=== PATIENT | female | born 1955 | race Caucasian/White ===

== ENCOUNTER 2021-12-14 19:00 | Emergency (ER) | payer MEDICARE, OTHER, SELFPAY ==
[2021-12-14 19:08] VITALS: BP 138/69; PULSE 92; RESP 18; TEMP 36.4; O2SAT 94; BMI 47.8
--- NOTE | 2021-12-14 20:11 | CRLHL7_ITS ---
For Patients: As a result of the Century Cures Act, medical imaging exams and procedure reports are released immediately into your electronic medical record. You may view this report before your referring provider. If you have questions, please contact your health care provider. INDICATION: Fall with low back pain TECHNIQUE: Lumbar spine 3 view. COMPARISON: None FINDINGS: Bones: There is also widening of the L3-L4 anterior disc space with a linear lucency through the posterior elements, best seen on image 1 series 3. Joints: Moderate to severe multilevel degenerative disc and facet changes. Soft tissues: Aortic wall calcifications. Surgical clips in the right abdomen. IMPRESSION: Findings concerning for acute L3-L4 chance fracture. Recommend CT of the lumbar spine for further evaluation. Dictated by Sonal Lieberman MD @ 12/14/2021 8:37:29 PM (Electronically Signed)
[2021-12-14] MEDS: CYCLOBENZAPRINE HCL 10 MG TABLET PO (20:30)
[2021-12-14] MEDS: KETOROLAC 30 MG/ML inj IM (20:30)
--- NOTE | 2021-12-14 20:44 | CRLHL7_ITS ---
For Patients: As a result of the Century Cures Act, medical imaging exams and procedure reports are released immediately into your electronic medical record. You may view this report before your referring provider. If you have questions, please contact your health care provider. INDICATION: Falls from golf cart. Back pain. TECHNIQUE: Noncontrast CT lumbar spine. FINDINGS: No acute lumbar spine fracture. No dislocation. Fairly advanced spondylosis at all lumbar levels including disc space narrowing and endplate hypertrophy. Multilevel vacuum disc phenomenon. Advanced facet arthrosis with marked facet hypertrophy in the mid and lower lumbar spine. Grade 1 retrolisthesis at L1-2 and L2-3. Grade 1 anterolisthesis L4-5. Multilevel canal and foraminal narrowing. Partially visualized soft tissue mass in the right anterior pelvis seen on the last images of the axial series. This contains calcification. It appears separate from bowel. Probably either the uterine fundus or an ovarian mass. IMPRESSION: 1. No acute lumbar spine findings. 2. Advanced lumbar degenerative changes. 3. Possible right pelvic mass. Consider nonemergent pelvic ultrasound for further characterization. Please note that all CT scans at this facility use dose modulation, iterative reconstruction, and/or weight-based dosing when appropriate to reduce radiation dose to as low as reasonably achievable. Dictated by Miguel Hi MD @ 12/14/2021 9:51:31 PM (Electronically Signed)
[2021-12-14] MEDS: LORazepam 2 MG/ML inj IVP (20:54)
--- NOTE | 2021-12-14 21:17 | ED_ITS ---
HPI - Back Pain/Injury General Chief Complaint: Back Injury/Pain Stated Complaint: Fall from golf cart Time Seen by Provider: 12/14/21 19:56 History of Present Illness HPI Narrative: Shira is a 66yo female with known h/o diabetes and hypertension that fell while attempting to slide out of a golf cart (because she is short and unable to reach the ground by stepping) less than 1 hour prior to arrival. She reports that as she attempted to slide out of the seat, the handle she was holding to gave way, causing her to fall to the ground. She fell on her left side and was unable to get up secondary to pain in her lower back. EMS was called to the scene and assisted the patient to the stretcher. She denied striking her head. She denies loss of consciousness. She denies blood thinner. She denies EtOH or substance use. She denies loss of control of bowel or bladder. She states she has muscle aches and pain. Related Data Home Medications Medication Instructions Recorded Confirmed dulaglutide 1.5 mg/0.5 mL 1.5 mg subcut .weekly 12/14/21 12/14/21 subcutaneous pen injector (Trulicity) duloxetine 20 mg capsule,delayed 20 mg PO BID 12/14/21 12/14/21 release empagliflozin 25 mg tablet 25 mg PO DAILY 12/14/21 12/14/21 (Jardiance) glipizide 10 mg tablet, extended 10 mg PO BID 12/14/21 12/14/21 release 24 hr magnesium oxide 400 mg PO DAILY 12/14/21 12/14/21 metoprolol succinate 100 mg 100 mg PO DAILY 12/14/21 12/14/21 tablet,extended release 24 hr pantoprazole 40 mg tablet,delayed 40 mg PO DAILY 12/14/21 12/14/21 release potassium chloride 10 mEq 10 meq PO DAILY 12/14/21 12/14/21 tablet,extended release rosuvastatin 40 mg tablet 40 mg PO DAILY 12/14/21 12/14/21 torsemide 20 mg tablet 20 mg PO DAILY 12/14/21 12/14/21 Previous Rx's Medication Instructions Recorded calcitonin (salmon) 200 1 spray intranasal (ALT) DAILY 12/14/21 unit/actuation nasal spray #3.7 mL carisoprodol 350 mg tablet (Soma) 350 mg PO TID PRN muscle pain #12 12/14/21 tabs hydrocodone 7.5 mg-acetaminophen 1 tab PO Q8H #15 tabs 12/14/21 325 mg tablet Allergies Allergy/AdvReac Type Severity Reaction Status Date / Time raspberry Allergy Intermediate Hives Verified 12/14/21 19:26 Review of Systems Const: Denies: fever, chills, fatigue or malaise ENMT: Denies: throat pain, ear pain, vertigo, nasal discharge or nasal congestion Cardio: Denies: chest pain, palpitations, swelling of feet/ankles or shortness of breath with exertion Resp: Denies: shortness of breath or cough GI: Denies: abdominal pain, nausea, vomiting, diarrhea or constipation : Denies: painful urination, urinary frequency, urinary urgency or urinary incontinence Musculo: Reports: back pain (point tenderness with palpation) Neuro: Denies: headache, weakness in extremities, dizziness, vertigo or difficulty communicating thoughts Endo: Denies: fatigue PFSH PFSH Medical History Acute diverticulitis Duodenal diverticulum DVT (deep venous thrombosis) Esophageal reflux Lumbar radiculopathy MONTY (obstructive sleep apnea) Partial small bowel obstruction Pulmonary embolism, bilateral Type 2 diabetes mellitus Unspecified essential hypertension Vitamin D deficiency Surgical History History of cholecystectomy History of lumbar laminectomy for spinal cord decompression Hx of appendectomy Social History Smoking Status: Unknown if ever smoked Do you use any of these nicotine containing products: None Non-prescribed substance use: denies use service: No Exam Const: Vital Signs, click to edit/add: Vital Signs - 24 hr 12/14/21 19:08 Temperature 97.6 F Pulse Rate [Left P ulse Oximeter] 92 Respiratory Rate 18 Blood Pressure [Le ft Upper Arm] 138/69 Pulse Oximetry 94 Oxygen Delivery Me thod Room Air Documenting provider has reviewed patient's vital signs: yes Common normals: no apparent distress, oriented x3, no limitations, healthy appearing, alert and well nourished General appearance: cooperative, comfortable, well developed and in distress moderate Orientation/consciousness: Yes awake, Yes oriented to person and Yes oriented to place Other: patient is feisty and initially refuses work-up, but is able to be encouraged to consider evaluation HENMT: Common normals: normocephalic, head/scalp atraumatic and hearing grossly normal bilaterally Head and scalp: normocephalic and atraumatic Face and sinus: normal facial exam (within limits of masking) Eye: Common normals: PERRL and EOMs intact bilaterally General eye: normal appearance of both eyes Pupil: PERRL Neck & C-Spine: Common normals: full ROM, no lymphadenopathy and supple Cervical spine: cervical ROM normal Resp: Common normals: normal respiratory effort, no retractions, no use of accessory muscles and clear to auscultation bilaterally Effort & inspection: able to speak in complete sentences Auscultation: clear to auscultation frieda aterally Cardio: Common normals: regular rate, regular rhythm, S1 normal heart sound and S2 normal heart sound Rate: regular rate Rhythm: regular rhythm Heart sounds: S1 normal and S2 normal GI: Common normals: Normal to inspection, nondistended, normoactive bowel sounds present, soft to palpation and non-tender Palpation: soft Back & Pelvis: Common normals: thoracic and lumbar spine normal to inspection Thoracic spine/upper back: normal to inspection Lumbar spine/lower back: pain with ROM and lumbar spinal tenderness Lumbar spinal tenderness location: L3 and L4 Extremity: Common normals: normal to inspection, full ROM and no clubbing, cyanosis or edema Neuro: Gertrude Coma Scale: document GCS findings Gertrude coma scale eye opening: Spontaneous (4) Gertrude coma scale verbal response: Orientated (5) Bellflower coma scale motor response: Obey commands (6) Bellflower coma scale total score: 15 Common normals: oriented x3, moves all extremities, no focal motor deficits and no sensory deficits noted Sensorium/orientation: awake, alert, oriented to person and oriented to place Coordination/balance: [id number] test normal Gait (neuro): normal gait (slow, 2/2 pain with ambulation) Sensory exam: double simultaneous stimulation for sensation normal Motor exam: strength 5/5 throughout, no pronator drift and no movement abnormalities noted Coordination: [id number] test normal Psych: Common normals: mental status grossly normal, thought process normal, speech normal and activity/motor behavior normal Appearance: grossly normal Activity/motor behavior: appropriate eye contact Speech: normal speech Thought process: normal thought process Thought content: normal thought content Attention/concentration: attention grossly intact Memor y/cognition: memory grossly intact Insight: insight good Judgement: judgment good Skin: Common normals: no rashes or lesions noted General skin exam: no rashes or lesions noted Course Course Hospital Course: Shira is a charming and feisty patient that presents after a fall that caused pain and difficulty with ambulation. She initially declined imaging and work-up, but she was encouraged to consider at minimum lumbar films 2/2 pain. The patient was found to have a possible L3-4 fracture. She was able to ambulate with some assistance. Her pain was able to be somewhat controlled. She was agreeable to further work-up of potential fracture. She was not considered a trauma despite her age and fall, as she does not take blood thinner, did not strike her head, and had no loss of consciousness. Plan for outpatient management and conservative follow-up is discussed and the patient verbalizes understanding. Vital Signs Vital signs: Initial Vital Signs Temperature 97.6 F 12/14/21 19:08 Temperature Source Temporal Artery Scan 12/14/21 19:08 Pulse Rate 92 12/14/21 19:08 Respiratory Rate 18 12/14/21 19:08 Blood Pressure 138/69 12/14/21 19:08 Blood Pressure Mean 92 12/14/21 19:08 Blood Pressure Position Supine 12/14/21 19:08 Pulse Oximetry 94 12/14/21 19:08 Oxygen Delivery Method 12/14/21 19:08 Vital Signs Temperature 97.6 F 12/14/21 19:08 Pulse Rate 92 12/14/21 19:08 Respiratory Rate 18 12/14/21 19:08 Blood Pressure 138/69 12/14/21 19:08 Pulse Oximetry 94 12/14/21 19:08 Oxygen Delivery Method 12/14/21 19:08 Temperature 97.6 F 12/14/21 19:08 Pulse Rate 92 12/14/21 19:08 Respiratory Rate 18 12/14/21 19:08 Blood Pressure 138/69 12/14/21 19:08 Pulse Oximetry 94 12/14/21 19:08 Oxygen Delivery Method 12/14/21 19:08 MDM - Back Pain/Injury MDM Narrative Medical decision making narrative: Life-threatening differential diagnoses considered include: cauda equina and epidural abscess, mass, or lesion. Other differential diagnoses considered include: sprain or strain, contusion, nerve root entrapment, radiculopathy, m uscle spasm, urolithiasis, lumbar fracture, pyelonephritis, ovaries injury, as well as other etiologies. The patient denied saddle anesthesia, bowel or bladder incontinence, or lower extremity weakness. Imaging Data XR lumbar: Attestation: I have reviewed the pertinent imaging results. Radiologist's impression: IMPRESSION: Findings concerning for acute L3-L4 chance fracture. Recommend CT of the lumbar spine for further evaluation. CT lumbar: Attestation: I have reviewed the pertinent imaging results. Discharge Plan Discharge Clinical Impression: Fall Qualifiers: Encounter type: initial encounter Qualified Code(s): W19.XXXA - Unspecified fall, initial encounter Patient Disposition: Home, Self-Care Condition: Stable Instructions: Thoracolumbar Fracture (ED) Additional Instructions: Thank you for choosing [facility] for your care today. Take NSAID of choice - Advil, Aleve, Motrin, or substitute - scheduled per package directions with food for 72hrs. Take pain medication as prescribed. Patient also given prescription for muscle relaxant to assist with control of symptoms. The patient is advised to use heat/ice as needed for symptom control. I recommend following up with your primary physician in 1-2wks if a significant improvement of symptoms is not noted. Continue routine activity as tolerated. You may consider topical medications including capsaicin or lidocaine patches to assist with symptom control. If new or worsening symptoms develop or you have any concerns in the meantime, please call your primary care clinic or return to the ER for re-evaluation. Activity Level: Activity as Tolerated, No strenuous activity, Weight Bearing as Tolerated and Use Walker Discharge Diet: Regular and Heart Healthy (2 gm sodium, low fat) Prescriptions: New hydrocodone-acetaminophen 7.5-325 mg tablet 1 tab PO Q8H Qty: 15 0RF carisoprodol [Soma] 350 mg tablet 350 mg PO TID PRN (Reason: muscle pain) Qty: 12 0RF calcitonin (salmon) 200 unit/actuation spray,non-aerosol 1 spray intranasal (ALT) DAILY Qty: 3.7 2RF No Action Trulicity 1.5 mg/0.5 mL pen injector 1.5 mg SUBCUT .weekly duloxetine 20 mg capsule,delayed release(/EC) 20 mg PO BID Jardiance 25 mg tablet 25 mg PO DAILY glipizide 10 mg tablet extended release 24hr 10 mg PO BID metoprolol succinate 100 mg tablet extended release 24 hr 100 mg PO DAILY pantoprazole 40 mg tablet,delayed release (DR/EC) 40 mg PO DAILY potassium chloride 10 mEq tablet extended release 10 meq PO DAILY rosuvastatin 40 mg tablet 40 mg PO DAILY torsemide 20 mg tablet 20 mg PO DAILY magnesium oxide 400 mg magnesium capsule 400 mg PO DAILY Follow Up/Referrals: Sariah Bullard MD [Primary Care Provider] - 12/17/21 (Abnormality noted in pelvis. Please follow-up with ultrasound for further evaluation and treatment.) Stand Alone Forms: [facility] Info Instructions
[2021-12-14 22:35] VITALS: BP 136/72; PULSE 88; RESP 16; O2SAT 96
--- NOTE | 2021-12-14 23:33 | ED.NURSE ---
arrived to drive pt home
--- NOTE | 2021-12-15 11:29 | ED.NURSE ---
addressing phone call from Family [facility] regarding perscriptions
== END 2021-12-14 23:34 | disposition home or self-care (01) ==
PROVIDERS: Emergency Provider Family Medicine; PCP Family Medicine
DX: M54.50 Low back pain, unspecified (principal); V86.49XA Person injured while boarding or alighting from other special all-terrain or other off-road motor vehicle, initial encounter
CPT/HCPCS: 72100; 72131; 96374; 99284; A9270; J1885; J2060

== ENCOUNTER 2022-05-03 13:16 | Outpatient (CLI) | payer MEDICARE, OTHER, SELFPAY ==
[2022-05-03 21:51] LABS: Chloride* 101 mmol/L (96-114); Potassium* 4.5 mmol/L (3.6-5.1); Sodium* 138 mmol/L (135-149)
[2022-05-03 21:54] LABS: Blood Urea Nitrogen* 14 mg/dL (7-30); Calcium* 9.2 mg/dL (8.4-10.6); Carbon Dioxide* 31 mmol/L (20-32); Creatinine* 0.8 mg/dL (0.5-1.5); Estimated Glomerular Filt Rate 80 ml/min; Glucose* 247 mg/dL (60-115)
== END 2022-05-03 13:17 | disposition home or self-care (01) ==
LOC: NFLDUCREF 13:17
PROVIDERS: PCP Family Medicine; Visit Provider Student in an Organized Health Care Education/Training Program
DX: M54.50 Low back pain, unspecified (principal); R30.0 Dysuria; R53.83 Other fatigue
CPT/HCPCS: 80048; 87086

== ENCOUNTER 2022-07-03 13:06 | Emergency (ER) | payer MEDICARE, OTHER, SELFPAY ==
[2022-07-03 13:13] VITALS: PULSE 77; RESP 16; TEMP 35.9; O2SAT 89; BMI 44.9
[2022-07-03] MEDS: MORPHINE 10 MG/ML inj IM (14:19)
--- NOTE | 2022-07-03 14:38 | ED_ITS ---
HPI - General Adult General Date Seen: 07/03/22 Chief complaint: Back Injury/Pain Stated complaint: Back Pain Time Seen by Provider: 07/03/22 13:10 Source: patient Mode of arrival: wheelchair Limitations: no limitations History of Present Illness HPI narrative: Patient is a 66-year-old woman who arrives at the [facility] for back pain. She has a history of longstanding back pain and some radiculopathy into the right leg. She says that she typically just takes Tylenol but it flared on Friday, 4 days ago. No specific trauma. She says that she was having some difficulty moving her right leg out to the side. This is somewhat improved. She has chronic paresthesias down the right leg and into the bottom of her foot. These are not changed. She has been seen previously, she has a bottle of hydrocodone as well as tramadol, as well as a muscle relaxer and prednisone which was prescribed by her pain doctor. She has had a couple of injections last fall and she says her pain doctor who is out of town for the next couple of months has told her that he might do some kind of block and also is considering a surgical procedure. She is not exactly sure what the plan is. She says that all of her imaging is with [facility] where her pain doctor is. She is not sure what all she has. In any case, she says that all the medications she has make her somewhat sleepy but nothing seems to be really controlling the pain and so clinic recommended that she come to the ER. She says that they told her we could fix things. She has chronic problems with urge incontinence, this is not new. No other bowel or bladder changes. No fevers or other systemic complaints. Related Data Home Medications Medication Instructions Recorded Confirmed dulaglutide 1.5 mg/0.5 mL 1.5 mg subcut .weekly 12/14/21 05/03/22 subcutaneous pen injector (Trulicity) duloxetine 20 mg capsule,delayed 20 mg PO BID 12/14/21 05/03/22 release empagliflozin 25 mg tablet 25 mg PO DAILY 12/14/21 05/03/22 (Jardiance) glipizide 10 mg tablet, extended 10 mg PO BID 12/14/21 05/03/22 release 24 hr magnesium oxide 400 mg PO DAILY 12/14/21 05/03/22 metoprolol succinate 100 mg 100 mg PO DAILY 12/14/21 05/03/22 tablet,extended release 24 hr pantoprazole 40 mg tablet,delayed 40 mg PO DAILY 12/14/21 05/03/22 release potassium chloride 10 mEq 10 meq PO DAILY 12/14/21 05/03/22 tablet,extended release rosuvastatin 40 mg tablet 40 mg PO DAILY 12/14/21 05/03/22 torsemide 20 mg tablet 20 mg PO DAILY 12/14/21 05/03/22 carisoprodol 350 mg tablet (Soma) 350 mg PO TID PRN muscle pain 02/22/22 05/03/22 prednisone 10 mg tablet mg PO 07/03/22 tramadol 50 mg tablet 50 - 100 mg PO Q4-6H PRN pain 07/03/22 07/03/22 Previous Rx's Medication Instructions Recorded hydrocodone 7.5 mg-acetaminophen 1 tab PO Q8H #15 tabs 12/14/21 325 mg tablet benzonatate 100 mg capsule 100 mg PO BID-TID PRN cough #14 02/22/22 caps fluconazole 150 mg tablet 150 mg PO Q3D 2 doses #2 tabs 05/03/22 Allergies Allergy/AdvReac Type Severity Reaction Status Date / Time raspberry Allergy Intermediate Hives Verified 05/03/22 12:43 Review of Systems Status of ROS: Reports: 6 or more systems reviewed and unremarkable except as noted in History and below [facility] Medical History Acute diverticulitis Duodenal diverticulum DVT (deep venous thrombosis) Esophageal reflux Lumbar radiculopathy MONTY (obstructive sleep apnea) Partial small bowel obstruction Pulmonary embolism, bilateral Type 2 diabetes mellitus Unspecified essential hypertension Vitamin D deficiency Surgical History History of cholecystectomy History of lumbar laminectomy for spinal cord decompression Hx of appendectomy Social History Smoking Status: Never smoker Do you use any of these nicotine containing products: None How often do you have a drink containing alcohol: never AUDIT-C Alcohol total score: 0 Non-prescribed substance use: denies use service: Yes Exam Narrative: Exam Narrative: Vital signs as noted above. In general, an alert, well-appearing woman, sitting in a wheelchair. Head: Normocephalic, atraumatic. Eyes: Pupils are equal reactive. Extraocular movements are full. Conjunctivae are normal. ENT: Mucous membranes are moist. Neck: Supple without lymphadenopathy. Heart: Regular rate and rhythm. No murmur or rub. Lungs: Clear bilaterally. No increased work of breathing, crackles or wheezes. Abdomen: Soft and nontender. No organomegaly. Back: She has some tenderness throughout the lumbar spine in into the right hip area. Extremities: Extremities are well perfused. No significant edema. Neurologic: Patient is alert and oriented to person and place. Speech is fluent. Face is symmetric. She has 5 of 5 strength in the right lower extremity. She has paresthesias in the right lateral leg and on the bottom of her foot these are chronic. Affect: Normal. Skin: Warm and dry. Well perfused. Const: Vital Signs, click to edit/add: Vital Signs - 24 hr 07/03/22 13:13 Temperature 96.6 F L Pulse Rate [Right Pulse Oximeter] 77 Respiratory Rate 16 Pulse Oximetry 89 Oxygen Delivery Me thod Room Air Documenting provider has reviewed patient's vital signs: yes Course Course Hospital Course: I talked with her for a bit about her back problems, and discussed with her that I do not have really a fix for this. I can give her a shot of something that will help temporarily, but ultimately I do not have a way to resolve this completely. We went through her bag of medications, she has a small number of hydrocodone and tramadol left, both of which she says really are not helping her. She is not taking a lot else for pain right now, and I think I would prefer to change her pain management regimen. Therefore I recommended that she be taking a combination of ibuprofen and Tylenol 3 times daily and then I said that I would prescribe some oxycodone for her. In exchange, I did take the remaining tramadol and hydrocodone, as I do not want her to be combining all of these narcotic medications accidentally. I do want her to continue the prednisone that was previously prescribed, she just started that, and discussed with her that that may start to help over the next day or 2. I am giving her a shot of morphine 10 mg IM here, she preferred an IM medication to anything IV. Otherwise, she will have to follow up with her pain doctor or someone else that [facility] if her pain doctor is not available, to see if there are other options available if this flare is not settling down over the next few days. She does not have any acute neurologic deficits of concern suggesting the need for imaging today Vital Signs Vital signs: Initial Vital Signs Temperature 96.6 F L 07/03/22 13:13 Temperature Source Temporal Artery Scan 07/03/22 13:13 Pulse Rate 77 07/03/22 13:13 Pulse Rhythm 07/03/22 13:13 Respiratory Rate 16 07/03/22 13:13 Pulse Oximetry 89 07/03/22 13:13 Oxygen Delivery Method 07/03/22 13:13 Vital Signs Temperature 96.6 F L 07/03/22 13:13 Pulse Rate 77 07/03/22 13:13 Respiratory Rate 16 07/03/22 13:13 Pulse Oximetry 89 07/03/22 13:13 Oxygen Delivery Method 07/03/22 13:13 Temperature 96.6 F L 07/03/22 13:13 Pulse Rate 77 07/03/22 13:13 Respiratory Rate 16 07/03/22 13:13 Pulse Oximetry 89 07/03/22 13:13 Oxygen Delivery Method 07/03/22 13:13 Discharge Plan Discharge Clinical Impression: Lumbar radiculopathy Patient Disposition: Home, Self-Care Condition: Improved Instructions: Lumbar Radiculopathy (ED) Additional Instructions: Recommendations for pain management: Take ibuprofen 400 mg plus Tylenol 1000 mg 3 times daily with food. As needed for more severe uncontrolled pain, oxycodone 1 tablet every 6 hours. 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 Return for worsening or uncontrolled symptoms. Activity Level: Activity as Tolerated Discharge Diet: Regular Prescriptions: No Action carisoprodol [Soma] 350 mg tablet 350 mg PO TID PRN (Reason: muscle pain) benzonatate 100 mg capsule 100 mg PO BID-TID PRN (Reason: cough) Qty: 14 0RF fluconazole 150 mg tablet 150 mg PO Q3D Qty: 2 0RF Rx Instructions: may repeat second dose 72 hrs after first dose if symptoms persist Trulicity 1.5 mg/0.5 mL pen injector 1.5 mg SUBCUT .weekly duloxetine 20 mg capsule,delayed release(DR/EC) 20 mg PO BID Jardiance 25 mg tablet 25 mg PO DAILY glipizide 10 mg tablet extended release 24hr 10 mg PO BID metoprolol succinate 100 mg tablet extended release 24 hr 100 mg PO DAILY pantoprazole 40 mg tablet,delayed release (DR/EC) 40 mg PO DAILY potassium chloride 10 mEq tablet extended release 10 meq PO DAILY rosuvastatin 40 mg tablet 40 mg PO DAILY torsemide 20 mg tablet 20 mg PO DAILY magnesium oxide 400 mg magnesium capsule 400 mg PO DAILY hydrocodone-acetaminophen 7.5-325 mg tablet 1 tab PO Q8H Qty: 15 0RF prednisone 10 mg tablet PO tramadol 50 mg tablet 50 - 100 mg PO Q4-6H PRN (Reason: pain) Follow Up/Referrals: Sariah Bullard MD [Primary Care Provider] - Stand Alone Forms: [facility] Info Instructions
== END 2022-07-03 14:31 | disposition home or self-care (01) ==
PROVIDERS: Emergency Provider Emergency Medicine; PCP Family Medicine
DX: M54.16 Radiculopathy, lumbar region (principal)
CPT/HCPCS: 96372; 99283; 99284; J2270

== ENCOUNTER 2023-01-21 16:47 | Emergency (ER) | payer MEDICARE, OTHER, SELFPAY ==
[2023-01-21 16:57] VITALS: BP 136/77; PULSE 89; RESP 18; TEMP 36.3; O2SAT 96; BMI 47.5
--- NOTE | 2023-01-21 17:59 | ED.CHESTPAIN ---
HPI - Chest Pain General Chief Complaint: Chest Pain Stated Complaint: Chest pain Time Seen by Provider: 01/21/23 17:29 History of Present Illness HPI narrative: This 67-year-old female comes in reporting brief episodes of left-sided chest discomfort over the past couple days. These seem to happen randomly and are not related to exertion or are reproducible. She states that the pain or discomfort in her left chest lasts very briefly for just a few seconds. She does not report any exercise intolerance. She wonders if metformin may be causing this as she had her dosing increased from 500 mg at the same time that these symptoms started. She does report some diarrhea and nausea with 1 episode of vomiting. These episodes are independent of the chest discomfort. Related Data Home Medications Medication Instructions Recorded Confirmed dulaglutide 1.5 mg/0.5 mL 1.5 mg subcut .weekly 12/14/21 05/03/22 subcutaneous pen injector (Trulicity) duloxetine 20 mg capsule,delayed 20 mg PO BID 12/14/21 05/03/22 release empagliflozin 25 mg tablet 25 mg PO DAILY 12/14/21 05/03/22 (Jardiance) glipizide 10 mg tablet, extended 10 mg PO BID 12/14/21 05/03/22 release 24 hr magnesium oxide 400 mg PO DAILY 12/14/21 05/03/22 metoprolol succinate 100 mg 100 mg PO DAILY 12/14/21 05/03/22 tablet,extended release 24 hr pantoprazole 40 mg tablet,delayed 40 mg PO DAILY 12/14/21 05/03/22 release potassium chloride 10 mEq 10 meq PO DAILY 12/14/21 05/03/22 tablet,extended release rosuvastatin 40 mg tablet 40 mg PO DAILY 12/14/21 05/03/22 torsemide 20 mg tablet 20 mg PO DAILY 12/14/21 05/03/22 carisoprodol 350 mg tablet (Soma) 350 mg PO TID PRN muscle pain 02/22/22 05/03/22 prednisone 10 mg tablet mg PO 07/03/22 tramadol 50 mg tablet 50 - 100 mg PO Q4-6H PRN pain 07/03/22 07/03/22 Previous Rx's Medication Instructions Recorded hydrocodone 7.5 mg-acetaminophen 1 tab PO Q8H #15 tabs 12/14/21 325 mg tablet benzonatate 100 mg capsule 100 mg PO BID-TID PRN cough #14 02/22/22 caps fluconazole 150 mg tablet 150 mg PO Q3D 2 doses #2 tabs 05/03/22 Allergies Allergy/AdvReac Type Severity Reaction Status Date / Time raspberry Allergy Intermediate Hives Verified 05/03/22 12:43 Review of Systems Status of ROS Reports: 10 or more systems reviewed and unremarkable except as noted in History and below Narrative Constitutional: No fevers, no weight gain or loss. Eyes: No discharge. No vision changes. HENT: No congestion, no sore throat, no ear pain. Cardiovascular: No palpitations. Respiratory: No shortness of breath, no wheezes, no cough. Gastrointestinal: No abdominal pain. Nausea and diarrhea with 1 episode of vomiting. Genitourinary: No dysuria, no hematuria. Musculoskeletal: Normal range of motion. Skin: No rashes, no pruritis. Neurological: No dizziness, weakness, sensory change, speech change. Endo/Heme/Allergies: No bruising or bleeding. No polydipsia. Pysch: no suicidality, no anxiety, no insomnia. All other systems reviewed and are negative. [facility] Medical History Acute diverticulitis Duodenal diverticulum DVT (deep venous thrombosis) Esophageal reflux Lumbar radiculopathy MONTY (obstructive sleep apnea) Partial small bowel obstruction Pulmonary embolism, bilateral Type 2 diabetes mellitus Unspecified essential hypertension Vitamin D deficiency Surgical History History of cholecystectomy History of lumbar laminectomy for spinal cord decompression Hx of appendectomy Social History Smoking Status: Never smoker Do you use any of these nicotine containing products: None How often do you have a drink containing alcohol: never AUDIT-C Alcohol total score: 0 Non-prescribed substance use: denies use service: Yes Exam Narrative Exam Narrative: Constitutional: Well-developed, well-nourished, no acute distress. HEENT: Normocephalic, atraumatic. Neck: Normal range of motion. Nontender. Supple. Heart: Regular. No murmurs. Normal rate. Intact distal pulses. Lungs: Clear to auscultation. No chest discomfort. No wheezes, rhonchi, or rales. Abdomen: Normal bowel sounds. Nontender. No rebound tenderness. Genitalia: Deferred. Back: No midline tenderness. Normal range of motion. Extremities: Normal range of motion. No injury. Skin: Intact. No rash. Warm. No erythema or pallor. Neurologic: No altered sensation. No weakness. Alert and oriented. Psychiatric: No suicidality. No anxiety or depression. No insomnia. Nursing notes and vitals signs are reviewed. Const Vital Signs, click to edit/add: Vital Signs - 24 hr 01/21/23 16:57 01/21/23 18:08 Temperature 97.4 F L Pulse Rate 90 Pulse Rate [Pulse Oximeter] 89 Respiratory Rate 18 Blood Pressure [Right Forearm] 136/77 Pulse Oximetry 96 92 Oxygen Delivery Method Room Air Course Vital Signs Vital signs: Initial Vital Signs Temperature 97.4 F L 01/21/23 16:57 Temperature Source Temporal Artery Scan 01/21/23 16:57 Pulse Rate 89 01/21/23 16:57 Pulse Rhythm Regular 01/21/23 16:57 Respiratory Rate 18 01/21/23 16:57 Blood Pressure 136/77 01/21/23 16:57 Blood Pressure Mean 96 01/21/23 16:57 Blood Pressure Position Sitting 01/21/23 16:57 Pulse Oximetry 96 01/21/23 16:57 Oxygen Delivery Method Room Air 01/21/23 16:57 Vital Signs Temperature 97.4 F L 01/21/23 16:57 Pulse Rate 89 01/21/23 16:57 Respiratory Rate 18 01/21/23 16:57 Blood Pressure 136/77 01/21/23 16:57 Pulse Oximetry 96 01/21/23 16:57 Oxygen Delivery Method Room Air 01/21/23 16:57 Temperature 97.4 F L 01/21/23 16:57 Pulse Rate 90 01/21/23 18:08 Respiratory Rate 18 01/21/23 16:57 Blood Pressure 136/77 01/21/23 16:57 Pulse Oximetry 92 01/21/23 18:08 Oxygen Delivery Method Room Air 01/21/23 16:57 MDM - Chest Pain MDM Narrative Medical decision making narrative: This patient comes in reporting brief episodes of chest discomfort but also has had episodes of nausea and 1 vomiting along with episodes of diarrhea. She wonders if it might be the increased dose of metformin that is causing all these symptoms. I stated that the vomiting and diarrhea can be due to the metformin but unsure about her brief episodes of chest pain. This chest discomfort is lasting just a few seconds and is not typical of 1 coming from her heart. EKG is reassuring as is her troponin level. Lab results also in general or in normal ranges. This was reassuring to the patient. I advised her to follow-up with her primary physician regarding metformin. Lab Data Labs: Lab Results 01/21/23 Range/Units 18:08 WBC 8.30 (4.50-11.00) K/uL RBC 5.50 H (4.00-5.20) m/uL Hgb 15.2 (12.0-16.0) gm/dL Hct 46.7 (33.0-51.0) % MCV 85 (80-100) fL MCH 28 (26-34) pg MCHC 33 (32-36) gm/dL RDW Coeff of Rosa 14.1 (11.5-15.5) % Plt Count 305 (140-440) K/uL Neut % (Auto) 56.3 (42.0-72.0) % Lymph % (Auto) 32.9 (20-44) % [place] % (Auto) 8.8 (0.0-11.0) % Eos % (Auto) 1.4 (0.0-7.0) % Baso % (Auto) 0.5 (0.0-3.0) % Neut # (Auto) 4.67 (1.7-7.0) K/uL Lymph # (Auto) 2.73 (0.90-2.90) K/uL [place] # (Auto) 0.70 (0.00-0.90) K/UL Eos # (Auto) 0.12 (0.00-0.50) K/uL Baso # (Auto) 0.04 (0.00-0.30) K/uL Abs Immat Gran (auto) 0.01 (0.00-0.30) K/uL Imm/Tot Granulo (auto) 0.1 % Sodium 138 (135-149) mmol/L Potassium 3.8 (3.6-5.1) mmol/L Chloride 97 (96-114) mmol/L Carbon Dioxide 28 (20-32) mmol/L Anion Gap 13 (7-15) mEq/L BUN 19 (7-30) mg/dL Creatinine 0.8 (0.5-1.5) mg/dL Estimated Creat Clear 38.14 Estimated GFR 80 ml/min Glucose 143 H (60-115) mg/dL Calcium 9.1 (8.4-10.6) mg/dL POC Troponin I 0.00 L (0.01-0.04) ng/ml ECG Data Attestation: I personally reviewed and interpreted this ECG as follows: Interpretation: Normal sinus rhythm. Rate is 84 beats per minute. There are no ST or T-wave abnormalities. Discharge Plan Discharge Clinical Impression: Atypical chest pain Patient Disposition: Home, Self-Care Condition: Stable Additional Instructions: Continue current plans. Follow up with MD to review metformin dosing. Return if symptoms are recurrent or worsening. Prescriptions: No Action carisoprodol [Soma] 350 mg tablet 350 mg PO TID PRN (Reason: muscle pain) benzonatate 100 mg capsule 100 mg PO BID-TID PRN (Reason: cough) Qty: 14 0RF fluconazole 150 mg tablet 150 mg PO Q3D Qty: 2 0RF Rx Instructions: may repeat second dose 72 hrs after first dose if symptoms persist Trulicity 1.5 mg/0.5 mL pen injector 1.5 mg SUBCUT .weekly duloxetine 20 mg capsule,delayed release(DR/EC) 20 mg PO BID Jardiance 25 mg tablet 25 mg PO DAILY glipizide 10 mg tablet extended release 24hr 10 mg PO BID metoprolol succinate 100 mg tablet extended release 24 hr 100 mg PO DAILY pantoprazole 40 mg tablet,delayed release (DR/EC) 40 mg PO DAILY potassium chloride 10 mEq tablet extended release 10 meq PO DAILY rosuvastatin 40 mg tablet 40 mg PO DAILY torsemide 20 mg tablet 20 mg PO DAILY magnesium oxide 400 mg magnesium capsule 400 mg PO DAILY hydrocodone-acetaminophen 7.5-325 mg tablet 1 tab PO Q8H Qty: 15 0RF prednisone 10 mg tablet PO tramadol 50 mg tablet 50 - 100 mg PO Q4-6H PRN (Reason: pain) Follow Up/Referrals: Sariah Bullard MD [Primary Care Provider] - Stand Alone Forms: [facility] Info Instructions
--- OUTSIDE RECORDS SUMMARY | 2023-01-21 18:07 | XMS_ITS | Continuity of Care Document ---
Author Name Unknown Organization [facility] Address [address] [place] [address] Phone Care Team Providers Care Booth Cleaner Name Role Phone Jered Gallego MD Unavailable Unavailable Allergies, Adverse Reactions, Alerts Substance Reaction Status Criticality rivaroxaban dizziness Active No Information raspberry hives Active No Information droperidol agitation Active No Information titanium unknown Active No Information Medications Medication Instructions Dosage Effective Dates (start - stop) Status Comments ACETAMINOPHEN (unknown strength) Not Available - Active OMEPRAZOLE (unknown strength) Not Available - Active RIOMET (unknown strength) Not Available - Active TIZANIDINE HCL (unknown strength) Not Available - Active WARFARIN SODIUM (unknown strength) Not Available - Active OXYCODONE HCL (unknown strength) Not Available - Active RANITIDINE HCL (unknown strength) Not Available - Active DIAZEPAM (unknown strength) Not Available - Active CYMBALTA (unknown strength) Not Available - Active Procedures Procedure Date Office/Outpatient Visit,New, Mod 2017 Office/outpatient visit,est, low 2007 Office/outpatient visit,est, low 2007 Special serv NEC, procedor report Office/outpatient visit,est, low 2006 X-ray exam lower spine 2-3 views 2006 Postop followup visit X-ray exam lower spine 2-3 views 2006 Lumbar spine fusion, posterolateral Remove lumbar spine lamina, 1-2 007 Allograft, spine surg, morselized Remove spine fixation device, post PA Assist Lumbar spine fusion, posterola teral PA Assist Remove lumbar spine lamina, 1- 2 PA Assist Remove spine fixation device, post Office/outpatient visit,est, low 2006 Special serv NEC, procedor report Office/outpatient visit,est, low 2006 X-ray exam lower spine 2-3 views 2006 Special serv NEC, procedor report Office/outpatient visit,est, low 2005 X-ray exam lower spine 2-3 views 2005 Postop followup visit X-ray exam lower spine 2-3 views 2005 Special serv NEC, procedor report Lumbar spine fusion, posterolateral Low back disk surgery/decompress 2005 Added spine disk surgery/decompress Insert spine fixation, posterior 2005 Autograft, spine surgery, local 006 Office consultation, moderate 6 X-ray exam lwr spine, min 4 views Advance Directives Directive Yes / No Effective Date File Name No Information Encounters Encounter Description Practice Location Reason(s) For Visit Diagnoses Date Provider Providers Copied on Encounter [facility], [address], [place], [place], [id number], [place] tel:[phone] [facility] - [facility] No Information 8 Lashonda Lawton. [facility], [address], [address], [place], [place], [address] , [place]. [phone] Office/Outpa tient Visit,New, [facility], [address], [place], [place], [address], [place] tel:[phone] [facility] [place] Spinal stenosis, lumbar region with neurogenic claudicationOt her spondylosis, lumbosacral regionOther intervertebral disc displacement, lumbar region 8 Deborah Hickey. [facility], [address], [address], [place], [place], [address] , [place]. tel:[phone] Referring Provider: Ruperto Bird, [facility] [address], [address], [place], [address] . tel:[phone] Office/outpa tient visit,est, low Z [facility], [address], [place], [address], [place] tel: [phone] [email or web address] No Information 8200 8 Mehbod Amir. [facility], [address], [place], [place], [address] , [place]. tel: [phone] Office/outpa tient visit,est, low Z [facility], [address], [place], [address], [place] tel: ALENTY Piper No Information 8200 8 Mehbod Amir. [facility], [address], [place], [place], [address] , [place]. tel: [phone] Office/outpa tient visit,est, low Z [facility], [address], [place], [address], [place] tel: [phone] [facility] No Information 3200 7 Mehbod Amir. [facility], [address], [place], [place], [address] , [place]. tel: [phone] Z [facility], [address], [place], [address], [place] tel:[phone] [email or web address] No Information 8-200 7 Mehbod Amir. [facility], [address], [place], [place], [address] , [place]. tel: [phone] Z [facility], [address], [place], [address], [place] tel:[phone] [facility] No Information 4-200 7 Mehbod Amir. [facility], [address], [place], [place], [address] , [place]. tel: [phone] Office/outpa tient visit,est, low Z [facility], [address], [place], [address], [place] tel: [phone] [email or web address] No Information Apr-0 9-200 7 Mehbod Amir. [facility], [address], [place], [place], [address] , [place]. tel: [phone] Office/outpa tient visit,est, low Z [facility], [address], [place], [address], [place] tel: [email or web address] No Information Feb-2 6-200 7 Mehbod Amir. [facility], [address], [place], [place], [address] , [place]. tel: [phone] Office/outpa tient visit,est, low Z [facility], [address], [place], [address], [place] tel: [email or web address] No Information Nov-2 8-200 6 Mehbod Amir. [facility], [address], [place], [place], [address] , [place]. tel: [phone] Z [facility], [address], [place], [address], [place] tel: [email or web address] No Information Yony-1 0-200 6 Mehbod Amir. [facility], [address], [place], [place], [address] , [place]. tel: [phone] Z [facility], [address], [place], [address], [place] tel:[phone] [facility] No Information Alex-0 2-200 6 Mehbod Amir. [facility], [address], [place], [place], [address] , [place]. tel: [phone] Office consultation , moderate Z [facility], [address], [place], [address], [place] tel:[phone] [facility] [place] No Information Yordy Baker. [facility], [address], [place], [place], [address] , [place]. [phone] Family History Family Member Type Diagnosis Age At Onset No Information Payers Payer name Insurance type Covered green party ID Authorjohn jaime(s) [facility] [id number] Social History Type Description Quantity Date Captured Comments Sex Female Smoking Status No Information Chief Complaint And Reason For Visit No Information Reason For Referral Reason For Referral No Information History Of Present Illness Encounter Date Complaint History Of Prese nt Illness No Information Functional Status Date Functional Assessmen t No Information Instructions Date Instruction Additional Infor mation No Information Assessments Type Assessment Date No Information Patient Care Teams Name Effective Dates (start - stop) Status Members No Information
--- OUTSIDE RECORDS SUMMARY | 2023-01-21 18:07 | XMS_ITS | Continuity of Care Document ---
Author Name Unknown Organization [facility] Address [address] [place] [address] Phone Care Team Providers Care Director Payer Name Role Phone Jered Gallego MD Unavailable [...] Copied on Encounter [facility], [address], [place], [place], [address], [place] tel:[phone] [facility] No Information 8 Lashonda Lawton. [facility], [address], [address], [place], [place], [address] , [place]. [phone] Office/Outpa tient Visit,New, [facility], [address], [place], [place], [address], [place] tel:[phone] [facility] [facility] [place] Spinal stenosis, lumbar region with neurogenic claudicationOt her spondylosis, lumbosacral regionOther intervertebral disc displacement, lumbar region 8 Deborah Hickey. [facility], [address], [address], [place], [place], [address] , [place]. tel:[phone] Referring Provider: Ruperto Bird, [facility] [place] [address], [address], [place], [address] . tel:[phone] Office/outpa tient visit,est, low Z [facility], [address], [place], [address], [place] tel: [phone] [employer] No Information 8200 8 Mehbod Amir. [facility], [address], [place], [place], [address] , [place]. tel: [phone] Office/outpa tient visit,est, low Z [facility], [address], [place], [address], [place] tel: [employer] [facility] No Information 8200 8 Mehbod Amir. [facility], [address], [place], [place], [address] , [place]. tel: [phone] Office/outpa tient visit,est, low Z [facility], [address], [place], [address], [place] tel: [phone] [employer] [facility] No Information 3200 7 Mehbod Amir. [facility], [address], [place], [place], [address] , [place]. tel: [phone] Z [facility], [address], [place], [address], [place] tel:[phone] [employer] No Information 8-200 7 Mehbod Amir. [facility], [address], [place], [place], [address] , [place]. tel: [phone] Z [facility], [address], [place], [address], [place] tel:[phone] [facility] No Information 4-200 7 Mehbod Amir. [facility], [address], [place], [place], [address] , [place]. tel: [phone] Office/outpa tient visit,est, low Z [facility], [address], [place], [address], [place] tel: [phone] [employer] No Information Apr-0 9-200 7 Mehbod Amir. [facility], [address], [place], [place], [address] , [place]. tel: [phone] Office/outpa tient visit,est, low Z [facility], [address], [place], [address], [place] tel: [employer] No Information Feb-2 6-200 7 Mehbod Amir. [facility], [address], [place], [place], [address] , [place]. tel: [phone] Office/outpa tient visit,est, low Z [facility], [address], [place], [address], [place] tel: [employer] No Information Nov-2 8-200 6 Mehbod Amir. [facility], [address], [place], [place], [address] , [place]. tel: [phone] Z [facility], [address], [place], [address], [place] tel: [employer] No Information Yony-1 0-200 6 Mehbod Amir. [facility], [address], [place], [place], [address] , [place]. tel: [phone] Z [facility], [address], [place], [address], [place] tel:[phone] [facility] No Information Alex-0 2-200 6 Mehbod Amir. [facility], [address], [place], [place], [address] , [place]. tel: [phone] Office consultation , moderate Z [facility], [address], [place], [address], [place] tel:[phone] [facility] [place] No Information Yordy Baker. [facility], [address], [place], [place], [address] , [place]. [phone] Family History Family Member Type Diagnosis Age At Onset No Information Payers Payer name Insurance type Covered green party ID Authorjohn jaime(s) [facility] [id number] Social History Type Description Quantity Date Captured [...]
[2023-01-21 18:08] VITALS: PULSE 90; O2SAT 92
[2023-01-21 18:16] LABS: Basophils Absolute Auto 0.04 K/uL (0.00-0.30); Basophils Percent Auto 0.5 % (0.0-3.0); Eosinophils Absolute Auto 0.12 K/uL (0.00-0.50); Eosinophils Percent Auto 1.4 % (0.0-7.0); Hematocrit 46.7 % (33.0-51.0); Hemoglobin* 15.2 gm/dL (12.0-16.0); Immature Granulocytes Abs Auto 0.01 K/uL (0.00-0.30); Immature Granulocytes Pct Auto 0.1 %; Lymphocytes Absolute Auto 2.73 K/uL (0.90-2.90); Lymphocytes Percent Auto 32.9 % (20-44); Mean Corpuscular HGB Conc 33 gm/dL (32-36); Mean Corpuscular Hemoglobin 28 pg (26-34); Mean Corpuscular Volume 85 fL (80-100); Monocytes Percent Auto 8.8 % (0.0-11.0); Neutrophils Absolute Auto 4.67 K/uL (1.7-7.0); Neutrophils Percent Auto 56.3 % (42.0-72.0); Platelet Count* 305 K/uL (140-440); RDW Coefficient of Variation % 14.1 % (11.5-15.5)
[2023-01-21 18:19] LABS: Slide Review Reflex No
[2023-01-21 18:30] VITALS: PULSE 91; O2SAT 92
[2023-01-21 18:32] VITALS: BP 146/73; PULSE 89; O2SAT 94
[2023-01-21 18:34] LABS: Chloride* 97 mmol/L (96-114); Potassium* 3.8 mmol/L (3.6-5.1); Sodium* 138 mmol/L (135-149)
[2023-01-21 18:37] LABS: Creatinine* 0.8 mg/dL (0.5-1.5); Est. Creatinine Clearance* 38.14; Estimated Glomerular Filt Rate 80 ml/min
[2023-01-21 18:38] LABS: Anion Gap 13 mEq/L (7-15); Blood Urea Nitrogen* 19 mg/dL (7-30); Calcium* 9.1 mg/dL (8.4-10.6); Carbon Dioxide* 28 mmol/L (20-32); Glucose* 143 mg/dL (60-115)
== END 2023-01-21 19:07 | disposition home or self-care (01) ==
PROVIDERS: Emergency Provider Emergency Medicine Emergency Medical Services; PCP Family Medicine
DX: R07.9 Chest pain, unspecified (principal)
CPT/HCPCS: 36415; 80048; 84484; 85025; 93005; 99284

== ENCOUNTER 2023-06-05 10:34 | Outpatient (CLI) | payer MEDICARE, OTHER, SELFPAY ==
--- OUTSIDE RECORDS SUMMARY | 2023-06-06 10:51 | XMS_ITS | Clinical Summary ---
Author Name Unknown Organization [facility] Address [place], [place] [address] Care Team Providers Care Prison Keeper Name Role Phone Sariah Bullard MD Primary Care Provide r Remberto Medina MD Unavailable Allergies Active Allergy Reactions Criticality Noted Date Comments Droperidol Agitation 07/24/2006 Metformin Nausea And Vomiting 09/12/2022 Raspberry Hives High 02/25/2023 Raspberry (Rubus Idaeus) Hives 06/01/2015 Titanium Other - Describe In Comment Field High 08/02/2015 [place] ill with titanium screws in back- removed 2005- Rivaroxaban Dizziness 07/22/2017 Medications Medication Sig Dispensed Refills Start Date End Date Status multivitamins-calc vlu-mqno-iqhsfvqw tab tablet Take 1 tablet by mouth once daily. 0 01/22/20 17 Active acetaminophen (TYLENOL EXTRA STRGTH) 500 mg tablet Take 2 tablets by mouth. Max acetaminophen dose: 4000mg in 24 hrs. 0 07/19/19 18 Active lancetsIndications :Type 2 diabetes mellitus without complication, without long-term current use of insulin (HC) As directed. Test 2 times per day. 200 Each 3 06/09/19 19 Active magnesium oxide 400 mg magnesium capsuleIndications :Hypomagnesemia Take 400 mg by mouth once daily. At bedtime 90 capsule 3 04/13/20 19 Active medication order composerIndication s:Sleep apnea, unspecified type CPAP tubing and reservoir 1 Each 5 06/10/19 20 Active blood-glucose meterIndications:U ncontrolled type 2 diabetes mellitus with hyperglycemia (HC) Dispense meter, test strips, lancets covered by pt ins. E11.65 NIDDM type II, uncontrolled - Test 4 times/day. 1 Device 0 11/18/19 Active blood sugar diagnostic (CONTOUR NEXT TEST STRIPS) stripIndications:T ype 2 diabetes mellitus without complication, without long-term current use of insulin (HC) Dispense item covered by pt ins. E11.9 IDDM type II - Test 4 times/day. Reason: Unstable diabetes. Patient needs Contour Next blood glucose test strips for her monitor. This is the only monitor that she can use. 200 Strip 12/03/19 Active blood sugar diagnostic (CONTOUR NEXT TEST STRIPS) stripIndications:T ype 2 diabetes mellitus without complication, without long-term current use of insulin (HC) Test 4 times a day due to uncontrolled diabetes. Send through Medicare not other insurance. 200 Each 12/16/19 Active metoprolol succinate (TOPROL XL) 100 mg Sustained-Release tabletIndications: HTN (hypertension) Take 1 Tablet (100 mg) by mouth once daily. 90 Tablet 09/13/19 Active DULoxetine (CYMBALTA) 20 mg Delayed-release capsuleIndications :Fibromyalgia Take 1 Capsule (20 mg) by mouth two times daily. 180 Capsule 09/13/19 Active empagliflozin (Jardiance) 25 mg tabletIndications: Type 2 diabetes mellitus without complication, without long-term current use of insulin (HC) Take 1 Tablet (25 mg) by mouth once daily. 90 Tablet 09/13/19 Active pantoprazole (PROTONIX) 40 mg delayed-release tabletIndications: Gastritis, presence of bleeding unspecified, unspecified chronicity, unspecified gastritis type Take 1 Tablet (40 mg) by mouth once daily. 90 Tablet 09/13/19 Active rosuvastatin (CRESTOR) 40 mg tabletIndications: Hyperlipidemia, unspecified hyperlipidemia type Take 1 Tablet (40 mg) by mouth at bedtime. 90 Tablet 09/13/19 Active torsemide (DEMADEX) 20 mg tabletIndications: Essential hypertension with goal blood pressure less than 140/90 Take 1 Tablet (20 mg) by mouth every morning. 90 Tablet 09/13/19 Active glipiZIDE extended-release (GLUCOTROL XL) 10 mg Extended-Release tabletIndications: Type 2 diabetes mellitus without complication, without long-term current use of insulin (HC) Take 1 Tablet (10 mg) by mouth two times daily with meals. 180 Tablet 3 09/13/19 Active albuterol HFA (PRO-AIR; VENTOLIN; PROVENTIL) 90 mcg/actuation inhalerIndications :Acute cough Inhale 1-2 Puffs by mouth every 4 hours if needed for Shortness Of Breath. 1 Each 0 11/20/19 Active codeine-guaiFENesi n (ROBITUSSIN AC) 10-100 mg/5 mL liquidIndications: Bronchitis with bronchospasm Take 5 mL by mouth at bedtime if needed for Cough. Max dose 60 mL per 24 hrs. 60 mL 0 11/27/19 Active CPAPIndications:Ob structive sleep apnea CPAP machine for home use at pressure 10 cmw epr 3, nasal mask x1/3month with nasal pillows x 2/mo 1 Each 11 12/06/19 Active FreeStyle Winston 2 SensorIndications: Type 2 diabetes mellitus without complication, without long-term current use of insulin (HC) To be used to read blood sugars per tablet machine operator's directions. Change each sensor every 14 days. Dispense 3 month supply if able 2 Each 12 02/15/20 Active transmitter for continuous blood glucose monitor (CGM)Indications:T ype 2 diabetes mellitus without complication, without long-term current use of insulin (HC) To be used to read blood sugars, follow tablet machine operator directions. 1 Each 4 02/15/20 Active potassium chloride (MICRO-K) 10 mEq Controlled-release capsuleIndications :Hypokalemia Take 1 Capsule (10 mEq) by mouth once daily with a meal. 90 Capsule 3 02/21/20 23 Active Additional Information Patient taking differently: 20 mEqOral DAILY WITH MEAL, Reported on 03/11/2023 dulaglutide (Trulicity) 3 mg/0.5 mL subcutaneous penIndications:typ e 2 diabetes mellitus Inject 3 mg subcutaneous once weekly. 2 mL 05/14/19 Active carisoprodoL (SOMA) 350 mg tabletIndications: Acute midline low back pain without sciatica Take 1 Tablet (350 mg) by mouth 2 times daily if needed for Muscle Spasm. 30 Tablet 1 05/29/19 24 Active metFORMIN (GLUCOPHAGE XR) 500 mg Extended-Release tabletIndications: Type 2 diabetes mellitus without complication, without long-term current use of insulin (HC) TAKE 2 TABLETS ONCE DAILY WITH EVENING MEAL 120 Tablet 0 06/05/19 24 Active dulaglutide (Trulicity) 3 mg/0.5 mL subcutaneous penIndications:typ e 2 diabetes mellitus Inject 3 mg subcutaneous once weekly. 2 mL 11 02/15/20 23 024 Discontinued(Re order (E-cancel not sent)) metFORMIN (GLUCOPHAGE XR) 500 mg Extended-Release tabletIndications: Type 2 diabetes mellitus without complication, without long-term current use of insulin (HC) Take 1 Tablet (500 mg) by mouth two times daily with meals. 0 05/06/19 24 024 Discontinued fluconazole (DIFLUCAN) 150 mg tabletIndications: Yeast vaginitis Take 1 Tablet (150 mg) by mouth one time for 1 dose. Repeat a second dose in 1 week. 2 Tablet 0 05/12/19 24 024 Active Problems Problem Noted Date Diagnosed Date [...] 04/02/2016 Family history of early CAD 12/05/2015 MNOTY 09/27/2013 AHI-[id number] 10/14/2013 Impaired fasting glucose 01/28/2012 [...] Type Department Care Team Description 06/05/2023 Refill [facility] [address] [facility] [place] [address] Sariah Bullard MD Refill Request (Metformin) 05/29/2023 Telephone [facility] [address] [place] [address] Sariah Bullard MD Refill Request (CARISOPRODOL 350) 05/27/2023 Telephone [facility] [address] [place] [address] Susu Bennett, Refill Request (Carisoprodol 350mg) 05/19/2023 10:30 AM MECHANICAL ENGINEERING SPECIALIST Ancillary Procedure [facility] [address] [place] [address] 05/19/2023 Travel 05/13/2023 Refill [facility] [address] [place] [address] Sariah Bullard MD Refill Request (Trulicity SD Pen 0.5ml 4's 3mg ) 05/12/2023 Telephone [facility] [address] [place] [address] Sariah Bullard MD Abnormal Lab Results 05/12/2023 Refill [facility] [address] [place] [address] Sariah Bullard MD Refill Request; TRULICITY 05/06/2023 1:50 PM MECHANICAL ENGINEERING SPECIALIST Office Visit [facility] [address] [facility] [place] [address] Sariah Bullard MD Diabetes (A1c done); Vaginal Pain (PAP as she is having pain at night, wakes her up. Notices an odor.) 05/06/2023 Travel 03/27/2023 4:05 PM MECHANICAL ENGINEERING SPECIALIST Office Visit [facility] [address] [place] [address] Susu Bennett, UTI (frequency, urgency, bladder pain); Cough (fatigue left from COVID-19 02/25, cough started ) 03/27/2023 Travel 03/17/2023 Telephone [facility] [address] [place] [address] Sariah Bullard MD Refill Request (torsemide (DEMADEX) 20 mg tablet) 03/11/2023 9:35 AM MECHANICAL ENGINEERING SPECIALIST Ancillary Procedure [facility] [address] [place] [address] 03/11/2023 9:00 AM MECHANICAL ENGINEERING SPECIALIST Office Visit [facility] [address] [place] [facility] [place] [address] Rita Nichole PA Covid-19 Positive Result (COVID-19 positive for 2 weeks. Still coughing, body aches, fatigue. ) 03/11/2023 Travel from Last 3 Months Immunizations Name Administration Dates Next Due AMB Influenza, IIV4 PF (=>6 mos Flulaval,Fluzone Fluarix)(Flu Clinic Only) 02/09/2019 COVID-19 vaccine (Sonics-Bio NTech 30mcg/0.3mL) 12YO+ BIVALENT PF, MDV 09/12/2022 COVID-19 vaccine (Pfizer-Bio NTech 30mcg/0.3mL) PF, MDV 05/03/2021,08/08/2020,07/18/2020 Hepatitis B [...] Name Status Comments Father (Age 60s ) [place] Maternal Grandfather Mother Alive Social History Tobacco [...] Comments Blood Pressure 134/79 05/06/2023 1:43 PM MECHANICAL ENGINEERING SPECIALIST Pulse 99 05/06/2023 1:43 PM MECHANICAL ENGINEERING SPECIALIST Temperature 36.9 ??C (98.4 ??F) 03/11/2023 8:45 AM CS T Respiratory Rate 20 03/11/2023 8:45 AM MECHANICAL ENGINEERING SPECIALIST Oxygen Saturation 94% 05/06/2023 1:42 PM MECHANICAL ENGINEERING SPECIALIST Inhaled Oxygen Concentration - - Weight 104.6 kg (230 lb 9.6 oz) 05/06/2023 1:42 PM MECHANICAL ENGINEERING SPECIALIST Height 152.4 cm (5') 12/19/2022 1:42 PM CDT Body Mass Index 45.04 12/19/2022 1:42 PM CDT Plan of Treatment Upcoming Encounters Date Type Department Care Team (Late st Contact Info) Description 08/05/2023 10:55 AM CDT Office Visit [facility] [address] [place] [address] Sariah Bullard MD [address] [place] [address] Health Maintenance Due Date Last Done Comments [...] 09/12/2022, Additional history exists Fecal testing sDNA-FIT ([place] guard) for age 45-75 10/01/2025 10/01/2022 Lipids [...] history exists Medical Devices Implanted Type Area Excel Expert Device Identifier Shelf Expiration Date Model / Serial / Lot Screw Polyaxial 6.5x50mm - [id number] Implanted:Qty: 1 on 09/18/2005 at [facility] [id number] / / Screw Polyaxial 6.5x45mm - [id number] Implanted:Qty: 2 on 09/18/2005 at [facility] [id number]# / / Monica Carie [id number] - [id number] Implanted:Qty: 4 on 09/18/2005 at [facility] [id number] / / Allosource Canc Crushed 30cc Implanted:Qty: 1 on 09/18/2005 at [facility] Explanted:at [facility] (Quantity not on file) [facility]/13/[facility] [id number] / [id number] / Description:CANC CRUSHED 30C C Screw Polyaxial 6.5x40mm - [id number] Implanted:Qty: 1 on 09/18/2005 at [facility] [id number] / / Mark Carie Rad 40mm 108mm Radius - [id number] Implanted:Qty: 2 on 09/18/2005 at [facility] [id number] / / [id number] e Canclls Crushed 30cc [[id number]] Implanted:Qty: 1 on 08/26/2006 at [facility] Explanted:at [facility] (Quantity not on file) Spine [employer] 01/15/2011 [id number] / [id number] / Procedures Procedure Name Priority Date/Time Associated Diagnosis Comments US PELVIS COMPLETE TA AND TV Routine 05/19/2023 10:57 AM MECHANICAL ENGINEERING SPECIALIST Enlarged uterus URINE CULTURE Routine 05/06/2023 2:40 PM MECHANICAL ENGINEERING SPECIALIST Abnormal urine odor UA W/ SEDIMENT EXAM REFLEXED PER CRITERIA Routine 05/06/2023 2:40 PM MECHANICAL ENGINEERING SPECIALIST Abnormal urine odor TRICHOMONAS, SAEED, AND BACTERIAL VAGINOSIS BY VIRAL Routine 05/06/2023 2:36 PM MECHANICAL ENGINEERING SPECIALIST Pelvic pain DRAPERY ESTIMATOR THIN PREP PAP SCREEN IMAGED Routine 05/06/2023 2:35 PM MECHANICAL ENGINEERING SPECIALIST Cervical cancer screening HPV THIN PREP Routine 05/06/2023 2:35 PM MECHANICAL ENGINEERING SPECIALIST Cervical cancer screening HEMOGLOBIN A1C Routine 05/06/2023 1:36 PM MECHANICAL ENGINEERING SPECIALIST Type 2 diabetes mellitus without complication, without long-term current use of insulin (HC) TRICHOMONAS, SAEED, AND BACTERIAL VAGINOSIS BY VIRAL Routine 03/27/2023 4:47 PM MECHANICAL ENGINEERING SPECIALIST Frequency of urination URINALYSIS MICROSCOPIC Routine 03/27/2023 3:50 PM MECHANICAL ENGINEERING SPECIALIST Frequency of urination UA W/ SEDIMENT EXAM REFLEXED PER CRITERIA Routine 03/27/2023 3:50 PM MECHANICAL ENGINEERING SPECIALIST Frequency of urination XR CHEST 2 VIEWS PA AND LATERAL STAT 03/11/2023 9:46 AM MECHANICAL ENGINEERING SPECIALIST History of COVID-19 Subacute cough CBC WITH AUTO DIFFERENTIAL Routine 03/11/2023 9:33 AM MECHANICAL ENGINEERING SPECIALIST Subacute cough PROCALCITONIN Routine 03/11/2023 9:33 AM MECHANICAL ENGINEERING SPECIALIST History of COVID-19 Subacute cough Fatigue, unspecified type C-REACTIVE PROTEIN Routine 03/11/2023 9: 33 AM MECHANICAL ENGINEERING SPECIALIST History of COVID-19 Subacute cough Uncontrolled type 2 diabetes mellitus with hyperglycemia (HC) MAGNESIUM Routine 03/11/2023 9:33 AM MECHANICAL ENGINEERING SPECIALIST Subacute cough BASIC METABOLIC PANEL Routine 03/11/2023 9:33 AM MECHANICAL ENGINEERING SPECIALIST Subacute cough CBC WITH AUTO DIFFERENTIAL Routine 03/11/2023 9:33 AM MECHANICAL ENGINEERING SPECIALIST Subacute cough from Last 3 Months Results * US PELVIS COMPLETE TA AND TV (05/19/2023 10:57 AM MECHANICAL ENGINEERING SPECIALIST) Anatomical Region Laterality Modality Pelvis Ultrasound 05/19/2023 11:2 6 AM MECHANICAL ENGINEERING SPECIALIST Impressions 05/19/2023 11:26 AM MECHANICAL ENGINEERING SPECIALIST 1.4 cm uterine fibroid is similar. Endometrial thickness 2 millimeters. Dictated by Colby Milian MD @ May 19 2023 11:26AM (Electronically Signed) ?? Narrative 05/19/2023 11:26 AM MECHANICAL ENGINEERING SPECIALIST For Patients: ??As a result of the [...] @ May 19 2023 11:26AM (Electronically Signed) Saraih Bullard MD US * URINE CULTURE (05/06/2023 2:40 PM MECHANICAL ENGINEERING SPECIALIST) CULTURE <10,000 CFU/mL multiple organisms 05/08/2023 7:46 AM MECHANICAL ENGINEERING SPECIALIST [facility] TRAL LABORATORY Urine URINE SPECIMEN / Unknown Non-Blood / Unknown 05/06/2023 2:40 PM MECHANICAL ENGINEERING SPECIALIST 05/06/2023 2:51 PM MECHANICAL ENGINEERING SPECIALIST Sariah Bullard MD [facility] [address] [place] [address], [place] * (ABNORMAL) UA W/ SEDIMENT EXAM REFLEXED PER CRITERIA (05/06/2023 2:40 PM MECHANICAL ENGINEERING SPECIALIST) Only the most recent of2 resultswithin the time period is included. COLOR Yellow Yellow Color 05/06/2023 2:54 PM MECHANICAL ENGINEERING SPECIALIST [facility] CLARITY Clear Clear Clarity 05/06/2023 2:54 PM MECHANICAL ENGINEERING SPECIALIST [facility] SPECIFIC GRAVITY,URINE 1.010 1.010, 1.015, 1.020, 1.025 05/06/2023 2:54 PM MECHANICAL ENGINEERING SPECIALIST [facility] PH,URINE 6.0 6.0, 7.0, 8.0, 5.5, 6.5, 7.5, 8.5 05/06/2023 2:54 PM MECHANICAL ENGINEERING SPECIALIST [facility] UROBILINOGEN, QUALITATIVE Normal Normal EU/dl 05/06/2023 2:54 PM MECHANICAL ENGINEERING SPECIALIST [facility] PROTEIN, URINE Negative Negative mg/dL 05/06/2023 2:54 PM MECHANICAL ENGINEERING SPECIALIST [facility] GLUCOSE, URINE 500(A) Negative mg/dL 05/06/2023 2:54 PM MECHANICAL ENGINEERING SPECIALIST [facility] KETONES,URINE Negative Negative mg/dL 05/06/2023 2:54 PM MECHANICAL ENGINEERING SPECIALIST [facility] BILIRUBIN,URI NE Negative Negative 05/06/2023 2:54 PM MECHANICAL ENGINEERING SPECIALIST [facility] OCCULT BLOOD,URINE Negative Negative 05/06/2023 2:54 PM MECHANICAL ENGINEERING SPECIALIST [facility] NITRITE Negative Negative 05/06/2023 2:54 PM MECHANICAL ENGINEERING SPECIALIST [facility] LEUKOCYTE ESTERASE Negative Negative 05/06/2023 2:54 PM MECHANICAL ENGINEERING SPECIALIST [facility] Urine URINE SPECIMEN / Unknown Non-Blood / Unknown 05/06/2023 2:40 PM MECHANICAL ENGINEERING SPECIALIST 05/06/2023 2:51 PM MECHANICAL ENGINEERING SPECIALIST Sariah Bullard MD URINE Performing Organization Address City/[facility]/ZIP Co de Phone Number [facility] [address] [place] [address], * (ABNORMAL) TRICHOMONAS, SAEED, AND BACTERIAL VAGINOSIS BY VIRAL (05/06/2023 2:36 PM MECHANICAL ENGINEERING SPECIALIST) Only the most recent of2 resultswithin the time period is included. SAEED SPECIES Negative Negative 4 2:00 AM MECHANICAL ENGINEERING SPECIALIST [facility] SAEED GLABRATA Positive(A) Negative 05/07/2023 2:00 AM MECHANICAL ENGINEERING SPECIALIST [facility] NTRSC LABORATORY TRICHOMONAS VVA Negative Negative 4 2:00 AM MECHANICAL ENGINEERING SPECIALIST [facility] NTRAL LABORATORY BACTERIAL VAGINOSIS Negative Negative 05/07/2023 2:00 AM MECHANICAL ENGINEERING SPECIALIST [facility] NTRAL LABORATORY Other VAGINAL SWAB / Unknown Non-Blood / Unknown 05/06/2023 2:36 PM MECHANICAL ENGINEERING SPECIALIST 05/06/2023 2:51 PM MECHANICAL ENGINEERING SPECIALIST Sariah Bullard MD [facility]OLOGY [facility] [address] [place] [address], [place] * DRAPERY ESTIMATOR THIN PREP PAP SCREEN IMAGED (05/06/2023 2:35 PM MECHANICAL ENGINEERING SPECIALIST) Case Report Gynecologic Cytology Report ? Case: [id number] ? Authorizing Provider: ??Sariah Bullard, ??Collected: ? 05/06/2023 1435 ? MD ? [facility] ?? Received: ?05/06/2023 1451 ? Clinic ? First Screen: ?Deondre, Rodger ? Rescreen: ?Notermshruthi, Lexy ? Specimen: ?DRAPERY ESTIMATOR ThinPrep Vial Screening, Cervical ? 05/15/2023 10:26 AM [facility] ENTRAL LABORATORY INTERPRETATION/ RESULT NEGATIVE FOR INTRAEPITHELIAL LESION OR MALIGNANCY (NIL) (none) 05/15/2023 10:26 AM [facility] LABORATORY-C ENTRAL LABORATORY IMEN ADEQUACY Satisfactory for evaluation No endocervical component seen 05/15/2023 10:26 AM [facility] LABORATORY-C ENTRAL LABORATORY HPV REQUEST HPV and PAP 05/15/2023 10:26 AM [facility] ENTRAL LABORATORY Date of LMP years ago 05/15/2023 10:26 AM [facility] ENTRAL LABORAT[facility] Last Pap Date 06/01/15 05/15/2023 10:26 AM [facility] LABORAT[facility]-C ENTRAL LABORATORY Last Pap Result NIL 10:26 AM [facility] ENTRAL LABORATORY Abnormal Pap or [place] Bx in last 5 years No 05/15/2023 10:26 AM MECHANICAL ENGINEERING SPECIALIST [facility]-C ENTRAL LABORATORY Menstrual Status Postmenopausal 05/15/2023 10:26 AM [facility] ENTRAL LABORATORY Dona Ana Bx Done Today No 05/15/2023 10:26 AM [facility] ENTRAL LABORATORY Additional Information None given 05/15/2023 10:26 AM [facility]Mobile System 7-C ENTRAL LABORATORY Comment: Cytology is screened at [facility] [employer] [facility] Central Laboratory - [address], [place] [address] and [facility] - [address], [place] [address] and [facility] - [address] [place] [address] Interpreted at [facility] [employer] [facility] Laboratory - [address], [place] [address] Automated Review Successful 05/15/2023 10:26 AM [facility] ENTRSC LABORATORY Comment:Specimen processed s uccessfully by automated finishing supervisor plastic sheets device, Thin[employer] Imaging System, [employer] ANCILLARY TESTING DRAPERY ESTIMATOR HPV Ordered, Please see separate report 05/15/2023 10:26 AM MECHANICAL ENGINEERING SPECIALIST [facility] LAB[facility] Note The pap test is a screening technique, not a diagnostic procedure. It is used primarily to screen for squamous cancers and precursor lesions. Published studies have shown that it is subject to both false negative and false positive results. The pap test should not be used as the sole means to diagnose or exclude pre-malignant and malignant lesions. 05/15/2023 10:26 AM [facility] Other (Cervical) Non-Blood / Unknown 05/06/2023 2:35 PM MECHANICAL ENGINEERING SPECIALIST 05/06/2023 2:51 PM MECHANICAL ENGINEERING SPECIALIST Sariah Bullard MD PATHOLOGY/CYT OLOGY [facility] LAB[facility]ATORY [address] [place] [address], * HPV HIGH RISK (05/06/2023 2:35 PM MECHANICAL ENGINEERING SPECIALIST) TYPE 16 Negative Negative 05/08/2023 5:32 PM MECHANICAL ENGINEERING SPECIALIST [facility] TRAL LABORATORY TYPE 18 Negative Negative 05/08/2023 5:32 PM MECHANICAL ENGINEERING SPECIALIST [facility] TR[facility] LAB[facility] OTHER HIGH RISK TYPES Negative Negative 05/08/2023 5:32 PM MECHANICAL ENGINEERING SPECIALIST [facility] LAB[facility] Other (Cervical) Non-Blood / Unknown 05/06/2023 2:35 PM MECHANICAL ENGINEERING SPECIALIST 05/07/2023 10:46 AM MECHANICAL ENGINEERING SPECIALIST Narrative [facility] LABORATORY - 05/08/2023 5:32 PM MECHANICAL ENGINEERING SPECIALIST HPV types 16, 18, 31, 33, 35, 39, 45, 51, 52, 56, 58, 59, 66 and 68 DNA were undetectable or below the pre-set threshold. Methodology: [employer] 4800 HPV Test Sariah Bullard MD MICROBIOLOGY Performing Organization Address [facility]/ZIP Co de Phone Number [facility] [address] [place] [address], [place] * (ABNORMAL) HEMOGLOBIN A1C MONITORING (POCT) (05/06/2023 1:36 PM MECHANICAL ENGINEERING SPECIALIST) Pathologist [facility] HEMOGLOBIN A1C MONITORING (POCT) 7.8(H) <=6.4 % 05/06/2023 1:47 PM MECHANICAL ENGINEERING SPECIALIST [facility] Blood BLOOD SPECIMEN / Unknown Venipuncture / Unknown 05/06/2023 1:36 PM MECHANICAL ENGINEERING SPECIALIST 05/06/2023 1:38 PM MECHANICAL ENGINEERING SPECIALIST Narrative [facility] - 05/06/2023 1:47 PM MECHANICAL ENGINEERING SPECIALIST ? (<=6.9%) ? Indicates good control ? (7.0% to 7.9%) ? Indicates fair control ? (>=8.0%) ? Indicates poor control ?? NOTE: ??These thresholds are guidelines and ?individual targets may vary. Falsely low levels may be seen with: Recent Transfusion, Recent Significant Blood Loss, Hemolytic Diseases, or Falsely elevated levels may be seen with: Untreated Anemias, Splenectomy ? Sariah Bullard MD CHEMISTRY Performing Organization Address [facility] de Phone Number [facility] [address] [place] [address], [place] [phone] * URINALYSIS MICROSCOPIC (03/27/2023 3:50 PM MECHANICAL ENGINEERING SPECIALIST) [facility] RBC None Seen 0-2, None Seen /HPF 03/27/2023 4:01 PM MECHANICAL ENGINEERING SPECIALIST [facility] WBC 0-2 0-2, 3-5, None Seen /HPF 03/27/2023 4:01 PM MECHANICAL ENGINEERING SPECIALIST [facility] BACTERIA Few None Seen, Rare, Few Bacteria/ HPF 03/27/2023 4:01 PM MECHANICAL ENGINEERING SPECIALIST [facility] EPITHELIAL CELLS None Seen None Seen, Few Epi/HPF 03/27/2023 4:01 PM MECHANICAL ENGINEERING SPECIALIST [facility] Urine URINE SPECIMEN / Unknown Non-Blood / Unknown 03/27/2023 3:50 PM MECHANICAL ENGINEERING SPECIALIST 03/27/2023 3:50 PM MECHANICAL ENGINEERING SPECIALIST Susu Bennett DO URINE [facility] [address] [place] [address], * XR CHEST 2 VIEWS PA AND LATERAL (03/11/2023 9:46 AM MECHANICAL ENGINEERING SPECIALIST) Anatomical Region Laterality Modality CHEST, THORAX, Lung, HEART Digit al Radiography 03/11/2023 9:46 AM MECHANICAL ENGINEERING SPECIALIST Impressions 03/11/2023 9:47 AM MECHANICAL ENGINEERING SPECIALIST Heart is normal in size. Lungs are clear. Narrative 03/11/2023 9:47 AM MECHANICAL ENGINEERING SPECIALIST For Patients: As a result of the Cures Act, medical imaging exams and procedure reports are released immediately into your electronic medical record. You may view this report before your referring provider. If you have questions, please contact your health care provider. EXAM: XR CHEST 2 VIEWS PA AND LATERAL LOCATION: [facility] DATE: 03/11/2023 INDICATION: History Of Covid-19 Subacute Cough COMPARISON: 11/19/2022 Procedure Note Greg Irizarry MD - 03/11/2023 For Patients: As a result of the s Act, medical imagingexams and procedure reports are released immediately into your electronicmedical record. You may view this report before your referring provider.If you have questions, please contact your health care provider. EXAM: XR CHEST 2 VIEWS PA AND LATERAL LOCATION: [facility] DATE: 03/11/2023 INDICATION: History Of Covid-19 Subacute Cough COMPARISON: 11/19/2022 IMPRESSION: Heart is normal in size. Lungs are clear. Rita CROWE GENERAL IMAGING * (ABNORMAL) CBC WITH AUTO DIFFERENTIAL (03/11/2023 9:33 AM MECHANICAL ENGINEERING SPECIALIST) WHITE BLOOD COUNT 8.5 4.5 - 11.0 thou/cu mm 03/11/2023 9:48 AM MECHANICAL ENGINEERING SPECIALIST [facility] RED BLOOD COUNT 5.36(H) 4.00 - 5.20 mil/cu mm 03/11/2023 9:48 AM MECHANICAL ENGINEERING SPECIALIST [facility] HEMOGLOBIN 15.2 12.0 - 16.0 g/dL 03/11/2023 9:48 AM MECHANICAL ENGINEERING SPECIALIST [facility] HEMATOCRIT 46.2 33.0 - 51.0 % 03/11/2023 9:48 AM MECHANICAL ENGINEERING SPECIALIST [facility] MCV 86 80 - 100 fL 03/11/2023 9:48 AM MECHANICAL ENGINEERING SPECIALIST [facility] MCH 28.4 26.0 - 34.0 pg 03/11/2023 9:48 AM MECHANICAL ENGINEERING SPECIALIST [facility] MCHC 32.9 32.0 - 36.0 g/dL 03/11/2023 9:48 AM MECHANICAL ENGINEERING SPECIALIST [facility] RDW 14.6 11.5 - 15.5 % 03/11/2023 9:48 AM MECHANICAL ENGINEERING SPECIALIST [facility] PLATELET COUNT 321 140 - 440 thou/cu mm 03/11/2023 9:48 AM MECHANICAL ENGINEERING SPECIALIST [facility] MPV 9.7 6.5 - 11.0 fL 03/11/2023 9:48 AM [facility] % NEUT 50.9 % 03/11/2023 9:48 AM MECHANICAL ENGINEERING SPECIALIST [facility] % LYMPH 36.9 % 03/11/2023 9:48 AM MECHANICAL ENGINEERING SPECIALIST [facility] % MONO 9.6 % 03/11/2023 9:48 AM MECHANICAL ENGINEERING SPECIALIST [facility] % EOS 2.1 % 03/11/2023 9:48 AM MECHANICAL ENGINEERING SPECIALIST [facility] % BASO 0.5 % 03/11/2023 9:48 AM MECHANICAL ENGINEERING SPECIALIST [facility] ABSOLUTE NEUTROPHILS 4.3 1.7 - 7.0 thou/cu mm 03/11/2023 9:48 AM MECHANICAL ENGINEERING SPECIALIST [facility] ABSOLUTE LYMPHOCYTES 3.1(H) 0.9 - 2.9 thou/cu mm 03/11/2023 9:48 AM [facility] ABSOLUTE MONOCYTES 0.8 <0.9 thou/cu mm 03/11/2023 9:48 AM MECHANICAL ENGINEERING SPECIALIST [facility] ABSOLUTE EOSINOPHILS 0.2 <0.5 thou/cu mm 03/11/2023 9:48 AM MECHANICAL ENGINEERING SPECIALIST [facility] ABSOLUTE BASOPHILS 0.0 <0.3 thou/cu mm 03/11/2023 9:48 AM MECHANICAL ENGINEERING SPECIALIST [facility] Blood BLOOD SPECIMEN / Unknown Venipuncture / Unknown 03/11/2023 9:33 AM MECHANICAL ENGINEERING SPECIALIST 03/11/2023 9:35 AM MECHANICAL ENGINEERING SPECIALIST Rita CROWE HEMATOLOGY [facility] [address] [place] [address], * PROCALCITONIN (03/11/2023 9:33 AM MECHANICAL ENGINEERING SPECIALIST) PROCALCITONIN 0.16 ng/ml 03/11/2023 4:07 PM MECHANICAL ENGINEERING SPECIALIST [facility] Blood BLOOD SPECIMEN / Unknown Venipuncture / Unknown 03/11/2023 9:33 AM MECHANICAL ENGINEERING SPECIALIST 03/11/2023 9:35 AM MECHANICAL ENGINEERING SPECIALIST Narrative [facility] - 03/11/2023 4:07 PM MECHANICAL ENGINEERING SPECIALIST Procalcitonin for initial assessment of Lower Respiratory [...] Rita CROWE SEND OUTS Performing Organization Address [facility] Co de Phone Number [facility] [address] [place] [address], * (ABNORMAL) C-REACTIVE PROTEIN (03/11/2023 9:33 AM MECHANICAL ENGINEERING SPECIALIST) Pathologist [facility] C-REACTIVE PROTEIN 1.4(H) <0.5 mg/dL 03/11/2023 4:24 PM MECHANICAL ENGINEERING SPECIALIST [facility] Blood BLOOD SPECIMEN / Unknown Venipuncture / Unknown 03/11/2023 9:33 AM MECHANICAL ENGINEERING SPECIALIST 03/11/2023 9:35 AM MECHANICAL ENGINEERING SPECIALIST Rita CROWE CHEMISTRY Performing Organization Address City/[facility]/ZIP Co de Phone Number [facility] [address] [place] [address], * MAGNESIUM (03/11/2023 9:33 AM MECHANICAL ENGINEERING SPECIALIST) [facility] MAGNESIUM 1.9 1.6 - 2.4 mg/dL 03/11/2023 6:32 PM MECHANICAL ENGINEERING SPECIALIST [facility] Blood BLOOD SPECIMEN / Unknown Venipuncture / Unknown 03/11/2023 9:33 AM MECHANICAL ENGINEERING SPECIALIST 03/11/2023 9:35 AM MECHANICAL ENGINEERING SPECIALIST Rita CROWE CHEMISTRY [facility] [address] [place] [address], * (ABNORMAL) BASIC METABOLIC PANEL (03/11/2023 9:33 AM MECHANICAL ENGINEERING SPECIALIST) SODIUM 140 136 - 145 mmol/L 03/11/2023 4:25 PM [facility] POTASSIUM 3.7 3.5 - 5.1 mmol/L 03/11/2023 4:25 PM [facility] CHLORIDE 98 98 - 107 mmol/L 03/11/2023 4:25 PM [facility] CO2,TOTAL 23 22 - 29 mmol/L 03/11/2023 4:25 PM [facility] ANION GAP 19(H) 5 - 18 03/11/2023 4:25 PM [facility] GLUCOSE 186(H) 70 - 99 mg/dL 03/11/2023 4:25 PM [facility] CALCIUM 9.1 8.8 - 10.2 mg/dL 03/11/2023 4:25 PM [facility] BUN 13 8 - 23 mg/dL 03/11/2023 4:25 PM [facility] CREATININE 0.92(H) 0.50 - 0.90 mg/dL 03/11/2023 4:25 PM [facility] BUN/CREAT RATIO 14 10 - 20 4:25 PM [facility] eGFR 68(L) >90 mL/min/1.7 3m2 03/11/2023 4:25 PM [facility] Comment:As of 2021, eG FR is calculated by the CKD-EPI creatinine equation without race adjustment. ??eGFR can be influenced by muscle mass, exercise, and diet. ??The reported eGFR is an estimation only and is only applicable if the renal function is stable. Blood BLOOD SPECIMEN / Unknown Venipuncture / Unknown 03/11/2023 9:33 AM MECHANICAL ENGINEERING SPECIALIST 03/11/2023 9:35 AM MECHANICAL ENGINEERING SPECIALIST Rita CROWE CHEMISTRY [facility] [address] [place] [address], from Last 3 Months Advance Directives Latest [...] 12:57 PM 09/18/2005 6:32 PM Care Teams Prison Keeper Relationship Specialty Start Date End Date Sariah Bullard MD [address] [place] [address] PCP - General Family Practice 11/03/15 Remberto Medina MD [address] [place] [address] [address] Sleep Medicine 12/04/22
--- OUTSIDE RECORDS SUMMARY | 2023-06-06 10:51 | XMS_ITS | Continuity of Care Document ---
Author Name [facility] Organization [facility] Care Team Providers Care Biomedical Equipment Support Specialist Name Role Phone [facility] Unavailable Unavailable Medications Combined list of outpatient medications from Department of Defense and Veterans Affairs facilities.Medications provided include 1) outpatient medications from the last 15 months, and 2) patient-reported medications. Medication Details Route Status Patient Instructions Prescription Expires Prescription Number Last Dispense Date Ordering Provider Order Date Source POTASSIUM CHLORIDE (potassium chloride), 10 MEQ, CAPSULE ER, ORAL, PD-RX PHARM, 100 ea. BOTTLE Active [id number] 2023 Pharmac y Data Transac tion Service Facilit y TRULICITY (dulaglutid e), 3 MG/0.5ML, PEN INJCTR, SUBCUT, BERT TED [employer] CO., .5 ml SYRINGE Cancele d [id number] : 2023 Pharmac y Data Transac tion Service Facilit y Immunizations Combined list of available immunizations from the Department of Defense and Veterans Affairs facilities. Immunization Series Date Given Administered By Site Reaction Lot Number CVX Code Drug Packing Line Worker Status Comments Source zoster recombinant 2019 [facility], () Not Given zoster recombina nt [facility] zoster recombinant 2019 [place], () Not Given zoster recombina nt [facility] Influenza, seasonal, injectable, preservative free 2011 BRENT DOUGLAS [employer] (NOV) Not Given Influenza , seasonal, injectabl e, preservat porsha free [facility] Social History Combined list of available smoking, tobacco, and other social history from Department of Defense and Veterans Affairs facilities. Social History Type Response Date Comment Sourc e This section is an empty social history section. [facility]
--- OUTSIDE RECORDS SUMMARY | 2023-06-06 10:51 | XMS_ITS | Continuity of Care Document ---
Author Name Unknown Organization [facility] Address [address] [place] [address] Phone Care Team Providers Care Canvassing Manager Name Role Phone Jered Gallego MD Unavailable Unavailable Allergies, Adverse Reactions, Alerts Substance Reaction Status Criticality rivaroxaban dizziness Active No Information raspberry hives Active No Information droperidol agitation Active No Information titanium unknown Active No Information Medications Medication Instructions Dosage Effective Dates (start - stop) Status Comments CYMBALTA (unknown strength) Not Available - Active DIAZEPAM (unknown strength) Not Available - Active RANITIDINE HCL (unknown strength) Not Available - Active OXYCODONE HCL (unknown strength) Not Available - Active WARFARIN SODIUM (unknown strength) Not Available - Active TIZANIDINE HCL (unknown strength) Not Available - Active RIOMET (unknown strength) Not Available - Active OMEPRAZOLE (unknown strength) Not Available - Active ACETAMINOPHEN (unknown strength) Not Available - Active Procedures [...] Copied on Encounter [facility], [address], [place], [place], [id number], [place] tel:[phone] [facility] - [facility] No Information 8 Lashonda Lawton. [facility], [address], [address], [place], [place], [id number] , [place]. [phone] Office/Outpa tient Visit,New, [facility], [address], [place], [place], [id number], [place] tel:[phone] [facility] - [place] Spinal stenosis, lumbar region with neurogenic claudicationOt her spondylosis, lumbosacral regionOther intervertebral disc displacement, lumbar region 8 Deborah Hickey. [facility], [address], [address], [place], [place], [id number] , [place]. tel:[phone] Referring Provider: Ruperto Bird, [facility] [address], [address], [place], [address] . tel:[phone] Office/outpa tient visit,est, low Z [facility], [address], [place], [address], [place] tel: [phone] Clerts! No Information 8200 8 Mehbod Amir. [facility], [address], [place], [place], [address] , [place]. tel: [phone] Office/outpa tient visit,est, low Z [facility], [address], [place], [address], [place] tel: [employer]per No Information 8200 8 Mehbod Amir. [facility], [address], [place], [place], [address] , [place]. tel: [phone] Office/outpa tient visit,est, low Z [facility], [address], [place], [address], [place] tel: [phone] [employer] No Information 3200 7 Mehbod Amir. [facility], [address], [place], [place], [address] , [place]. tel: [phone] Z [facility], [address], [place], [address], [place] tel:[phone] Clerts! No Information 8-200 7 Mehbod Amir. [facility], [address], [place], [place], [address] , [place]. tel: [phone] Z [facility], [address], [place], [address], [place] tel:[phone] [facility] No Information 4-200 7 Mehbod Amir. [facility], [address], [place], [place], [address] , [place]. tel: [phone] Office/outpa tient visit,est, low Z [facility], [address], [place], [address], [place] tel: [phone] Clert[facility]! No Information Apr-0 9-200 7 Mehbod Amir. [facility], [address], [place], [place], [address] , [place]. tel: [phone] Office/outpa tient visit,est, low Z [facility], [address], [place], [address], [place] tel: Clerts! No Information Feb-2 6-200 7 Mehbod Amir. [facility], [address], [place], [place], [address] , [place]. tel: [phone] Office/outpa tient visit,est, low Z [facility], [address], [place], [address], [place] tel: Clerts! No Information Nov-2 8-200 6 Mehbod Amir. [facility], [address], [place], [place], [address] , [place]. tel: [phone] Z [facility], [address], [place], [address], [place] tel: Clerts! No Information Yony-1 0-200 6 Mehbod Amir. [facility], [address], [place], [place], [address] , [place]. tel: [phone] Z [facility], [address], [place], [address], [place] tel:[phone] [facility] No Information Alex-0 2-200 6 Mehbod Amir. [facility], [address], [place], [place], [address] , [place]. tel: [phone] Office consultation , moderate Z [facility], [address], [place], [address], [place] tel:[phone] [facility] - [place] No Information Yordy Baker. [facility], [address], [place], [place], [id number] , [place]. [phone] Family History Family Member Type Diagnosis Age At Onset No Information Payers Payer name Insurance type Covered democrat ID Authorjohn jaime(s) [facility] [id number] Social History Type Description Quantity Date Captured [...]
== END 2023-06-05 10:35 | disposition home or self-care (01) ==
LOC: AMB 06-06 10:49
PROVIDERS: PCP Family Medicine; Visit Provider Emergency Medicine
DX: R10.9 Unspecified abdominal pain (principal); R19.7 Diarrhea, unspecified; R11.2 Nausea with vomiting, unspecified
CPT/HCPCS: A0425; A0427

== ENCOUNTER 2023-06-05 11:09 | Emergency (ER) | payer MEDICARE, OTHER, SELFPAY ==
[2023-06-05 11:26] VITALS: BP 191/97; PULSE 134; RESP 16; TEMP 36.1; O2SAT 96; BMI 44.7
--- NOTE | 2023-06-05 11:31 | ED_ITS ---
HPI - General Adult General Date Seen: 06/05/23 Chief complaint: Nausea/Vomiting Stated complaint: Vomiting Time Seen by Provider: 06/05/23 11:13 Source: patient, EMS and RN notes reviewed Mode of arrival: EMS Limitations: no limitations History of Present Illness HPI narrative: Patient is a 67-year-old woman here by EMS for evaluation of vomiting and diarrhea. She lives at home with her . He is not ill. She started to feel poorly yesterday with some nausea, she says she did need very much yesterday because she was feeling sick to her stomach and then abruptly overnight developed both vomiting and diarrhea. She has diffuse abdominal pain. She does have a history of abdominal surgery with prior partial small-bowel resection secondary to leaky gut. She has had multiple episodes of watery nonbloody diarrhea. No fevers. No travel or suspect foods. No recent antibiotics. Related Data Home Medications Medication Instructions Recorded Confirmed dulaglutide 1.5 mg/0.5 mL 1.5 mg subcut .weekly 12/14/21 06/05/23 subcutaneous pen injector (Trulicity) duloxetine 20 mg capsule,delayed 20 mg PO BID 12/14/21 06/05/23 release empagliflozin 25 mg tablet 25 mg PO DAILY 12/14/21 06/05/23 (Jardiance) glipizide 10 mg tablet, extended 10 mg PO BID 12/14/21 06/05/23 release 24 hr magnesium oxide 400 mg PO DAILY 12/14/21 06/05/23 pantoprazole 40 mg tablet,delayed 40 mg PO DAILY 12/14/21 06/05/23 release potassium chloride 10 mEq 10 meq PO DAILY 12/14/21 06/05/23 tablet,extended release rosuvastatin 40 mg tablet 40 mg PO DAILY 12/14/21 06/05/23 torsemide 20 mg tablet 20 mg PO DAILY 12/14/21 06/05/23 metformin 1,000 mg tablet 1,000 mg PO QDAY 02/25/23 06/05/23 metoprolol succinate 25 mg 25 mg PO QDAY 02/25/23 06/05/23 tablet,extended release 24 hr (Toprol XL) pantoprazole 40 mg tablet,delayed 40 mg PO QDAY 02/25/23 02/25/23 release (Protonix) Previous Rx's Medication Instructions Recorded nirmatrelvir 300 mg (150 mg See Rx Instructions PO .COMPLEX 02/25/23 x2)-ritonavir 100 mg tablet,dose #30 ea pack (Paxlovid) Allergies Allergy/AdvReac Type Severity Reaction Status Date / Time raspberry Allergy Intermediate Hives Verified 02/25/23 17:31 [facility] Medical History Partial small bowel obstruction ?K56.600 - Partial intestinal obstruction, unspecified as to cause (ICD-10) Esophageal reflux ?K21.9 - Gastro-esophageal reflux disease without esophagitis (ICD-10) Unspecified essential hypertension ?I10 - Essential (primary) hypertension (ICD-10) Vitamin D deficiency ?E55.9 - Vitamin D deficiency, unspecified (ICD-10) MONTY (obstructive sleep apnea) ?G47.33 - Obstructive sleep apnea (adult) (pediatric) (ICD-10) Acute diverticulitis ?K57.92 - Diverticulitis of intestine, part unspecified, without perforation or abscess without bleeding (ICD-10) Pulmonary embolism, bilateral ?I26.99 - Other pulmonary embolism without acute cor pulmonale (ICD-10) DVT (deep venous thrombosis) ?I82.409 - Acute embolism and thrombosis of unspecified deep veins of unspecified lower extremity (ICD-10) Duodenal diverticulum ?K57.10 - Diverticulosis of small intestine without perforation or abscess without bleeding (ICD-10) Lumbar radiculopathy ?M54.16 - Radiculopathy, lumbar region (ICD-10) Type 2 diabetes mellitus ?E11.9 - Type 2 diabetes mellitus without complications (ICD-10) Surgical History History of lumbar laminectomy for spinal cord decompression ?Z98.890 - Other specified postprocedural states (ICD-10) History of cholecystectomy ?Z90.49 - Acquired absence of other specified parts of digestive tract (ICD- 10) Hx of appendectomy ?Z90.49 - Acquired absence of other specified parts of digestive tract (ICD- 10) Social History Smoking Status: Never smoker Do you use any of these nicotine containing products: None How often do you have a drink containing alcohol: never AUDIT-C Alcohol total score: 0 Non-prescribed substance use: denies use service: Yes Exam Const: Vital Signs, click to edit/add: Vital Signs - 24 hr 06/05/23 11:26 06/05/23 12:52 06/05/23 13:34 Temperature 97.0 F L Pulse Rate 127 H Pulse Rate [Right Pulse Oximeter] 134 H Respiratory Rate 16 Blood Pressure 193/112 H Blood Pressure [Le ft Upper Arm] 191/97 H Pulse Oximetry 96 94 Oxygen Delivery Me thod Room Air 06/05/23 13:35 06/05/23 14:59 06/05/23 15:00 Temperature Pulse Rate 125 H 127 H Pulse Rate [Right Pulse Oximeter] 127 H Respiratory Rate Blood Pressure 146/87 H Blood Pressure [Le ft Upper Arm] Pulse Oximetry 95 94 94 Oxygen Delivery Me thod Room Air Course Course ED Course: Following initial evaluation, patient had an IV established and labs drawn. She was given a L of normal saline, Zofran, 4 mg of morphine. Her initial lactate was 4.1. She did have about a L and half of saline, she remained a little tachycardic, did an EKG and this does appear to be this sinus tachycardia with a ventricular rate of 125. This does not look like atrial flutter to me. I recheck the lactate and it came down only to 3.8. I do wonder if part of this may be related to her metformin, however with ongoing tachycardia and persistently elevated lactate, I elected to do a CT scan. My initial suspicion in talking to her was that this represented probably a viral gastroenteritis, less likely food-borne illness. I had low suspicion of other acute intra-abdomi nal pathology such as obstruction, diverticulitis, colitis, etcetera given the absence of bloody stools, fever, and with multiple episodes of diarrhea while here in the emergency department. Her other labs were fairly unremarkable. White blood cell count was 11.3 and hemoglobin was 16.1, there is probably little degree of dehydration and hemoconcentration there. Electrolytes were normal. C diff testing was negative. CRP minimally elevated at 1.7. Her CO2 was 26. CT scan by my review showed fluid-filled small bowel loops but no significant distension, no free air, no significant inflammatory changes. Final radiology read was of fluid-filled loops of bowel consistent with a diarrheal illness. She had a total of 2 L of normal saline. She has not had any further vomiting. She did have a dose of Zofran here and I will prescribe Zofran for her for home. For now, discussed that I would anticipate this should improve gradually, the vomiting should and persists beyond another day or so and I would expect the diarrhea to resolve within 7-10 days. She can use Imodium given the absence of fever, bloody stools or abnormalities on CT scan. Primary care follow-up for diarrhea that persists beyond 7-10 days. Return to the ER at any time for acute worsening such as fevers, bloody stools, worsening pain. I did give her oxycodone, 4 tablets, from [facility] if needed for more significant pain at home. Vital Signs Vital signs: Initial Vital Signs Temperature 97.0 F L 06/05/23 11:26 Temperature Source Temporal Artery Scan 06/05/23 11:26 Pulse Rate 134 H 06/05/23 11:26 Pulse Rhythm Regular 06/05/23 11:26 Respiratory Rate 16 06/05/23 11:26 Blood Pressure 191/97 H 06/05/23 11:26 Blood Pressure Mean 128 H 06/05/23 11:26 Blood Pressure Position Supine 06/05/23 11:26 Pulse Oximetry 96 06/05/23 11:26 Oxygen Delivery Method Room Air 06/05/23 11:26 Vital Signs Temperature 97.0 F L 06/05/23 11:26 Pulse Rate 134 H 06/05/23 11:26 Respiratory Rate 16 06/05/23 11:26 Blood Pressure 191/97 H 06/05/23 11:26 Pulse Oximetry 96 06/05/23 11:26 Oxygen Delivery Method Room Air 06/05/23 11:26 Temperature 97.0 F L 06/05/23 11:26 Pulse Rate 127 H 06/05/23 15:00 Respiratory Rate 16 06/05/23 11:26 Blood Pressure 146/87 H 06/05/23 15:00 Pulse Oximetry 94 06/05/23 15:00 Oxygen Delivery Method Room Air 06/05/23 13:35 Medications Administered Medications: Discontinued Medications Generic Name Dose Route Start Last Admin Trade Name Freq PRN Reason Stop Dose Admin Sodium Chloride 1,000 mls @ 1,000 mls/hr 06/05/23 11:30 06/05/23 12:54 0.9 % Sodium Chloride 1000 Ml IV 06/05/23 12:29 Infused .Q1H MINE Infusion Sodium Chloride 1,000 mls @ 1,000 mls/hr 06/05/23 12:15 06/05/23 15:34 0.9 % Sodium Chloride 1000 Ml IV 06/05/23 13:14 Infused .Q1H MINE Infusion Morphine Sulfate 4 mg 06/05/23 11:21 06/05/23 11:47 Morphine 4 Mg/Ml Inj IVP 06/05/23 11:22 4 mg ONCE ONE Administration Morphine Sulfate 4 mg 06/05/23 13:57 06/05/23 14:03 Morphine 4 Mg/Ml Inj IVP 06/05/23 13:58 4 mg ONCE ONE Administration Ondansetron HCl 4 mg 06/05/23 11:19 06/05/23 11:47 Ondansetron 2 Mg/Ml Inj IVP 06/05/23 11:20 4 mg ONCE ONE Administration Medical Decision Making Lab Data Labs: Lab Results 06/05/23 06/05/23 06/05/23 Range/Units 11:15 11:35 13:15 WBC 11.27 H (4.50-11.00) K/uL RBC 5.98 H (4.00-5.20) m/uL Hgb 16.1 H (12.0-16.0) gm/dL Hct 49.9 (33.0-51.0) % MCV 83 (80-100) fL MCH 27 (26-34) pg MCHC 32 (32-36) gm/dL RDW Coeff of Rosa 14.5 (11.5-15.5) % Plt Count 350 (140-440) K/uL Neut % (Auto) 90.4 H (42.0-72.0) % Lymph % (Auto) 4.7 L (20-44) % [place] % (Auto) 4.5 (0.0-11.0) % Eos % (Auto) 0.1 (0.0-7.0) % Baso % (Auto) 0.2 (0.0-3.0) % Neut # (Auto) 10.20 H (1.7-7.0) K/uL Lymph # (Auto) 0.50 L (0.90-2.90) K/uL [place] # (Auto) 0.50 (0.00-0.90) K/UL Eos # (Auto) 0.00 (0.00-0.50) K/uL Baso # (Auto) 0.00 (0.00-0.30) K/uL Abs Immat Gran (auto) 0.00 (0.00-0.30) K/uL Imm/Tot Granulo (auto) 0.1 % Sodium 140 (135-149) mmol/L Potassium 4.1 (3.6-5.1) mmol/L Chloride 100 (96-114) mmol/L Carbon Dioxide 26 (20-32) mmol/L Anion Gap 14 (7-15) mEq/L BUN 19 (7-30) mg/dL Creatinine 0.8 (0.5-1.5) mg/dL Estimated Creat Clear 38.14 Estimated GFR 80 ml/min Glucose 259 H (60-115) mg/dL Lactate 4.1 H* 3.8 H (0.5-1.9) mmol/L Calcium 9.7 (8.4-10.6) mg/dL C-Reactive Protein 1.7 H (0.5-1.0) mg/dL Stl C. diff Tox B Gene Negative (Negative) Stl C. diff [id number] Presumptive Negative (Negative) Discharge Plan Discharge Clinical Impression: Vomiting and diarrhea Patient Disposition: Home, Self-Care Condition: Improved Instructions: Acute Nausea and Vomiting (DC), Acute Diarrhea (ED) Additional Instructions: Continue to work on hydration at home. Zofran if needed for nausea. Oxycodone if needed for pain. Take Tylenol 3 times daily as your baseline, use oxycodone only if needed for more significant pain. Clear liquids today, advance as able depending on your symptoms. I would expect over the next 24 hours, you should improve certainly in terms of nausea and vomiting. Diarrhea may persist for several days up to a week. If you have diarrhea lasting longer than that you should be seen again. Okay to trial Imodium. For bloody stools, fevers, persistent vomiting or other worsening, return at any time to the emergency department. Prescriptions: No Action pantoprazole [Protonix] 40 mg tablet,delayed release (DR/EC) 40 mg PO QDAY metoprolol succinate [Toprol XL] 25 mg tablet extended release 24 hr 25 mg PO QDAY metformin 1,000 mg tablet 1,000 mg PO QDAY Paxlovid 300 mg (150 mg x 2)-100 mg tablets,dose pack See Rx Instructions PO .COMPLEX Qty: 30 0RF Rx Instructions: take TWO 150 mg tablets of nirmatrelvir with ONE 100 mg tablet of ritonavir twice daily for 5 days PO Trulicity 1.5 mg/0.5 mL pen injector 1.5 mg SUBCUT .weekly duloxetine 20 mg capsule,delayed release(DR/EC) 20 mg PO BID Jardiance 25 mg tablet 25 mg PO DAILY glipizide 10 mg tablet extended release 24hr 10 mg PO BID pantoprazole 40 mg tablet,delayed release (DR/EC) 40 mg PO DAILY potassium chloride 10 mEq tablet extended release 10 meq PO DAILY rosuvastatin 40 mg tablet 40 mg PO DAILY torsemide 20 mg tablet 20 mg PO DAILY magnesium oxide 400 mg magnesium capsule 400 mg PO DAILY Follow Up/Referrals: Sariah Bullard MD [Primary Care Provider] - Stand Alone Forms: [facility] Info Instructions
[2023-06-05 11:44] LABS: Lactate Sepsis w/Reflex* 4.1 mmol/L (0.5-1.9)
[2023-06-05 11:45] LABS: Basophils Percent Auto 0.2 % (0.0-3.0); Eosinophils Percent Auto 0.1 % (0.0-7.0); Hematocrit 49.9 % (33.0-51.0); Hemoglobin* 16.1 gm/dL (12.0-16.0); Immature Granulocytes Pct Auto 0.1 %; Lymphocytes Percent Auto 4.7 % (20-44); Mean Corpuscular HGB Conc 32 gm/dL (32-36); Mean Corpuscular Hemoglobin 27 pg (26-34); Mean Corpuscular Volume 83 fL (80-100); Monocytes Percent Auto 4.5 % (0.0-11.0); Neutrophils Percent Auto 90.4 % (42.0-72.0); Platelet Count* 350 K/uL (140-440); RDW Coefficient of Variation % 14.5 % (11.5-15.5); Red Blood Count 5.98 m/uL (4.00-5.20); White Blood Count* 11.27 K/uL (4.50-11.00)
--- NOTE | 2023-06-05 11:46 | ED.NURSE ---
critical lactate 4.[address] Lucas of result. heading to the e bathroom via ambulating.
[2023-06-05] MEDS: 0.9 % SODIUM CHLORIDE 1000 ml 1,000 ML IV ×2 (11:47→12:55)
[2023-06-05] MEDS: ONDANSETRON 2 MG/ML inj 4 MG IVP (11:47)
[2023-06-05] MEDS: MORPHINE 4 MG/ML INJ IVP ×2 (11:47→14:03)
[2023-06-05 11:50] LABS: Slide Review Reflex No
--- OUTSIDE RECORDS SUMMARY | 2023-06-05 11:59 | XMS_ITS | Clinical Summary ---
Author Name Unknown Organization [employer] [facility] Address [place], [place] [address] Care Team Providers Care Reo Asset Manager Name Role Phone Sariah Bullard MD Primary Care Provide r Remberto Medina MD Unavailable Allergies Active Allergy Reactions Criticality Noted Date Comments Droperidol Agitation 07/24/2006 Metformin Nausea And Vomiting 09/12/2022 Raspberry Hives High 02/25/2023 Raspberry (Rubus Idaeus) Hives 06/01/2015 Titanium Other - Describe In Comment Field High 08/02/2015 [place] ill with titanium screws in back- removed 2005- Rivaroxaban Dizziness 07/22/2017 Medications Medication Sig Dispensed Refills Start Date End Date Status multivitamins-calci bn-pajk-foiashhv tab tablet Take 1 tablet by mouth once daily. 0 7 Active acetaminophen (TYLENOL EXTRA STRGTH) 500 mg tablet Take 2 tablets by mouth. Max acetaminophen dose: 4000mg in 24 hrs. 0 8 Active lancetsIndications: Type 2 diabetes mellitus without complication, without long-term current use of insulin (HC) As directed. Test 2 times per day. 200 Each 3 9 Active magnesium oxide 400 mg magnesium capsuleIndications: Hypomagnesemia Take 400 mg by mouth once daily. At bedtime 90 capsule 3 9 Active medication order composerIndications :Sleep apnea, unspecified type CPAP tubing and reservoir 1 Each 5 0 Active blood-glucose meterIndications:Un controlled type 2 diabetes mellitus with hyperglycemia (HC) Dispense meter, test strips, lancets covered by pt ins. E11.65 NIDDM type II, uncontrolled - Test 4 times/day. 1 Device 0 0 Active blood sugar diagnostic (CONTOUR NEXT TEST STRIPS) stripIndications:Ty pe 2 diabetes mellitus without complication, without long-term current use of insulin (HC) Dispense item covered by pt ins. E11.9 IDDM type II - Test 4 times/day. Reason: Unstable diabetes. Patient needs Contour Next blood glucose test strips for her monitor. This is the only monitor that she can use. 200 Strip 9 0 Active blood sugar diagnostic (CONTOUR NEXT TEST STRIPS) stripIndications:Ty pe 2 diabetes mellitus without complication, without long-term current use of insulin (HC) Test 4 times a day due to uncontrolled diabetes. Send through Medicare not other insurance. 200 Each 9 0 Active metoprolol succinate (TOPROL XL) 100 mg Sustained-Release tabletIndications:H TN (hypertension) Take 1 Tablet (100 mg) by mouth once daily. 90 Tablet 3 3 Active DULoxetine (CYMBALTA) 20 mg Delayed-release capsuleIndications: Fibromyalgia Take 1 Capsule (20 mg) by mouth two times daily. 180 Capsule 3 3 Active empagliflozin (Jardiance) 25 mg tabletIndications:T ype 2 diabetes mellitus without complication, without long-term current use of insulin (HC) Take 1 Tablet (25 mg) by mouth once daily. 90 Tablet 3 3 Active pantoprazole (PROTONIX) 40 mg delayed-release tabletIndications:G astritis, presence of bleeding unspecified, unspecified chronicity, unspecified gastritis type Take 1 Tablet (40 mg) by mouth once daily. 90 Tablet 3 3 Active rosuvastatin (CRESTOR) 40 mg tabletIndications:H yperlipidemia, unspecified hyperlipidemia type Take 1 Tablet (40 mg) by mouth at bedtime. 90 Tablet 3 3 Active torsemide (DEMADEX) 20 mg tabletIndications:E ssential hypertension with goal blood pressure less than 140/90 Take 1 Tablet (20 mg) by mouth every morning. 90 Tablet 3 3 Active glipiZIDE extended-release (GLUCOTROL XL) 10 mg Extended-Release tabletIndications:T ype 2 diabetes mellitus without complication, without long-term current use of insulin (HC) Take 1 Tablet (10 mg) by mouth two times daily with meals. 180 Tablet 3 3 Active albuterol HFA (PRO-AIR; VENTOLIN; PROVENTIL) 90 mcg/actuation inhalerIndications: Acute cough Inhale 1-2 Puffs by mouth every 4 hours if needed for Shortness Of Breath. 1 Each 0 3 Active codeine-guaiFENesin (ROBITUSSIN AC) 10-100 mg/5 mL liquidIndications:B ronchitis with bronchospasm Take 5 mL by mouth at bedtime if needed for Cough. Max dose 60 mL per 24 hrs. 60 mL 0 3 Active CPAPIndications:Obs tructive sleep apnea CPAP machine for home use at pressure 10 cmw epr 3, nasal mask x1/3month with nasal pillows x 2/mo 1 Each 11 3 Active FreeStyle Winston 2 SensorIndications:T ype 2 diabetes mellitus without complication, without long-term current use of insulin (HC) To be used to read blood sugars per quality control clerk's directions. Change each sensor every 14 days. Dispense 3 month supply if able 2 Each 12 3 Active transmitter for continuous blood glucose monitor (CGM)Indications:Ty pe 2 diabetes mellitus without complication, without long-term current use of insulin (HC) To be used to read blood sugars, follow quality control clerk directions. 1 Each 4 3 Active potassium chloride (MICRO-K) 10 mEq Controlled-release capsuleIndications: Hypokalemia Take 1 Capsule (10 mEq) by mouth once daily with a meal. 90 Capsule 3 3 Active Additional Information Patient taking differently: 20 mEqOral DAILY WITH MEAL, Reported on 03/11/2023 metFORMIN (GLUCOPHAGE XR) 500 mg Extended-Release tabletIndications:T ype 2 diabetes mellitus without complication, without long-term current use of insulin (HC) Take 1 Tablet (500 mg) by mouth two times daily with meals. 0 4 Active dulaglutide (Trulicity) 3 mg/0.5 mL subcutaneous penIndications:type 2 diabetes mellitus Inject 3 mg subcutaneous once weekly. 2 mL 11 4 Active carisoprodoL (SOMA) 350 mg tabletIndications:A cute midline low back pain without sciatica Take 1 Tablet (350 mg) by mouth 2 times daily if needed for Muscle Spasm. 30 Tablet 1 4 Active dulaglutide (Trulicity) 3 mg/0.5 mL subcutaneous penIndications:type 2 diabetes mellitus Inject 3 mg subcutaneous once weekly. 2 mL 11 3 05/13/19 24 Discontinue d(Reorder (E-cancel not sent)) fluconazole (DIFLUCAN) 150 mg tabletIndications:Y east vaginitis Take 1 Tablet (150 mg) by mouth one time for 1 dose. Repeat a second dose in 1 week. 2 Tablet 0 4 05/12/19 24 Active Problems Problem Noted Date Diagnosed Date Sciatica 03/13/2023 S/P small bowel resection 03/13/2023 Depression, recurrent 09/12/2022 Uncontrolled type 2 diabetes mellitus with hyper glycemia 05/03/2021 Lumbosacral radiculopathy at S1 06/30/2020 Greater trochanteric bursitis of right hip 06/30 Duodenal diverticulum 05/19/2018 Type 2 diabetes mellitus wit hout complication, without long-term current use of insulin 12/30/2017 Acute deep vein thrombosis (DVT) of left lower e xtremity 08/01/2017 Low magnesium level 07/22/2017 Anticoagulation monitoring, INR range 2-3 2017 Pulmonary embolism, bilateral 07/01/2017 Acute diverticulitis of intestine 04/02/2016 Family history of early CAD 12/05/2015 MONTY 09/27/2013 AHI-185 10/14/2013 Impaired fasting glucose 01/28/2012 Back pain, thoracic 08/24/2011 Dysthymia 12/21/2010 Morbid obesity 08/31/2010 Screen for colon cancer 08/09/2009 Overview: Colonoscopy 07/2009 internal hemorrhoids repeat in 10 years Vitamin D deficiency 03/01/2009 Essential hypertension 02/10/2009 Hyperlipidemia 02/10/2009 Chronic GERD 02/10/2009 Unspecified essential hypertension 09/19/2005 Other and unspecified hyperlipidemia 09/19/2005 Esophageal reflux 09/19/2005 Overview: EGD 07/2015 normal EGD 04/2017 normal Backache, unspecified 09/19/2005 Resolved Problems Problem Noted Date Diagnosed Date Resolved Date Anticoagulation monitoring, INR range 2-3 [Z79.01] 07/02/2017 07/03/2017 Chest pain, unspecified 09/19/2005 10/0 06/2016 Overview: neg angio in 2004 Encounters Date Type Department Care Team Description 06/05/[address] [facility] [address] [facility] [phone] Sariah Bullard MD Refill Request (Metformin) 05/29/2023 Telephone [facility] [address] [place] [address] Sariah Bullard MD Refill Request (CARISOPRODOL 350) 05/27/2023 Telephone [facility] [address] [place] [address] Susu Bennett DO Refill Request (Carisoprodol 350mg) 05/19/2023 10:30 AM HOME CARE ASSOCIATE Ancillary Procedure [facility] [address] [place] [address] 05/19/2023 Travel 05/13/2023 Refill [facility] [address] [place] [address] Sariah Bullard MD Refill Request (Trulicity SD Pen 0.5ml 4's 3mg ) 05/12/2023 Telephone [facility] [address] [place] [address] Sariah Bullard MD Abnormal Lab Results 05/12/2023 Refill [facility] [address] [place] [address] Sariah Bullard MD Refill Request; TRULICITY 05/06/2023 1:50 PM HOME CARE ASSOCIATE Office Visit [facility] [address] [place] [address] Sariah Bullard MD Diabetes (A1c done); Vaginal Pain (PAP as she is having pain at night, wakes her up. Notices an odor.) 05/06/2023 Travel 03/27/2023 4:05 PM HOME CARE ASSOCIATE Office Visit [facility] [address] [facility] [place] [address] Susu Bennett, UTI (frequency, urgency, bladder pain); Cough (fatigue left from COVID-19 02/25, cough started ) 03/27/2023 Travel 03/17/2023 Telephone [facility] [address] [place] [address] Sariah Bullard MD Refill Request (torsemide (DEMADEX) 20 mg tablet) 03/11/2023 9:35 AM HOME CARE ASSOCIATE Ancillary Procedure [facility] [address] [place] [address] 03/11/2023 9:00 AM HOME CARE ASSOCIATE Office Visit [facility] [address] [facility] [address] Rita Nichole PA Covid-19 Positive Result (COVID-19 positive for 2 weeks. Still coughing, body aches, fatigue. ) 03/11/2023 Travel from Last 3 Months Immunizations Name Administration Dates Next Due AMB Influenza, IIV4 PF (=>6 mos Flulaval,Fluzone Fluarix)(Flu Clinic Only) 02/09/2019 COVID-19 vaccine (FeedMagnet-Bio NTech 30mcg/0.3mL) 12YO+ BIVALENT PF, MDV 09/12/2022 COVID-19 vaccine (FeedMagnet-Bio NTech 30mcg/0.3mL) PF, MDV 05/03/2021,08/08/2020,07/18/2020 Hepatitis B (Adult) 04/03/1992,11/01/1991,1991 Influenza Virus, Unspecified 01/24/2023, 01/21/2020,02/02/2009,02/13,03/27/2006 Influenza, IIV3 (Age >=3 years) 12/18/2008,02/13,03/27/2006 Influenza, IIV4 01/27/2018, 7,01/20/2016,01/03 Influenza, Inactivated AIIV4 (Age 65+ Years) Preserv Free 01/24/2023,01/21/2020 Pneumococcal Conj 20-valent (Prevnar 20) 09/12/2022 Pneumococcal Poly,23-Valent (Pneumovax) 06/24/2016 Pneumococcal conj 13-Valent (Prevnar 13) 02/16/2016 RSV, Bivalent Vaccine Recons tituted (Abrysvo 120MCG/0.5mL) 01/24/2023 Tdap 07/31/2011,11/02/1996 Zoster (Shingrix-RZV, recombinant) 11/05/2019, Family History Medical History Relation Name Comments Heart Disease Father Diabetes Maternal Grandfather Heart Disease Mother Other Mother emphysema Anesthesia Problem No Family History Blood Disease No Family History Cancer-breast No Family History Cancer-colon No Family History Relation Name Status Comments Father (Age 60s ) [place] Maternal Grandfather Mother Alive Social History Tobacco Use Types Packs/Day Years Used Date Smoking Tobacco: Never Smokeless Tobacco: Never Tobacco Cessation:Counseling Given: No Alcohol Use Standard Drinks/Week Comments No 0 (1 standard drink = 0.6 oz pur e alcohol) PHQ-2 Answer Date Recorded PHQ-2 TOTAL SCORE 1 09/12/2022 Social Connections Answer Date Recorded Frequency of Communication with Friends and Fami ly Not on file 04/19/2021 Financial Resource Strain Answer Date R ecorded Difficulty of Paying Living Expenses Not on file 04/19/2021 Difficulty of Paying Living Expenses Not on file 04/19/2021 Sex and Gender Information Value Date Recorded Sex Assigned at Not on file Gender Identity Not on file Sexual Orientation Not on file Obstetrics History Last Filed Vital Signs Vital Sign Reading Time Taken Comments Blood Pressure 134/79 05/06/2023 1:43 PM HOME CARE ASSOCIATE Pulse 99 05/06/2023 1:43 PM HOME CARE ASSOCIATE Temperature 36.9 ??C (98.4 ??F) 03/11/2023 8:45 AM CS T Respiratory Rate 20 03/11/2023 8:45 AM HOME CARE ASSOCIATE Oxygen Saturation 94% 05/06/2023 1:42 PM HOME CARE ASSOCIATE Inhaled Oxygen Concentration - - Weight 104.6 kg (230 lb 9.6 oz) 05/06/2023 1:42 PM HOME CARE ASSOCIATE Height 152.4 cm (5') 12/19/2022 1:42 PM CDT Body Mass Index 45.04 12/19/2022 1:42 PM CDT Plan of Treatment Upcoming Encounters Date Type Department Care Team (Late st Contact Info) Description 08/05/2023 10:55 AM CDT Office Visit [facility] [address] [place] [address] Sariah Bullard MD [address] [place] [address] Health Maintenance Due Date Last Done Comments Mammogram for age 45-75 1998 Tetanus booster 07/30/2021 07/31/2011, 07/20, 11/02/1996 COVID-19 vaccine series (2022- season) 2022 09/12/2022, 05/03/2021, 08/08/2020, Additional history exists Medicare Wellness for age 65+ 09/13/2023 09/12/2022 Depression screening for age 12+ 09/14/2023 09/13/2022, 09/12/2022, 09/12/2022, Additional history exists BMI (ht and wt on same day) for age 18+ 12/20/2023 12/19/2022, 12/05/2022, 09/12/2022, Additional history exists Fecal testing sDNA-FIT ([place] guard) for age 45-75 10/01/2025 10/01/2022 Lipids for age 45-75 12/25/2026 12/25/2021, 12/25/2021, 01/25/2021, Additional history exists Tdap Completed 07/31/2011, 11/02/1996 Hepatitis C screening for ag e 18-79 Completed 04/13/2019 Zoster (shingles) series for age 50+ Completed 11/05/2019, 06/24/2019 DEXA/DXA scan for age 65+ Completed 09/12/2022 Pneumococcal series for age 65+ Completed 09/12/2022, 06/24/2016, 02/16/2016 Influenza for age 65+ Completed 01/24/2023 , 01/24/2023, 01/21/2020, Additional history exists Medical Devices Implanted Type Area Smoked Meat Preparer Device Identifier Shelf Expiration Date Model / Serial / Lot Screw Polyaxial 6.5x50mm - [id number] Implanted:Qty: 1 on 09/18/2005 at [facility] Spine [employer] [id number] / / Screw Polyaxial 6.5x45mm - [id number] Implanted:Qty: 2 on 09/18/2005 at [facility] [id number] / / Monica Carie [id number] - [id number] Implanted:Qty: 4 on 09/18/2005 at [facility] Spine [facility] [id number] / / Allosource Canc Crushed 30cc Implanted:Qty: 1 on 09/18/2005 at [facility] Explanted:at [facility] (Quantity not on file) Spine [employer] 11/13/2008 [id number] / [id number] / Description:CANC CRUSHED 30C C Screw Polyaxial 6.5x40mm - [id number] Implanted:Qty: 1 on 09/18/2005 at [facility] [id number]# / / Mark Carie Rad 40mm 108mm Radius - [id number] Implanted:Qty: 2 on 09/18/2005 at [facility] [id number]# / / [id number] Canclls Crushed 30cc [[id number]] Implanted:Qty: 1 on 08/26/2006 at [facility] Explanted:at [facility] (Quantity not on file) Spine [employer] 01/15/2011 [id number] / [id number] / Procedures Procedure Name Priority Date/Time Associated Diagnosis Comments US PELVIS COMPLETE TA AND TV Routine 05/19/2023 10:57 AM HOME CARE ASSOCIATE Enlarged uterus URINE CULTURE Routine 05/06/2023 2:40 PM HOME CARE ASSOCIATE Abnormal urine odor UA W/ SEDIMENT EXAM REFLEXED PER CRITERIA Routine 05/06/2023 2:40 PM HOME CARE ASSOCIATE Abnormal urine odor TRICHOMONAS, SAEED, AND BACTERIAL VAGINOSIS BY VIRAL Routine 05/06/2023 2:36 PM HOME CARE ASSOCIATE Pelvic pain RAIL TRANSPORTATION TABELER THIN PREP PAP SCREEN IMAGED Routine 05/06/2023 2:35 PM HOME CARE ASSOCIATE Cervical cancer screening HPV THIN PREP Routine 05/06/2023 2:35 PM HOME CARE ASSOCIATE Cervical cancer screening HEMOGLOBIN A1C Routine 05/06/2023 1:36 PM HOME CARE ASSOCIATE Type 2 diabetes mellitus without complication, without long-term current use of insulin (HC) TRICHOMONAS, SAEED, AND BACTERIAL VAGINOSIS BY VIRAL Routine 03/27/2023 4:47 PM HOME CARE ASSOCIATE Frequency of urination URINALYSIS MICROSCOPIC Routine 03/27/2023 3:50 PM HOME CARE ASSOCIATE Frequency of urination UA W/ SEDIMENT EXAM REFLEXED PER CRITERIA Routine 03/27/2023 3:50 PM HOME CARE ASSOCIATE Frequency of urination XR CHEST 2 VIEWS PA AND LATERAL STAT 03/11/2023 9:46 AM HOME CARE ASSOCIATE History of COVID-19 Subacute cough CBC WITH AUTO DIFFERENTIAL Routine 03/11/2023 9:33 AM HOME CARE ASSOCIATE Subacute cough PROCALCITONIN Routine 03/11/2023 9:33 AM HOME CARE ASSOCIATE History of COVID-19 Subacute cough Fatigue, unspecified type C-REACTIVE PROTEIN Routine 03/11/2023 9: 33 AM HOME CARE ASSOCIATE History of COVID-19 Subacute cough Uncontrolled type 2 diabetes mellitus with hyperglycemia (HC) MAGNESIUM Routine 03/11/2023 9:33 AM HOME CARE ASSOCIATE Subacute cough BASIC METABOLIC PANEL Routine 03/11/2023 9:33 AM HOME CARE ASSOCIATE Subacute cough CBC WITH AUTO DIFFERENTIAL Routine 03/11/2023 9:33 AM HOME CARE ASSOCIATE Subacute cough from Last 3 Months Results * US PELVIS COMPLETE TA AND TV (05/19/2023 10:57 AM HOME CARE ASSOCIATE) Anatomical Region Laterality Modality Pelvis Ultrasound 05/19/2023 11:2 6 AM HOME CARE ASSOCIATE Impressions 05/19/2023 11:26 AM HOME CARE ASSOCIATE 1.4 cm uterine fibroid is similar. Endometrial thickness 2 millimeters. Dictated by Colby Milian MD @ May 19 2023 11:26AM (Electronically Signed) ?? Narrative 05/19/2023 11:26 AM HOME CARE ASSOCIATE For Patients: ??As a result of the Cures Act, medical imaging exams and procedure reports are released immediately into your electronic medical record. ??You may view this report before your referring provider. ??If you have questions, please contact your health care provider. INDICATION: Enlarged uterus COMPARISON: 01/02/2022 TECHNIQUE: 2D rodgers scale and color Doppler images were acquired of the pelvis using a transabdominal and transvaginal approach. FINDINGS: Sonographic images demonstrate a normal size and smooth outer contour of the uterus. Uterus measures 8.2 cm in length by 4.3 cm in AP diameter by 3.0 cm in transverse dimension. Small posterior intramural fibroid again noted measuring 1.2 x 1.4 x 1.2 cm. The endometrial lining measures 2 mm in composite thickness. The ovaries are not visualized. There are no suspicious fluid collections within the cul-de-sac. Procedure Note Colby Milian MD - 05/19/2023 For Patients: As a result of the Cures Act, medical imagingexams and procedure reports are released immediately into your electronicmedical record. You may view this report before your referring provider.If you have questions, please contact your health care provider. INDICATION: Enlarged uterus COMPARISON: 01/02/2022 TECHNIQUE: 2D rodgers scale and color Doppler images were acquired of the pelvis using atransabdominal and transvaginal approach. FINDINGS: Sonographic images demonstrate a normal size and smooth outer contour ofthe uterus. Uterus measures 8.2 cm in length by 4.3 cm in AP diameter by3.0 cm in transverse dimension. Small posterior intramural fibroid againnoted measuring 1.2 x 1.4 x 1.2 cm. The endometrial lining measures 2 mmin composite thickness. The ovaries are not visualized. There are no suspicious fluid collectionswithin the cul-de-sac. IMPRESSION: 1.4 cm uterine fibroid is similar. Endometrial thickness 2 millimeters. Dictated by Colby Milian MD @ May 19 2023 11:26AM (Electronically Signed) Sariah Bullard MD US * URINE CULTURE (05/06/2023 2:40 PM HOME CARE ASSOCIATE) CULTURE <10,000 CFU/mL multiple organisms 05/08/2023 7:46 AM HOME CARE ASSOCIATE [facility] Urine URINE SPECIMEN / Unknown Non-Blood / Unknown 05/06/2023 2:40 PM HOME CARE ASSOCIATE 05/06/2023 2:51 PM HOME CARE ASSOCIATE Sariah Bullard MD [facility] [address] [place] [address], [place] * (ABNORMAL) UA W/ SEDIMENT EXAM REFLEXED PER CRITERIA (05/06/2023 2:40 PM HOME CARE ASSOCIATE) Only the most recent of2 resultswithin the time period is included. COLOR Yellow Yellow Color 05/06/2023 2:54 PM HOME CARE ASSOCIATE [facility] CLARITY Clear Clear Clarity 05/06/2023 2:54 PM HOME CARE ASSOCIATE [facility] SPECIFIC GRAVITY,URINE 1.010 1.010, 1.015, 1.020, 1.025 05/06/2023 2:54 PM HOME CARE ASSOCIATE [facility] PH,URINE 6.0 6.0, 7.0, 8.0, 5.5, 6.5, 7.5, 8.5 05/06/2023 2:54 PM HOME CARE ASSOCIATE [facility] UROBILINOGEN, QUALITATIVE Normal Normal EU/dl 05/06/2023 2:54 PM HOME CARE ASSOCIATE [facility] PROTEIN, URINE Negative Negative mg/dL 05/06/2023 2:54 PM HOME CARE ASSOCIATE [facility] GLUCOSE, URINE 500(A) Negative mg/dL 05/06/2023 2:54 PM HOME CARE ASSOCIATE [facility] KETONES,URINE Negative Negative mg/dL 05/06/2023 2:54 PM HOME CARE ASSOCIATE [facility] BILIRUBIN,URI NE Negative Negative 05/06/2023 2:54 PM HOME CARE ASSOCIATE [facility] OCCULT BLOOD,URINE Negative Negative 05/06/2023 2:54 PM HOME CARE ASSOCIATE [facility] NITRITE Negative Negative 05/06/2023 2:54 PM HOME CARE ASSOCIATE [facility] LEUKOCYTE ESTERASE Negative Negative 05/06/2023 2:54 PM HOME CARE ASSOCIATE [facility] Urine URINE SPECIMEN / Unknown Non-Blood / Unknown 05/06/2023 2:40 PM HOME CARE ASSOCIATE 05/06/2023 2:51 PM HOME CARE ASSOCIATE Sariah Bullard MD URINE Performing Organization Address City/[facility]/ZIP Co de Phone Number [facility] [address] [place] [address], * (ABNORMAL) TRICHOMONAS, SAEED, AND BACTERIAL VAGINOSIS BY VIRAL (05/06/2023 2:36 PM HOME CARE ASSOCIATE) Only the most recent of2 resultswithin the time period is included. SAEED SPECIES Negative Negative 4 2:00 AM HOME CARE ASSOCIATE [facility] SAEED GLABRATA Positive(A) Negative 05/07/2023 2:00 AM HOME CARE ASSOCIATE [facility] TRICHOMONAS VVA Negative Negative 4 2:00 AM HOME CARE ASSOCIATE [facility] BACTERIAL VAGINOSIS Negative Negative 05/07/2023 2:00 AM HOME CARE ASSOCIATE [facility] Other VAGINAL SWAB / Unknown Non-Blood / Unknown 05/06/2023 2:36 PM HOME CARE ASSOCIATE 05/06/2023 2:51 PM HOME CARE ASSOCIATE Sariah Bullard MD MICROBIOLOGY [facility] [address] [place] [address], [place] * RAIL TRANSPORTATION TABELER THIN PREP PAP SCREEN IMAGED (05/06/2023 2:35 PM HOME CARE ASSOCIATE) Case Report Gynecologic Cytology Report ? Case: [id number] ? Authorizing Provider: ??Sariah Bullard, ??Collected: ? 05/06/2023 1435 ? MD ? Ordering Location: ? [facility] ?? Received: ?05/06/2023 1451 ? Clinic ? First Screen: ?Deondre, Rodger ? Rescreen: ?Notermshruthi, Lexy ? Specimen: ?RAIL TRANSPORTATION TABELER ThinPrep Vial Screening, Cervical ? 05/15/2023 10:26 AM [facility] [employer] [facility] INTERPRETATION/ RESULT NEGATIVE FOR INTRAEPITHELIAL LESION OR MALIGNANCY (NIL) (none) 05/15/2023 10:26 AM [facility] [employer] [facility] IMEN ADEQUACY Satisfactory for evaluation No endocervical component seen 05/15/2023 10:26 AM [facility] [employer] [facility] HPV REQUEST HPV and PAP 05/15/2023 10:26 AM [facility] [employer] [facility] Date of LMP years ago 05/15/2023 10:26 AM [facility] [employer] [facility] Last Pap Date 06/01/15 05/15/2023 10:26 AM [facility] [employer] [facility] Last Pap Result NIL 10:26 AM [facility] [employer] [facility] Abnormal Pap or Chester Bx in last 5 years No 05/15/2023 10:26 AM [facility] [facility] [employer] [facility] Menstrual Status Postmenopausal 05/15/2023 10:26 AM [facility] [employer] [facility] Chester Bx Done Today No 05/15/2023 10:26 AM [facility] [employer] [facility] Additional Information None given 05/15/2023 10:26 AM [facility] [employer] [facility] Comment: Cytology is screened at [facility] - [address], [place] [address] and [facility] - [address], [place] [address] and [facility] - [address] [place] [address] Interpreted at [facility] - [address], [place] [address] Automated Review Successful 05/15/2023 10:26 AM [facility] [employer] [facility] Comment:Specimen processed s uccessfully by automated airbrush artist device, ThinPrep Imaging System, [employer] ANCILLARY TESTING RAIL TRANSPORTATION TABELER HPV Ordered, Please see separate report 05/15/2023 10:26 AM HOME CARE ASSOCIATE [facility] Note The pap test is a screening technique, not a diagnostic procedure. It is used primarily to screen for squamous cancers and precursor lesions. Published studies have shown that it is subject to both false negative and false positive results. The pap test should not be used as the sole means to diagnose or exclude pre-malignant and malignant lesions. 05/15/2023 10:26 AM HOME CARE ASSOCIATE [facility] Other (Cervical) Non-Blood / Unknown 05/06/2023 2:35 PM HOME CARE ASSOCIATE 05/06/2023 2:51 PM HOME CARE ASSOCIATE Sariah Bullard MD PATHOLOGY/CYT OLOGY Performing Organization Address [facility] Co de Phone Number [facility] [address] [place] [address], [place] * HPV HIGH RISK (05/06/2023 2:35 PM HOME CARE ASSOCIATE) TYPE 16 Negative Negative 05/08/2023 5:32 PM HOME CARE ASSOCIATE [facility] TYPE 18 Negative Negative 05/08/2023 5:32 PM HOME CARE ASSOCIATE [facility] OTHER HIGH RISK TYPES Negative Negative 05/08/2023 5:32 PM HOME CARE ASSOCIATE [facility] Other (Cervical) Non-Blood / Unknown 05/06/2023 2:35 PM HOME CARE ASSOCIATE 05/07/2023 10:46 AM HOME CARE ASSOCIATE Narrative [facility] - 05/08/2023 5:32 PM HOME CARE ASSOCIATE HPV types 16, 18, 31, 33, 35, 39, 45, 51, 52, 56, 58, 59, 66 and 68 DNA were undetectable or below the pre-set threshold. Methodology: Sarah Luis 4800 HPV Test Sariah Bullard MD MICROBIOLOGY Performing Organization Address [facility] Co de Phone Number [facility] [address] [place] [address], * (ABNORMAL) HEMOGLOBIN A1C MONITORING (POCT) (05/06/2023 1:36 PM HOME CARE ASSOCIATE) Pathologist [facility] HEMOGLOBIN A1C MONITORING (POCT) 7.8(H) <=6.4 % 05/06/2023 1:47 PM HOME CARE ASSOCIATE [facility] Blood BLOOD SPECIMEN / Unknown Venipuncture / Unknown 05/06/2023 1:36 PM HOME CARE ASSOCIATE 05/06/2023 1:38 PM HOME CARE ASSOCIATE Narrative [facility] - 05/06/2023 1:47 PM HOME CARE ASSOCIATE ? (<=6.9%) ? Indicates good control ? (7.0% to 7.9%) ? Indicates fair control ? (>=8.0%) ? Indicates poor control ?? NOTE: ??These thresholds are guidelines and ?individual targets may vary. Falsely low levels may be seen with: Recent Transfusion, Recent Significant Blood Loss, Hemolytic Diseases, or Falsely elevated levels may be seen with: Untreated Anemias, Splenectomy ? Sariah Bullard MD CHEMISTRY [facility] [address] [place] [address], * URINALYSIS MICROSCOPIC (03/27/2023 3:50 PM HOME CARE ASSOCIATE) [facility] RBC None Seen 0-2, None Seen /HPF 03/27/2023 4:01 PM HOME CARE ASSOCIATE [facility] WBC 0-2 0-2, 3-5, None Seen /HPF 03/27/2023 4:01 PM HOME CARE ASSOCIATE [facility] BACTERIA Few None Seen, Rare, Few Bacteria/ HPF 03/27/2023 4:01 PM HOME CARE ASSOCIATE [facility] EPITHELIAL CELLS None Seen None Seen, Few Epi/HPF 03/27/2023 4:01 PM HOME CARE ASSOCIATE [facility] Urine URINE SPECIMEN / Unknown Non-Blood / Unknown 03/27/2023 3:50 PM HOME CARE ASSOCIATE 03/27/2023 3:50 PM HOME CARE ASSOCIATE Susu Bennett DO URINE [facility] [address] [place] [address], * XR CHEST 2 VIEWS PA AND LATERAL (03/11/2023 9:46 AM HOME CARE ASSOCIATE) Anatomical Region Laterality Modality CHEST, THORAX, Lung, HEART Digit al Radiography 03/11/2023 9:46 AM HOME CARE ASSOCIATE Impressions 03/11/2023 9:47 AM HOME CARE ASSOCIATE Heart is normal in size. Lungs are clear. Narrative 03/11/2023 9:47 AM HOME CARE ASSOCIATE For Patients: As a result of the Cures Act, medical imaging exams and procedure reports are released immediately into your electronic medical record. You may view this report before your referring provider. If you have questions, please contact your health care provider. EXAM: XR CHEST 2 VIEWS PA AND LATERAL LOCATION: [facility] DATE: 03/11/2023 INDICATION: History Of Covid-19 Subacute Cough COMPARISON: 11/19/2022 Procedure Note Greg Irizarry MD - 03/11/2023 For Patients: As a result of the Cures Act, medical imagingexams and procedure reports are released immediately into your electronicmedical record. You may view this report before your referring provider.If you have questions, please contact your health care provider. EXAM: XR CHEST 2 VIEWS PA AND LATERAL LOCATION: [facility] DATE: 03/11/2023 INDICATION: History Of Covid-19 Subacute Cough COMPARISON: 11/19/2022 IMPRESSION: Heart is normal in size. Lungs are clear. Rita CROWE [facility] * (ABNORMAL) CBC WITH AUTO DIFFERENTIAL (03/11/2023 9:33 AM HOME CARE ASSOCIATE) WHITE BLOOD COUNT 8.5 4.5 - 11.0 thou/cu mm 03/11/2023 9:48 AM HOME CARE ASSOCIATE [facility] RED BLOOD COUNT 5.36(H) 4.00 - 5.20 mil/cu mm 03/11/2023 9:48 AM HOME CARE ASSOCIATE [facility] HEMOGLOBIN 15.2 12.0 - 16.0 g/dL 03/11/2023 9:48 AM HOME CARE ASSOCIATE [facility] HEMATOCRIT 46.2 33.0 - 51.0 % 03/11/2023 9:48 AM HOME CARE ASSOCIATE [facility] MCV 86 80 - 100 fL 03/11/2023 9:48 AM HOME CARE ASSOCIATE [facility] MCH 28.4 26.0 - 34.0 pg 03/11/2023 9:48 AM HOME CARE ASSOCIATE [facility] MCHC 32.9 32.0 - 36.0 g/dL 03/11/2023 9:48 AM HOME CARE ASSOCIATE [facility] RDW 14.6 11.5 - 15.5 % 03/11/2023 9:48 AM HOME CARE ASSOCIATE [facility] PLATELET COUNT 321 140 - 440 thou/cu mm 03/11/2023 9:48 AM HOME CARE ASSOCIATE [facility] MPV 9.7 6.5 - 11.0 fL 03/11/2023 9:48 AM HOME CARE ASSOCIATE [facility] % NEUT 50.9 % 03/11/2023 9:48 AM HOME CARE ASSOCIATE [facility] % LYMPH 36.9 % 03/11/2023 9:48 AM HOME CARE ASSOCIATE [facility] % MONO 9.6 % 03/11/2023 9:48 AM HOME CARE ASSOCIATE [facility] % EOS 2.1 % 03/11/2023 9:48 AM HOME CARE ASSOCIATE [facility] % BASO 0.5 % 03/11/2023 9:48 AM HOME CARE ASSOCIATE [facility] ABSOLUTE NEUTROPHILS 4.3 1.7 - 7.0 thou/cu mm 03/11/2023 9:48 AM HOME CARE ASSOCIATE [facility] ABSOLUTE LYMPHOCYTES 3.1(H) 0.9 - 2.9 thou/cu mm 03/11/2023 9:48 AM HOME CARE ASSOCIATE [facility] ABSOLUTE MONOCYTES 0.8 <0.9 thou/cu mm 03/11/2023 9:48 AM HOME CARE ASSOCIATE [facility] ABSOLUTE EOSINOPHILS 0.2 <0.5 thou/cu mm 03/11/2023 9:48 AM HOME CARE ASSOCIATE [facility] ABSOLUTE BASOPHILS 0.0 <0.3 thou/cu mm 03/11/2023 9:48 AM HOME CARE ASSOCIATE [facility] Blood BLOOD SPECIMEN / Unknown Venipuncture / Unknown 03/11/2023 9:33 AM HOME CARE ASSOCIATE 03/11/2023 9:35 AM HOME CARE ASSOCIATE Rita CROWE HEMATOLOGY [facility] [address] [place] [address], * PROCALCITONIN (03/11/2023 9:33 AM HOME CARE ASSOCIATE) PROCALCITONIN 0.16 ng/ml 03/11/2023 4:07 PM HOME CARE ASSOCIATE [facility] Blood BLOOD SPECIMEN / Unknown Venipuncture / Unknown 03/11/2023 9:33 AM HOME CARE ASSOCIATE 03/11/2023 9:35 AM HOME CARE ASSOCIATE Narrative [facility] - 03/11/2023 4:07 PM HOME CARE ASSOCIATE Procalcitonin for initial assessment of Lower Respiratory Tract Infection: Results Interpretation <0.10 ng/mL Antibiotic therapy strongly discoraged. ??Indicates absent of bacterial infection. * 0.10 - 0.25 ng/mL Antibiotic therapy discouraged. ??Bacterial infection unlikely. * 0.26 - 0.50 ng/mL Antibiotic therapy encouraged. ??Bacterial infection possible. >0.50 ng/mL Antibiotic therapy strongly encouraged. ??Suggestive of presence of bacterial infection. *Antibiotic therapy should be considered regardless of PCT result if the patient is clinically unstable, is at high risk for adverse outcome, has strong evidence of bacterial pathogen, or the clinical context indicates antibiotic therapy is warranted. ??If antibiotics are withheld, reassess if symptoms persist/worsen and/or repeat PCT measurement within 6-24 hours. ? In order to assess treatment success and to support a decision to discontinue antibiotic therapy, follow up samples should be tested once every 1-2 days, based upon physician discretion taking into account patient's evolution and progress. Procalcitonin for initial assessment of severe sepsis risk: Results Interpretation <0.5 ng/ml A PCT level below 0.5 ng/ml on the first day of ICU admission is associated with a low risk for progression to severe sepsis and/or septic shock. > 2.0 ng/mL A PCT level above 2.0 ng/mL on the first day of ICU admission is associated with a high risk for progression to severe sepsis and/or septic shock. Note: Concentrations < 0.5 ng/mL do not exclude an infection, on account of localized infections (without systemic signs) which can be associated with such low concentrations, or a systemic infection in its initial stages(< 6 hours). Furthermore, increased procalcitonin can occur without infection. PCT concentrations between 0.5 and 2.0 ng/mL should be interpreted taking into account the patient's history. It is recommended to retest PCT within 6-24 hours if any concentrations < 2 ng/mL are obtained. Rita CROWE SEND OUTS Performing Organization Address City/[facility]/ZIP Co de Phone Number [facility] [address] [place] [address], * (ABNORMAL) C-REACTIVE PROTEIN (03/11/2023 9:33 AM HOME CARE ASSOCIATE) C-REACTIVE PROTEIN 1.4(H) <0.5 mg/dL 03/11/2023 4:24 PM HOME CARE ASSOCIATE [facility] Blood BLOOD SPECIMEN / Unknown Venipuncture / Unknown 03/11/2023 9:33 AM HOME CARE ASSOCIATE 03/11/2023 9:35 AM HOME CARE ASSOCIATE Rita CROWE CHEMISTRY Performing Organization Address City/[facility]/ZIP Co de Phone Number [facility] [address] [place] [address], * MAGNESIUM (03/11/2023 9:33 AM HOME CARE ASSOCIATE) MAGNESIUM 1.9 1.6 - 2.4 mg/dL 03/11/2023 6:32 PM HOME CARE ASSOCIATE [facility] Blood BLOOD SPECIMEN / Unknown Venipuncture / Unknown 03/11/2023 9:33 AM HOME CARE ASSOCIATE 03/11/2023 9:35 AM HOME CARE ASSOCIATE Rita CROWE CHEMISTRY [facility] [address] [place] [address], * (ABNORMAL) BASIC METABOLIC PANEL (03/11/2023 9:33 AM HOME CARE ASSOCIATE) SODIUM 140 136 - 145 mmol/L 03/11/2023 4:25 PM HOME CARE ASSOCIATE [facility] POTASSIUM 3.7 3.5 - 5.1 mmol/L 03/11/2023 4:25 PM HOME CARE ASSOCIATE [facility] CHLORIDE 98 98 - 107 mmol/L 03/11/2023 4:25 PM [facility] CO2,TOTAL 23 22 - 29 mmol/L 03/11/2023 4:25 PM [facility] ANION GAP 19(H) 5 - 18 03/11/2023 4:25 PM [facility] GLUCOSE 186(H) 70 - 99 mg/dL 03/11/2023 4:25 PM [facility] CALCIUM 9.1 8.8 - 10.2 mg/dL 03/11/2023 4:25 PM [facility] BUN 13 8 - 23 mg/dL 03/11/2023 4:25 PM [facility] CREATININE 0.92(H) 0.50 - 0.90 mg/dL 03/11/2023 4:25 PM [facility] BUN/CREAT RATIO 14 10 - 20 3 4:25 PM [facility] eGFR 68(L) >90 mL/min/1.7 3m2 03/11/2023 4:25 PM [facility] Comment:As of 2021, eG FR is calculated by the CKD-EPI creatinine equation without race adjustment. ??eGFR can be influenced by muscle mass, exercise, and diet. ??The reported eGFR is an estimation only and is only applicable if the renal function is stable. Blood BLOOD SPECIMEN / Unknown Venipuncture / Unknown 03/11/2023 9:33 AM HOME CARE ASSOCIATE 03/11/2023 9:35 AM HOME CARE ASSOCIATE Rita Borrego Dayanara CROWE CHEMISTRY [facility] [address] [place] [phone], from Last 3 Months Advance Directives Latest Code Status on File Code Status Date Activated Date Inactivated Comments Full Code 08/26/2006 12:39 PM 08/29/2006 4:34 PM Code Status History Code Status Date Activated Date Inactivated Comments Full Code 08/26/2006 8:43 AM 08/26/2006 12:39 PM Full Code 09/18/2005 9:40 PM 09/23/2005 2:38 PM Full Code 09/18/2005 6:32 PM 09/18/2005 9:40 PM Full Code 09/18/2005 12:57 PM 09/18/2005 6:32 PM Care Teams Reo Asset Manager Relationship Specialty Start Date End Date Sariah Bullard MD [address] [place] [id number] PCP - General Family Practice 11/03/15 Remberto Medina MD [address] [place] [address] Sleep Medicine 12/04/22
--- OUTSIDE RECORDS SUMMARY | 2023-06-05 11:59 | XMS_ITS | Continuity of Care Document ---
Author Name Unknown Organization [facility] Address [address] [place] [address] Phone Care Team Providers Care Sccm Administrator Name Role Phone Jered Gallego MD Unavailable [...] Copied on Encounter [facility], [address], [place], [place], [id number], [place] tel:[phone] [facility] No Information 8 Lashonda Lawton. [facility], [address], [address], [place], [place], [address] , [place]. [phone] Office/Outpa tient Visit,New, [facility], [address], [place], [place], [id number], [place] tel:[phone] [facility] [place] Spinal stenosis, lumbar region with neurogenic claudicationOt her spondylosis, lumbosacral regionOther intervertebral disc displacement, lumbar region 8 Deborah Hickey. [facility], [address], [address], [place], [place], [address] , [place]. tel:[phone] Referring Provider: Ruperto Bird, [facility] [address], [address], [place], [address] . tel:[phone] Office/outpa tient visit,est, low Z [facility], [address], [place], [address], [place] tel: [phone] [employer] No Information 8200 8 Mehbod Amir. [facility], [address], [place], [place], [address] , [place]. tel: [phone] Office/outpa tient visit,est, low Z [facility], [address], [place], [address], [place] tel: Collective IP Piper No Information 8200 8 Mehbod Amir. [facility], [address], [place], [place], [id number] , [place]. tel: [phone] Office/outpa tient visit,est, low Z [facility], [address], [place], [address], [place] tel: [phone] [employer] No Information 3200 7 Mehbod Amir. [facility], [address], [place], [place], [address] , [place]. tel: [phone] Z [facility], [address], [place], [address], [place] tel:[phone] [employer] No Information 8-200 7 Mehbod Amir. [facility], [address], [place], [place], [address] , [place]. tel: [phone] Z [facility], [address], [place], [address], [place] tel:[phone] [facility] No Information 4-200 7 Mehbod Amir. [facility], [address], [place], [place], [address] , [place]. tel: [phone] Office/outpa tient visit,est, low Z [facility], [address], [place], [address], [place] tel: [phone] [employer] No Information Apr-0 9-200 7 Mehbod Amir. [facility], [address], [place], [place], [id number] , [place]. tel: [phone] Office/outpa tient visit,est, low Z [facility], [address], [place], [address], [place] tel: [employer] No Information Feb-2 6-200 7 Mehbod Amir. [facility], [address], [place], [place], [address] , [place]. tel: [phone] Office/outpa tient visit,est, low Z [facility], [address], [place], [address], [place] tel: [employer] No Information Nov-2 8-200 6 Mehbod Amir. [facility], [address], [place], [place], [address] , [place]. tel: [phone] Z [facility], [address], [place], [address], [place] tel: [employer] No Information Yony-1 0-200 6 Mehbod Amir. [facility], [address], [place], [place], [address] , [place]. tel: [phone] Z [facility], [address] [place], [place], [address], [place] tel:[phone] [facility] No Information Alex-0 2-200 6 Mehbod Amir. [facility], [address], [place], [place], [address] , [place]. tel: [phone] Office consultation , moderate Z [facility], [address], [place], [address], [place] tel:[phone] [facility] - [place]ekah No Information Yordy Baker. [facility], [address], [place], [place], [address] , [place]. [phone] Family History Family Member Type Diagnosis Age At Onset No Information Payers Payer name Insurance type Covered republican ID Authorjohn jaime(s) [facility] [id number] Social History Type Description Quantity Date Captured [...]
--- OUTSIDE RECORDS SUMMARY | 2023-06-05 12:00 | XMS_ITS | Continuity of Care Document ---
Author Name [facility] Organization [facility] Care Team Providers Care Manufacturing Scheduler Name Role Phone [facility] Unavailable Unavailable Medications Combined list of outpatient medications from Department of Defense and Veterans Affairs facilities.Medications provided include 1) outpatient medications from the last 15 months, and 2) patient-reported medications. Medication Details Route Status Patient Instructions Prescription Expires Prescription Number Last Dispense Date Ordering Provider Order Date Source POTASSIUM CHLORIDE (potassium chloride), 10 MEQ, CAPSULE ER, ORAL, [facility], 100 ea. BOTTLE Active [id number] 2023 Pharmac y Data Transac tion Service Facilit y TRULICITY (dulaglutid e), 3 MG/0.5ML, PEN INJCTR, SUBCUT, BERT TED [employer] CO., .5 ml SYRINGE Cancele d [id number] : 2023 Pharmac y Data Transac tion Service Facilit y Immunizations Combined list of available immunizations from the Department of Defense and Veterans Affairs facilities. Immunization Series Date Given Administered By Site Reaction Lot Number CVX Code Drug Producer Assistant Status Comments Source zoster recombinant 2019 [place], () Not Given zoster recombina nt [facility] zoster recombinant 2019 [place], () Not Given zoster recombina nt [facility] Influenza, seasonal, injectable, preservative free 2011 [facility] [facility] (NOV) Not Given Influenza , seasonal, injectabl e, preservat porsha free [facility] Social History Combined list of available smoking, tobacco, and other social history from Department of Defense and Veterans Affairs facilities. Social History Type Response Date Comment Sourc e This section is an empty social history section. [facility]
[2023-06-05 12:14] LABS: Chloride* 100 mmol/L (96-114)
[2023-06-05 12:15] LABS: Potassium* 4.1 mmol/L (3.6-5.1); Sodium* 140 mmol/L (135-149)
[2023-06-05 12:18] LABS: Anion Gap 14 mEq/L (7-15); Blood Urea Nitrogen* 19 mg/dL (7-30); Carbon Dioxide* 26 mmol/L (20-32); Creatinine* 0.8 mg/dL (0.5-1.5); Est. Creatinine Clearance* 38.14; Estimated Glomerular Filt Rate 80 ml/min; Glucose* 259 mg/dL (60-115)
[2023-06-05 12:19] LABS: Calcium* 9.7 mg/dL (8.4-10.6)
[2023-06-05 12:21] LABS: C Reactive Protein* 1.7 mg/dL (0.5-1.0)
[2023-06-05 12:28] LABS: C.Difficile Negative (Negative); CDIFFEPI 027 Presumptive Negative (Negative)
[2023-06-05 12:52] VITALS: BP 193/112
--- NOTE | 2023-06-05 13:07 | ED.NURSE ---
Patient reports improvement of her abdominal pain and after fluid administration. Says the morphine has taken the edge off and she is now able to slighly function.
[2023-06-05 13:21] LABS: Lactate Sepsis 2 Hour 3.8 mmol/L (0.5-1.9)
[2023-06-05 13:34] VITALS: PULSE 127; O2SAT 94
[2023-06-05 13:35] VITALS: PULSE 127; O2SAT 95
--- NOTE | 2023-06-05 13:55 | CT_ITS ---
Patient: WERO DILLARD Facility:?[facility] Patient ID:?[id number] Site Patient ID:?[id number]. Site :?[id number] Study:?CT-Abdomen/Pelvis 95CC ISOVUD 370-06/05/2023 2:48:17 PM Ordering Physician:CATA Final Report: Indication: Vomiting and diarrhea Technique: Postcontrast CT abdomen and pelvis. 95 cc Isovue 370 intravenous contrast Please note that all CT scans at this facility use dose modulation, iterative reconstruction, and/or weight-based dosing when appropriate to reduce radiation dose to as low as reasonably achievable. Comparison: 06/05/2022, 12/23/2017 Findings: Lung bases are clear. There is no pleural effusion. Atherosclerotic changes are present. Fatty liver. Gallbladder absent. No biliary duct obstruction. Spleen is unremarkable. Normal adrenal glands. No hydronephrosis. Simple cyst left kidney. No adenopathy. Bladder distended. Calcification associated with the right ovary, unchanged. Normal left ovary and uterus. Relative absence of stool from the colon with the colon containing air and fluid. No dilated bowel loops. No abscess. No fracture. Degenerative changes. Impression: Fluid-filled loops of small bowel and large bowel throughout the abdomen compatible with diarrheal illness. No transition point or wall thickening to suggest obstruction. No abscess. Please note that all CT scans at this facility use dose modulation, iterative reconstruction, and/or weight-based dosing when appropriate to reduce radiation dose to as low as reasonably achievable. Dictated by Colby Milian MD @ 06/05/2023 3:47:07 PM Signed by:?Colby Milian MD @06/05/2023 3:47:07 PM (Electronic Signature)
[2023-06-05 14:59] VITALS: PULSE 125; O2SAT 94
[2023-06-05 15:00] VITALS: BP 146/87; PULSE 127; O2SAT 94
--- NOTE | 2023-06-05 15:01 | ED.NURSE ---
Patient has been periodically checking her blood sugar while here in the ER via her continuous glucose montoring system. Spot at this time is 189.
[2023-06-05 20:16] LABS: Alanine Aminotransferase* 34 U/L (4-35); Albumin* 4.8 g/dL (3.3-5.0); Alkaline Phosphatase* 209 U/L (40-150); Aspartate Amino Transferase* 37 U/L (12-35); Total Protein* 8.3 g/dL (6.0-8.3)
[2023-06-05 20:17] LABS: Bilirubin Direct* 0.8 mg/dL (0.0-0.5)
== END 2023-06-05 17:03 | disposition home or self-care (01) ==
PROVIDERS: Emergency Provider Emergency Medicine; PCP Family Medicine
DX: R11.10 Vomiting, unspecified (principal); R19.7 Diarrhea, unspecified
CPT/HCPCS: 36415; 74177; 80048; 80076; 83605; 85025; 86140; 87493; 93005; 96374; 96375; 96376; 99284; J2270; J2405; J7030; Q9967

== ENCOUNTER 2023-09-12 11:02 | Outpatient (CLI) | payer MEDICARE, OTHER, SELFPAY ==
--- OUTSIDE RECORDS SUMMARY | 2023-09-16 14:50 | XMS_ITS | Referral Summary ---
Author Organization [facility] Address [address] [place] [address]. [place] [address] Care Team Providers Care Casework Specialist Name Role Phone Sariah Bullard Primary Care Provider Shamar Fernandes MD Unavailable [phone] Encounters Date Type Department Care Team Description 08/08/2023 Travel 08/08/2023 1:45 PM CDT Office Visit [facility] Neurosurgery [address] [address] Perfecto Santacruz MD Martin, Shamar Stone MD 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) 08/06/2023 Telephone [facility] Neurosurgery [address] [address] Ba Judge MA 08/05/2023 Transcribe Orders GENERIC EXTERNAL DATA DEPARTMENT Provider, Generic External Data Back pain (Primary Dx) 08/04/2023 Medical Correspondence [facility] [address] [place] [address] Scan, Non-Provider from Last 3 Months Allergies Active Allergy Reactions Criticality Noted Date Comments Aloe Rash Low 08/08/2023 Droperidol Other (See Comments) 07/24/2006 Metformin Nausea and Vomiting 09/12/2022 Raspberry Hives High 06/01/2015 Rivaroxaban Dizziness 07/22/2017 Titanium Other (See Comments) High 08/02/2015 [place] ill with titanium screws in back- removed [...] ORDERABLES from Last 3 Months Care Teams Casework Specialist Relationship Specialty Start Date End Date Sariah Bullard [address] [place] [address] PCP - General Family Medicine 08/08/23 Shamar Fernandes MD [address] [place] [address] Assigned Musculoskeletal Provider 08/12/23
--- OUTSIDE RECORDS SUMMARY | 2023-09-16 14:50 | XMS_ITS | Encounter Summary ---
Author Organization [facility] Address [address] [place] [address]. [place] [address] Care Team Providers Care Sheather Name Role Phone Sariah Bullard Primary Care Provider [phone] Encounter Details Date Type Department Care Team [...] documented as of this encounter Care Teams Sheather Relationship Specialty Start Date End Date Sariah Bullard [address] [place] [address] PCP - General Family Medicine 08/08/23 documented as of this encounter
--- OUTSIDE RECORDS SUMMARY | 2023-09-16 14:50 | XMS_ITS | Encounter Summary ---
Author Organization [facility] Address [address] [place] [address]. [place] [address] Care Team Providers Care Engineering Program Manager Name Role Phone Unavailable Primary Care Provider Unavailabl e Reason for Referral * Consultation (Routine: Next available opening) - Pending Review Specialty Diagnoses / Procedures [facility] Referred To Contact Diagnoses Back pain Perfecto Santacruz MD [facility] [address] [address] Shamar Fernandes MD [address] [place] [address] Referral ID Status Reason Start Date Expiration Date V isits Requested Visits Authorized [id number] Pending Review 08/05/2023 08/04/2024 1 1 Question Answer Referral Type: Surgical Consult Region: Lumbar Scheduling Instructions: [facility] will call you to coordinate your care as prescribed by your provider. If you don't hear from a chain sales representative within 2 business days, please call . Additional Information: h/o of a L4-L5 lumbar fusion with remocal of hardware. Evaluate for lumbar radiculopathy. Multilevel lumbar spinal stenosis. Comments Referral to Dr. Fernandes for back pain from Perfecto Santacruz MD [facility] T: [phone] F: [phone] [facility] will call you to coordinate your care as prescribed by your provider. If you don't hear from a chain sales representative within 2 business days, please [...] Priority Associated Diagnoses Orde r Schedule Spine Seasonal Recruiter Referral Referral Routine: Next available opening Back pain Expected: 08/05/2023 (Approximate), Expires: 08/04/2024 documented as of this encounter Visit Diagnoses Diagnosis Back pain- Primary Backache, unspecified documented in this encounter
--- OUTSIDE RECORDS SUMMARY | 2023-09-16 14:50 | XMS_ITS | Encounter Summary ---
Author Organization [facility] Address [address] [place] [address]. [place] [address] Care Team Providers Care Warehouse Operator Name Role Phone No Ref-Primary, Physician Primary Care Provider Encounter Details Date Type Department Care Team (Late st Contact Info) Description 08/06/2023 Telephone [facility] [address] [address] Ba Judge MA Social History [...] MA - 08/06/2023 1:54 PM CDTSummary: Records Commercial Fisher received records for patient. Placed in Dr Fernandes's folder for review. Alfredo Ac, AUDIT DIRECTOR (AAMA) documented in this encounter Plan of Treatment Not on file documented as of this encounter Visit Diagnoses Not on filedocumented in this encounter Care Teams Warehouse Operator Relationship Specialty Start Date End Date No Ref-Primary, Physician PCP - General 08/06/23 08/07/23 documented as of this encounter
--- OUTSIDE RECORDS SUMMARY | 2023-09-16 14:50 | XMS_ITS | Encounter Summary ---
Author Organization [facility] Address [address] [place] [address]. [place] [address] Care Team Providers Care Vessel Liner Name Role Phone [place] Sariah Primary Care Provider [phone] Reason for Referral * Mental Health Outpatient (Routine: Next available opening) - Pending Review Specialty Diagnoses / Procedures Referred By Charly t Referred To Contact Behavioral Health Diagnoses Back pain Depression Shamar Fernandes MD [address] [place] [address] Referral ID Status Reason Start Date Expiration Date V isits Requested Visits Authorized [id number] Pending Review 08/08/2023 08/07/2024 1 1 Question Answer Services: Assess/Evaluate for appropriate service (non-medication assessment) My Clinical Question Is: patient seen in clinic on 08/07, endorsed feelings suicide with PHQ-9 or 19. Denies any plans, means, intent at this time. Scheduling Instructions: [facility] will call you to coordinate your care as prescribed by your provider. If you don't hear from a inside sales account representative within 2 business days, please call [...] plan with any benefit or coverage questions. [facility] will call you to coordinate your care as prescribed by your provider. If you don't hear from a inside sales account representative within 2 business days, please call . Reason for Visit * Reason Comments Consult * Consultation (Routine: Next available opening) - Pending Review Specialty Diagnoses / Procedures Referred By Charly parker Referred To Contact Diagnoses Back pain Perfecto Santacruz MD [facility] [address] [address] Shamar Fernandes MD [address] [place] [address] Referral ID Status Reason Start Date Expiration Date V isits Requested Visits Authorized [id number] Pending Review 08/05/2023 08/04/2024 1 1 Encounter Details Date Type Department Care Team (Late st Contact Info) Description 08/08/2023 1:45 PM CDT Office Visit [facility] Neurosurgery Clinic [address] [address] Perfecto Santacruz MD [facility] [address] [address] Shamar Fernandes MD [address] [place] [address] Chronic midline low back pain with [...] - 08/08/2023 1:45 PM CDT Patient Education [facility] : PHQ-9 Screening Note SITUATION/BACKGROUND [...] of the following occur: BEHAVIORAL HEALTH TEAMS [facility] - Behavioral Health Team [facility] Pager: [phone] [facility] - Behavioral Health Team Pager number: [phone] Referral to Behavioral Health [facility] [[id number]} RESOURCES - 11/11 Crisis Hotlines: National Suicide Prevention Hotline 516-770-WFHW (0928) - Crisis Hotlines by County: [facility]: [phone] Terri Espinal RN Copyright 2016 [facility] Spine Surgery Consultation REFERRING PHYSICIAN: Perfecto Santacruz PRIMARY CARE PHYSICIAN: Dr. Bullard ([facility]) Chief Complaint: Consult History of Present Illness: [...] ago). 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 These risks [...] we will fax this note to the [facility] office. The patient was seen and discussed with Dr. Fernandes. Myra Pisano, PGY-4 RespectShamar gomez MD Spine Surgery [facility] documented in this encounter Progress Notes [...] ago). 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 These risks [...] we will fax this note to the [facility] office. The patient was seen and discussed with Dr. Fernandes. Myra Pisano, PGY-4 Respectfully, Shamar Fernandes MD Spine Surgery [facility] Attending MD (Dr. Shamar Fernandes) : [...] Behavioral Health Contact Information Froilan Smith PsyD [facility] Pager: [phone] * Terri Espinal RN - 08/08/2023 1:45 [...] Diagnoses Orde r Schedule [facility] Insurance Clerk Referral Referral Routine: Next available opening Chronic midline low back pain with bilateral sciatica Expected: 08/08/2023 (Approximate), Expires: 08/07/2024 documented as of this encounter Visit Diagnoses Diagnosis Chronic midline low back pain with bilateral sciatica- Primary documented in this encounter Additional Health Concerns Assessment Noted Time PHQ-9 Depression Total Score: 19 024 1:42 PM CDT documented as of this encounter Care Teams Vessel Liner Relationship Specialty Start Date End Date Sariah Bullard [address] [place] [address] PCP - General Family Medicine 08/08/23 documented as of this encounter
--- OUTSIDE RECORDS SUMMARY | 2023-09-16 14:50 | XMS_ITS | Continuity of Care Document ---
Author Name [facility] Organization [facility] Care Team Providers Care Net Applications Developer Name Role Phone [facility] Unavailable Unavailable Medications Combined list of outpatient medications from Department of Defense and Veterans Affairs facilities.Medications provided include 1) outpatient medications from the last 15 months, and 2) patient-reported medications. Medication Details Route Status Patient Instructions Prescription Expires Prescription Number Last Dispense Date Ordering Provider Order Date Order Qty Source ALPRAZOLAM (ALPRAZOLAM ), 0.25MG, TABLET, ORAL, SANDOZ, 1000 ea. BOTTLE Active [id number] 2023 2 Pharmac y Data Transac tion Service Facilit y CARISOPRODO L (carisoprod ol), 350 MG, TABLET, ORAL, [employer], 1000 ea. BOTTLE Active [id number] 2023 30 Pharmac y Data Transac tion Service Facilit y CARISOPRODO L (carisoprod ol), 350 MG, TABLET, ORAL, [employer], 1000 ea. BOTTLE Active [id number] 2023 30 Pharmac y Data Transac tion Service Facilit y CARISOPRODO L (carisoprod ol), 350 MG, TABLET, ORAL, [employer], 500 ea. BOTTLE Active [id number] 2023 30 Pharmac y Data Transac tion Service Facilit y CARISOPRODO L (carisoprod ol), 350 MG, TABLET, ORAL, [employer]GEN PHARMAC, 500 ea. BOTTLE Cancele d [id number] : 2023 0 Pharmac y Data Transac tion Service Facilit y CARISOPRODO L (carisoprod ol), 350 MG, TABLET, ORAL, [employer]ARMAC, 500 ea. BOTTLE Cancele d [id number] : 03/09/ 2024 0 Pharmac y Data Transac tion Service Facilit y CELECOXIB (celecoxib) , 200 MG, CAPSULE, ORAL, AUROBINDO PHARM, 100 ea. BOTTLE Active [id number] 2023 60 Pharmac y Data Transac tion Service Facilit y DULOXETINE HCL (duloxetine HCl), 20 MG, CAPSULE DR, ORAL, [employer] 60 ea. BOTTLE Active [id number] 2023 180 Pharmac y Data Transac tion Service Facilit y DULOXETINE HCL (duloxetine HCl), 20 MG, CAPSULE DR, ORAL, [employer] 60 ea. BOTTLE Active [id number] 2023 180 Pharmac y Data Transac tion Service Facilit y FAMOTIDINE (famotidine ), 20 MG, TABLET, ORAL, [employer] 1000 ea. BOTTLE Active [id number] 2023 180 Pharmac y Data Transac tion Service Facilit y FLUCONAZOLE (fluconazol e), 150 MG, TABLET, ORAL, [employer] RX LL, 1 ea. BOTTLE Cancele d [id number] : 2023 0 Pharmac y Data Transac tion Service Facilit y FLUCONAZOLE (fluconazol e), 150 MG, TABLET, ORAL, [employer], 1 ea. BOTTLE Active [id number] 2023 2 Pharmac y Data Transac tion Service Facilit y FLUCONAZOLE (FLUCONAZOL E), 150 MG, TABLET, ORAL, [employer]RON PHARMA L, 12 ea. BLIST PACK Cancele d [id number] : 2023 0 Pharmac y Data Transac tion Service Facilit y GABAPENTIN (GABAPENTIN ), 300 MG, CAPSULE, ORAL, ACTAVIS PHARMA,, 500 ea. BOTTLE Active [id number] 2023 30 Pharmac y Data Transac tion Service Facilit y GLIPIZIDE ER (glipizide) , 10 MG, TAB ER 24, ORAL, AUROBINDO PHARM, 100 ea. BOTTLE Cancele d [id number] : 2023 0 Pharmac y Data Transac tion Service Facilit y GLIPIZIDE ER (glipizide) , 10 MG, TAB ER 24, ORAL, AUROBINDO PHARM, 100 ea. BOTTLE Active [id number] 2023 180 Pharmac y Data Transac tion Service Facilit y GLIPIZIDE XL (GLIPIZIDE) , 10 MG, TAB ER 24, ORAL, [employer] 500 ea. BOTTLE Active [id number] 2023 180 Pharmac y Data Transac tion Service Facilit y HYDROCODONE -ACETAMINOP HEN (hydrocodon e bitartrate/ acetaminoph en), 5 MG-325MG, TABLET, ORAL, MALLINCKROD T PH, 1000 ea. BOTTLE Active [id number] 2023 10 Pharmac y Data Transac tion Service Facilit y JARDIANCE (EMPAGLIFLO ZIN), 25 MG, TABLET, ORAL, BOEHRINGER ING., 30 ea. BOTTLE Cancele d [id number] : 2023 0 Pharmac y Data Transac tion Service Facilit y JARDIANCE (EMPAGLIFLO ZIN), 25 MG, TABLET, ORAL, BOEHRINGER ING., 30 ea. BOTTLE Active [id number] 2023 90 Pharmac y Data Transac tion Service Facilit y JARDIANCE (EMPAGLIFLO ZIN), 25 MG, TABLET, ORAL, BOEHRINGER ING., 30 ea. BOTTLE Active [id number] 2023 90 Pharmac y Data Transac tion Service Facilit y METFORMIN HCL ER (metformin HCl), 500 MG, TAB ER 24H, ORAL, [employer], 1000 ea. BOTTLE Active [id number] 2023 180 Pharmac y Data Transac tion Service Facilit y METFORMIN HCL ER (metformin HCl), 500 MG, TAB ER 24H, ORAL, AVKARE, 90 ea. BOTTLE Active [id number] 2023 120 Pharmac y Data Transac tion Service Facilit y METOPROLOL SUCCINATE (metoprolol succinate), 100 MG, TAB ER 24H, ORAL, [facility] 1000 ea. BOTTLE Cancele d [id number] : 2023 0 Pharmac y Data Transac tion Service Facilit y METOPROLOL SUCCINATE (metoprolol succinate), 100 MG, TAB ER 24H, ORAL, [employer] 1000 ea. BOTTLE Active [id number] 2023 90 Pharmac y Data Transac tion Service Facilit y METOPROLOL SUCCINATE (metoprolol succinate), 100 MG, TAB ER 24H, ORAL, [employer] 1000 ea. BOTTLE Active [id number] 2023 90 Pharmac y Data Transac tion Service Facilit y ONDANSETRON ODT (ONDANSETRO N), 4MG, TAB RAPDIS, ORAL, GLENMARK PHARMA, 30 ea. BLIST PACK Active [id number] 2023 10 Pharmac y Data Transac tion Service Facilit y ONDANSETRON ODT (ONDANSETRO N), 4MG, TAB RAPDIS, ORAL, [employer] PHARMA, 30 ea. BLIST PACK Active [id number] 2023 10 Pharmac y Data Transac tion Service Facilit y OXYCODONE HCL (OXYCODONE HCL), 5 MG, TABLET, ORAL, [employer] 500 ea. BOTTLE Active [id number] 2023 4 Pharmac y Data Transac tion Service Facilit y OXYCODONE HCL (OXYCODONE HCL), 5MG, TABLET, ORAL, MALLINKRT PHARM, 100 ea. BOTTLE Cancele d [id number] : 2023 0 Pharmac y Data Transac tion Service Facilit y PANTOPRAZOL E SODIUM (pantoprazo le sodium), 40 MG, TABLET DR, ORAL, [employer] 1000 ea. BOTTLE Cancele d [id number] : 2023 0 Pharmac y Data Transac tion Service Facilit y PANTOPRAZOL E SODIUM (pantoprazo le sodium), 40 MG, TABLET DR, ORAL, [employer] 1000 ea. BOTTLE Active [id number] 2023 90 Pharmac y Data Transac tion Service Facilit y POTASSIUM CHLORIDE (potassium chloride), 10 MEQ, CAPSULE ER, ORAL, PD-RX PHARM, 100 ea. BOTTLE Active [id number] 2023 90 Pharmac y Data Transac tion Service Facilit y POTASSIUM CHLORIDE (potassium chloride), 10 MEQ, CAPSULE ER, ORAL, PD-RX PHARM, 100 ea. BOTTLE Active [id number] 2023 90 Pharmac y Data Transac tion Service Facilit y ROSUVASTATI N CALCIUM (rosuvastat in calcium), 40 MG, TABLET, ORAL, [employer] 1000 ea. BOTTLE Cancele d [id number] : 2023 0 Pharmac y Data Transac tion Service Facilit y ROSUVASTATI N CALCIUM (rosuvastat in calcium), 40 MG, TABLET, ORAL, [employer] 30 ea. BOTTLE Cancele d [id number] : 2023 0 Pharmac y Data Transac tion Service Facilit y TORSEMIDE (torsemide) , 20 MG, TABLET, ORAL, [employer] 90 ea. BOTTLE Cancele d [id number] : 2023 0 Pharmac y Data Transac tion Service Facilit y TORSEMIDE (torsemide) , 20 MG, TABLET, ORAL, [employer] 90 ea. BOTTLE Active [id number] 2023 90 Pharmac y Data Transac tion Service Facilit y TORSEMIDE (torsemide) , 20 MG, TABLET, ORAL, [employer] 90 ea. BOTTLE Active [id number] 2023 90 Pharmac y Data Transac tion Service Facilit y TRULICITY (dulaglutid e), 3 MG/0.5ML, PEN INJCTR, SUBCUT, [employer] .5 ml SYRINGE Cancele d [id number] : 2023 0 Pharmac y Data Transac tion Service Facilit y TRULICITY (dulaglutid e), 3 MG/0.5ML, PEN INJCTR, SUBCUT, [employer] .5 ml SYRINGE Active [id number] 2023 6 Pharmac y Data Transac tion Service Facilit y TRULICITY (dulaglutid e), 3 MG/0.5ML, PEN INJCTR, SUBCUT, [employer] .5 ml SYRINGE Active [id number] 2023 6 Pharmac y Data Transac tion Service Facilit y Immunizations Combined list of available immunizations from the Department of Defense and Veterans Affairs facilities. Immunization Series Date Given Administered By Site Reaction Lot Number CVX Code Drug Joiners Supervisor Status Comments Source zoster recombinant 2019 [place], () Not Given zoster recombina nt [facility] zoster recombinant 2019 [place], () Not Given zoster recombina nt [facility] Influenza, seasonal, injectable, preservative free 2011 BRENT DOUGLAS [employer] (NOV) Not Given Influenza , seasonal, injectabl e, preservat porsha free [facility] Social History Combined list of available smoking, tobacco, and other social history from Department of Defense and Veterans Affairs facilities. Social History Type Response Date Comment Sourc e This section is an empty social history section. [employer]
--- OUTSIDE RECORDS SUMMARY | 2023-09-16 14:50 | XMS_ITS | Encounter Summary ---
Author Organization [place] Address [address] [place] [address]. [place] [address] Care Team Providers Care Avionics Systems Repairer Name Role Phone No Ref-Primary, Physician Primary Care Provider Encounter Details Date Type Department Care Team (Late st Contact Info) Description 08/04/[address] [facility] Info [facility] [address] [place] [phone] Scan, Non-Provider Social History Tobacco Use [...] on filedocumented in this encounter Care Teams Avionics Systems Repairer Relationship Specialty Start Date End Date No Ref-Primary, Physician PCP - General 08/06/23 08/07/23 documented as of this encounter
--- OUTSIDE RECORDS SUMMARY | 2023-09-16 14:50 | XMS_ITS | Clinical Summary ---
Author Organization [employer] [facility] Address [place], [place] [address] Care Team Providers Care Crossband Layer Name Role Phone Sariah Bullard MD Primary Care Provide r Remberto Medina MD Unavailable Kyler Quinones MD Unavailable [phone] Allergies Active Allergy Reactions Criticality Noted Date Comments Droperidol Agitation 07/24/2006 Metformin Nausea And Vomiting 09/12/2022 Raspberry Hives High 02/25/2023 Raspberry (Rubus Idaeus) Hives 06/01/2015 Titanium Other - Describe In Comment Field High 08/02/2015 Karthaus ill with titanium screws in back- removed 2005- Rivaroxaban Dizziness 07/22/2017 Medications Medication Sig Dispensed Refills Start Date End Date Status multivitamins-calci fh-oaxy-jocfrczc tab tablet Take 1 tablet by mouth [...] be used to read blood sugars per career placement specialist's directions. Change each sensor every 14 days. Dispense 3 month supply if able 2 Each 12 3 Active transmitter for continuous blood glucose monitor (CGM)Indications:Ty pe 2 diabetes mellitus without complication, without long-term current use of insulin (HC) To be used to read blood sugars, follow career placement specialist directions. 1 Each 4 3 Active potassium [...] Department Care Team Description 09/12/2023 Nurse Triage [facility] [address] [place] [address] Sariah Bullard MD Back Pain/problem 09/11/2023 11:00 AM CDT Nurse/Clinic Staff Only [facility] [address] [place] [address] Infusion Therapy (Reclast/) 09/11/2023 Travel 09/08/2023 Telephone [facility] [address] [place] [address] Sariah Bullard MD Infusion Therapy 08/28/2023 10:45 AM CDT Office Visit [facility] [address] [place] [address] Sariah Bullard MD Back Pain (Follow up after epidural. Has not helped much./Concerned about osteoporosis, was told by the lady that did the injections. /Possible injections. Brother uses collagen powder protein./Was told it would be best to maintain what she has as bones are to brittle/Fibroid pushing on right sciatica nerve.///) 08/28/2023 Travel 08/12/2023 Orders Only [facility] Scanner 1 scan: (1-Ord) [facility], BILAT L5-S1 TRANSFORAMINAL LUMBAR THERAPEUTIC STEROID INJECTION, 08/12/2023 08/12/2023 Telephone [facility] [address] [place] [place] [address] Sariah Bullard MD Follow Up (Epidural Injection) 08/12/2023 Telephone [facility] [address] [place] [address] Sariah Bullard MD Questions (Call Wanted) 08/05/2023 10:55 AM CDT Office Visit [facility] [address] [place] [address] Sariah Bullard MD Diabetes (Has been depressed, a couple deaths in the last month./Had MRI at [facility]./On Gabapentin for back pain.) 08/05/2023 Travel 08/04/2023 Travel 07/21/2023 Telephone [facility] [address] [place] [address] Sariah Bullard MD spam (per last notes this may be a scam/spam) 07/17/2023 Telephone [facility] [address] [place] [address] Sariah Bullard MD Document (trying to fax document to dr. bullard) 07/08/2023 Telephone [facility] [address] [place] [address] Sariah Bullard MD Follow Up 07/08/2023 Telephone [facility] [address] [place] [address] Sariah Bullard MD Testing 06/27/2023 10:05 AM NURSERY ATTENDANT Office Visit [facility] [address] [place] [address] Sariah Bullard MD Hip Pain/problem (Injection to the right trochanteric bursa) 06/27/2023 Travel 06/26/2023 Telephone [facility] [address] [place] [facility] [address] Sariah Bullard MD Questions from Last 3 Months Immunizations Name Administration Dates Next Due AMB Influenza, IIV4 PF (=>6 mos Flulaval,Fluzone Fluarix)(Flu Clinic Only) 02/09/2019 COVID-19 vaccine (H[employer] NTech 30mcg/0.3mL) 12YO+ BIVALENT PF, MDV 09/12/2022 [...] Name Status Comments Father (Age 60s ) [place] Maternal Grandfather Mother Alive Social History Tobacco [...] T Respiratory Rate 20 03/11/2023 8:45 AM NURSERY ATTENDANT Oxygen Saturation 95% 08/28/2023 11: 40 AM CDT Inhaled Oxygen Concentration - - Weight 106.4 kg (234 lb 9.6 oz) 024 11:40 AM CDT Height 152.4 cm (5') 12/19/2022 1:42 PM CDT Body Mass Index 45.82 12/19/2022 1:42 PM CDT Plan of Treatment Upcoming Encounters Date Type Department Care Team (Late st Contact Info) Description 10/14/2023 10:55 AM CDT Office Visit [facility] [address] [place] [address] Sariah Bullard MD [address] [facility] [address] Health Maintenance Due Date Last Done Comments [...] 01/24/2023, Additional history exists Fecal testing sDNA-FIT ([place] guard) for age 45-75 10/01/2025 10/01/2022 Lipids [...] Valentina Bates Medical Devices Implanted Type Area Sack Cleaning Hand Device Identifier Shelf Expiration Date Model / Serial / Lot Screw Polyaxial 6.5x50mm - [id number] Implanted:Qty: 1 on 09/18/[address] [facility] Spine [employer] [id number] / / Screw Polyaxial 6.5x45mm - [id number] Implanted:Qty: 2 on 09/18/[address] [facility] Spine [employer] [id number] / / Monica Carie [id number] - [id number] Implanted:Qty: 4 on 09/18/[address] [facility] Spine [employer] [id number] / / Allosource Canc Crushed 30cc Implanted:Qty: 1 on 09/18/[address] [facility] Explanted:at [facility] (Quantity not on file) Spine [employer] 11/13/2008 [id number] / [id number] / Description:CANC CRUSHED 30C C Screw Polyaxial 6.5x40mm - [id number] Implanted:Qty: 1 on 09/18/[address] [facility] Spine [employer] [id number] / / Mark Carie Rad 40mm 108mm Radius - [id number] Implanted:Qty: 2 on 09/18/[address] [facility] Spine [employer] [id number] / / [id number] e Canclls Crushed 30cc [[id number]] Implanted:Qty: 1 on 08/26/[address] [facility] Explanted:at [facility] (Quantity not on file) Spine [employer] 01/15/2011 [id number] / [id number] / Procedures Procedure Name Priority Date/Time Associated [...] (HC) URINE CULTURE Routine 06/27/2023 11:10 AM NURSERY ATTENDANT Frequency of urination UA W/ SEDIMENT EXAM REFLEXED PER CRITERIA Routine 06/27/2023 11:10 AM NURSERY ATTENDANT Frequency of urination SDNA-FIT EXTERNAL (COLOGUARD) Routine 10/01/2022 9:45 AM CDT Screening for colon cancer XR DXA BONE DENSITY 2 SITES AXIAL Routine 09/12/2022 12:09 PM CDT Postmenopausal ANTI HCV Routine 04/13/2019 9:56 AM NURSERY ATTENDANT Encounter for hepatitis C screening test for low risk patient from Last 3 Months or Most Recently Relevant to Health Maintenance Results * SCAN-OPERATIVE/PROCEDURE REPORT (08/12/2023 12:00 AM CDT) Scanner OTHER * (ABNORMAL) CBC WITH AUTO DIFFERENTIAL (08/05/2023 12:08 PM CDT) Pathologist [facility] WHITE BLOOD COUNT 7.3 4.5 - 11.0 thou/cu mm 08/05/2023 12:20 PM CDT [facility] RED BLOOD COUNT 5.57(H) 4.00 - 5.20 mil/cu mm 08/05/2023 12:20 PM CDT [facility] HEMOGLOBIN 15.6 12.0 - 16.0 g/dL 08/05/2023 12:20 PM CDT [facility] HEMATOCRIT 46.9 33.0 - 51.0 % 08/05/2023 12:20 PM CDT [facility] MCV 84 80 - 100 fL 08/05/2023 12:20 PM CDT [facility] MCH 28.0 26.0 - 34.0 pg 08/05/2023 12:20 PM CDT [facility] MCHC 33.3 32.0 - 36.0 g/dL 08/05/2023 12:20 PM CDT [facility] RDW 15.6(H) 11.5 - 15.5 % 08/05/2023 12:20 PM CDT [facility] PLATELET COUNT 357 140 - 440 thou/cu mm 08/05/2023 12:20 PM CDT [facility] MPV 9.6 6.5 - 11.0 fL 08/05/2023 12:20 PM CDT [facility] % NEUT 45.5 % 08/05/2023 12:20 PM CDT [facility] % LYMPH 42.3 % 08/05/2023 12:20 PM CDT [facility] % MONO 9.0 % 08/05/2023 12:20 PM CDT [facility] % EOS 2.5 % 08/05/2023 12:20 PM CDT [facility] % BASO 0.7 % 08/05/2023 12:20 PM CDT [facility] ABSOLUTE NEUTROPHILS 3.3 1.7 - 7.0 thou/cu mm 08/05/2023 12:20 PM CDT [facility] ABSOLUTE LYMPHOCYTES 3.1(H) 0.9 - 2.9 thou/cu mm 08/05/2023 12:20 PM CDT [facility] ABSOLUTE MONOCYTES 0.7 <0.9 thou/cu mm 08/05/2023 12:20 PM CDT [facility] ABSOLUTE EOSINOPHILS 0.2 <0.5 thou/cu mm 08/05/2023 12:20 PM CDT [facility] ABSOLUTE BASOPHILS 0.1 <0.3 thou/cu mm 08/05/2023 12:20 PM CDT [facility] Blood BLOOD SPECIMEN / Unknown Venipuncture / Unknown 08/05/2023 12:08 PM CDT 08/05/2023 12:10 PM CDT Sariah Bullard MD HEMATOLOGY [facility] [address] [place] [address], [place] [phone] * (ABNORMAL) LIPID PANEL W REFLEX MEASURED LDL (08/05/2023 12:08 PM CDT) CHOLESTEROL,TOTAL 216(H) 100 - 199 mg/dL 08/05/2023 9:56 PM CDT [facility] Comment: Cholesterol, Total Reference Ranges Desirable <200 mg/dL Borderline 200-239 mg/dL High >=240 mg/dL TRIGLYCERIDES 408(H) <150 mg/dL 08/05/2023 9:56 PM CDT [facility] HDL CHOLESTEROL 49 >40 mg/dL 9:56 PM CDT [facility] NON-HDL CHOLESTEROL 167(H) <145 mg/dl 08/05/2023 9:56 PM CDT [facility] CHOL/HDL RATIO 4.41 <4.50 08/05/2023 9:56 PM CDT [facility] LDL CHOLESTEROL 9:56 PM CDT [facility] Comment:Invalid LDL when Tri g >400. VLDL CHOLESTEROL COMMENT 08/05/2023 9:56 PM CDT [facility] Comment:Unable to calculate VLDL. PROVIDER ORDERED STATUS RANDOM 08/05/2023 9:56 PM CDT [facility] Blood BLOOD SPECIMEN / Unknown Venipuncture / Unknown 08/05/2023 12:08 PM CDT 08/05/2023 12:10 PM CDT Sariah Bullard MD [facility]Y [facility] [address] [place] [address], [place] * MAGNESIUM (08/05/2023 12:08 PM CDT) Pathologist [facility] MAGNESIUM 2.1 1.6 - 2.4 mg/dL 08/05/2023 9:56 PM CDT [facility] Blood BLOOD SPECIMEN / Unknown Venipuncture / Unknown 08/05/2023 12:08 PM CDT 08/05/2023 12:10 PM CDT Sariah Bullard MD CHEMISTRY Performing Organization Address [facility] Co de Phone Number [facility] [address] [place] [address], * LDL CHOLESTEROL,DIRECT (08/05/2023 12:08 PM CDT) [facility] LDL CHOLESTEROL,DI RECT 99 mg/dL 08/05/2023 11:53 PM CDT [facility] PROVIDER ORDERED STATUS RANDOM 08/05/2023 11:53 PM CDT [facility] Blood BLOOD SPECIMEN / Unknown Venipuncture / Unknown 08/05/2023 12:08 PM CDT 08/05/2023 12:10 PM CDT Narrative [facility] - 08/05/2023 11:53 PM CDT Optimal ?<100 mg/dl Near Optimal ?100-129 mg/dl Borderline High ?? 130-159 mg/dl High ?160-189 mg/dl Very High ? >=190 mg/dl Sariah Bullard MD CHEMISTRY Performing Organization Address [facility] Co de Phone Number [facility] [address] [place] [address], * (ABNORMAL) HEMOGLOBIN A1C MONITORING (POCT) (08/05/2023 12:08 PM CDT) Pathologist [facility] HEMOGLOBIN A1C MONITORING (POCT) 8.3(H) <=6.4 % 08/05/2023 12:31 PM CDT [facility] Blood BLOOD SPECIMEN / Unknown Venipuncture / Unknown 08/05/2023 12:08 PM CDT 08/05/2023 12:10 PM CDT Narrative [facility] - 08/05/2023 12:31 PM CDT ? (<=6.9%) [...] Splenectomy ? Sariah Bullard MD CHEMISTRY [facility] [address] [place] [address], * (ABNORMAL) COMP METABOLIC PANEL (08/05/2023 12:08 PM CDT) SODIUM 139 136 - 145 mmol/L 08/05/2023 9:56 PM CDT [facility] POTASSIUM 4.7 3.5 - 5.1 mmol/L 08/05/2023 9:56 PM CDT [facility] CHLORIDE 97(L) 98 - 107 mmol/L 08/05/2023 9:56 PM CDT [facility] CO2,TOTAL 26 22 - 29 mmol/L 08/05/2023 9:56 PM CDT [facility] ANION GAP 16 5 - 18 08/05/2023 9:56 PM CDT [facility] GLUCOSE 177(H) 70 - 99 mg/dL 08/05/2023 9:56 PM CDT [facility] CALCIUM 9.9 8.8 - 10.2 mg/dL 08/05/2023 9:56 PM CDT [facility] BUN 16 8 - 23 mg/dL 08/05/2023 9:56 PM CDT [facility] CREATININE 0.80 0.50 - 0.90 mg/dL 08/05/2023 9:56 PM CDT [facility] BUN/CREAT RATIO 20 10 - 20 9:56 PM CDT [facility] eGFR 80(L) >90 mL/min/1.7 3m2 08/05/2023 9:56 PM CDT [facility] Comment:As of 2021, eG FR is calculated by the CKD-EPI creatinine equation without race adjustment. ??eGFR can be influenced by muscle mass, exercise, and diet. ??The reported eGFR is an estimation only and is only applicable if the renal function is stable. ALBUMIN 4.7 4.0 - 4.9 g/dL 08/05/2023 9:56 PM CDT [facility] PROTEIN,TOTAL 7.7 6.0 - 8.0 g/dL 08/05/2023 9:56 PM CDT [facility] BILIRUBIN,TOTAL 0.4 0.0 - 1.2 mg/dL 08/05/2023 9:56 PM CDT [facility] ALK PHOSPHATASE 189(H) 35 - 104 IU/L 08/05/2023 9:56 PM CDT [facility] ALT (SGPT) 25 10 - 35 IU/L 08/05/2023 9:56 PM CDT [facility] AST (SGOT) 25 10 - 35 IU/L 08/05/2023 9:56 PM CDT [facility] Blood BLOOD SPECIMEN / Unknown Venipuncture / Unknown 08/05/2023 12:08 PM CDT 08/05/2023 12:10 PM CDT Sariah Bullard MD CHEMISTRY [facility] [address] [place] [address], [place] * URINE CULTURE (06/27/2023 11:10 AM NURSERY ATTENDANT) CULTURE <10,000 CFU/mL multiple organisms 06/28/2023 2:41 PM NURSERY ATTENDANT [facility] Urine URINE SPECIMEN / Unknown Non-Blood / Unknown 06/27/2023 11:10 AM NURSERY ATTENDANT 06/27/2023 11:17 AM NURSERY ATTENDANT Sariah Bullard MD MICROBIOLOGY Performing Organization Address [facility] Co de Phone Number [facility] [address] [place] [address], [place] * (ABNORMAL) UA W/ SEDIMENT EXAM REFLEXED PER CRITERIA (06/27/2023 11:10 AM NURSERY ATTENDANT) COLOR Yellow Yellow Color 06/27/2023 11:21 AM NURSERY ATTENDANT [facility] CLARITY Clear Clear Clarity 06/27/2023 11:21 AM NURSERY ATTENDANT [facility] SPECIFIC GRAVITY,URINE 1.010 1.010, 1.015, 1.020, 1.025 06/27/2023 11:21 AM [facility] PH,URINE 5.5 6.0, 7.0, 8.0, 5.5, 6.5, 7.5, 8.5 06/27/2023 11:21 AM [facility] UROBILINOGEN, QUALITATIVE Normal Normal EU/dl 06/27/2023 11:21 AM [facility] PROTEIN, URINE Negative Negative mg/dL 06/27/2023 11:21 AM [facility] GLUCOSE, URINE 500(A) Negative mg/dL 06/27/2023 11:21 AM [facility] KETONES,URINE Negative Negative mg/dL 06/27/2023 11:21 AM [facility] BILIRUBIN,URI NE Negative Negative 06/27/2023 11:21 AM [facility] OCCULT BLOOD,URINE Negative Negative 06/27/2023 11:21 AM [facility] NITRITE Negative Negative 06/27/2023 11:21 AM NURSERY ATTENDANT [facility] LEUKOCYTE ESTERASE Negative Negative 06/27/2023 11:21 AM NURSERY ATTENDANT [facility] Urine URINE SPECIMEN / Unknown Non-Blood / Unknown 06/27/2023 11:10 AM NURSERY ATTENDANT 06/27/2023 11:17 AM NURSERY ATTENDANT Sariah Bullard MD URINE [facility] [address] [place] [address], * SDNA-FIT EXTERNAL (COLOGUARD) (10/01/2022 9:45 AM CDT) NONINV COLON CA DNA+OCC BLD SCRN STL-IMP Negative Negative 10/09/2022 5:37 PM CDT [facility] (CLIA #:[id number]) Comment: NEGATIVE TEST RESULT. A negative Cologuard [...] cancer. ??Following a negative Cologuard result, the Chinese Cancer Society and U.S. Multi-Society Task Force screening guidelines recommend a Cologuard re-screening interval of 3 years. References: [employer] Cancer Society Guideline for Colorectal Cancer Screening: https://www.cancer.org/cancer/mgeui-evisql-preomf/dsdurlgii-pflakjhko-wnsvdry/ac s-rec ommendations.html.; Eduardo DK, Christiano CR, Anthony LaughlinK, Colorectal Cancer Screening: Recommendations for Physicians and Patients from the U.S. Multi-Society Task Force on Colorectal Cancer Screening , Am J Gastroenterology 2017; 112:4147-2001. TEST DESCRIPTION: Composite algorithmic analysis of stool [...] (Precious Gipson al, N Engl J Med 2014;370(14):2661-3192.) Cologuard may produce a false negative or false positive result (no colorectal cancer or precancerous polyp present at colonoscopy follow up). A negative Cologuard test result does not guarantee the absence of CRC or advanced adenoma (pre-cancer). The current Cologuard screening interval is every 3 years. (Chinese Cancer Society and U.S. Multi-Society Task Force). Cologuard performance data in a 10,000 patient pivotal study using colonoscopy as the reference method can be accessed at the following location: www.SwingPal.Ometrics/results. Additional description of the Cologuard test process, warnings and precautions can be found at www.Mocoplex.com. Stool specimen (specimen) (Rectum) 10/01/2022 9:45 AM CDT 10/02/2022 5:39 PM CDT Sariah Bullard MD URINE [facility] (CLIA #:[id number]) [place] [address], * (ABNORMAL) XR DXA BONE DENSITY 2 SITES AXIAL [23005.1] (09/12/2022 12:09 PM CDT) Anatomical Region Laterality [...] recommended in 3-5 years. Keely Phipps PA-C [facility] 09/20/2022 Narrative 09/20/2022 4:47 PM CDT For Patients: Results are automatically released to your [employer] account once available, in compliance with federal regulations. This means that you may see your results before your provider has had a chance to review them. Please allow 2-3 business days for your provider to comment on the results. XR DXA Bone Mineral Density (BMD) EXAM LOCATION: [facility] [address] [facility] [address] PATIENT NAME: Shira Philippe DATE OF : [...] two scanners are made by the same career placement specialist. PROCEDURE: Dual-energy x-ray absorptiometry performed with routine [...] DEXA * ANTI HCV (04/13/2019 9:56 AM NURSERY ATTENDANT) Pathologist [facility] HEPATITIS C ANTIBODY Non-React porsha Non-React porsha 04/15/2019 2:04 PM NURSERY ATTENDANT [facility] Comment:Antibodies to HCV no t detected; does not exclude the possibility of exposure to HCV. Blood BLOOD SPECIMEN / Unknown Butterfly / Unknown 04/13/2019 9:56 AM NURSERY ATTENDANT 04/13/2019 9:56 AM NURSERY ATTENDANT Sariah Bullard MD SEND OUTS [facility] [address] [place] [address], from Last 3 Months or Most Recently [...] 12:57 PM 09/18/2005 6:32 PM Care Teams Crossband Layer Relationship Specialty Start Date End Date Sariah Bullard MD [address] [place] [address] PCP - General Family Practice 11/03/15 Remberto Medina MD [address] [place] [address] Sleep Medicine 12/04/22 Kyler Quinones MD [address] [facility] [address] [place] [address] Endocrinology 07/14/23
--- OUTSIDE RECORDS SUMMARY | 2023-09-16 14:50 | XMS_ITS | Clinical Summary ---
Author Organization [facility] Address [address] [place] [address]. [place] [address] Care Team Providers Care Clerk Telegraph Service Name Role Phone Sariah Bullard Primary Care Provider [phone] Shamar Fernandes MD Unavailable [phone] Allergies Active Allergy Reactions Criticality Noted Date Comments Aloe Rash Low 08/08/2023 Droperidol Other (See Comments) 07/24/2006 Metformin Nausea and Vomiting 09/12/2022 Raspberry Hives High 06/01/2015 Rivaroxaban Dizziness 07/22/2017 Titanium Other (See Comments) High 08/02/2015 [place] ill with titanium screws in back- removed [...] Description 08/08/2023 1:45 PM CDT Office Visit [facility] [address] [address] Perfecto Santacruz MD Martin, Shamar Stone MD 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) 08/08/2023 Travel 08/06/2023 Telephone [facility] [address] [address] Ba Judge MA 08/05/2023 Transcribe Orders GENERIC EXTERNAL DATA DEPARTMENT Provider, Generic External Data Back pain (Primary Dx) 08/04/2023 Medical Correspondence [facility] [address] [facility] [address] Scan, Non-Provider from Last 3 Months [...] ORDERABLES from Last 3 Months Care Teams Clerk Telegraph Service Relationship Specialty Start Date End Date Sariah Bullard [address] [place] [address] PCP - General Family Medicine 08/08/23 Shamar Fernandes MD [address] [place] [address] Assigned Musculoskeletal Provider 08/12/23
--- OUTSIDE RECORDS SUMMARY | 2023-09-16 14:50 | XMS_ITS | Continuity of Care Document ---
Author Organization [facility] Address [address] [place] [address] Phone Care Team Providers Care Certified Nurse Practitioner Name Role Phone Samuel Scales MD Unavailable Unavailable Allergies, Adverse Reactions, Alerts Substance Reaction Status Criticality rivaroxaban dizziness Active No Information raspberry hives Active No Information droperidol agitation Active No Information titanium unknown Active No Information Medications Medication Instructions Dosage Effective Dates (start - stop) Status Comments TRULICITY (unknown strength) Not Available - Active ROSUVASTATIN CALCIUM (unknown strength) Not Available - Active TORSEMIDE (unknown strength) Not Available - Active JARDIANCE (unknown strength) Not Available - Active GLIPIZIDE (unknown strength) Not Available - Active TOPROL XL (unknown strength) Not Available - Active PROTONIX (unknown strength) Not Available - Active CARISOPRODOL (unknown strength) Not Available - Active POTASSIUM CHLORIDE (unknown strength) Not Available - Active ACETAMINOPHEN (unknown strength) Not Available - Active RIOMET [...] Office/Outpa tient Visit,New, Mod Julienne/JOYCE, [address], [place], [place], [address], [place] tel:[phone] [facility] Spinal stenosis, lumbar region with neurogenic claudicationSp ondylolisthesi s, lumbosacral region 4 Mehbod Amir. [facility], [address], [place], [place], [address] , [place]. tel:[phone] Referring Provider: Sariah Bullard , [address], [place], [address]. tel:[phone] Office/Outpa tient Visit,[facility], [address], [place], [place], [address], [place] tel:[phone] [facility] Spinal stenosis, lumbar region with neurogenic claudicationOt her spondylosis, lumbosacral regionOther intervertebral disc displacement, lumbar region 8 Deborah Hickey. [facility], [address], [address], [place], [place], [address] , [place]. tel:[phone] Referring Provider: Ruperto Bird, [facility] [address], [address], [place], [address] . tel:[phone] Office/outpa tient visit,est, low Z [facility], [address], [place], [address], [place] tel:[phone] [facility] No Information 8 Mehbod Amir. [facility], [address], [place], [place], [address] , [place]. tel:[phone] Office/outpa tient visit,est, low Z [facility], [address], [place], [address], [place] tel:[phone] [facility] No Information 8 Mehbod Amir. [facility], [address], [place], [place], [address] , [place]. tel:[phone] Office/outpa tient visit,est, low Z [facility], [address], [place], [address], [place] tel: [phone] [employer] No Information 3-200 7 Mehbod Amir. [facility], [address], [place], [place], [address] , [place]. tel: [phone] Z [facility], [address], [place], [address], [place] tel: [phone] [employer] No Information 8-200 7 Mehbod Amir. [facility], [address], [place], [place], [address] , [place]. tel: [phone] [facility], [address], [place], [address], [place] tel:[phone] [facility] No Information 4-200 7 Mehbod Amir. [facility], [address], [place], [place], [address] , [place]. tel: [phone] Office/outpa tient visit,est, low Z [facility], [address], [place], [address], [place] tel: [phone] [employer] No Information 0 9-200 7 Mehbod Amir. [facility], [address], [place], [place], [address] , [place]. tel: [phone] Office/outpa tient visit,est, low Z [facility], [address], [place], [address], [place] tel: [phone] [employer] No Information 6-200 7 Mehbod Amir. [facility], [address], [place], [place], [address] , [place]. tel: [phone] Office/outpa tient visit,est, low Z [facility], [address], [place], [address], [place] tel:[phone] [employer] No Information 8-200 6 Mehbod Amir. [facility], [address], [place], [place], [address] , [place]. tel:[phone] Z [facility], [address] [place], [place] [address], [place], [address], tel:[phone] [employer] No Information 0-200 6 Mehbod Amir. [facility], [address], [place], [place], [address] , [place]. tel:[phone] Z [facility], [address] [place] [address], [place], [place], [facility], [place] tel:[phone] [facility] No Information 2-200 6 Mehbod Amir. [facility], [address], [place], [place], [address] , [place]. tel:[phone] Office consultation , moderate Z [facility], [address] [place], [place] [address], [place], [place], [facility], [place] tel:[phone] [employer] No Information 5-200 6 Mehbod Amir. [facility], [address], [place], [place], [address] , [place]. tel:[phone] Family History Family Member Type Diagnosis Age At Onset No Information Payers Payer name Insurance type Covered democrat ID Lea jaime(s) Medicare MB [id number] [facility] [id number] Social History Type Description Quantity Date Captured [...]
== END 2023-09-12 11:03 | disposition home or self-care (01) ==
LOC: AMB 09-16 14:48
PROVIDERS: PCP Family Medicine; Visit Provider Family Medicine
DX: R50.9 Fever, unspecified (principal); R52 Pain, unspecified; R11.0 Nausea; R51.9 Headache, unspecified
CPT/HCPCS: A0425; A0427

== ENCOUNTER 2023-09-12 11:34 | Emergency (ER) | payer MEDICARE, OTHER, SELFPAY ==
[2023-09-12] VITALS (21 sets, daily range): BP systolic 121–202; BP diastolic 69–105; PULSE 120–142; RESP 24; TEMP 36.7; O2SAT 82–95; BMI 39.7
--- OUTSIDE RECORDS SUMMARY | 2023-09-12 11:37 | XMS_ITS | Encounter Summary ---
Author Organization [facility] Address [address] [place] [address]. [place] [address] Care Team Providers Care Civilian Jail Officer Name Role Phone [place]a Sariah Primary Care Provider [phone] Reason for Referral * Mental Health Outpatient (Routine: Next available opening) - Pending Review Specialty Diagnoses / Procedures Referred By Charly t Referred To Contact Behavioral Health Diagnoses Back pain Depression Shamar Fernandes MD [address] [place] [id number] Referral ID Status Reason Start Date Expiration Date V isits Requested Visits Authorized [id number] Pending Review 08/08/2023 08/07/2024 1 1 Question Answer Services: Assess/Evaluate for appropriate service (non-medication assessment) My Clinical Question Is: patient seen in clinic on 08/07, endorsed feelings suicide with PHQ-9 or 19. Denies any plans, means, intent at this time. Scheduling Instructions: [facility] will call you to coordinate your care as prescribed by your provider. If you don't hear from a underwriting sales representative within 2 business days, please call . Is this referral for Insurance purposes only? (Only select yes if the patient has already been scheduled at an external location. If yes is selected, the referral will NOT reoute to scheduling). No Comments Please be aware that coverage of these services is subject to the terms and limitations of your health insurance plan. Call member services at your health plan with any benefit or coverage questions. [facility] will call you to coordinate your care as prescribed by your provider. If you don't hear from a underwriting sales representative within 2 business days, please call . Reason for Visit * Reason Comments Consult * Consultation (Routine: Next available opening) - Pending Review Specialty Diagnoses / Procedures Referred By Charly parker Referred To Contact Diagnoses Back pain Perfecto Santacruz MD [facility] [address] [address] Shamar Fernandes MD [address] [place] [id number] Referral ID Status Reason Start Date Expiration Date V isits Requested Visits Authorized [id number] Pending Review 08/05/2023 08/04/2024 1 1 Encounter Details Date Type Department Care Team (Late st Contact Info) Description 08/08/2023 1:45 PM CDT Office Visit [facility] Neurosurgery [facility] [address] [address] Perfecto Santacruz MD [facility] [address] [address] Shamar Fernandes MD [address] [place] [id number] 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) Social History Tobacco Use Types Packs/Day Years Used Date Smoking Tobacco: Never Smokeless Tobacco: Never Tobacco Cessation:Counseling Given: Not Answered PHQ-2 Answer Date Recorded PHQ-2 Score 4 08/08/2023 Adolescent Education Answer Date Record ed Getting School Help Needed Not on file 08/05 Sex and Gender Information Value Date Recorded Sex Assigned at Not on file Gender Identity Not on file Sexual Orientation Not on file documented as of this encounter Last Filed Vital Signs Vital Sign Reading Time Taken Comments Blood Pressure 132/78 08/08/2023 1:50 PM CDT Pulse 102 08/08/2023 1:50 PM CDT Temperature - - Respiratory Rate - - Oxygen Saturation - - Inhaled Oxygen Concentration - - Weight 106.1 kg (234 lb) 08/08/2023 1:50 PM CDT Height 152.4 cm (5') 08/08/2023 1:50 PM CDT Body Mass Index 45.7 08/08/2023 1:50 PM CDT documented in this encounter Patient Instructions * Patient Instructions* Terri Espinal RN - 08/08/2023 1:45 PM CDT Patient Education [facility] : PHQ-9 Screening Note SITUATION/BACKGROUND Shira Philippe is a 67 year old female who completed the PHQ-9 assessment for depression and Score is >9. Onset of symptoms: gradual Trigger: back pain Recent related events: Injury that led to the pain Prior history of suicide attempt or self harm: No Risk Factors: None History of depression or mental illness: No Medications reviewed: Patient declined ASSESSMENT Are any of the following present? Suicidal thoughts with a plan and means to carry out the plan? Intent to harm others Altered mental status: confusion, delusional, psychotic NO - go to B Are any of the following present? Suicidal thoughts without a plan or means to carry out the plan New onset of delusional ideas Past inpatient admission for depression New onset and recent change or addition of new medication NO - go to C Are any of the following present? Previous suicide attempts Depression interfering with ability to work or function Loss of appetite and eating poorly Abrupt cessation of drugs (OTC or RX), alcohol or caffeine Drug or alcohol abuse NO - go to D Are several of the following present? Difficulty concentrating Difficulty sleeping Reduced interest in sexual activity or impotency Irregular or absent menstruation No interest in activity Change in interpersonal relationships Increased use/abuse of alcohol or drugs or recent child Recent major life change History of depression YES - Follow-up with PCP for appointment and follow home care instructions. Place referral to behavioral health team for regular follow-up. PLAN Home Care Instructions: [place] a well-balanced diet, drink plenty of fluids and rest as needed Report the following to your PCP: Suicidal thoughts without a plan or means to carry out the plan Seek emergency care immediately if any of the following occur: BEHAVIORAL HEALTH TEAMS [facility] [place] [facility] Health [place] [facility] Pager: [phone] [facility] - Behavioral Health Team Pager number: [phone] Referral to Behavioral Health [facility] [[id number]} RESOURCES - 11/11 Crisis Hotlines: National Suicide Prevention Hotline 175-077-BCIB (6121) - Crisis Hotlines by County: [facility]: [phone] Terri Espinal RN Copyright 2016 [facility] Spine Surgery Consultation REFERRING PHYSICIAN: Perfetco Santacruz PRIMARY CARE PHYSICIAN: Dr. Bullard ([place] [facility]) Chief Complaint: Consult History of Present Illness: Symptom Profile Including: location of symptoms, onset, severity, exacerbating/alleviating factors,previous treatments: Shira Philippe is a 67 year old female with T2DM (A1c 8.4), BMI 45 who presents with bilateral S1 radiculopathy and low back pain. She had previous multi level lumbar laminectomy with fusion at L4-[address] Scales in 2005. Hardwarewas removed one year later due to a titanium infection. She has had back pain on and off since then. In the last month and a half symptoms have become severe. She attributes this to chiropractic careand stretching on a table. At this point she can barely walk and leans on other people or her walker to get around her home. She has bilateral S1 radiculopathy. She has leg weakness. She endorses numbness of both buttocks; labia are sensate and proximal thighs. She endorses one episode of incontinence over the weekend which was new. No bowel incontinence; she does have chronic diarrhea and had a p revious bowel resection (6 years ago). She reports she was seen at [facility] and they referred her here due to her weight. She also has pending consultations with her previous surgeon Dr. Scales and the [facility]. ANJEL 78% Pain 10/10 both legs Past Medical History: No past medical history on file. Past Surgical History: No past surgical history on file. Social History: Social History Tobacco Use Smoking status: Never Smokeless tobacco: Never Substance Use Topics Alcohol use: Not on file Family History: No family history on file. Allergies: Allergies Allergen Reactions Raspberry Hives Titanium Other (See Comments) [place] ill with titanium screws in back- removed 2005- Droperidol Other (See Comments) Metformin Nausea and Vomiting Rivaroxaban Dizziness Aloe Vera [Aloe] Rash Medications: Current Outpatient Medications Medication Sig Dispense Refill albuterol (PROAIR HFA/PROVENTIL HFA/VENTOLIN HFA) 108 (90 Base) MCG/ACT inhaler Inhale 1-2 puffs into the lungs as needed carisoprodol (SOMA) 350 MG tablet Take 350 mg by mouth 3 times daily as needed doxycycline hyclate (VIBRA-TABS) 100 MG tablet Take 100 mg by mouth 2 times daily gabapentin (NEURONTIN) 300 MG capsule Take 600 mg by mouth 3 times daily glipiZIDE (GLUCOTROL XL) 10 MG 24 hr tablet Take 10 mg by mouth daily JARDIANCE 25 MG TABS tablet Take 25 mg by mouth daily metFORMIN (GLUCOPHAGE XR) 500 MG 24 hr tablet Take 500 mg by mouth 2 times daily (with meals) metoprolol succinate ER (TOPROL XL) 100 MG 24 hr tablet Take 100 mg by mouth daily metroNIDAZOLE (METROCREAM) 0.75 % external cream Apply topically 2 times daily potassium chloride ER (MICRO-K) 10 MEQ CR capsule Take 10 mEq by mouth daily rosuvastatin (CRESTOR) 40 MG tablet Take 40 mg by mouth daily torsemide (DEMADEX) 20 MG tablet Take 20 mg by mouth daily TRULICITY 3 MG/0.5ML SOPN 1 Dose once a week No current facility-administered medications for this visit. Review of Systems: A 10 point ROS was performed and reviewed. Specific responses to these questions are noted at the end of the document. Physical Exam: Vitals: BP 132/78 Pulse 102 Ht 1.524 m (5') Wt 106.1 kg (234 lb) BMI 45.70 kg/m?? Constitutional: awake, alert, cooperative, no apparent distress, appears stated age. Eyes: The sclera are white. Ears, Nose, Throat: The trachea is midline. Psychiatric: The patient has a normal affect. Respiratory: breathing non-labored Cardiovascular: The extremities are warm and perfused. Skin: no obvious rashes or lesions. Musculoskeletal, Neurologic, and Spine: Presents in wheelchair. Able to stand but with effort. Ambulates but with assistance. Gait is unsteady. Lumbar Spine: Appearance - well healed lumbar incision Palpation - no pain over midline. No pain at PSIS, QL Motor - L2-3: Hip flexion L and R 4/5 strength L4: Knee extension L and R 5/5 strength L5: Foot / EHL dorsiflexion L 4/5 and R 3/5 strength S1: Plantarflexion L and R 4/5 strength Sensation: intact to light touch L3-L4/5 distribution BLE. Numbness in S1 bilaterally (plantar R foot and forefoot of L foot and hallux) Special tests - Straight leg raise - Positive (bilateral) Neurologic: REFLEXES Left Right Patella 1-2+ 1+ Ankle jerk 1+ 1+ Clonus 2 beats 0 beats Imaging: We ordered and independently reviewed new radiographs at this clinic visit. The results were discussed with the patient. Findings include multiple levels of degenerative changes in the lumbar spine. Anterolisthesis of L4 on L5. MRI reviewed. Findings include changes related to lower lumbar laminectomy and severe canal stenosis at adjacent levels. Multiple levels of neuroforaminal stenosis. Assessment and Plan: Assessment: 67 year old female with T2DM (A1c 8.4), BMI 46 and spinal stenosis with claudication and bilateral S1 radiculopathy. We reviewed her imaging and our assessment with her and . She certainly has a bad problem inher back. To fix this would require a fusion from L1 to sacrum. The risks include wound healing problems and infection. Infection after fusion can result in need for multiple washout procedures as well as intermediate manager (sometimes life long) antibiotic suppression. These risks are increased by diabetes with A1c > 8 as well as BMI > 45. We encouraged her to continue her weight loss efforts. Our goal for her would be BMI of 35 but due to the severity of her pathology a BMI of 40 would be passable with her understanding the increased risk. That translates to weight loss of 50 lbs (BMI 35) and 35 pounds (BMI 40). She was understanding and will discuss with her PCP. Ozempic may be a good option. Low impact activity, e.g. recumbent bike, also recommended. She has a home gym but has too much hip pain to do this. Continue medication management for pain control. Of note, she is also seeing Dr. Scales, her previous surgeon, and [facility]. We will see her back urgently if symptoms worsen and otherwise when she can get her weight down to proceed with surgery as safely as possible. She asked that we share our assessment with her PCP and we will fax this note to the [facility] office. The patient was seen and discussed with Dr. Fernandes. Myra Pisano, PGY-4 RespectShamar gomez MD Spine Surgery [facility] documented in this encounter Progress Notes * Shamar Fernandes MD - 08/08/2023 1:45 PM CDT Spine Surgery Consultation REFERRING PHYSICIAN: Perfecto Santacruz PRIMARY CARE PHYSICIAN: No Ref-Primary, Physician Chief Complaint: Consult History of Present Illness: Symptom Profile Including: location of symptoms, onset, severity, exacerbating/alleviating factors,previous treatments: Shira Philippe is a 67 year old female with T2DM (A1c 8.4), BMI 45 who presents with bilateral S1 radiculopathy and low back pain. She had previous multi level lumbar laminectomy with fusion at L4-[address]es in 2005. Hardwarewas removed one year later due to a titanium infection. She has had back pain on and off since then. In the last month and a half symptoms have become severe. She attributes this to chiropractic careand stretching on a table. At this point she can barely walk and leans on other people or her walker to get around her home. She has bilateral S1 radiculopathy. She has leg weakness. She endorses numbness of both buttocks; labia are sensate and proximal thighs. She endorses one episode of incontinence over the weekend which was new. No bowel incontinence; she does have chronic diarrhea and had a p revious bowel resection (6 years ago). She reports she was seen at [facility] and they referred her here due to her weight. She also has pending consultations with her previous surgeon Dr. Scales and the [facility]. ANJEL 78% Pain 10/10 both legs Past Medical History: No past medical history on file. Past Surgical History: No past surgical history on file. Social History: Social History Tobacco Use Smoking status: Never Smokeless tobacco: Never Substance Use Topics Alcohol use: Not on file Family History: No family history on file. Allergies: Allergies Allergen Reactions Raspberry Hives Titanium Other (See Comments) [place] ill with titanium screws in back- removed 2005- Droperidol Other (See Comments) Metformin Nausea and Vomiting Rivaroxaban Dizziness Aloe Vera [Aloe] Rash Medications: Current Outpatient Medications Medication Sig Dispense Refill albuterol (PROAIR HFA/PROVENTIL HFA/VENTOLIN HFA) 108 (90 Base) MCG/ACT inhaler Inhale 1-2 puffs into the lungs as needed carisoprodol (SOMA) 350 MG tablet Take 350 mg by mouth 3 times daily as needed doxycycline hyclate (VIBRA-TABS) 100 MG tablet Take 100 mg by mouth 2 times daily gabapentin (NEURONTIN) 300 MG capsule Take 600 mg by mouth 3 times daily glipiZIDE (GLUCOTROL XL) 10 MG 24 hr tablet Take 10 mg by mouth daily JARDIANCE 25 MG TABS tablet Take 25 mg by mouth daily metFORMIN (GLUCOPHAGE XR) 500 MG 24 hr tablet Take 500 mg by mouth 2 times daily (with meals) metoprolol succinate ER (TOPROL XL) 100 MG 24 hr tablet Take 100 mg by mouth daily metroNIDAZOLE (METROCREAM) 0.75 % external cream Apply topically 2 times daily potassium chloride ER (MICRO-K) 10 MEQ CR capsule Take 10 mEq by mouth daily rosuvastatin (CRESTOR) 40 MG tablet Take 40 mg by mouth daily torsemide (DEMADEX) 20 MG tablet Take 20 mg by mouth daily TRULICITY 3 MG/0.5ML SOPN 1 Dose once a week No current facility-administered medications for this visit. Review of Systems: A 10 point ROS was performed and reviewed. Specific responses to these questions are noted at the end of the document. Physical Exam: Vitals: BP 132/78 Pulse 102 Ht 1.524 m (5') Wt 106.1 kg (234 lb) BMI 45.70 kg/m?? Constitutional: awake, alert, cooperative, no apparent distress, appears stated age. Eyes: The sclera are white. Ears, Nose, Throat: The trachea is midline. Psychiatric: The patient has a normal affect. Respiratory: breathing non-labored Cardiovascular: The extremities are warm and perfused. Skin: no obvious rashes or lesions. Musculoskeletal, Neurologic, and Spine: Presents in wheelchair. Able to stand but with effort. Ambulates but with assistance. Gait is unsteady. Lumbar Spine: Appearance - well healed lumbar incision Palpation - no pain over midline. No pain at PSIS, QL Motor - L2-3: Hip flexion L and R 4/5 strength L4: Knee extension L and R 5/5 strength L5: Foot / EHL dorsiflexion L 4/5 and R 3/5 strength S1: Plantarflexion L and R 4/5 strength Sensation: intact to light touch L3-L4/5 distribution BLE. Numbness in S1 bilaterally (plantar R foot and forefoot of L foot and hallux) Special tests - Straight leg raise - Positive (bilateral) Neurologic: REFLEXES Left Right Patella 1-2+ 1+ Ankle jerk 1+ 1+ Clonus 2 beats 0 beats Imaging: We ordered and independently reviewed new radiographs at this clinic visit. The results were discussed with the patient. Findings include multiple levels of degenerative changes in the lumbar spine. Anterolisthesis of L4 on L5. MRI reviewed. Findings include changes related to lower lumbar laminectomy and severe canal stenosis at adjacent levels. Multiple levels of neuroforaminal stenosis. Assessment and Plan: Assessment: 67 year old female with T2DM (A1c 8.4), BMI 46 and spinal stenosis with claudication and bilateral S1 radiculopathy. We reviewed her imaging and our assessment with her and . She certainly has a bad problem inher back. To fix this would require a fusion from L1 to sacrum. The risks include wound healing problems and infection. Infection after fusion can result in need for multiple washout procedures as well as intermediate manager (sometimes life long) antibiotic suppression. These risks are increased by diabetes with A1c > 8 as well as BMI > 45. We encouraged her to continue her weight loss efforts. Our goal for her would be BMI of 35 but due to the severity of her pathology a BMI of 40 would be passable with her understanding the increased risk. That translates to weight loss of 50 lbs (BMI 35) and 35 pounds (BMI 40). She was understanding and will discuss with her PCP. Ozempic may be a good option. Low impact activity, e.g. recumbent bike, also recommended. She has a home gym but has too much hip pain to do this. Continue medication management for pain control. Of note, she is also seeing Dr. Scales, her previous surgeon, and [facility]. We will see her back urgently if symptoms worsen and otherwise when she can get her weight down to proceed with surgery as safely as possible. She asked that we share our assessment with her PCP and we will fax this note to the [facility] office. The patient was seen and discussed with Dr. Fernandes. Myra Pisano, PGY-4 Respectfully, Shamar Fernandes MD Spine Surgery [facility] Attending MD (Dr. Shamar Fernandes) : I met with the patient, reviewed and verified the history and physical exam of the patient and discussed the patient's management with the other clinical providers involved in this patient's care including any involved residents or physicians assistants. I reviewed the above note and agree with the documented findings and plan of care, which were communicated to the patient. Shamar Fernandes MD documented in this encounter Nursing Notes * Yasmine Carcamo LPN - 08/08/2023 1:45 PM CDT Depression Response Patient completed the PHQ-9 assessment for depression and scored >9? Yes Question 9 on the PHQ-9 was positive for suicidality? Yes Is the patient already receiving treatment for depression? No Is this a virtual visit? No I personally notified the following: clinic nurse Behavioral Health Contact Information Froilan Smith PsyD [facility] Pager: [phone] * Terri Espinal RN - 08/08/2023 1:45 PM CDT Depression Response Patient completed the PHQ-9 assessment for depression and scored >9? Yes Question 9 on the PHQ-9 was positive for suicidality? Yes Does patient have current mental health provider? No Is this a virtual visit? No I personally notified the following: visit provider documented in this encounter Plan of Treatment Scheduled Referrals Name Type Priority Associated Diagnoses Orde r Schedule Adult Mental Health Construction Field Engineer Referral Referral Routine: Next available opening Chronic midline low back pain with bilateral sciatica Expected: 08/08/2023 (Approximate), Expires: 08/07/2024 documented as of this encounter Visit Diagnoses Diagnosis Chronic midline low back pain with bilateral sciatica- Primary documented in this encounter Additional Health Concerns Assessment Noted Time PHQ-9 Depression Total Score: 19 024 1:42 PM CDT documented as of this encounter Care Teams Civilian Jail Officer Relationship Specialty Start Date End Date Sariah Bullard [address] [place] [address] PCP - General Family Medicine 08/08/23 documented as of this encounter
--- OUTSIDE RECORDS SUMMARY | 2023-09-12 11:37 | XMS_ITS | Encounter Summary ---
Author Organization [facility] Address [address] [place] [address]. [place] [address] Care Team Providers Care Interlibrary Loan Specialist Name Role Phone Sariah Bullard Primary Care Provider [phone] Encounter Details Date Type Department Care Team (Latest Contact Info) Description 08/08/2023 Travel Social History Tobacco Use Types Packs/Day Years Used Date Smoking Tobacco: Never Smokeless Tobacco: Never PHQ-2 Answer Date Recorded PHQ-2 Score 4 08/08/2023 Adolescent Education Answer Date Record ed Getting School Help Needed Not on file 08/05 Sex and Gender Information Value Date Recorded Sex Assigned at Not on file Gender Identity Not on file Sexual Orientation Not on file documented as of this encounter Plan of Treatment Not on file documented as of this encounter Visit Diagnoses Not on filedocumented in this encounter Additional Health Concerns Assessment Noted Time PHQ-9 Depression Total Score: 19 024 1:42 PM CDT documented as of this encounter Care Teams Interlibrary Loan Specialist Relationship Specialty Start Date End Date Sariah [place] [address] PCP - General Family Medicine 08/08/23 documented as of this encounter
--- OUTSIDE RECORDS SUMMARY | 2023-09-12 11:37 | XMS_ITS | Referral Summary ---
Author Organization [facility] Address [address] [place] [address]. 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) 08/06/2023 Telephone [facility] [address] [address] Ba Judge MA 08/05/2023 Transcribe Orders GENERIC EXTERNAL DATA DEPARTMENT Provider, Generic External Data Back pain (Primary Dx) 08/04/2023 Medical Correspondence [facility] [address] [place] [id number] Scan, Non-Provider from Last 3 Months Allergies Active Allergy Reactions Criticality Noted Date Comments Aloe Rash Low 08/08/2023 Droperidol Other (See Comments) 07/24/2006 Metformin Nausea and Vomiting 09/12/2022 Raspberry Hives High 06/01/2015 Rivaroxaban Dizziness 07/22/2017 Titanium Other (See Comments) High 08/02/2015 [place] ill with titanium screws in back- removed 2005- Medications Medication Sig Dispensed Refills Start Date End Date Status albuterol (PROAIR HFA/PROVENTIL HFA/VENTOLIN HFA) 108 (90 Base) MCG/ACT inhaler Inhale 1-2 puffs into the lungs as needed 11/19/2022 Active carisoprodol (SOMA) 350 MG tablet Take 350 mg by mouth 3 times daily as needed 05/29/2023 Active doxycycline hyclate (VIBRA-TABS) 100 MG tablet Take 100 mg by mouth 2 times daily 11/26/2022 Active TRULICITY 3 MG/0.5ML SOPN 1 Dose once a week 02/14/2023 Active JARDIANCE 25 MG TABS tablet Take 25 mg by mouth daily 09/12/2022 Active gabapentin (NEURONTIN) 300 MG capsule Take 600 mg by mouth 3 times daily 07/29/2023 Active glipiZIDE (GLUCOTROL XL) 10 MG 24 hr tablet Take 10 mg by mouth daily 09/12/2022 Active metFORMIN (GLUCOPHAGE XR) 500 MG 24 hr tablet Take 500 mg by mouth 2 times daily (with meals) 06/05/2023 Active metoprolol succinate ER (TOPROL XL) 100 MG 24 hr tablet Take 100 mg by mouth daily 09/12/2022 Active metroNIDAZOLE (METROCREAM) 0.75 % external cream Apply topically 2 times daily 01/23/2023 Active potassium chloride ER (MICRO-K) 10 MEQ CR capsule Take 10 mEq by mouth daily 02/20/2023 Active rosuvastatin (CRESTOR) 40 MG tablet Take 40 mg by mouth daily 08/05/2023 Active torsemide (DEMADEX) 20 MG tablet Take 20 mg by mouth daily 09/12/2022 Active Social History Tobacco Use Types Packs/Day Years [...] on file Sexual Orientation Not on file Last Filed Vital Signs Vital Sign Reading [...] Mass Index 45.7 08/08/2023 1:50 PM CDT Plan of Treatment Not on file Procedures Procedure Name Priority Date/Time Associated Diagnosis Comments MRI IMAGING - HIM SCAN 08/06/2023 12:00 AM CDT MRI IMAGING - HIM SCAN 08/01/2023 12:00 AM CDT from Last 3 Months Results * MRI Imaging - HIM Scan (08/06/2023 12:00 AM CDT) Only the most recent of2 resultswithin the time period is included. Anatomical Region Laterality Modality Other 08/06/2023 Provider Outside IMG MRI ORDERABLES from Last 3 Months Care Teams Karate Instructor Relationship Specialty Start Date End Date Sariah Bullard [address] [place] [address] PCP - General Family Medicine 08/08/23 Shamar Fernandes MD [address] [place] [id number] Assigned Musculoskeletal Provider 08/12/23
--- OUTSIDE RECORDS SUMMARY | 2023-09-12 11:37 | XMS_ITS | Clinical Summary ---
Author Organization [facility] Address [address] [place] [address]. [place] [address] Care Team Providers Care Gas Golf Cart Repairer Name Role Phone Sariah Bullard Primary Care Provider [phone] Shamar Fernandes MD Unavailable [phone] Allergies Active Allergy Reactions Criticality Noted Date Comments Aloe Rash Low 08/08/2023 Droperidol Other (See Comments) 07/24/2006 Metformin Nausea and Vomiting 09/12/2022 Raspberry Hives High 06/01/2015 Rivaroxaban Dizziness 07/22/2017 Titanium Other (See Comments) High 08/02/2015 [place] ill with titanium screws in back- removed [...] 20 mg by mouth daily 09/12/2022 Active Encounters Date Type Department Care Team Description 08/08/2023 1:45 PM CDT Office Visit [facility] [address] [address] Perfecto Santacruz MD Martin, Shamar Stone MD 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 [address] [place] [address] Scan, Non-Provider from Last 3 Months Social History Tobacco Use Types Packs/Day Years [...] 08/08/2023 1:50 PM CDT Plan of Treatment Health Maintenance Due Date Last Done Comments ADVANCE CARE PLANNING 1955 ANNUAL REVIEW OF HM ORDERS 1953 CT COLONOGRAPHY 1953 DEXA 1953 FIT 1953 FLEX SIG 1953 GLUCOSE 1953 LIPID 1953 MAMMO SCREENING 1953 COLONOSCOPY 09/25/1963 HEPATITIS C SCREENING 09/25/1971 RSV VACCINE ( & 60+) (1 - 1-dose 60+ series) 2013 FALL RISK ASSESSMENT 2018 DTAP/TDAP/TD IMMUNIZATION (3 - Td or Tdap) 07/30/2021 07/31/2011, 11/02/1996 COVID-19 Vaccine ( - 2022- season) 2022 09/12/2022, 05/03/2021, 08/08/2020, Additional history exists MEDICARE ANNUAL WELLNESS VISIT 09/13/2023 09/12/2022 COLORECTAL CANCER SCREENING 10/01/2025 sDNA (Cologuard) 10/01/2025 10/01/2022 ZOSTER IMMUNIZATION Completed 11/05/2019, 0 Pneumococcal Vaccine: 65+ Years Completed 09/12/2022, 06/24/2016, 02/16/2016 INFLUENZA VACCINE Completed 01/24/2023, , 01/21/2020, Additional history exists PHQ-2 (once per calendar year) Completed 08/08/2023, 08/08/2023 HPV IMMUNIZATION Aged Out No longer e ligible based on patient's age to complete this topic IPV IMMUNIZATION Aged Out No longer e ligible based on patient's age to complete this topic MENINGITIS IMMUNIZATION Aged Out No l onger eligible based on patient's age to complete this topic RSV MONOCLONAL ANTIBODY Aged Out No l onger eligible based on patient's age to complete this topic Procedures Procedure Name Priority Date/Time Associated Diagnosis [...] ORDERABLES from Last 3 Months Care Teams Gas Golf Cart Repairer Relationship Specialty Start Date End Date Sariah Bullard [address] [place] [address] PCP - General Family Medicine 08/08/23 Shamar Fernandes MD [address] [place] [address] Assigned Musculoskeletal Provider 08/12/23
--- OUTSIDE RECORDS SUMMARY | 2023-09-12 11:38 | XMS_ITS | Encounter Summary ---
Author Organization [facility] Address [address] [place] [address]. [place] [address] Care Team Providers Care Global Security Architect Name Role Phone No Ref-Primary, Physician Primary Care Provider Encounter Details Date Type Department Care Team (Late st Contact Info) Description 08/06/2023 Telephone [facility] [address] [address] Ba Judge MA Social History Tobacco Use Types Packs/Day Years Used Date Smoking Tobacco: Never Assessed Adolescent Education Answer Date Record ed Getting School Help Needed Not on file 08/05 Sex and Gender Information Value Date Recorded Sex Assigned at Not on file Gender Identity Not on file Sexual Orientation Not on file documented as of this encounter Miscellaneous Notes * Telephone Encounter - Ba Judge MA - 08/06/2023 1:54 PM CDTSummary: Records Manufacturing Team Member received records for patient. Placed in Dr Fernandes's folder for review. Alfredo Ac, POOL CLEANER (AAMA) documented in this encounter Plan of Treatment Not on file documented as of this encounter Visit Diagnoses Not on filedocumented in this encounter Care Teams Global Security Architect Relationship Specialty Start Date End Date No Ref-Primary, Physician PCP - General 08/06/23 08/07/23 documented as of this encounter
--- OUTSIDE RECORDS SUMMARY | 2023-09-12 11:38 | XMS_ITS | Clinical Summary ---
Author Organization [facility] Address [place], [place] [address] Care Team Providers Care Ultrasound Supervisor Name Role Phone Sariah Bullard MD Primary Care Provide r Remberto Medina MD Unavailable Kyler Quinones MD Unavailable [phone] Allergies Active Allergy Reactions Criticality Noted Date Comments Droperidol Agitation 07/24/2006 Metformin Nausea And Vomiting 09/12/2022 Raspberry Hives High 02/25/2023 Raspberry (Rubus Idaeus) Hives 06/01/2015 Titanium Other - Describe In Comment Field High 08/02/2015 [place] ill with titanium screws in back- removed 2005- Rivaroxaban Dizziness 07/22/2017 Medications Medication Sig Dispensed Refills Start Date End Date Status multivitamins-calci lh-xrvb-qghqkimt tab tablet Take 1 tablet by mouth [...] - Test 4 times/day. 1 Device 0 Active blood sugar diagnostic (CONTOUR NEXT [...] other insurance. 200 Each 9 0 Active albuterol HFA (PRO-AIR; VENTOLIN; PROVENTIL) 90 mcg/actuation inhalerIndications: Acute cough Inhale 1-2 Puffs by mouth every 4 hours if needed for Shortness Of Breath. 1 Each 3 Active codeine-guaiFENesin (ROBITUSSIN AC) 10-100 mg/5 mL liquidIndications:B ronchitis with bronchospasm Take 5 mL by mouth at bedtime if needed for Cough. Max dose 60 mL per 24 hrs. 60 mL 3 Active CPAPIndications:Obs tructive sleep apnea CPAP machine for home use at pressure 10 cmw epr 3, nasal mask x1/3month with nasal pillows x 2/mo 1 Each 11 3 Active FreeStyle Winston 2 SensorIndications:T ype 2 diabetes mellitus without complication, without long-term current use of insulin (HC) To be used to read blood sugars per operations technician's directions. Change each sensor every 14 days. Dispense 3 month supply if able 2 Each 12 3 Active transmitter for continuous blood glucose monitor (CGM)Indications:Ty pe 2 diabetes mellitus without complication, without long-term current use of insulin (HC) To be used to read blood sugars, follow operations technician directions. 1 Each 4 3 Active potassium chloride (MICRO-K) 10 mEq Controlled-release capsuleIndications: Hypokalemia Take 1 Capsule (10 mEq) by mouth once daily with a meal. 90 Capsule 3 3 Active Additional Information Patient taking differently: 20 mEqOral DAILY WITH MEAL, Reported on 03/11/2023 dulaglutide (Trulicity) 3 mg/0.5 mL subcutaneous penIndications:type 2 diabetes mellitus Inject 3 mg subcutaneous once weekly. 2 mL 11 4 Active glipiZIDE extended-release (GLUCOTROL XL) 10 mg Extended-Release tabletIndications:T ype 2 diabetes mellitus without complication, without long-term current use of insulin (HC) Take 1 Tablet (10 mg) by mouth two times daily with meals. 180 Tablet 3 4 Active torsemide (DEMADEX) 20 mg tabletIndications:E ssential hypertension with goal blood pressure less than 140/90 Take 1 Tablet (20 mg) by mouth every morning. 90 Tablet 3 4 Active rosuvastatin (CRESTOR) 40 mg tabletIndications:H yperlipidemia, unspecified hyperlipidemia type Take 1 Tablet (40 mg) by mouth at bedtime. 90 Tablet 3 4 Active empagliflozin (Jardiance) 25 mg tabletIndications:T ype 2 diabetes mellitus without complication, without long-term current use of insulin (HC) Take 1 Tablet (25 mg) by mouth once daily. 90 Tablet 3 4 Active metoprolol succinate (TOPROL XL) 100 mg Sustained-Release tabletIndications:P rimary hypertension Take 1 Tablet (100 mg) by mouth once daily. 90 Tablet 3 4 Active metFORMIN (GLUCOPHAGE XR) 500 mg Extended-Release tabletIndications:T ype 2 diabetes mellitus without complication, without long-term current use of insulin (HC) Take 2 Tablets (1,000 mg) by mouth once daily with evening meal. 180 Tablet 3 4 Active carisoprodoL (SOMA) 350 mg tabletIndications:A cute midline low back pain without sciatica Take 1 Tablet (350 mg) by mouth 2 times daily if needed for Muscle Spasm. 30 Tablet 1 4 Active DULoxetine (CYMBALTA) 20 mg Delayed-release capsule Take 20 mg by mouth two times daily. 4 Active famotidine (PEPCID) 20 mg tabletIndications:C hronic GERD Take 1 Tablet (20 mg) by mouth two times daily. 180 Tablet 3 4 Active celecoxib (CELEBREX) 200 mg capsuleIndications: Lumbar radiculopathy Take 1 Capsule (200 mg) by mouth two times daily with meals. 60 Capsule 3 4 Active gabapentin (NEURONTIN) 300 mg capsule Take 300 mg by mouth two times daily. 4 08/28/19 24 Discontinu ed(*Patien t states no longer taking) pantoprazole (PROTONIX) 40 mg delayed-release tabletIndications:G astritis, presence of bleeding unspecified, unspecified chronicity, unspecified gastritis type Take 1 Tablet (40 mg) by mouth once daily. 90 Tablet 3 4 08/28/19 24 Discontinu ed(*Medica tion adjustment ) Hospital, Clinic, or Other Facility Administered Medication Ordered Dose Route Frequency Start Date End Date Status zoledronic acid in mannitol & water (RECLAST) 5 mg/100 mL pgbk 100 mLIndications:Other osteoporosis without current pathological fracture 100 mL IV ONE TIME 08/28/2023 08/29/2023 Ended dexAMETHasone 4 mg injection (DECADRON)Indications:Great er trochanteric bursitis of right hip 4 mg IM ONE TIME 08/28/2023 08/28/2023 Ended zoledronic acid in mannitol & water (RECLAST) 5 mg/100 mL pgbk 100 mLIndications:Osteoporosis, postmenopausal 100 mL IV ONE TIME 09/11/2023 09/11/2023 Ended Active Problems Problem Noted Date Diagnosed Date Type 2 diabetes mellitus wit h diabetic cataract, without long-term current use of insulin 06/27/2023 Sciatica 03/13/2023 S/P small bowel resection 03/13/2023 [...] 09/19/2005 10/0 06/2016 Overview: neg angio in 2003 Encounters Date Type Department Care Team Description 09/12/2023 Nurse Triage [facility] [address] [place] [address] Sariah Bullard MD Back Pain/problem 09/11/2023 11:00 AM CDT Nurse/Clinic Staff Only [facility] [address] [place] [address] Infusion Therapy (Reclast/) 09/11/2023 Travel 09/08/2023 Telephone [facility] [address] [place] [address] Sariah Bullard MD Infusion Therapy 08/28/2023 10:45 AM CDT Office Visit [facility] [address] [place] [address] Sariah Bullard MD Back Pain (Follow up after epidural. Has not helped much./Concerned about osteoporosis, was told by the lady that did the injections. /Possible injections. Brother uses collagen powder protein./Was told it would be best to maintain what she has as bones are to brittle/Fibroid pushing on right sciatica nerve.///) 08/28/2023 Travel 08/12/2023 Orders Only [facility] Scanner 1 scan: (1-Ord) [facility], BILAT L5-S1 TRANSFORAMINAL LUMBAR THERAPEUTIC STEROID INJECTION, 08/12/2023 08/12/2023 Telephone [facility] [address] [place] [address] Sariah Bullard MD Follow Up (Epidural Injection) 08/12/2023 Telephone [facility] [address] [place] [address] Sariah Bullard MD Questions (Call Wanted) 08/05/2023 10:55 AM CDT Office Visit [facility] [address] [place] [address] Sariah Bullard MD Diabetes (Has been depressed, a couple deaths in the last month./Had MRI [facility]On Gabapentin for back pain.) 08/05/2023 Travel 08/04/2023 Travel 07/21/2023 Telephone [facility] [address] [place] [address] Sariah Bullard MD spam (per last notes this may be a scam/spam) 07/17/2023 Telephone [facility] [address] [place] [address] Sariah Bullard MD Document (trying to fax document to dr. bullard) 07/08/2023 Telephone [facility] [address] [place] [address] Sariah Bullard MD Follow Up 07/08/2023 Telephone [facility] [address] [place] [address] Sariah Bullard MD Testing 06/27/2023 10:05 AM [employer] Office Visit [facility] [address] [place] [address] Sariah Bullard MD Hip Pain/problem (Injection to the right trochanteric bursa) 06/27/2023 Travel 06/26/2023 Telephone [facility] [address] [facility] [address] Sariah Bullard MD Questions from Last 3 Months Immunizations Name Administration Dates Next Due AMB Influenza, IIV4 PF (=>6 mos Flulaval,Fluzone Fluarix)(Flu Clinic Only) 02/09/2019 COVID-19 vaccine ([employer]-Bio NTech 30mcg/0.3mL) 12YO+ BIVALENT PF, MDV 09/12/2022 COVID-19 vaccine (Pfizer-Bio NTech 30mcg/0.3mL) PF, MDV 05/03/2021,08/08/2020,07/18/2020 Hepatitis B (Adult) 04/03/1992,11/01/1991,1991 Influenza Virus, Unspecified 01/24/2023, 01/21/2020,02/02/2009,02/13,03/27/2006 Influenza, IIV3 (Age >=3 years) 12/18/2008,02/13,03/27/2006 Influenza, IIV4 01/24/2023,,01/27/2018,01/16,01/20/2016,01/03/2015,02/13/2007 ,03/27/2006 Influenza, Inactivated AIIV4 (Age 65+ Years) Preserv [...] Name Status Comments Father (Age 60s ) [place] Maternal Grandfather Mother Alive Social History Tobacco Use Types Packs/Day Years Used Date Smoking Tobacco: Never Smokeless Tobacco: Never Tobacco Cessation:Counseling Given: No Alcohol Use Standard Drinks/Week Comments No 0 (1 standard drink = 0.6 oz pur e alcohol) PHQ-2 Answer Date Recorded PHQ-2 TOTAL SCORE 1 09/12/2022 Social Connections Answer Date Recorded Frequency of Communication with Friends and Fami ly 0 08/05/2023 Financial Resource Strain Answer Date R ecorded Difficulty of Paying Living Expenses 3 08/05/2023 Difficulty of Paying Living Expenses Not on file 08/05/2023 Food Insecurity Answer Date Recorded Worried About Running Out of Food in the Last Ye ar 1 08/05/2023 Transportation Needs Answer Date Record ed Lack of Transportation (Medical) 1 08/05/2023 Housing Stability Answer Date Recorded Unable to Pay for Housing in the Last Year 1 08/05/2023 Sex and Gender Information Value Date Recorded Sex Assigned at Not on file Gender Identity Not on file Sexual Orientation Not on file Obstetrics History Last Filed Vital Signs Vital Sign Reading Time Taken Comments Blood Pressure 137/85 08/28/2023 11:40 AM CDT Pulse 87 08/28/2023 11:40 AM CDT Temperature 36.9 ??C (98.4 ??F) 03/11/2023 8:45 AM CS T Respiratory Rate 20 03/11/2023 8:45 AM [employer] Oxygen Saturation 95% 08/28/2023 11: 40 AM CDT Inhaled Oxygen Concentration - - Weight 106.4 kg (234 lb 9.6 oz) 024 11:40 AM CDT Height 152.4 cm (5') 12/19/2022 1:42 PM CDT Body Mass Index 45.82 12/19/2022 1:42 PM CDT Plan of Treatment Upcoming Encounters Date Type Department Care Team (Late st Contact Info) Description 10/14/2023 10:55 AM CDT Office Visit [facility] [address] [place] [address] Sariah Bullard MD [address] [facility] [place] [address] Health Maintenance Due Date Last Done Comments Mammogram for age 45-75 1998 Tetanus booster 07/30/2021 07/31/2011, 07/20, 11/02/1996 COVID-19 vaccine series ( season) 2022 09/12/2022, 05/03/2021, 08/08/2020, Additional history exists Medicare Wellness for age 65+ 09/13/2023 09/12/2022 Depression screening for age 12+ 09/14/2023 09/13/2022, 09/12/2022, 09/12/2022, Additional history exists BMI (ht and wt on same day) for age 18+ 12/20/2023 12/19/2022, 12/05/2022, 09/12/2022, Additional history exists Influenza for age 65+ 12/21/2023 01/24/2023 , 01/24/2023, 01/24/2023, Additional history exists Fecal testing sDNA-FIT ([place] guard) for age 45-75 10/01/2025 10/01/2022 Lipids for age 45-75 08/04/2028 08/05/2023, 08/05/2023, 12/25/2021, Additional history exists Tdap Completed 07/31/2011, 11/02/1996 Hepatitis C screening for ag e 18-79 Completed 04/13/2019 Zoster (shingles) series for age 50+ Completed 11/05/2019, 06/24/2019 DEXA/DXA scan for age 65+ Completed 09/12/2022 Pneumococcal series for age 65+ Completed 09/12/2022, 06/24/2016, 02/16/2016 Goals Goal Patient Goal Type Associated Problems Recent Progress Patient-Stated? Author BLOOD PRESSURE - Maintains BP less than 140/90 Blood Pressure No [employer] Implanted Type Area Cranberry Bog Supervisor Device Identifier Shelf Expiration Date Model / Serial / Lot Screw Polyaxial 6.5x50mm - [id number] Implanted:Qty: 1 on 09/18/[address] [facility] Spine [employer] [id number] / / Screw Polyaxial 6.5x45mm - [id number] Implanted:Qty: 2 on 09/18/[address] [facility] Spine [employer] [id number] / / Monica Carie [id number] - [id number] Implanted:Qty: 4 on 09/18/[address] [facility] Spine [employer] [id number] / / Allosource Canc Crushed 30cc Implanted:Qty: 1 on 09/18/[address] [facility] Explanted:at [facility] (Quantity not on file) Spine [employer] 11/13/2008 [id number] / [id number] / Description:CANC CRUSHED 30C C Screw Polyaxial 6.5x40mm - [id number] Implanted:Qty: 1 on 09/18/[address] [facility] Spine [employer] [id number] / / Mark Carie Rad 40mm 108mm Radius - [id number] Implanted:Qty: 2 on 09/18/[address] [facility] Spine [employer] [id number] / / [id number] e Canclls Crushed 30cc [[id number]] Implanted:Qty: 1 on 08/26/[address] [facility] Explanted:at [facility] (Quantity not on file) Spine [employer] 01/15/2011 [id number] / [id number] / Procedures Procedure Name Priority Date/Time Associated Diagnosis Comments SCAN-OPERATIVE/PROCE DURE REPORT 08/12/2023 12:00 AM CDT LDL CHOLESTEROL,DIRECT Routine 08/05/2023 12:08 PM CDT Hyperlipidemia, unspecified hyperlipidemia type CBC WITH AUTO DIFFERENTIAL Routine 08/05/2023 12:08 PM CDT Primary hypertension LIPID PANEL W REFLEX MEASURED LDL Routine 08/05/2023 12:08 PM CDT Hyperlipidemia, unspecified hyperlipidemia type MAGNESIUM Routine 08/05/2023 12:08 PM CDT Low magnesium level CBC WITH AUTO DIFFERENTIAL Routine 08/05/2023 12:08 PM CDT Primary hypertension COMP METABOLIC PANEL Routine 08/05/2023 12:08 PM CDT Type 2 diabetes mellitus without complication, without long-term current use of insulin (HC) HEMOGLOBIN A1C Routine 08/05/2023 12:08 PM CDT Type 2 diabetes mellitus without complication, without long-term current use of insulin (HC) URINE CULTURE Routine 06/27/2023 11:10 AM [employer] Frequency of urination UA W/ SEDIMENT EXAM REFLEXED PER CRITERIA Routine 06/27/2023 11:10 AM [employer] Frequency of urination SDNA-FIT EXTERNAL (COLOGUARD) Routine 10/01/2022 9:45 AM CDT Screening for colon cancer XR DXA BONE DENSITY 2 SITES AXIAL Routine 09/12/2022 12:09 PM CDT Postmenopausal ANTI HCV Routine 04/13/2019 9:56 AM [employer] Encounter for hepatitis C screening test for low risk patient from Last 3 Months or Most Recently Relevant to Health Maintenance Results * SCAN-OPERATIVE/PROCEDURE REPORT (08/12/2023 12:00 AM CDT) Scanner OTHER * (ABNORMAL) CBC WITH AUTO DIFFERENTIAL (08/05/2023 12:08 PM CDT) Pathologist [facility] WHITE BLOOD COUNT 7.3 4.5 - 11.0 thou/cu mm 08/05/2023 12:20 PM CDT [facility] RED BLOOD COUNT 5.57(H) 4.00 - 5.20 mil/cu mm 08/05/2023 12:20 PM CDT [facility] HEMOGLOBIN 15.6 12.0 - 16.0 g/dL 08/05/2023 12:20 PM CDT [facility] HEMATOCRIT 46.9 33.0 - 51.0 % 08/05/2023 12:20 PM CDT [facility] MCV 84 80 - 100 fL 08/05/2023 12:20 PM CDT [facility] MCH 28.0 26.0 - 34.0 pg 08/05/2023 12:20 PM CDT [facility] MCHC 33.3 32.0 - 36.0 g/dL 08/05/2023 12:20 PM CDT [facility] RDW 15.6(H) 11.5 - 15.5 % 08/05/2023 12:20 PM CDT [facility] PLATELET COUNT 357 140 - 440 thou/cu mm 08/05/2023 12:20 PM CDT [facility] MPV 9.6 6.5 - 11.0 fL 08/05/2023 12:20 PM CDT [facility] % NEUT 45.5 % 08/05/2023 12:20 PM CDT [facility] % LYMPH 42.3 % 08/05/2023 12:20 PM CDT [facility] % MONO 9.0 % 08/05/2023 12:20 PM CDT [facility] % EOS 2.5 % 08/05/2023 12:20 PM CDT [facility] % BASO 0.7 % 08/05/2023 12:20 PM CDT [facility] ABSOLUTE NEUTROPHILS 3.3 1.7 - 7.0 thou/cu mm 08/05/2023 12:20 PM CDT [facility] ABSOLUTE LYMPHOCYTES 3.1(H) 0.9 - 2.9 thou/cu mm 08/05/2023 12:20 PM CDT [facility] ABSOLUTE MONOCYTES 0.7 <0.9 thou/cu mm 08/05/2023 12:20 PM CDT [facility] ABSOLUTE EOSINOPHILS 0.2 <0.5 thou/cu mm 08/05/2023 12:20 PM CDT [facility] ABSOLUTE BASOPHILS 0.1 <0.3 thou/cu mm 08/05/2023 12:20 PM CDT [facility] Blood BLOOD SPECIMEN / Unknown Venipuncture / Unknown 08/05/2023 12:08 PM CDT 08/05/2023 12:10 PM CDT Sariah Bullard MD HEMATOLOGY [facility] [address] [place] [address], [place] [phone] * (ABNORMAL) LIPID PANEL W REFLEX MEASURED LDL (08/05/2023 12:08 PM CDT) CHOLESTEROL,TOTAL 216(H) 100 - 199 mg/dL 08/05/2023 9:56 PM CDT [facility] Comment: Cholesterol, Total Reference Ranges Desirable <200 mg/dL Borderline 200-239 mg/dL High >=240 mg/dL TRIGLYCERIDES 408(H) <150 mg/dL 08/05/2023 9:56 PM CDT [facility] HDL CHOLESTEROL 49 >40 mg/dL 9:56 PM CDT [facility] NON-HDL CHOLESTEROL 167(H) <145 mg/dl 08/05/2023 9:56 PM CDT [facility] CHOL/HDL RATIO 4.41 <4.50 08/05/2023 9:56 PM CDT [facility] LDL CHOLESTEROL 9:56 PM CDT [facility] Comment:Invalid LDL when Tri g >400. VLDL CHOLESTEROL COMMENT 08/05/2023 9:56 PM CDT [facility] Comment:Unable to calculate VLDL. PROVIDER ORDERED STATUS RANDOM 08/05/2023 9:56 PM CDT [facility] Blood BLOOD SPECIMEN / Unknown Venipuncture / Unknown 08/05/2023 12:08 PM CDT 08/05/2023 12:10 PM CDT Sariah Bullard MD [facility] [address] [place] [address], [place] * MAGNESIUM (08/05/2023 12:08 PM CDT) Pathologist [facility] MAGNESIUM 2.1 1.6 - 2.4 mg/dL 08/05/2023 9:56 PM CDT [facility] Blood BLOOD SPECIMEN / Unknown Venipuncture / Unknown 08/05/2023 12:08 PM CDT 08/05/2023 12:10 PM CDT Sariah Bullard MD CHEMISTRY Performing Organization Address [facility] Co de Phone Number [facility] [address] [place] [address], * LDL CHOLESTEROL,DIRECT (08/05/2023 12:08 PM CDT) [facility] LDL CHOLESTEROL,DI RECT 99 mg/dL 08/05/2023 11:53 PM CDT [facility] PROVIDER ORDERED STATUS RANDOM 08/05/2023 11:53 PM CDT [facility] Blood BLOOD SPECIMEN / Unknown Venipuncture / Unknown 08/05/2023 12:08 PM CDT 08/05/2023 12:10 PM CDT Narrative [facility] - 08/05/2023 11:53 PM CDT Optimal ?<100 mg/dl Near Optimal ?100-129 mg/dl Borderline High ?? 130-159 mg/dl High ?160-189 mg/dl Very High ? >=190 mg/dl Sariah Bullard MD CHEMISTRY Performing Organization Address [facility] Co de Phone Number [facility] [address] [place] [address], * (ABNORMAL) HEMOGLOBIN A1C MONITORING (POCT) (08/05/2023 12:08 PM CDT) Pathologist [facility] HEMOGLOBIN A1C MONITORING (POCT) 8.3(H) <=6.4 % 08/05/2023 12:31 PM CDT [facility] Blood BLOOD SPECIMEN / Unknown Venipuncture / Unknown 08/05/2023 12:08 PM CDT 08/05/2023 12:10 PM CDT Narrative [facility] - 08/05/2023 12:31 PM CDT ? (<=6.9%) ? Indicates good control ? (7.0% to 7.9%) ? Indicates fair control ? (>=8.0%) ? Indicates poor control ?? NOTE: ??These thresholds are guidelines and ?individual targets may vary. Falsely low levels may be seen with: Recent Transfusion, Recent Significant Blood Loss, Hemolytic Diseases, or Falsely elevated levels may be seen with: Untreated Anemias, Splenectomy ? Sariah Bullard MD CHEMISTRY [facility] [address] [place] [address], * (ABNORMAL) COMP METABOLIC PANEL (08/05/2023 12:08 PM CDT) SODIUM 139 136 - 145 mmol/L 08/05/2023 9:56 PM CDT [facility] POTASSIUM 4.7 3.5 - 5.1 mmol/L 08/05/2023 9:56 PM CDT [facility] CHLORIDE 97(L) 98 - 107 mmol/L 08/05/2023 9:56 PM CDT [facility] CO2,TOTAL 26 22 - 29 mmol/L 08/05/2023 9:56 PM CDT [facility] ANION GAP 16 5 - 18 08/05/2023 9:56 PM CDT [facility] GLUCOSE 177(H) 70 - 99 mg/dL 08/05/2023 9:56 PM CDT [facility] CALCIUM 9.9 8.8 - 10.2 mg/dL 08/05/2023 9:56 PM CDT [facility] BUN 16 8 - 23 mg/dL 08/05/2023 9:56 PM CDT [facility] CREATININE 0.80 0.50 - 0.90 mg/dL 08/05/2023 9:56 PM CDT [facility] BUN/CREAT RATIO 20 10 - 20 9:56 PM CDT [facility] eGFR 80(L) >90 mL/min/1.7 3m2 08/05/2023 9:56 PM CDT [facility] Comment:As of 2021, eG FR is calculated by the CKD-EPI creatinine equation without race adjustment. ??eGFR can be influenced by muscle mass, exercise, and diet. ??The reported eGFR is an estimation only and is only applicable if the renal function is stable. ALBUMIN 4.7 4.0 - 4.9 g/dL 08/05/2023 9:56 PM CDT [facility] PROTEIN,TOTAL 7.7 6.0 - 8.0 g/dL 08/05/2023 9:56 PM CDT [facility] BILIRUBIN,TOTAL 0.4 0.0 - 1.2 mg/dL 08/05/2023 9:56 PM CDT [facility] ALK PHOSPHATASE 189(H) 35 - 104 IU/L 08/05/2023 9:56 PM CDT [facility] ALT (SGPT) 25 10 - 35 IU/L 08/05/2023 9:56 PM CDT [facility] AST (SGOT) 25 10 - 35 IU/L 08/05/2023 9:56 PM CDT [facility] Blood BLOOD SPECIMEN / Unknown Venipuncture / Unknown 08/05/2023 12:08 PM CDT 08/05/2023 12:10 PM CDT Sariah Bullard MD CHEMISTRY [facility] [address] [place] [address], [place] * URINE CULTURE (06/27/2023 11:10 AM [employer]) CULTURE <10,000 CFU/mL multiple organisms 06/28/2023 2:41 PM [employer] [facility] Urine URINE SPECIMEN / Unknown Non-Blood / Unknown 06/27/2023 11:10 AM [employer] 06/27/2023 11:17 AM [employer] Sariah Bullard MD MICROBIOLOGY Performing Organization Address [facility] Co de Phone Number [facility] [address] [place] [address], [place] * (ABNORMAL) UA W/ SEDIMENT EXAM REFLEXED PER CRITERIA (06/27/2023 11:10 AM [employer]) COLOR Yellow Yellow Color 06/27/2023 11:21 AM [employer] [facility] CLARITY Clear Clear Clarity 06/27/2023 11:21 AM [employer] [facility] SPECIFIC GRAVITY,URINE 1.010 1.010, 1.015, 1.020, 1.025 06/27/2023 11:21 AM [facility] PH,URINE 5.5 6.0, 7.0, 8.0, 5.5, 6.5, 7.5, 8.5 06/27/2023 11:21 AM [facility] UROBILINOGEN, QUALITATIVE Normal Normal EU/dl 06/27/2023 11:21 AM [facility] PROTEIN, URINE Negative Negative mg/dL 06/27/2023 11:21 AM [facility] GLUCOSE, URINE 500(A) Negative mg/dL 06/27/2023 11:21 AM [facility] KETONES,URINE Negative Negative mg/dL 06/27/2023 11:21 AM [facility] BILIRUBIN,URI NE Negative Negative 06/27/2023 11:21 AM [facility] OCCULT BLOOD,URINE Negative Negative 06/27/2023 11:21 AM [facility] NITRITE Negative Negative 06/27/2023 11:21 AM [employer] [facility] LEUKOCYTE ESTERASE Negative Negative 06/27/2023 11:21 AM [employer] [facility] Urine URINE SPECIMEN / Unknown Non-Blood / Unknown 06/27/2023 11:10 AM [employer] 06/27/2023 11:17 AM [employer] Sariah Bullard MD URINE [facility] [facility] [address] [place] [address], * SDNA-FIT EXTERNAL (COLOGUARD) (10/01/2022 9:45 AM CDT) NONINV COLON CA DNA+OCC BLD SCRN STL-IMP Negative Negative 10/09/2022 5:37 PM CDT [employer] (CLIA #:[id number]) Comment: NEGATIVE TEST RESULT. A negative Cologuard result indicates a low likelihood that a colorectal cancer (CRC) or advanced adenoma (adenomatous polyps with more advanced pre-malignant features) ??is present. The chance that a person with a negative Cologuard test has a colorectal cancer is less than 1 in 1500 (negative predictive value >99.9%) or has an ??advanced adenoma is less than ??5.3% (negative predictive value 94.7%). These data are based on a prospective cross-sectional study of 10,000 individuals at average risk for colorectal cancer who were screened with both Cologuard and colonoscopy. (Precious Gipson al, N Engl J Med 2014;370(14):1286- 1297) The normal value (reference range) for this assay is negative. COLOGUARD RE-SCREENING RECOMMENDATION: Periodic colorectal cancer screening is an important part of preventive healthcare for asymptomatic individuals at average risk for colorectal cancer. ??Following a negative Cologuard result, the [place] Cancer Society and U.S. Multi-Society Task Force screening guidelines recommend a Cologuard re-screening interval of 3 years. References: [place] [employer] Guideline for Colorectal Cancer Screening: https://www.cancer.org/cancer/bsylw-oaaoca-pqganv/lmjsfuxbq-gehuzayll-yxcnxcx/ac s-rec ommendations.html.; Eduardo DK, Christiano CR, Anthony LaughlinK, Colorectal Cancer Screening: Recommendations for Physicians and Patients from the U.S. Multi-Society Task Force on Colorectal Cancer Screening , Am J Gastroenterology 2017; 112:7785-5360. TEST DESCRIPTION: Composite algorithmic analysis of stool DNA-biomarkers with hemoglobin immunoassay. ?? Quantitative values of individual biomarkers are not reportable and are not associated with individual biomarker result reference ranges. Cologuard is intended for colorectal cancer screening of adults of either sex, 45 years or older, who are at average-risk for colorectal cancer (CRC). Cologuard has been approved for use by the U.S. FDA. The performance of Cologuard was established in a cross sectional study of average-risk adults aged 50-84. Cologuard performance in patients ages 45 to 49 years was estimated by sub-group analysis of near-age groups. Colonoscopies performed for a positive result may find as the most clinically significant lesion: colorectal cancer [4.0%], advanced adenoma (including sessile serrated polyps greater than or equal to 1cm diameter) [20%] or non- advanced adenoma [31%]; or no colorectal neoplasia [45%]. These estimates are derived from a prospective cross-sectional screening study of 10,000 individuals at average risk for colorectal cancer who were screened with both Cologuard and colonoscopy. (Precious Gipson al, N Engl J Med 2014;370(14):2081-2394.) Cologuard may produce a false negative or false positive result (no colorectal cancer or precancerous polyp present at colonoscopy follow up). A negative Cologuard test result does not guarantee the absence of CRC or advanced adenoma (pre-cancer). The current Cologuard screening interval is every 3 years. ([place] [employer] Society and U.S. Multi-Society Task Force). Cologuard performance data in a 10,000 patient pivotal study using colonoscopy as the reference method can be accessed at the following location: www.Scrapblog.Medisse/results. Additional description of the Cologuard test process, warnings and precautions can be found at www.InfiKno.com. Stool specimen (specimen) (Rectum) 10/01/2022 9:45 AM CDT 10/02/2022 5:39 PM CDT Sariah Bullard MD URINE [employer] (CLIA #:[id number]) [place] [address], * (ABNORMAL) XR DXA BONE DENSITY 2 SITES AXIAL [59771.1] (09/12/2022 12:09 PM CDT) Anatomical Region Laterality Modality Spine, HIPS, HIPL, HIPR Other Impressions 09/20/2022 4:47 PM CDT Osteopenia. RECOMMENDATIONS: The National Osteoporosis Foundation recommends pharmacologic treatment for patients with T-scores of -2.5 or less, patients with prior history of fragility fractures, or patients with 10-year probability of greater than 3% at hips or greater than 20% of suffering major osteoporotic fractures. Recommend continued optimization of calcium and vitamin D intake through dietary means and/or supplementation and regular exercise. Repeat scan recommended in 3-5 years. Keely Phipps PA-C [facility] 09/20/2022 Narrative 09/20/2022 4:47 PM CDT For Patients: Results are automatically released to your [employer] ([employer]) account once available, in compliance with federal regulations. This means that you may see your results before your provider has had a chance to review them. Please allow 2-3 business days for your provider to comment on the results. XR DXA Bone Mineral Density (BMD) EXAM LOCATION: [facility] [address] [facility] [address] PATIENT NAME: Shira Philippe DATE OF : 1955 EXAM DATE: 09/12/2022 REQUESTING PROVIDER: Sariah Bullard MD GENDER AT : female HEIGHT: 5' 1.25 (09/12/2022) WEIGHT: ??242 lb 9.6 oz (09/12/2022) MENOPAUSAL STATUS: Postmenopausal RACE/ETHNICITY: White RISK FACTORS: White Race CURRENT MEDICATION FOR BONE LOSS: NONE INDICATION: Post-Menopause COMPARISON DATE(S): None DXA scans are compared to prior studies for a patient only when the two (or more) studies were performed on the same scanner. It is not possible to compare data generated on one scanner to data from another because there are not standards in DXA equipment. This applies even if the two scanners are made by the same operations technician. PROCEDURE: Dual-energy x-ray absorptiometry performed with routine technique. Reporting is completed in the form of a T-score. The T-score represents the standard deviation from peak bone mass based on young healthy adult. A Z-score is used for diagnosis in premenopausal women, and for men under the age of 50. FINDINGS: RESULT LUMBAR SPINE L1 - L3 ??BMD: 1.314 g/cm2 T-Score: + 1.1 Z-Score: + 1.6 Change from prior: ??None RESULTS FEMUR Left femoral neck BMD: 0.835 g/cm2 T-Score: - 1.5 Z-Score: - 0.6 Change from prior: ??None Right femoral neck BMD: 0.868 g/cm2 T-Score: - 1.2 Z-Score: - 0.3 Change from prior: ??None Left hip BMD: 0.0916 g/cm2 T-Score: - 0.7 Z-Score: - 0.2 Change from prior: ??None Right hip BMD: 0.916 g/cm2 T-Score: - 0.6 Z-Score: - 0.1 Change from prior: ??None WHO criteria: Normal: T-score at or above -1 SD Osteopenia: T-score between -1.1 and -2.4 SD Osteoporosis: T-score at or below -2.5 SD FRAX RISK CALCULATION (USED FOR OSTEOPENIA ONLY): 10-year probability of major osteoporotic fracture: 8.1%. 10-year probability of hip fracture: 0.9%. Sariah Bullard MD DEXA * ANTI HCV (04/13/2019 9:56 AM [employer]) Pathologist [facility] HEPATITIS C ANTIBODY Non-React porsha Non-React porsha 04/15/2019 2:04 PM [employer] [facility] Comment:Antibodies to HCV no t detected; does not exclude the possibility of exposure to HCV. Blood BLOOD SPECIMEN / Unknown Butterfly / Unknown 04/13/2019 9:56 AM [employer] 04/13/2019 9:56 AM [employer] Sariah Bullard MD SEND OUTS [facility] [address] [place] [address], from Last 3 Months or Most Recently Relevant to Health Maintenance Advance Directives * Full Code (Latest Code Status on File) Date Activated Date Inactivated Comments 08/26/2006 12:39 PM 08/29/2006 4:34 PM * Full Code Date Activated Date Inactivated Comments 08/26/2006 8:43 AM 08/26/2006 12:39 PM * Full Code Date Activated Date Inactivated Comments 09/18/2005 9:40 PM 09/23/2005 2:38 PM * Full Code Date Activated Date Inactivated Comments 09/18/2005 6:32 PM 09/18/2005 9:40 PM * Full Code Date Activated Date Inactivated Comments 09/18/2005 12:57 PM 09/18/2005 6:32 PM Care Teams Ultrasound Supervisor Relationship Specialty Start Date End Date Sariah Bullard MD [address] [place] [address] PCP - General Family Practice 11/03/15 Remberto Medina MD [address] [place] [address] Sleep Medicine 12/04/22 Kyler Quinones MD [address] [facility] [address] [place] [address] Endocrinology 07/14/23
--- OUTSIDE RECORDS SUMMARY | 2023-09-12 11:38 | XMS_ITS | Encounter Summary ---
Author Organization [facility] Address [address] [place] [address]. [place] [address] Care Team Providers Care Boiler Operator Helper Name Role Phone No Ref-Primary, Physician Primary Care Provider Encounter Details Date Type Department Care Team (Late st Contact Info) Description 08/04/2023 Medical Correspondence [facility] Info [facility] [place] [address] [place] [id number] Scan, Non-Provider Social History Tobacco Use Types Packs/Day Years Used Date Smoking Tobacco: Never Assessed PHQ-2 Answer Date Recorded PHQ-2 Score 4 [...] on filedocumented in this encounter Care Teams Boiler Operator Helper Relationship Specialty Start Date End Date No Ref-Primary, Physician PCP - General 08/06/23 08/07/23 documented as of this encounter
--- OUTSIDE RECORDS SUMMARY | 2023-09-12 11:38 | XMS_ITS | Continuity of Care Document ---
Author Organization [facility] Address [address] [place] [address] Phone Care Team Providers Care Asp Net Developer Name Role Phone Samuel Scales MD Unavailable Unavailable Allergies, Adverse Reactions, Alerts Substance Reaction Status Criticality rivaroxaban dizziness Active No Information raspberry hives Active No Information droperidol agitation Active No Information titanium unknown Active No Information Medications Medication Instructions Dosage Effective Dates (start - stop) Status Comments POTASSIUM CHLORIDE (unknown strength) Not Available - Active CARISOPRODOL (unknown strength) Not Available - Active PROTONIX (unknown strength) Not Available - Active TOPROL XL (unknown strength) Not Available - Active GLIPIZIDE (unknown strength) Not Available - Active JARDIANCE (unknown strength) Not Available - Active TORSEMIDE (unknown strength) Not Available - Active ROSUVASTATIN CALCIUM (unknown strength) Not Available - Active TRULICITY (unknown strength) Not Available - Active RIOMET (unknown strength) Not Available - Active ACETAMINOPHEN (unknown strength) Not Available - Active CYMBALTA (unknown strength) Not Available - No Longer Active DIAZEPAM (unknown strength) Not Available - No Longer Active RANITIDINE HCL (unknown strength) Not Available - No Longer Active OXYCODONE HCL (unknown strength) Not Available - No Longer Active WARFARIN SODIUM (unknown strength) Not Available - No Longer Active TIZANIDINE HCL (unknown strength) Not Available - No Longer Active OMEPRAZOLE (unknown strength) Not Available - No Longer Active Procedures Procedure Date Office/Outpatient Visit,New, Mod 2023 Office/Outpatient Visit,New, Mod 2017 Office/outpatient visit,est, low [...] Diagnoses Date Provider Providers Copied on Encounter Office/Outpa tient Visit,New, Mod Julienne/JOYCE, [address], [place], [place], [id number], [place] tel:[phone] [facility] Spinal stenosis, lumbar region with neurogenic claudicationSp ondylolisthesi s, lumbosacral region 4 Mehbod Amir. [facility], [address], [place], [place], [id number] , [place]. tel:[phone] Referring Provider: Sariah Bullard , [address], [place], [address]. tel:[phone] Office/Outpa tient Visit,[facility], [address], [place], [place], [id number], [place] tel:[phone] [facility] Spinal stenosis, lumbar region with neurogenic claudicationOt her spondylosis, lumbosacral regionOther intervertebral disc displacement, lumbar region 8 Deborah Hickey. [facility], [address], [address], [place], [place], [address] , [place]. tel:[phone] Referring Provider: Ruperto Bird, [facility] [address], [address], [place], [address] . tel:[phone] Office/outpa tient visit,est, low Z [facility] [place], [address], [place], [address], [place] tel:[phone] [facility] No Information 8 Mehbod Amir. [facility], [address], [place], [place], [id number] , [place]. tel:[phone] Office/outpa tient visit,est, low Z [facility] [place], [address], [place], [address], [place] tel:[phone] [facility] No Information 8 Mehbod Amir. [facility] [place], [address], [place], [place], [id number] , [place]. tel:[phone] Office/outpa tient visit,est, low Z [facility], [address], [place], [address], [place] tel: [phone] [facility] No Information 3-200 7 Mehbod Amir. [facility], [address], [place], [place], [id number] , [place]. tel: [phone] Z [facility], [address], [place], [address], [place] tel: [phone] [facility] No Information 8-200 7 Mehbod Amir. [facility], [address], [place], [place], [id number] , [place]. tel: [phone] Z [facility], [address], [place], [address], [place] tel:[phone] [facility] No Information 4-200 7 Mehbod Amir. [facility], [address], [place], [place], [id number] , [place]. tel: [phone] Office/outpa tient visit,est, low Z [facility], [address], [place], [address], [place] tel: [phone] [facility] No Information 0 9-200 7 Mehbod Amir. [facility], [address], [place], [place], [id number] , [place]. tel: [phone] Office/outpa tient visit,est, low Z [facility], [address], [place], [address], [place] tel: [phone] [facility] No Information 6-200 7 Mehbod Amir. [facility], [address], [place], [place], [address] , [place]. tel: [phone] Office/outpa tient visit,est, low Z [facility], [address], [place], [address], [place] tel:[phone] [facility] No Information 8-200 6 Mehbod Amir. [facility], [address], [place], [place], [id number] , [place]. tel:[phone] Z [facility], [address] [place], [place] [address], [place], [address], tel:[phone] [facility] No Information 0-200 6 Mehbod Amir. [facility], [address], [place], [place], [address] , [place]. tel:[phone] Z [facility], [address] [place] [address] [address], [place], [place], [facility], [place] tel:[phone] [facility] No Information 2-200 6 Mehbod Amir. [facility] [place], [address], [place], [place], [address] , [place]. tel:[phone] Office consultation , moderate Z [facility], [address] [place], [place] [address] [address], [place], [place], [facility], [place] tel:[phone] [facility] No Information 5-200 6 Mehbod Amir. [facility] [place], [address], [place], [place], [id number] , [place]. tel:[phone] Family History Family Member Type Diagnosis Age At Onset No Information Payers Payer name Insurance type Covered alliance party ID Lea jaime(s) Medicare MB [id number] [facility] [id number] Social History Type Description Quantity Date Captured Comments Alcohol Use Details Unknown Caffeine Use Details Unknown Tobacco Use Status No Information Smoking Status No Information Sex Female Vital Signs Date / Time: Height Weight BMI Pulse Rate Blood Pressure Temperature Respiratory Rate Body Surface Area Head Circumference Head Circ. Percentile Wt./Randal. Percentile BMI percentile Pulse Ox Inhaled Ox 1:02 PM 60.00 in Chief Complaint And Reason For Visit No [...]
--- OUTSIDE RECORDS SUMMARY | 2023-09-12 11:38 | XMS_ITS | Encounter Summary ---
Author Organization [facility] Address [address] [place] [address]. [place] [address] Care Team Providers Care First Sampler Name Role Phone Unavailable Primary Care Provider Unavailabl e Reason for Referral * Consultation (Routine: Next available opening) - Pending Review Specialty Diagnoses / Procedures [facility] To Contact Diagnoses Back pain Perfecto Santacruz MD [facility] [address] [address] Shamar Fernandes MD [address] [place] [address] Referral ID Status Reason Start Date Expiration Date V isits Requested Visits Authorized [id number] Pending Review 08/05/2023 08/04/2024 1 1 Question Answer Referral Type: Surgical Consult Region: Lumbar Scheduling Instructions: [facility] will call you to coordinate your care as prescribed by your provider. If you don't hear from a account maintenance representative within 2 business days, please call . Additional Information: h/o of a L4-L5 lumbar fusion with remocal of hardware. Evaluate for lumbar radiculopathy. Multilevel lumbar spinal stenosis. Comments Referral to Dr. Fernandes for back pain from Perfecto Santacruz MD [facility] T: [phone] F: [phone] [facility] will call you to coordinate your care as prescribed by your provider. If you don't hear from a account maintenance representative within 2 business days, please call . Encounter Details Date Type Department Care Team (Late st Contact Info) Description 08/05/2023 Transcribe Orders GENERIC EXTERNAL DATA DEPARTMENT Provider, Generic External Data Back pain (Primary Dx) Social History Tobacco Use Types Packs/Day Years Used Date Smoking Tobacco: Never Assessed Adolescent Education Answer Date Record ed Getting School Help Needed Not on file 08/05 Sex and Gender Information Value Date Recorded Sex Assigned at Not on file Gender Identity Not on file Sexual Orientation Not on file documented as of this encounter Plan of Treatment Scheduled Referrals Name Type Priority Associated Diagnoses Orde r Schedule Spine Digital Photo Printer Referral Referral Routine: Next available opening Back pain Expected: 08/05/2023 (Approximate), Expires: 08/04/2024 documented as of this encounter Visit Diagnoses Diagnosis Back pain- Primary Backache, unspecified documented in this encounter
--- OUTSIDE RECORDS SUMMARY | 2023-09-12 11:38 | XMS_ITS | Continuity of Care Document ---
Author Name [facility] Organization [facility] Care Team Providers Care Office Machine Service Supervisor Name Role Phone [facility] Unavailable Unavailable Medications Combined list of outpatient medications from Department of Defense and Veterans Affairs facilities.Medications provided include 1) outpatient medications from the last 15 months, and 2) patient-reported medications. Medication Details Route Status Patient Instructions Prescription Expires Prescription Number Last Dispense Date Ordering Provider Order Date Order Qty Source ALPRAZOLAM (ALPRAZOLAM ), 0.25MG, TABLET, ORAL, SANDOZ, 1000 ea. BOTTLE Active [id number] 2023 2 Pharmac y Data Transac tion Service Facilit y CARISOPRODO L (carisoprod ol), 350 MG, TABLET, ORAL, [employer], 1000 ea. BOTTLE Active [id number] 2023 30 Pharmac y Data Transac tion Service Facilit y CARISOPRODO L (carisoprod ol), 350 MG, TABLET, ORAL, [employer], 1000 ea. BOTTLE Active [id number] 2023 30 Pharmac y Data Transac tion Service Facilit y CARISOPRODO L (carisoprod ol), 350 MG, TABLET, ORAL, [employer], 500 ea. BOTTLE Active [id number] 2023 30 Pharmac y Data Transac tion Service Facilit y CARISOPRODO L (carisoprod ol), 350 MG, TABLET, ORAL, [employer], 500 ea. BOTTLE Cancele d [id number] : 2023 0 Pharmac y Data Transac tion Service Facilit y CARISOPRODO L (carisoprod ol), 350 MG, TABLET, ORAL, [employer], 500 ea. BOTTLE Cancele d [id number] : 03/09/ 2024 0 Pharmac y Data Transac tion Service Facilit y CELECOXIB (celecoxib) , 200 MG, CAPSULE, ORAL, AUROBINDO PHARM, 100 ea. BOTTLE Active [id number] 2023 60 Pharmac y Data Transac tion Service Facilit y DULOXETINE HCL (duloxetine HCl), 20 MG, CAPSULE DR, ORAL, [employer] 60 ea. BOTTLE Active [id number] 2023 180 Pharmac y Data Transac tion Service Facilit y DULOXETINE HCL (duloxetine HCl), 20 MG, CAPSULE DR, ORAL, [employer] 60 ea. BOTTLE Active [id number] 2023 180 Pharmac y Data Transac tion Service Facilit y FAMOTIDINE (famotidine ), 20 MG, TABLET, ORAL, [employer] 1000 ea. BOTTLE Active [id number] 4 2023 180 Pharmac y Data Transac tion Service Facilit y FLUCONAZOLE (fluconazol e), 150 MG, TABLET, ORAL, [employer], 1 ea. BOTTLE Cancele d [id number] : 2023 0 Pharmac y Data Transac tion Service Facilit y FLUCONAZOLE (fluconazol e), 150 MG, TABLET, ORAL, [employer], 1 ea. BOTTLE Active [id number] 2023 2 Pharmac y Data Transac tion Service Facilit y FLUCONAZOLE (FLUCONAZOL E), 150 MG, TABLET, ORAL, [employer] [facility], 12 ea. BLIST PACK Cancele d [id number] : 2023 0 Pharmac y Data Transac tion Service Facilit y GABAPENTIN (GABAPENTIN ), 300 MG, CAPSULE, ORAL, [employer] PHARMA,, 500 ea. BOTTLE Active [id number] 2023 30 Pharmac y Data Transac tion Service Facilit y GLIPIZIDE ER (glipizide) , 10 MG, TAB ER 24, ORAL, [employer]OB[employer] PHARM, 100 ea. BOTTLE Cancele d [id number] : 2023 0 Pharmac y Data Transac tion Service Facilit y GLIPIZIDE XL (GLIPIZIDE) , 10 MG, TAB ER 24, ORAL, [employer] 500 ea. BOTTLE Active [id number] 2023 180 Pharmac y Data Transac tion Service Facilit y JARDIANCE (EMPAGLIFLO ZIN), 25 MG, TABLET, ORAL, [employer]EHRINGER ING., 30 ea. BOTTLE Cancele d [id number] : 2023 0 Pharmac y Data Transac tion Service Facilit y JARDIANCE (EMPAGLIFLO ZIN), 25 MG, TABLET, ORAL, [employer] ING., 30 ea. BOTTLE Active [id number] 2023 90 Pharmac y Data Transac tion Service Facilit y JARDIANCE (EMPAGLIFLO ZIN), 25 MG, TABLET, ORAL, [employer] ING., 30 ea. BOTTLE Active [id number] 2023 90 Pharmac y Data Transac tion Service Facilit y METFORMIN HCL ER (metformin HCl), 500 MG, TAB ER 24H, ORAL, [employer], 1000 ea. BOTTLE Active [id number] 2023 180 Pharmac y Data Transac tion Service Facilit y METFORMIN HCL ER (metformin HCl), 500 MG, TAB ER 24H, ORAL, [employer], 90 ea. BOTTLE Active [id number] 2023 120 Pharmac y Data Transac tion Service Facilit y METOPROLOL SUCCINATE (metoprolol succinate), 100 MG, TAB ER 24H, ORAL, [employer] 1000 ea. BOTTLE Cancele d [id number] : 2023 0 Pharmac y Data Transac tion Service Facilit y METOPROLOL SUCCINATE (metoprolol succinate), 100 MG, TAB ER 24H, ORAL, [employer] 1000 ea. BOTTLE Active [id number] 2023 90 Pharmac y Data Transac tion Service Facilit y METOPROLOL SUCCINATE (metoprolol succinate), 100 MG, TAB ER 24H, ORAL, [employer] 1000 ea. BOTTLE Active [id number] 2023 90 Pharmac y Data Transac tion Service Facilit y ONDANSETRON ODT (ONDANSETRO N), 4MG, TAB RAPDIS, ORAL, [email or web address] PHARMA, 30 ea. BLIST PACK Active [id number] 2023 10 Pharmac y Data Transac tion Service Facilit y OXYCODONE HCL (OXYCODONE HCL), 5 MG, TABLET, ORAL, [employer] 500 ea. BOTTLE Active [id number] 2023 4 Pharmac y Data Transac tion Service Facilit y OXYCODONE HCL (OXYCODONE HCL), 5MG, TABLET, ORAL, [employer] PHARM, 100 ea. BOTTLE Cancele d [id number] : 2023 0 Pharmac y Data Transac tion Service Facilit y PANTOPRAZOL E SODIUM (pantoprazo le sodium), 40 MG, TABLET DR, ORAL, [employer]., 1000 ea. BOTTLE Cancele d [id number] 4 [id number] : 2023 0 Pharmac y Data Transac tion Service Facilit y PANTOPRAZOL E SODIUM (pantoprazo le sodium), 40 MG, TABLET DR, ORAL, Places[employer]., 1000 ea. BOTTLE Active [id number] 2023 90 Pharmac y Data Transac tion Service Facilit y POTASSIUM CHLORIDE (potassium chloride), 10 MEQ, CAPSULE ER, ORAL, [employer]RX PHARM, 100 ea. BOTTLE Active [id number] 2023 90 Pharmac y Data Transac tion Service Facilit y POTASSIUM CHLORIDE (potassium chloride), 10 MEQ, CAPSULE ER, ORAL, [employer]RX PHARM, 100 ea. BOTTLE Active [id number] 2023 90 Pharmac y Data Transac tion Service Facilit y ROSUVASTATI N CALCIUM (rosuvastat in calcium), 40 MG, TABLET, ORAL, [employer] 1000 ea. BOTTLE Cancele d [id number] : 2023 0 Pharmac y Data Transac tion Service Facilit y ROSUVASTATI N CALCIUM (rosuvastat in calcium), 40 MG, TABLET, ORAL, [employer] 30 ea. BOTTLE Cancele d [id number] : 2023 0 Pharmac y Data Transac tion Service Facilit y TORSEMIDE (torsemide) , 20 MG, TABLET, ORAL, [employer] 90 ea. BOTTLE Cancele d [id number] : 2023 0 Pharmac y Data Transac tion Service Facilit y TORSEMIDE (torsemide) , 20 MG, TABLET, ORAL, [employer] 90 ea. BOTTLE Active [id number] 2023 90 Pharmac y Data Transac tion Service Facilit y TORSEMIDE (torsemide) , 20 MG, TABLET, ORAL, [employer] 90 ea. BOTTLE Active [id number] 4 2023 90 Pharmac y Data Transac tion Service Facilit y TRULICITY (dulaglutid e), 3 MG/0.5ML, PEN INJCTR, SUBCUT, [employer] .5 ml SYRINGE Cancele d [id number] : 2023 0 Pharmac y Data Transac tion Service Facilit y TRULICITY (dulaglutid e), 3 MG/0.5ML, PEN INJCTR, SUBCUT, [employer] .5 ml SYRINGE Active [id number] 2023 6 Pharmac y Data Transac tion Service Facilit y TRULICITY (dulaglutid e), 3 MG/0.5ML, PEN INJCTR, SUBCUT, [employer] .5 ml SYRINGE Active [id number] 2023 6 Pharmac y Data Transac tion Service Facilit y Immunizations Combined list of available immunizations from the Department of Defense and Veterans Affairs facilities. Immunization Series Date Given Administered By Site Reaction Lot Number CVX Code Drug Auditor/Quality Status Comments Source zoster recombinant 2019 [facility], () Not Given zoster recombina nt [facility]D zoster recombinant 2019 [facility], () Not Given zoster recombina nt [facility] Influenza, seasonal, injectable, preservative free 2011 [employer] [facility] (NOV) Not Given Influenza , seasonal, injectabl e, preservat porsha free [facility] Social History Combined list of available smoking, tobacco, and other social history from Department of Defense and Veterans Affairs facilities. Social History Type Response Date Comment Sour e This section is an empty social history section. [facility]
--- NOTE | 2023-09-12 13:00 | ED.GENADULT ---
HPI - General Adult General Date Seen: 09/12/23 Chief complaint: Unspecified Complaint, Adult Stated complaint: Medication reaction Time Seen by Provider: 09/12/23 12:59 History of Present Illness HPI narrative: 67-year-old female brought to the ER today by EMS. She is experiencing pain between her shoulder blades. She is also nauseous, vomiting, having fever and chills, and headache. She feels achy all over. She received a Reclast injection yesterday through the [facility] and feels that her symptoms are probably a reaction to that. According to records from the [facility] system she has a history of hypertension, bilateral pulmonary emboli, DVT, type 2 diabetes, morbid obesity, hyperlipidemia, esophageal reflux, the lumbosacral radiculopathy, thoracic back pain, sciatica, depression, sleep apnea, previous bowel resection. Medications in the [facility] system acetaminophen Albuterol Metoprolol XL 100 mg daily Rosuvastatin 40 mg daily Torsemide 20 mg q.a.m. carisoprodol 350 mg b.i.d. p.r.n. Celebrex 200 mg b.i.d. Duloxetine Trulicity subcutaneous weekly Jardiance Glipizide Metformin 1000 daily Magnesium oxide Pepcid According to [facility] records she was seen on 09/07 in follow-up for back pain/lumbar radiculopathy. had bilateral epidural injections L5-S1 at [facility] on 08/12/2023. This has been helping. Saw Dr. Scales spine surgeon. He noted osteoporosis on the MRI scan. He cannot operate until this is well treated. She had bone density scan August 2022. This showed Osteopenia. But Dr. Scales and the interventional radiologist both felt she had osteoporosis by the look of her scans. Needs treatment for this. 2. Pain management. . She tried gabapentin but this made her very woozy. Wonders what she can do to improve her pain. She is taking tylenol right now. 3. Right trochanteric bursitis. Cannot lie on her right side. Would like an injection which has helped in the past she had a hip injection into her right lateral hip with dexamethasone and lidocaine. Recommended calcium oral 1200 mg per day, also 1000 IU of vitamin-D per day Recommended yearly Reclast injections. She received her Reclast injection or yesterday. Yesterday evening about 12 hours after injection she began to feel ill. She felt feverish and chilled, body aches, upper back pain, headache. She felt generalized weakness. She had trouble sleeping overnight because her headache and upper back pain were bothering her. She was also nauseous and vomiting. No diarrhea. She is concerned that her symptoms could be a side effect of her Reclast injection from yesterday. No cough. No anterior chest pain. No palpitations. She has a headache. No neck stiffness. No confusion. Related Data Home Medications ?Medication ?Instructions ?Recorded ?Confirmed dulaglutide 1.5 mg/0.5 mL 1.5 mg subcut .weekly 12/14/21 09/12/23 subcutaneous pen injector (Trulicity) duloxetine 20 mg capsule,delayed 20 mg PO BID 12/14/21 09/12/23 release empagliflozin 25 mg tablet 25 mg PO DAILY 12/14/21 09/12/23 (Jardiance) glipizide 10 mg tablet, extended 20 mg PO BID 12/14/21 09/12/23 release 24 hr magnesium oxide 400 mg PO DAILY 12/14/21 09/12/23 potassium chloride 10 mEq 10 meq PO DAILY 12/14/21 09/12/23 tablet,extended release rosuvastatin 40 mg tablet 40 mg PO DAILY 12/14/21 09/12/23 torsemide 20 mg tablet 20 mg PO DAILY 12/14/21 09/12/23 metformin 1,000 mg tablet 1,000 mg PO QDAY 02/25/23 09/12/23 metoprolol succinate 25 mg 25 mg PO QDAY 02/25/23 06/05/23 tablet,extended release 24 hr (Toprol XL) pantoprazole 40 mg tablet,delayed 40 mg PO QDAY 02/25/23 09/12/23 release (Protonix) Allergies Allergy/AdvReac Type Severity Reaction Status Date / Time raspberry Allergy Intermediate Hives Verified 09/12/23 11:47 [facility] Medical History Partial small bowel obstruction ?K56.600 - Partial intestinal obstruction, unspecified as to cause (ICD-10) Esophageal reflux ?K21.9 - Gastro-esophageal reflux disease without esophagitis (ICD-10) Unspecified essential hypertension ?I10 - Essential (primary) hypertension (ICD-10) Vitamin D deficiency ?E55.9 - Vitamin D deficiency, unspecified (ICD-10) MONTY (obstructive sleep apnea) ?G47.33 - Obstructive sleep apnea (adult) (pediatric) (ICD-10) Acute diverticulitis ?K57.92 - Diverticulitis of intestine, part unspecified, without perforation or abscess without bleeding (ICD-10) Pulmonary embolism, bilateral ?I26.99 - Other pulmonary embolism without acute cor pulmonale (ICD-10) DVT (deep venous thrombosis) ?I82.409 - Acute embolism and thrombosis of unspecified deep veins of unspecified lower extremity (ICD-10) Duodenal diverticulum ?K57.10 - Diverticulosis of small intestine without perforation or abscess without bleeding (ICD-10) Lumbar radiculopathy ?M54.16 - Radiculopathy, lumbar region (ICD-10) Type 2 diabetes mellitus ?E11.9 - Type 2 diabetes mellitus without complications (ICD-10) Surgical History History of lumbar laminectomy for spinal cord decompression ?Z98.890 - Other specified postprocedural states (ICD-10) History of cholecystectomy ?Z90.49 - Acquired absence of other specified parts of digestive tract (ICD-10) Hx of appendectomy ?Z90.49 - Acquired absence of other specified parts of digestive tract (ICD-10) Social History Smoking Status: Never smoker Do you use any of these nicotine containing products: None How often do you have a drink containing alcohol: never AUDIT-C Alcohol total score: 0 Non-prescribed substance use: denies use service: Yes Exam Narrative: Exam Narrative: Constitutional: Appears well-developed and well-nourished. Alert. Conversant. Non toxic. Able to sit up and be conversant for exam. I note she has a resting sinus tachycardia up to about 130 on the monitor. HENT: Head: Atraumatic. Nose: Nose normal. Mouth/Throat: Oral mucosa is clear and moist. no trismus. Pharynx normal. Tonsils symmetric. No tonsillar enlargement, erythema, or exudate. Eyes: Conjunctivae normal. EOM normal. Pupils equal, round, and reactive to light. No scleral icterus. Neck: Normal range of motion. Neck supple. No tracheal deviation present. No stiffness. No pain. Cardiovascular: Tachycardic, regular rhythm. No gallop. No friction rub. No murmur heard. Symmetric radial and PT artery pulses Pulmonary/Chest: Effort normal. No stridor. No respiratory distress. No wheezes. No rales. No rhonchi . No tenderness. Abdominal: Soft. Protuberant due to body habitus but nondistended. Bowel sounds normal. No mass. No tenderness. No rebound. No guarding. Musculoskeletal: Normal range of motion her neck. No CVA tenderness RUE: Normal range of motion. No tenderness. No deformity LUE: Normal range of motion. No tenderness. No deformity RLE: Normal range of motion. No edema. No tenderness. No deformity LLE: Normal range of motion. No edema. No tenderness. No deformity Neurological: Alert and oriented to person, place, and time. Normal strength. CN II-VII intact. No sensory deficit. GCS eye subscore is 4. GCS verbal subscore is 5. GCS motor subscore is 6. Normal coordination Skin: Skin is warm and dry. No rash noted. No pallor. Normal capillary refill. Psychiatric: Normal mood. Normal affect allowing for discomfort. Const: Vital Signs, click to edit/add: Vital Signs - 24 hr 09/12/23 11:46 09/12/23 11:47 09/12/23 11:47 Temperature 98.1 F Pulse Rate 126 H 128 H Pulse Rate [Pulse Oximeter] 130 H Respiratory Rate 24 Blood Pressure 185/105 H Blood Pressure [Ri ght Upper Arm] 185/105 H Pulse Oximetry 93 92 93 Oxygen Delivery Me thod Room Air 09/12/23 12:00 09/12/23 12:02 09/12/23 12:03 Temperature Pulse Rate 129 H 130 H 128 H Pulse Rate [Pulse Oximeter] Respiratory Rate Blood Pressure 202/83 H Blood Pressure [Ri ght Upper Arm] Pulse Oximetry 91 91 91 Oxygen Delivery Me thod 09/12/23 12:15 09/12/23 12:33 09/12/23 12:36 Temperature Pulse Rate 132 H 138 H Pulse Rate [Pulse Oximeter] Respiratory Rate Blood Pressure 154/74 H Blood Pressure [Ri ght Upper Arm] Pulse Oximetry 90 90 Oxygen Delivery Me thod 09/12/23 13:02 09/12/23 13:13 09/12/23 13:30 Temperature Pulse Rate 142 H 135 H Pulse Rate [Pulse Oximeter] Respiratory Rate Blood Pressure 128/77 Blood Pressure [Ri ght Upper Arm] Pulse Oximetry 90 90 Oxygen Delivery Me thod 09/12/23 13:32 09/12/23 14:00 09/12/23 14:30 Temperature Pulse Rate 133 H 135 H 121 H Pulse Rate [Pulse Oximeter] Respiratory Rate Blood Pressure 136/75 Blood Pressure [Ri ght Upper Arm] Pulse Oximetry 92 82 L 92 Oxygen Delivery Me thod 09/12/23 14:34 09/12/23 14:37 09/12/23 15:00 Temperature Pulse Rate 126 H 121 H Pulse Rate [Pulse Oximeter] Respiratory Rate Blood Pressure 161/102 H Blood Pressure [Ri ght Upper Arm] Pulse Oximetry 95 91 Oxygen Delivery Me thod 09/12/23 15:02 09/12/23 15:03 09/12/23 15:34 Temperature Pulse Rate 120 H 120 H 121 H Pulse Rate [Pulse Oximeter] Respiratory Rate Blood Pressure 133/69 121/95 H Blood Pressure [Ri ght Upper Arm] Pulse Oximetry 93 92 93 Oxygen Delivery Me thod 09/12/23 15:35 Temperature Pulse Rate 123 H Pulse Rate [Pulse Oximeter] Respiratory Rate Blood Pressure Blood Pressure [Ri ght Upper Arm] Pulse Oximetry 94 Oxygen Delivery Me thod Course Course ED Course: Recheck-patient reports headache and upper back pain or substantially improved after Dilaudid. She is feeling better Reevaluation(s) Reevaluation #1: Recheck-patient feeling better. She is requesting discharge. She still has a resting sinus tachycardia of about 120 after receiving a L of fluids. Patient also has hypertension. Discussed with the patient that unclear what is causing her abnormal vital signs. She is not febrile but of concern about infection because she has a neutrophil predominance on her white cell count. We discussed possible further workup, at least obtaining urinalysis and or obtaining further imaging such as CT chest abdomen pelvis to look for intra-abdominal infections or possible pulmonary infection not seen on her chest x-ray. She is feeling better still thinks that these are side effects of her Reclast infusion. She is requesting discharge home and will come back to the ER if any symptoms get worse. At this point I think she does have medical decision-making capacity. Will give her Instymeds prescriptions for Limerick-10 tablets and Zofran-10 ODT that she can use p.r.n.. She is invited to return to the ER if she changes her mind and instructed to return to the ER if she has any changing or worsening in her condition. Vital Signs Vital signs: Initial Vital Signs Pulse Rate 126 H 09/12/23 11:46 Blood Pressure 185/105 H 09/12/23 11:46 Blood Pressure Mean 131 H 09/12/23 11:46 Pulse Oximetry 93 09/12/23 11:46 Vital Signs Pulse Rate 126 H 09/12/23 11:46 Blood Pressure 185/105 H 09/12/23 11:46 Pulse Oximetry 93 09/12/23 11:46 Temperature 98.1 F 09/12/23 11:47 Pulse Rate 123 H 09/12/23 15:35 Respiratory Rate 24 09/12/23 11:47 Blood Pressure 121/95 H 09/12/23 15:34 Pulse Oximetry 94 09/12/23 15:35 Oxygen Delivery Method Room Air 09/12/23 11:47 Medications Administered Medications: Discontinued Medications Generic Name Dose Route Start Last Admin Trade Name Freq PRN Reason Stop Dose Admin Sodium Chloride 1,000 mls @ 1,000 mls/hr 09/12/23 13:45 09/12/23 15:28 0.9 % Sodium Chloride 1000 Ml IV 09/12/23 14:44 Infused .Q1H MINE Infusion Ketorolac Tromethamine 15 mg 09/12/23 13:31 09/12/23 14:05 Ketorolac 15 Mg/Ml Inj IVP 09/12/23 13:32 15 mg ONCE ONE Administration Ondansetron HCl 4 mg 09/12/23 13:31 09/12/23 13:58 Ondansetron 2 Mg/Ml Inj IVP 09/12/23 13:32 4 mg ONCE ONE Administration Medical Decision Making MDM Narrative Medical decision making narrative: Child presents for evaluation of body aches, headache, fever and chills at home, nausea and vomiting at home, upper back pain. Differential is broad. Consider possible infection giving her fever and chills, tachycardia, left shift. No classic rash to suggest viral syndrome. No evidence for OM on exam. No pharyngitis. Differential for fever included cellulitis, septic arthritis, osteomyelitis but these are not seen on exam. Chest x-ray is negative for any pneumonia. Influenza/RSV/coronavirus PCR is negative.. Abdominal exam is benign, appendicitis/colitis/ intra-abdominal source for fever felt to be unlikely. She is hypertensive, not hypotensive in shock E and there is no clear evidence for sepsis or septic shock. Venous lactic is normal. However she does have a resting tachycardia. Blood cultures are pending. I ordered urinalysis but patient was not able to provide urine here in the ER. At this point she does not want stay for further workup. She does have a headache but no altered mental status, stiff neck or other clear signs for meningitis. At this point we feel that the risk of lumbar puncture would outweigh the benefit. I would recommend further workup here in the ER at least with urinalysis and also possibly with CT imaging to look for other occult intrathoracic infections. Patient is declining further workup. Plan of care includes supportive care with antipyretics, fluids, and watchful waiting at home. Instymeds prescription for Limerick and Zofran. Instructions to return for recheck in 12-24 hours if not improved, or immediately if worsening fever, decreasing oral intake, lethargy, irritability, seizure, or any other concerns. Lab Data Labs: Lab Results 09/12/23 09/12/23 09/12/23 Range/Units 13:51 13:58 15:38 WBC 6.72 (4.50-11.00) K/uL RBC 5.23 H (4.00-5.20) m/uL Hgb 14.3 (12.0-16.0) gm/dL Hct 43.4 (33.0-51.0) % MCV 83 (80-100) fL MCH 27 (26-34) pg MCHC 33 (32-36) gm/dL RDW Coeff of Rosa 14.7 (11.5-15.5) % Plt Count 232 (140-440) K/uL Neut % (Auto) 91.0 H (42.0-72.0) % Lymph % (Auto) 3.7 L (20-44) % [place] % (Auto) 4.6 (0.0-11.0) % Eos % (Auto) 0.0 (0.0-7.0) % Baso % (Auto) 0.3 (0.0-3.0) % Neut # (Auto) 6.10 (1.7-7.0) K/uL Lymph # (Auto) 0.20 L (0.90-2.90) K/uL [place] # (Auto) 0.30 (0.00-0.90) K/UL Eos # (Auto) 0.00 (0.00-0.50) K/uL Baso # (Auto) 0.02 (0.00-0.30) K/uL Abs Immat Gran (auto) 0.03 (0.00-0.30) K/uL Imm/Tot Granulo (auto) 0.4 % Sodium 134 L (135-149) mmol/L Potassium 4.1 (3.6-5.1) mmol/L Chloride 101 (96-114) mmol/L Carbon Dioxide 24 (20-32) mmol/L Anion Gap 9 (7-15) mEq/L BUN 15 (7-30) mg/dL Creatinine 0.8 (0.5-1.5) mg/dL Estimated Creat Clear 40.07 Estimated GFR 80 ml/min Glucose 157 H (60-115) mg/dL Lactate 1.5 (0.5-1.9) mmol/L Calcium 8.1 L (8.4-10.6) mg/dL Total Bilirubin 1.2 (0.1-1.5) mg/dL AST 55 H (12-35) U/L ALT 40 H (4-35) U/L Alkaline Phosphatase 159 H (40-150) U/L Total Protein 7.6 (6.0-8.3) g/dL Albumin 4.4 (3.3-5.0) g/dL Lipase 47 (23-300) U/L Urine Color Yellow (Yellow) Urine Appearance Clear (Clear) Urine pH 7.0 (5.0-8.5) Ur Specific [place] 1.015 (1.000-1.030) Urine Protein Negative (Negative) Urine Glucose (UA) 3+ A (Negative) Urine Ketones Trace A (Negative) Urine Blood Negative (Negative) Urine Nitrite Negative (Negative) Urine Bilirubin Negative (Negative) Urine Urobilinogen 0.2 (0.2-1.0) Ur Leukocyte Esterase Negative (Negative) Urine RBC 2-5 A (0-2) Urine WBC 2-5 (0-5) Ur Squamous Epith Cells Many A (None-Few) Urine Bacteria Moderate A (None) SARS-CoV-2 (PCR) Negative SARS-CoV-2 (Negative) Influenza Type A (PCR) Negative PCR FLU A (Negative) Influenza Type B (PCR) Negative PCR FLU B (Negative) RSV (PCR) Negative PCR RSV (Negative) Imaging Data Chest x-ray: Attestation: I have reviewed the pertinent imaging results. Radiologist's impression: IMPRESSION: No acute or significant findings. Discharge Plan Discharge Clinical Impression: Myalgia, Back pain, Sinus tachycardia, Headache Patient Disposition: Home, Self-Care Condition: Stable Additional Instructions: As we discussed, you can treat your pain and body aches for now with a prescription pain killer-Limerick. Use caution with Limerick because it can cause drowsiness, dizziness, constipation, and can be addictive. I am concerned that you may have an infection contributing to your symptoms. So far all of your workup for infection has been unrevealing. If you have any worsening symptoms, elevated heart rate, worsening headache, fever, please come back to the ER right away to be rechecked. Prescriptions: No Action pantoprazole [Protonix] 40 mg tablet,delayed release (DR/EC) 40 mg PO QDAY metoprolol succinate [Toprol XL] 25 mg tablet extended release 24 hr 25 mg PO QDAY metformin 1,000 mg tablet 1,000 mg PO QDAY Trulicity 1.5 mg/0.5 mL pen injector 1.5 mg SUBCUT .weekly duloxetine 20 mg capsule,delayed release(DR/EC) 20 mg PO BID Jardiance 25 mg tablet 25 mg PO DAILY glipizide 10 mg tablet extended release 24hr 20 mg PO BID potassium chloride 10 mEq tablet extended release 10 meq PO DAILY rosuvastatin 40 mg tablet 40 mg PO DAILY torsemide 20 mg tablet 20 mg PO DAILY magnesium oxide 400 mg magnesium capsule 400 mg PO DAILY Follow Up/Referrals: Sariah Bullard MD [Primary Care Provider] - Stand Alone Forms: [facility] Info Instructions
--- NOTE | 2023-09-12 13:31 | CRLHL7_ITS ---
For Patients: As a result of the Cures Act, medical imaging exams and procedure reports are released immediately into your electronic medical record. You may view this report before your referring provider. If you have questions, please contact your health care provider. INDICATION: Fevers, chills, thoracic back pain TECHNIQUE: Chest 2 views. COMPARISON: None. FINDINGS: Cardiovascular and mediastinum: Heart size and vasculature are normal in caliber and appearance. Lungs and pleural spaces: Bibasilar atelectasis. No sign of infiltrate or mass. No sign of pleural effusion. No pneumothorax. Bones and soft tissues: No significant findings. IMPRESSION: No acute or significant findings. Dictated by Dm Mcdonnell MD @ 09/12/2023 2:34:04 PM (Electronically Signed)
--- OUTSIDE RECORDS SUMMARY | 2023-09-12 13:36 | XMS_ITS | Referral Summary ---
Author Organization [facility] Address [address] [place] [address]. [place] [address] Care Team Providers Care Business Continuity Coordinator Name Role Phone Sariah Bullard Primary Care Provider [phone] Shamar Fernandes MD Unavailable [phone] Encounters Date Type Department Care Team Description 08/08/2023 Travel 08/08/2023 1:45 PM CDT Office Visit [facility] Neurosurgery [address] [phone] Perfecto Santacruz MD Martin, Shamar Stone MD 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) 08/06/2023 Telephone [facility]surgery [address] [address] Ba Judge MA 08/05/2023 Transcribe Orders GENERIC EXTERNAL DATA DEPARTMENT Provider, Generic External Data Back pain (Primary Dx) 08/04/2023 Medical Correspondence [facility] [address] [place] [id number] Scan, Non-Provider from Last 3 Months Allergies Active Allergy Reactions Criticality Noted Date Comments Aloe Rash Low 08/08/2023 Droperidol Other (See Comments) 07/24/2006 Metformin Nausea and Vomiting 09/12/2022 Raspberry Hives High 06/01/2015 Rivaroxaban Dizziness 07/22/2017 Titanium Other (See Comments) High 08/02/2015 Addison ill with titanium screws in back- removed [...] ORDERABLES from Last 3 Months Care Teams Business Continuity Coordinator Relationship Specialty Start Date End Date Sariah Bullard [address] [place] [address] PCP - General Family Medicine 08/08/23 Shamar Fernandes MD [address] [place] [id number] Assigned Musculoskeletal Provider 08/12/23
--- OUTSIDE RECORDS SUMMARY | 2023-09-12 13:36 | XMS_ITS | Encounter Summary ---
Author Organization [facility] Address [address] [place] [address]. [place] [address] Care Team Providers Care Air Pumper Name Role Phone No Ref-Primary, Physician Primary Care Provider Encounter Details Date Type Department Care Team (Late st Contact Info) Description 08/06/2023 Telephone [facility] [address] [phone] Ba Judge MA Social History [...] MA - 08/06/2023 1:54 PM CDTSummary: Records [employer] Repairer received records for patient. Placed in Dr Fernandes's folder for review. Alfredo Ac, SO[employer] WELT (AAMA) documented in this encounter Plan of Treatment Not on file documented as of this encounter Visit Diagnoses Not on filedocumented in this encounter Care Teams Air Pumper Relationship Specialty Start Date End Date No Ref-Primary, Physician PCP - General 08/06/23 08/07/23 documented as of this encounter
--- OUTSIDE RECORDS SUMMARY | 2023-09-12 13:36 | XMS_ITS | Clinical Summary ---
Author Organization [facility] Address [place], [place] [address] Care Team Providers Care Gizzard Puller Name Role Phone aSriah Bullard MD Primary Care Provide r Remberto Medina MD Unavailable Kyler Quinones MD Unavailable [phone] Allergies Active Allergy Reactions Criticality Noted Date Comments Droperidol Agitation 07/24/2006 Metformin Nausea And Vomiting 09/12/2022 Raspberry Hives High 02/25/2023 Raspberry (Rubus Idaeus) Hives 06/01/2015 Titanium Other - Describe In Comment Field High 08/02/2015 [place] ill with titanium screws in back- removed 2005- Rivaroxaban Dizziness 07/22/2017 Medications Medication Sig Dispensed Refills Start Date End Date Status multivitamins-calci ka-zzij-rcqvbdso tab tablet Take 1 tablet by mouth [...] be used to read blood sugars per sports bookmaker's directions. Change each sensor every 14 days. Dispense 3 month supply if able 2 Each 12 3 Active transmitter for continuous blood glucose monitor (CGM)Indications:Ty pe 2 diabetes mellitus without complication, without long-term current use of insulin (HC) To be used to read blood sugars, follow sports bookmaker directions. 1 Each 4 3 Active potassium [...] Department Care Team Description 09/12/2023 Nurse Triage [facility] [address] [place] [address] Sariah Bullard MD Back Pain/problem 09/11/2023 11:00 AM CDT Nurse/Clinic Staff Only [facility] [address] [place] [address] Infusion Therapy (Reclast/) 09/11/2023 Travel 09/08/2023 Telephone [facility] [address] [place] [address] Sariah Bullard MD Infusion Therapy 08/28/2023 10:45 AM CDT Office Visit [facility] [address] [place] [address] Sariah Bullard MD Back Pain (Follow up after epidural. Has not helped much./Concerned about osteoporosis, was told by the lady that did the injections. /Possible injections. Brother uses collagen powder protein./Was told it would be best to maintain what she has as bones are to brittle/Fibroid pushing on right sciatica nerve.///) 08/28/2023 Travel 08/12/2023 Orders Only [facility] Scanner 1 scan: (1-Ord) [facility], BILAT L5-S1 TRANSFORAMINAL LUMBAR THERAPEUTIC STEROID INJECTION, 08/12/2023 08/12/2023 Telephone [facility] [address] [place] [address] Sariah Bullard MD Follow Up (Epidural Injection) 08/12/2023 Telephone [facility] [address] [place] [address] Sariah Bullard MD Questions (Call Wanted) 08/05/2023 10:55 AM CDT Office Visit [facility] [address] [place] [address] Sariah Bullard MD Diabetes (Has been depressed, a couple deaths in the last month./Had MRI at [facility]./On Gabapentin for back pain.) 08/05/2023 Travel 08/04/2023 Travel 07/21/2023 Telephone [facility] [address] [place] [address] Sariah Bullard MD spam (per last notes this may be a scam/spam) 07/17/2023 Telephone [facility] [address] [place] [address] Sariah Bullard MD Document (trying to fax document to dr. bullard) 07/08/2023 Telephone [facility] [address] [place] [address] Sariah Bullard MD Follow Up 07/08/2023 Telephone [facility] [address] [place] [address] Sariah Bullard MD Testing 06/27/2023 10:05 AM BURNER SHAFT Office Visit [facility] [address] [place] [address] Sariah Bullard MD Hip Pain/problem (Injection to the right trochanteric bursa) 06/27/2023 Travel 06/26/2023 Telephone [facility] [address] [facility] [address] Sariah Bullard MD Questions from Last 3 Months Immunizations Name Administration Dates Next Due AMB Influenza, IIV4 PF (=>6 mos Flulaval,Fluzone Fluarix)(Flu Clinic Only) 02/09/2019 COVID-19 vaccine (tastytrade-Bio NTech 30mcg/0.3mL) 12YO+ BIVALENT PF, MDV 09/12/2022 [...] Name Status Comments Father (Age 60s ) [place] Maternal Grandfather Mother Alive Social History Tobacco [...] T Respiratory Rate 20 03/11/2023 8:45 AM BURNER SHAFT Oxygen Saturation 95% 08/28/2023 11: 40 AM CDT Inhaled Oxygen Concentration - - Weight 106.4 kg (234 lb 9.6 oz) 024 11:40 AM CDT Height 152.4 cm (5') 12/19/2022 1:42 PM CDT Body Mass Index 45.82 12/19/2022 1:42 PM CDT Plan of Treatment Upcoming Encounters Date Type Department Care Team (Late st Contact Info) Description 10/14/2023 10:55 AM CDT Office Visit [facility] [address] [place] [address] Sariah Bullard MD [address] [facility] [place] [address] Health Maintenance Due Date Last Done Comments [...] 01/24/2023, Additional history exists Fecal testing sDNA-FIT ([place] guard) for age 45-75 10/01/2025 10/01/2022 Lipids [...] [employer] Implanted Type Area Moving Van Driver Device Identifier Shelf Expiration Date Model / Serial / Lot Screw Polyaxial 6.5x50mm - [id number] Implanted:Qty: 1 on 09/18/2005 at [facility] Spine [employer] [id number] / / Screw Polyaxial 6.5x45mm - [id number] Implanted:Qty: 2 on 09/18/2005 at [facility] Spine [employer] [id number]# / / Monica Carie [id number] - [id number] Implanted:Qty: 4 on 09/18/2005 at [facility] Spine [employer] [id number] / / Allosource Canc Crushed 30cc Implanted:Qty: 1 on 09/18/2005 at [facility] Explanted:at [facility] (Quantity not on file) Spine [employer] 11/13/2008 [id number] / [id number] / Description:CANC CRUSHED 30C C Screw Polyaxial 6.5x40mm - [id number] Implanted:Qty: 1 on 09/18/2005 at [facility] Spine [employer] [id number] / / Amrk Carie Rad 40mm 108mm Radius - [id number] Implanted:Qty: 2 on 09/18/2005 at [facility] Spine [employer] [id number]# / / [id number] e Canclls Crushed 30cc [[id number]] Implanted:Qty: 1 on 08/26/2006 at [facility] Explanted:at [facility] (Quantity not on file) Spine [employer] 01/15/2011 [id number] / [id number] / Procedures Procedure Name Priority Date/Time Associated [...] (HC) URINE CULTURE Routine 06/27/2023 11:10 AM BURNER SHAFT Frequency of urination UA W/ SEDIMENT EXAM REFLEXED PER CRITERIA Routine 06/27/2023 11:10 AM BURNER SHAFT Frequency of urination SDNA-FIT EXTERNAL (COLOGUARD) Routine 10/01/2022 9:45 AM CDT Screening for colon cancer XR DXA BONE DENSITY 2 SITES AXIAL Routine 09/12/2022 12:09 PM CDT Postmenopausal ANTI HCV Routine 04/13/2019 9:56 AM BURNER SHAFT Encounter for hepatitis C screening test for low risk patient from Last 3 Months or Most Recently Relevant to Health Maintenance Results * SCAN-OPERATIVE/PROCEDURE REPORT (08/12/2023 12:00 AM CDT) Scanner OTHER * (ABNORMAL) CBC WITH AUTO DIFFERENTIAL (08/05/2023 12:08 PM CDT) Pathologist [facility] WHITE BLOOD COUNT 7.3 4.5 - 11.0 thou/cu mm 08/05/2023 12:20 PM CDT [facility] RED BLOOD COUNT 5.57(H) 4.00 - 5.20 mil/cu mm 08/05/2023 12:20 PM CDT [facility] HEMOGLOBIN 15.6 12.0 - 16.0 g/dL 08/05/2023 12:20 PM CDT [facility] HEMATOCRIT 46.9 33.0 - 51.0 % 08/05/2023 12:20 PM CDT [facility] MCV 84 80 - 100 fL 08/05/2023 12:20 PM CDT [facility] MCH 28.0 26.0 - 34.0 pg 08/05/2023 12:20 PM CDT [facility] MCHC 33.3 32.0 - 36.0 g/dL 08/05/2023 12:20 PM CDT [facility] RDW 15.6(H) 11.5 - 15.5 % 08/05/2023 12:20 PM CDT [facility] PLATELET COUNT 357 140 - 440 thou/cu mm 08/05/2023 12:20 PM CDT [facility] MPV 9.6 6.5 - 11.0 fL 08/05/2023 12:20 PM CDT [facility] % NEUT 45.5 % 08/05/2023 12:20 PM CDT [facility] % LYMPH 42.3 % 08/05/2023 12:20 PM CDT [facility] % MONO 9.0 % 08/05/2023 12:20 PM CDT [facility] % EOS 2.5 % 08/05/2023 12:20 PM CDT [facility] % BASO 0.7 % 08/05/2023 12:20 PM CDT [facility] ABSOLUTE NEUTROPHILS 3.3 1.7 - 7.0 thou/cu mm 08/05/2023 12:20 PM CDT [facility] ABSOLUTE LYMPHOCYTES 3.1(H) 0.9 - 2.9 thou/cu mm 08/05/2023 12:20 PM CDT [facility] ABSOLUTE MONOCYTES 0.7 <0.9 thou/cu mm 08/05/2023 12:20 PM CDT [facility] ABSOLUTE EOSINOPHILS 0.2 <0.5 thou/cu mm 08/05/2023 12:20 PM CDT [facility] ABSOLUTE BASOPHILS 0.1 <0.3 thou/cu mm 08/05/2023 12:20 PM CDT [facility] Blood BLOOD SPECIMEN / Unknown Venipuncture / Unknown 08/05/2023 12:08 PM CDT 08/05/2023 12:10 PM CDT Sariah Bullard MD HEMATOLOGY [facility] [address] [place] [address], [place] [phone] * (ABNORMAL) LIPID PANEL W REFLEX MEASURED LDL (08/05/2023 12:08 PM CDT) CHOLESTEROL,TOTAL 216(H) 100 - 199 mg/dL 08/05/2023 9:56 PM CDT [facility] Comment: Cholesterol, Total Reference Ranges Desirable <200 mg/dL Borderline 200-239 mg/dL High >=240 mg/dL TRIGLYCERIDES 408(H) <150 mg/dL 08/05/2023 9:56 PM CDT [facility] HDL CHOLESTEROL 49 >40 mg/dL 9:56 PM CDT [facility] NON-HDL CHOLESTEROL 167(H) <145 mg/dl 08/05/2023 9:56 PM CDT [facility] CHOL/HDL RATIO 4.41 <4.50 08/05/2023 9:56 PM CDT [facility] LDL CHOLESTEROL 9:56 PM CDT [facility] Comment:Invalid LDL when Tri g >400. VLDL CHOLESTEROL COMMENT 08/05/2023 9:56 PM CDT [facility] Comment:Unable to calculate VLDL. PROVIDER ORDERED STATUS RANDOM 08/05/2023 9:56 PM CDT [facility] Blood BLOOD SPECIMEN / Unknown Venipuncture / Unknown 08/05/2023 12:08 PM CDT 08/05/2023 12:10 PM CDT Sariah Bullard MD [facility]MISTRY [facility] [address] [place] [address], [place] * MAGNESIUM (08/05/2023 12:08 PM CDT) Pathologist [facility] MAGNESIUM 2.1 1.6 - 2.4 mg/dL 08/05/2023 9:56 PM CDT [facility] Blood BLOOD SPECIMEN / Unknown Venipuncture / Unknown 08/05/2023 12:08 PM CDT 08/05/2023 12:10 PM CDT Sariah Bullard MD CHEMISTRY Performing Organization Address [facility] Co de Phone Number [facility] [address] [place] [address], * LDL CHOLESTEROL,DIRECT (08/05/2023 12:08 PM CDT) [facility] LDL CHOLESTEROL,DI RECT 99 mg/dL 08/05/2023 11:53 PM CDT [facility] PROVIDER ORDERED STATUS RANDOM 08/05/2023 11:53 PM CDT [facility] Blood BLOOD SPECIMEN / Unknown Venipuncture / Unknown 08/05/2023 12:08 PM CDT 08/05/2023 12:10 PM CDT Narrative [facility] - 08/05/2023 11:53 PM CDT Optimal ?<100 mg/dl Near Optimal ?100-129 mg/dl Borderline High ?? 130-159 mg/dl High ?160-189 mg/dl Very High ? >=190 mg/dl Sariah Bullard MD CHEMISTRY Performing Organization Address [facility] Co de Phone Number [facility] [address] [place] [address], * (ABNORMAL) HEMOGLOBIN A1C MONITORING (POCT) (08/05/2023 12:08 PM CDT) Pathologist [facility] HEMOGLOBIN A1C MONITORING (POCT) 8.3(H) <=6.4 % 08/05/2023 12:31 PM CDT [facility] Blood BLOOD SPECIMEN / Unknown Venipuncture / Unknown 08/05/2023 12:08 PM CDT 08/05/2023 12:10 PM CDT Narrative [facility] - 08/05/2023 12:31 PM CDT ? [...] Anemias, Splenectomy ? Sariah Bullard MD CHEMISTRY [facility] [address] [place] [address], * (ABNORMAL) COMP METABOLIC PANEL (08/05/2023 12:08 PM CDT) SODIUM 139 136 - 145 mmol/L 08/05/2023 9:56 PM CDT [facility] POTASSIUM 4.7 3.5 - 5.1 mmol/L 08/05/2023 9:56 PM CDT [facility] CHLORIDE 97(L) 98 - 107 mmol/L 08/05/2023 9:56 PM CDT [facility] CO2,TOTAL 26 22 - 29 mmol/L 08/05/2023 9:56 PM CDT [facility] ANION GAP 16 5 - 18 08/05/2023 9:56 PM CDT [facility] GLUCOSE 177(H) 70 - 99 mg/dL 08/05/2023 9:56 PM CDT [facility] CALCIUM 9.9 8.8 - 10.2 mg/dL 08/05/2023 9:56 PM CDT [facility] BUN 16 8 - 23 mg/dL 08/05/2023 9:56 PM CDT [facility] CREATININE 0.80 0.50 - 0.90 mg/dL 08/05/2023 9:56 PM CDT [facility] BUN/CREAT RATIO 20 10 - 20 9:56 PM CDT [facility] eGFR 80(L) >90 mL/min/1.7 3m2 08/05/2023 9:56 PM CDT [facility] Comment:As of 2021, eG FR is calculated by the CKD-EPI creatinine equation without race adjustment. ??eGFR can be influenced by muscle mass, exercise, and diet. ??The reported eGFR is an estimation only and is only applicable if the renal function is stable. ALBUMIN 4.7 4.0 - 4.9 g/dL 08/05/2023 9:56 PM CDT [facility] PROTEIN,TOTAL 7.7 6.0 - 8.0 g/dL 08/05/2023 9:56 PM CDT [facility] BILIRUBIN,TOTAL 0.4 0.0 - 1.2 mg/dL 08/05/2023 9:56 PM CDT [facility] ALK PHOSPHATASE 189(H) 35 - 104 IU/L 08/05/2023 9:56 PM CDT [facility] ALT (SGPT) 25 10 - 35 IU/L 08/05/2023 9:56 PM CDT [facility] AST (SGOT) 25 10 - 35 IU/L 08/05/2023 9:56 PM CDT [facility] Blood BLOOD SPECIMEN / Unknown Venipuncture / Unknown 08/05/2023 12:08 PM CDT 08/05/2023 12:10 PM CDT Sariah Bullard MD CHEMISTRY [facility] [address] [place] [address], [place] * URINE CULTURE (06/27/2023 11:10 AM BURNER SHAFT) CULTURE <10,000 CFU/mL multiple organisms 06/28/2023 2:41 PM BURNER SHAFT [facility] Urine URINE SPECIMEN / Unknown Non-Blood / Unknown 06/27/2023 11:10 AM BURNER SHAFT 06/27/2023 11:17 AM BURNER SHAFT Sariah Bullard MD MICROBIOLOGY Performing Organization Address [facility] Co de Phone Number [facility] [address] [place] [address], [place] * (ABNORMAL) UA W/ SEDIMENT EXAM REFLEXED PER CRITERIA (06/27/2023 11:10 AM BURNER SHAFT) COLOR Yellow Yellow Color 06/27/2023 11:21 AM BURNER SHAFT [facility] CLARITY Clear Clear Clarity 06/27/2023 11:21 AM BURNER SHAFT [facility] SPECIFIC GRAVITY,URINE 1.010 1.010, 1.015, 1.020, 1.025 06/27/2023 11:[address] [facility] PH,URINE 5.5 6.0, 7.0, 8.0, 5.5, 6.5, 7.5, 8.5 06/27/2023 11:[address] [facility] UROBILINOGEN, QUALITATIVE Normal Normal EU/dl 06/27/2023 11:[address] [facility] PROTEIN, URINE Negative Negative mg/dL 06/27/2023 11:[address] [facility] GLUCOSE, URINE 500(A) Negative mg/dL 06/27/2023 11:[address] [facility] KETONES,URINE Negative Negative mg/dL 06/27/2023 11:[address] [facility] BILIRUBIN,URI NE Negative Negative 06/27/2023 11:[address] [facility] OCCULT BLOOD,URINE Negative Negative 06/27/2023 11:[address] [facility] NITRITE Negative Negative 06/27/2023 11:21 AM BURNER SHAFT [facility] LEUKOCYTE ESTERASE Negative Negative 06/27/2023 11:21 AM BURNER SHAFT [facility] Urine URINE SPECIMEN / Unknown Non-Blood / Unknown 06/27/2023 11:10 AM BURNER SHAFT 06/27/2023 11:17 AM BURNER SHAFT Sariah Bullard MD URINE [facility] [address] [place] [address], * SDNA-FIT EXTERNAL (COLOGUARD) (10/01/2022 9:45 AM CDT) NONINV COLON CA DNA+OCC BLD SCRN STL-IMP Negative Negative 10/09/2022 5:37 PM CDT [facility] (CLIA #:[id number]) Comment: NEGATIVE TEST RESULT. A negative Cologuard [...] cancer. ??Following a negative Cologuard result, the [place] [employer] Society and U.S. Multi-Society Task Force screening guidelines recommend a Cologuard re-screening interval of 3 years. References: [place] [employer] Guideline for Colorectal Cancer Screening: https://www.cancer.org/cancer/lswde-jokeix-uttjhw/asogrtwqk-ghugoohgw-jzhejot/ac s-rec ommendations.html.; Eduardo DK, Christiano CR, Anthony LaughlinK, Colorectal Cancer Screening: Recommendations for Physicians and Patients from the U.S. Multi-Society Task Force on Colorectal Cancer Screening , Am J Gastroenterology 2017; 112:7747-2126. TEST DESCRIPTION: Composite algorithmic analysis of stool [...] (Precious Gipson al, N Engl J Med 2014;370(14):3906-0186.) Cologuard may produce a false negative or false positive result (no colorectal cancer or precancerous polyp present at colonoscopy follow up). A negative Cologuard test result does not guarantee the absence of CRC or advanced adenoma (pre-cancer). The current Cologuard screening interval is every 3 years. ([place] [employer] Society and U.S. Multi-Society Task Force). Cologuard performance data in a 10,000 patient pivotal study using colonoscopy as the reference method can be accessed at the following location: www.inFreeDA.[employer]/results. Additional description of the Cologuard test process, warnings and precautions can be found at www.MyPrepApp.com. Stool specimen (specimen) (Rectum) 10/01/2022 9:45 AM CDT 10/02/2022 5:39 PM CDT Sariah Bullard MD URINE [facility] (CLIA #:[id number]) [place] [address], * (ABNORMAL) XR DXA BONE DENSITY 2 SITES AXIAL [54298.1] (09/12/2022 12:09 PM CDT) Anatomical Region Laterality [...] recommended in 3-5 years. Keely Phipps PA-C [facility] 09/20/2022 Narrative 09/20/2022 4:47 PM CDT For Patients: Results are automatically released to your [employer] account once available, in compliance with federal regulations. This means that you may see your results before your provider has had a chance to review them. Please allow 2-3 business days for your provider to comment on the results. XR DXA Bone Mineral Density (BMD) EXAM LOCATION: [facility] [address] [facility] [address] PATIENT NAME: Shira Philippe DATE OF : [...] two scanners are made by the same sports bookmaker. PROCEDURE: Dual-energy x-ray absorptiometry performed with routine [...] DEXA * ANTI HCV (04/13/2019 9:56 AM BURNER SHAFT) Pathologist [facility] HEPATITIS C ANTIBODY Non-React porsha Non-React porsha 04/15/2019 2:04 PM BURNER SHAFT [facility] Comment:Antibodies to HCV no t detected; does not exclude the possibility of exposure to HCV. Blood BLOOD SPECIMEN / Unknown Butterfly / Unknown 04/13/2019 9:56 AM BURNER SHAFT 04/13/2019 9:56 AM BURNER SHAFT Sariah Bullard MD SEND OUTS [facility] [address] [place] [address], from Last 3 Months or Most Recently [...] 12:57 PM 09/18/2005 6:32 PM Care Teams Gizzard Puller Relationship Specialty Start Date End Date Sariah Bullard MD [address] [place] [address] PCP - General Family Practice 11/03/15 Remberto Medina MD [address] [place] [address] Sleep Medicine 12/04/22 Kyler Quinones MD [address] [facility] [address] [place] [address] Endocrinology 07/14/23
--- OUTSIDE RECORDS SUMMARY | 2023-09-12 13:36 | XMS_ITS | Encounter Summary ---
Author Organization [facility] Address [address] [place] [address]. [place] [address] Care Team Providers Care Service Order Dispatcher Name Role Phone Sariah Bullard Primary Care Provider Encounter Details Date Type [...] documented as of this encounter Care Teams Service Order Dispatcher Relationship Specialty Start Date End Date Sariah Bullard [address] [address] PCP - General Family Medicine 08/08/23 documented as of this encounter
--- OUTSIDE RECORDS SUMMARY | 2023-09-12 13:36 | XMS_ITS | Encounter Summary ---
Author Organization [facility] Address [address] [place] [address]. [place] [address] Care Team Providers Care House Carpenter Name Role Phone Unavailable Primary Care Provider Unavailabl e Reason for Referral * Consultation (Routine: Next available opening) - Pending Review Specialty Diagnoses / Procedures [facility]erred To Contact Diagnoses Back pain Perfecto Santacruz MD [facility] [address] [address] Shamar Fernandes MD [address] [place] [address] Referral ID Status Reason Start Date Expiration Date V isits Requested Visits Authorized [id number] Pending Review 08/05/2023 08/04/2024 1 1 Question Answer Referral Type: Surgical Consult Region: Lumbar Scheduling Instructions: [facility] will call you to coordinate your care as prescribed by your provider. If you don't hear from a branch customer service representative within 2 business days, please call . Additional Information: h/o of a L4-L5 lumbar fusion with remocal of hardware. Evaluate for lumbar radiculopathy. Multilevel lumbar spinal stenosis. Comments Referral to Dr. Fernandes for back pain from Perfecto Santacruz MD [facility] T: [phone] F: [phone] [facility] will call you to coordinate your care as prescribed by your provider. If you don't hear from a branch customer service representative within 2 business days, please call [...] Priority Associated Diagnoses Orde r Schedule Spine Performing Artist Referral Referral Routine: Next available opening Back pain Expected: 08/05/2023 (Approximate), Expires: 08/04/2024 documented as of this encounter Visit Diagnoses Diagnosis Back pain- Primary Backache, unspecified documented in this encounter
--- OUTSIDE RECORDS SUMMARY | 2023-09-12 13:36 | XMS_ITS | Continuity of Care Document ---
Author Organization [facility] Address [address] [place] [address] Phone Care Team Providers Care Missionary Coordinator Name Role Phone Samuel Scales MD Unavailable [...] Office/Outpa tient Visit,New, Mod Jul[facility], [address], [place], [place], [id number], [place] tel:[phone] [facility] Spinal stenosis, lumbar region with neurogenic claudicationSp ondylolisthesi s, lumbosacral region 4 Mehbod Amir. [facility], [address], [place], [place], [address] , [place]. tel:[phone] Referring Provider: Sariah Bullard , [address], [place], [address]. tel:[phone] Office/Outpa tient Visit,[facility], [address], [place], [place], [id number], [place] tel:[phone] [facility] Spinal stenosis, lumbar region with neurogenic claudicationOt her spondylosis, lumbosacral regionOther intervertebral disc displacement, lumbar region 8 Deborah Hickey. [facility], [address], [address], [place], [place], [address] , [place]. tel:[phone] Referring Provider: Ruperto Bird, [facility] [address], [address], [place], [address] . tel:[phone] Office/outpa tient visit,est, low Z [facility], [address], [place], [address], [place] tel:[phone] [facility] No Information 8 Mehbod Amir. [facility], [address], [place], [place], [address] , [place]. tel:[phone] Office/outpa tient visit,est, low Z [facility], [address], [place], [address], [place] tel:[phone] [facility] No Information 8 Mehbod Amir. [facility], [address], [place], [place], [address] , [place]. tel:[phone] Office/outpa tient visit,est, low Z [facility], [address], [place], [address], [place] tel: [phone] [facility] No Information 3-200 7 Mehbod Amir. [facility], [address], [place], [place], [address] , [place]. tel: [phone] Z [facility], [address], [place], [address], [place] tel: [phone] [facility] No Information 8-200 7 Mehbod Amir. [facility], [address], [place], [place], [address] , [place]. tel: [phone] [facility], [address], [place], [address], [place] tel:[phone] [facility] No Information 4-200 7 Mehbod Amir. [facility], [address], [place], [place], [address] , [place]. tel: [phone] Office/outpa tient visit,est, low Z [facility], [address], [place], [address], [place] tel: [phone] [facility] No Information 0 9-200 7 Mehbod Amir. [facility], [address], [place], [place], [address] , [place]. tel: [phone] Office/outpa tient visit,est, low Z [facility], [address], [place], [address], [place] tel: [phone] [facility] No Information 6-200 7 Mehbod Amir. [facility], [address], [place], [place], [address] , [place]. tel: [phone] Office/outpa tient visit,est, low Z [facility], [address], [place], [address], [place] tel:[phone] [facility] No Information 8-200 6 Mehbod Amir. [facility], [address], [place], [place], [address] , [place]. tel:[phone] Z [facility], [address] [place], [place] [address], [place], [address], tel:[phone] [facility] No Information 0-200 6 Mehbod Amir. [facility], [address], [place], [place], [address] , [place]. tel:[phone] Z [facility], [address] [place] [address], [place], [facility], [place] tel:[phone] [facility] No Information 2-200 6 Mehbod Amir. [facility], [address], [place], [place], [address] , [place]. tel:[phone] Office consultation , moderate Z [facility], [address] [place], [place] [address], [place], [place], [facility], [place] tel:[phone] [employer] No Information 5-200 6 Mehbod Amir. [facility], [address], [place], [place], [address] , [place]. tel:[phone] Family History Family Member Type Diagnosis Age At Onset No Information Payers Payer name Insurance type Covered alliance party ID Lea jaime(s) Medicare MB [id number] [facility] [id number] Social History Type Description Quantity Date Captured [...]
--- OUTSIDE RECORDS SUMMARY | 2023-09-12 13:36 | XMS_ITS | Continuity of Care Document ---
Author Name [facility] Organization [facility] Care Team Providers Care Airplane Pilot Name Role Phone [facility] Unavailable Unavailable Medications Combined list of outpatient medications from Department of Defense and Veterans Affairs facilities.Medications provided include 1) outpatient medications from the last 15 months, and 2) patient-reported medications. Medication Details Route Status Patient Instructions Prescription Expires Prescription Number Last Dispense Date Ordering Provider Order Date Order Qty Source ALPRAZOLAM (ALPRAZOLAM ), 0.25MG, TABLET, ORAL, SANDOZ, 1000 ea. BOTTLE Active [id number] 4 2023 2 Pharmac y Data Transac tion Service Facilit y CARISOPRODO L (carisoprod ol), 350 MG, TABLET, ORAL, [employer]ACE, 1000 ea. BOTTLE Active [id number] 4 2023 30 Pharmac y Data Transac tion Service Facilit y CARISOPRODO L (carisoprod ol), 350 MG, TABLET, ORAL, [employer], 1000 ea. BOTTLE Active [id number] 2023 30 Pharmac y Data Transac tion Service Facilit y CARISOPRODO L (carisoprod ol), 350 MG, TABLET, ORAL, [employer]ACE, 500 ea. BOTTLE Active [id number] 4 2023 30 Pharmac y Data Transac tion Service Facilit y CARISOPRODO L (carisoprod ol), 350 MG, TABLET, ORAL, [employer]GEN PHARMAC, 500 ea. BOTTLE Cancele d [id number] : 2023 0 Pharmac y Data Transac tion Service Facilit y CARISOPRODO L (carisoprod ol), 350 MG, TABLET, ORAL, [employer] PHARMAC, 500 ea. BOTTLE Cancele d [id number] : 03/09/ 2024 0 Pharmac y Data Transac tion Service Facilit y CELECOXIB (celecoxib) , 200 MG, CAPSULE, ORAL, AUROBINDO PHARM, 100 ea. BOTTLE Active [id number] 4 2023 60 Pharmac y Data Transac tion Service Facilit y DULOXETINE HCL (duloxetine HCl), 20 MG, CAPSULE DR, ORAL, [employer] 60 ea. BOTTLE Active [id number] 4 2023 180 Pharmac y Data Transac tion Service Facilit y DULOXETINE HCL (duloxetine HCl), 20 MG, CAPSULE DR, ORAL, [employer] 60 ea. BOTTLE Active [id number] 2023 180 Pharmac y Data Transac tion Service Facilit y FAMOTIDINE (famotidine ), 20 MG, TABLET, ORAL, [employer] 1000 ea. BOTTLE Active [id number] 2023 180 Pharmac y Data Transac tion Service Facilit y FLUCONAZOLE (fluconazol e), 150 MG, TABLET, ORAL, CH[employer]WELL RX LL, 1 ea. BOTTLE Cancele d [id number] : 2023 0 Pharmac y Data Transac tion Service Facilit y FLUCONAZOLE (fluconazol e), 150 MG, TABLET, ORAL, [employer] RX LL, 1 ea. BOTTLE Active [id number] 2023 2 Pharmac y Data Transac tion Service Facilit y FLUCONAZOLE (FLUCONAZOL E), 150 MG, TABLET, ORAL, [employer]RON PHARMA L, 12 ea. BLIST PACK Cancele d [id number] : 2023 0 Pharmac y Data Transac tion Service Facilit y GABAPENTIN (GABAPENTIN ), 300 MG, CAPSULE, ORAL, ACTAVIS PHARMA,, 500 ea. BOTTLE Active [id number] 2023 30 Pharmac y Data Transac tion Service Facilit y GLIPIZIDE ER (glipizide) , 10 MG, TAB ER 24, ORAL, AUROBINDO PHARM, 100 ea. BOTTLE Cancele d [id number] : 2023 0 Pharmac y Data Transac tion Service Facilit y GLIPIZIDE XL (GLIPIZIDE) , 10 MG, TAB ER 24, ORAL, CABIRI - [employer] 500 ea. BOTTLE Active [id number] 4 2023 180 Pharmac y Data Transac tion Service Facilit y JARDIANCE (EMPAGLIFLO ZIN), 25 MG, TABLET, ORAL, BOEHRINGER ING., 30 ea. BOTTLE Cancele d [id number] : 2023 0 Pharmac y Data Transac tion Service Facilit y JARDIANCE (EMPAGLIFLO ZIN), 25 MG, TABLET, ORAL, BOEHRINGER ING., 30 ea. BOTTLE Active [id number] 2023 90 Pharmac y Data Transac tion Service Facilit y JARDIANCE (EMPAGLIFLO ZIN), 25 MG, TABLET, ORAL, BOEHRINGER ING., 30 ea. BOTTLE Active [id number] 2023 90 Pharmac y Data Transac tion Service Facilit y METFORMIN HCL ER (metformin HCl), 500 MG, TAB ER 24H, ORAL, AVKARE, 1000 ea. BOTTLE Active [id number] 4 2023 180 Pharmac y Data Transac tion Service Facilit y METFORMIN HCL ER (metformin HCl), 500 MG, TAB ER 24H, ORAL, AVKARE, 90 ea. BOTTLE Active [id number] 2023 120 Pharmac y Data Transac tion Service Facilit y METOPROLOL SUCCINATE (metoprolol succinate), 100 MG, TAB ER 24H, ORAL, [employer] 1000 ea. BOTTLE Cancele d [id number] : 2023 0 Pharmac y Data Transac tion Service Facilit y METOPROLOL SUCCINATE (metoprolol succinate), 100 MG, TAB ER 24H, ORAL, [employer] 1000 ea. BOTTLE Active [id number] 2023 90 Pharmac y Data Transac tion Service Facilit y METOPROLOL SUCCINATE (metoprolol succinate), 100 MG, TAB ER 24H, ORAL, [employer] 1000 ea. BOTTLE Active [id number] 2023 90 Pharmac y Data Transac tion Service Facilit y ONDANSETRON ODT (ONDANSETRO N), 4MG, TAB RAPDIS, ORAL, [employer] PHARMA, 30 ea. BLIST PACK Active [id number] 2023 10 Pharmac y Data Transac tion Service Facilit y OXYCODONE HCL (OXYCODONE HCL), 5 MG, TABLET, ORAL, [employer] 500 ea. BOTTLE Active [id number] 2023 4 Pharmac y Data Transac tion Service Facilit y OXYCODONE HCL (OXYCODONE HCL), 5MG, TABLET, ORAL, MALLINKRT PHARM, 100 ea. BOTTLE Cancele d [id number] : 2023 0 Pharmac y Data Transac tion Service Facilit y PANTOPRAZOL E SODIUM (pantoprazo le sodium), 40 MG, TABLET DR, ORAL, adSage., 1000 ea. BOTTLE Cancele d [id number] : 2023 0 Pharmac y Data Transac tion Service Facilit y PANTOPRAZOL E SODIUM (pantoprazo le sodium), 40 MG, TABLET DR, ORAL, adSage., 1000 ea. BOTTLE Active [id number] 4 2023 90 Pharmac y Data Transac tion Service Facilit y POTASSIUM CHLORIDE (potassium chloride), 10 MEQ, CAPSULE ER, ORAL, PD-RX PHARM, 100 ea. BOTTLE Active [id number] 2023 90 Pharmac y Data Transac tion Service Facilit y POTASSIUM CHLORIDE (potassium chloride), 10 MEQ, CAPSULE ER, ORAL, PD-RX PHARM, 100 ea. BOTTLE Active [id number] 4 2023 90 Pharmac y Data Transac tion Service Facilit y ROSUVASTATI N CALCIUM (rosuvastat in calcium), 40 MG, TABLET, ORAL, [employer]., 1000 ea. BOTTLE Cancele d [id number] : 2023 0 Pharmac y Data Transac tion Service Facilit y ROSUVASTATI N CALCIUM (rosuvastat in calcium), 40 MG, TABLET, ORAL, [employer] 30 ea. BOTTLE Cancele d [id number] : 2023 0 Pharmac y Data Transac tion Service Facilit y TORSEMIDE (torsemide) , 20 MG, TABLET, ORAL, [employer] 90 ea. BOTTLE Cancele d [id number] : 2023 0 Pharmac y Data Transac tion Service Facilit y TORSEMIDE (torsemide) , 20 MG, TABLET, ORAL, [employer] 90 ea. BOTTLE Active [id number] 2023 90 Pharmac y Data Transac tion Service Facilit y TORSEMIDE (torsemide) , 20 MG, TABLET, ORAL, [employer] 90 ea. BOTTLE Active [id number] 4 2023 90 Pharmac y Data Transac tion Service Facilit y TRULICITY (dulaglutid e), 3 MG/0.5ML, PEN INJCTR, SUBCUT, [employer] .5 ml SYRINGE Cancele d [id number] : 2023 0 Pharmac y Data Transac tion Service Facilit y TRULICITY (dulaglutid e), 3 MG/0.5ML, PEN INJCTR, SUBCUT, [employer] .5 ml SYRINGE Active [id number] 2023 6 Pharmac y Data Transac tion Service Facilit y TRULICITY (dulaglutid e), 3 MG/0.5ML, PEN INJCTR, SUBCUT, [employer] .5 ml SYRINGE Active [id number] 2023 6 Pharmac y Data Transac tion Service Facilit y Immunizations Combined list of available immunizations from the Department of Defense and Veterans Affairs facilities. Immunization Series Date Given Administered By Site Reaction Lot Number CVX Code Drug Trade Sales Assistant Status Comments Source zoster recombinant 2019 [facility]OLT, () Not Given zoster recombina nt DoD zoster recombinant 2019 OVERHOLT, () Not Given zoster recombina nt [facility] Influenza, seasonal, injectable, preservative free 2011 BRENT DOUGLAS [employer] (NOV) Not Given Influenza , seasonal, injectabl e, preservat porsha free [facility] Social History Combined list of available smoking, tobacco, and other social history from Department of Defense and Veterans Affairs facilities. Social History Type Response Date Comment Sour e This section is an empty social history section. DoD
--- OUTSIDE RECORDS SUMMARY | 2023-09-12 13:36 | XMS_ITS | Clinical Summary ---
Author Organization [facility] Address [address] [place] [address]. [place] [address] Care Team Providers Care Pipe Assembly Worker Name Role Phone Sariah Bullard Primary Care Provider [phone] Shamar Fernandes MD Unavailable [phone] Allergies Active Allergy Reactions Criticality Noted Date Comments Aloe Rash Low 08/08/2023 Droperidol Other (See Comments) 07/24/2006 Metformin Nausea and Vomiting 09/12/2022 Raspberry Hives High 06/01/2015 Rivaroxaban Dizziness 07/22/2017 Titanium Other (See Comments) High 08/02/2015 [place] ill with titanium screws in back- removed [...] Description 08/08/2023 1:45 PM CDT Office Visit [facility] [address] [address] Perfecto Santacruz MD Martin, Shamar Stone MD 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) 08/08/2023 Travel 08/06/2023 Telephone [facility] [address] [address] Ba Judge MA 08/05/2023 Transcribe Orders GENERIC EXTERNAL DATA DEPARTMENT Provider, Generic External Data Back pain (Primary Dx) 08/04/2023 Medical Correspondence [facility] [address] [facility] [place] [address] Scan, Non-Provider from Last 3 Months [...] ORDERABLES from Last 3 Months Care Teams Pipe Assembly Worker Relationship Specialty Start Date End Date Sariah Bullard [address] [place] [address] PCP - General Family Medicine 08/08/23 Shamar Fernandes MD [address] [place] [address] Assigned Musculoskeletal Provider 08/12/23
--- OUTSIDE RECORDS SUMMARY | 2023-09-12 13:36 | XMS_ITS | Encounter Summary ---
Author Organization [facility] Address [address] [place] [address]. [place] [address] Care Team Providers Care Bowling Ball Assembler Name Role Phone [facility] Sariah Primary Care Provider [phone] Reason for Referral * Mental Health Outpatient (Routine: Next available opening) - Pending Review Specialty Diagnoses / Procedures Referred By Charly t Referred To Contact Behavioral Health Diagnoses Back pain Depression Shamar Fernandes MD [address] [place] [address] Referral ID Status Reason Start Date Expiration Date V isits Requested Visits Authorized [id number] Pending Review 08/08/2023 08/07/2024 1 1 Question Answer Services: Assess/Evaluate for appropriate service (non-medication assessment) My Clinical Question Is: patient seen in clinic on 08/07, endorsed feelings suicide with PHQ-9 or 19. Denies any plans, means, intent at this time. Scheduling Instructions: [facility] will call you to coordinate your care as prescribed by your provider. If you don't hear from a paper sales representative within 2 business days, please [...] plan with any benefit or coverage questions. [facility] will call you to coordinate your care as prescribed by your provider. If you don't hear from a paper sales representative within 2 business days, please call . Reason for Visit * Reason Comments Consult * Consultation (Routine: Next available opening) - Pending Review Specialty Diagnoses / Procedures Referred By Charly parker Referred To Contact Diagnoses Back pain Perfecto Santacruz MD [facility] [address] [address] Shamar Fernandes MD [address] [place] [address] Referral ID Status Reason Start Date Expiration Date V isits Requested Visits Authorized [id number] Pending Review 08/05/2023 08/04/2024 1 1 Encounter Details Date Type Department Care Team (Late st Contact Info) Description 08/08/2023 1:45 PM CDT Office Visit [facility] [address] [address] Perfecto Santacruz MD [facility] [address] [address] Shamar Fernandes MD [address] [place] [address] Chronic midline low back pain with [...] - 08/08/2023 1:45 PM CDT Patient Education [facility] : PHQ-9 Screening Note SITUATION/BACKGROUND Shira Philippe [...] of the following occur: BEHAVIORAL HEALTH TEAMS [facility] - Behavioral Health Team [facility] Pager: [phone] Patt Bhagat - Behavioral Health Team Pager number: [phone] Referral to Behavioral Health [facility] [[id number]} RESOURCES - 11/11 Crisis Hotlines: National Suicide Prevention Hotline 724-683-WEIZ (2425) - Crisis Hotlines by County: [facility]: [phone] Terri Espinal RN Copyright 2016 [facility] Spine Surgery Consultation REFERRING PHYSICIAN: Perfecto Santacruz PRIMARY CARE PHYSICIAN: Dr. Bullard ([facility]) Chief Complaint: Consult History of Present [...] ago). She reports she was seen at [facility] and they referred her here due to [...] Reactions Raspberry Hives Titanium Other (See Comments) [place] ill with titanium screws in back- removed [...] for multiple washout procedures as well as visual effects artist (sometimes life long) antibiotic suppression. These risks [...] we will fax this note to the [facility] office. The patient was seen and discussed with Dr. Fernandes. Mrya Pisano, PGY-4 RespectShamar gomez MD Spine Surgery [facility] documented in this encounter Progress Notes [...] ago). She reports she was seen at [facility] and they referred her here due to [...] Reactions Raspberry Hives Titanium Other (See Comments) [place] ill with titanium screws in back- removed [...] for multiple washout procedures as well as visual effects artist (sometimes life long) antibiotic suppression. These risks [...] we will fax this note to the [facility] office. The patient was seen and discussed with Dr. Fernandes. Myra Pisano, PGY-4 Respectfully, Shamar Fernandes MD Spine Surgery [facility] Attending MD (Dr. Shamar Fernandes) : [...] Behavioral Health Contact Information Froilan Smith PsyD [facility] Mental Health & [facility] Pager: [phone] * Terri Espinal RN - 08/08/2023 1:45 [...] Diagnoses Orde r Schedule Adult Mental Health [employer] Landscape Ecology Professor Referral Referral Routine: Next available opening Chronic midline low back pain with bilateral sciatica Expected: 08/08/2023 (Approximate), Expires: 08/07/2024 documented as of this encounter Visit Diagnoses Diagnosis Chronic midline low back pain with bilateral sciatica- Primary documented in this encounter Additional Health Concerns Assessment Noted Time PHQ-9 Depression Total Score: 19 024 1:42 PM CDT documented as of this encounter Care Teams Bowling Ball Assembler Relationship Specialty Start Date End Date Sariah Bullard [address] [place] [address] PCP - General Family Medicine 08/08/23 documented as of this encounter
--- OUTSIDE RECORDS SUMMARY | 2023-09-12 13:36 | XMS_ITS | Encounter Summary ---
Author Organization [facility] Address [address] [place] [address]. [place] [address] Care Team Providers Care Filling Hauler Name Role Phone No Ref-Primary, Physician Primary Care Provider Encounter Details Date Type Department Care Team (Late st Contact Info) Description 08/04/2023 Medical Correspondence [facility] Info [facility] [address] [place] [address] Scan, Non-Provider Social History Tobacco Use [...] on filedocumented in this encounter Care Teams Filling Hauler Relationship Specialty Start Date End Date No Ref-Primary, Physician PCP - General 08/06/23 08/07/23 documented as of this encounter
--- OUTSIDE RECORDS SUMMARY | 2023-09-12 13:37 | XMS_ITS | Continuity of Care Document ---
Author Organization [facility] Address [address] [place] [address] Phone Care Team Providers Care Store Warehouse Associate Name Role Phone Samuel Scales MD Unavailable [...] ACETAMINOPHEN (unknown strength) Not Available - Active DIAZEPAM [...] strength) Not Available - No Longer Active CYMBALTA (unknown strength) Not Available - [...] Office/Outpa tient Visit,New, Mod Julienne/JOYCE, [address], [place], [place], [id number], [place] tel:[phone] [facility] Spinal stenosis, lumbar region with neurogenic claudicationSp ondylolisthesi s, lumbosacral region 4 Mehbod Amir. [facility], [address], [place], [place], [address] , [place]. tel:[phone] Referring Provider: Sariah Bullard , [address], [place], [address]. tel:[phone] Office/Outpa tient Visit,[facility], [address], [place], [place], [address], [place] tel:[phone] [facility] Spinal stenosis, lumbar region with neurogenic claudicationOt her spondylosis, lumbosacral regionOther intervertebral disc displacement, lumbar region 8 Deborah Hickey. [facility] [place], [address], [address], [place], [place], [address] , [place]. tel:[phone] Referring Provider: Ruperto Bird, [facility] [address], [address], [place], [address] . tel:[phone] Office/outpa tient visit,est, low Z [facility] [place], [address], [place], [address], [place] tel:[phone] [facility] No Information 8 Mehbod Amir. [facility], [address], [place], [place], [address] , [place]. tel:[phone] Office/outpa tient visit,est, low Z [facility] [place], [address], [place], [address], [place] tel:[phone] [facility] No Information 8 Mehbod Amir. [facility] [place], [address], [place], [place], [address] , [place]. tel:[phone] Office/outpa tient visit,est, low Z [facility], [address], [place], [address], [place] tel: [phone] [facility] No Information 3-200 7 Mehbod Amir. [facility], [address], [place], [place], [address] , [place]. tel: [phone] Z [facility], [address], [place], [address], [place] tel: [phone] [facility] No Information 8-200 7 Mehbod Amir. [facility], [address], [place], [place], [address] , [place]. tel: [phone] Z [facility], [address], [place], [address], [place] tel:[phone] [facility] No Information 4-200 7 Mehbod Amir. [facility], [address], [place], [place], [address] , [place]. tel: [phone] Office/outpa tient visit,est, low Z [facility], [address], [place], [address], [place] tel: [phone] [facility] No Information 0 9-200 7 Mehbod Amir. [facility], [address], [place], [place], [address] , [place]. tel: [phone] Office/outpa tient visit,est, low Z [facility], [address], [place], [address], [place] tel: [phone] [facility] No Information 6-200 7 Mehbod Amir. [facility], [address], [place], [place], [address] , [place]. tel: [phone] Office/outpa tient visit,est, low Z [facility], [address], [place], [address], [place] tel:[phone] [facility] No Information 8-200 6 Mehbod Amir. [facility], [address], [place], [place], [address] , [place]. tel:[phone] Z [facility], [address] [place], [place] [address], [place], [address], tel:[phone] [facility] No Information 0-200 6 Mehbod Amir. [facility], [address], [place], [place], [address] , [place]. tel:[phone] Z [facility], [address] [place] [address], [place], [place], [facility], [place] tel:[phone] [facility] No Information 2-200 6 Mehbod Amir. [facility] [place], [address], [place], [place], [address] , [place]. tel:[phone] Office consultation , moderate Z [facility], [address] [place], [place] [address] [address], [place], [place], [facility], [place] tel:[phone] [facility] [employer] No Information 5-200 6 Mehbod Amir. [facility] [place], [address], [place], [place], [address] , [place]. tel:[phone] Family History Family Member Type Diagnosis Age At Onset No Information Payers Payer name Insurance type Covered republican ID Lea jaime(s) Medicare MB [id number] [facility] [id number] Social History Type Description Quantity Date Captured [...]
[2023-09-12] MEDS: 0.9 % SODIUM CHLORIDE 1000 ml 1,000 ML IV (13:47)
[2023-09-12] MEDS: ONDANSETRON 2 MG/ML inj 4 MG IVP (13:58)
[2023-09-12] MEDS: KETOROLAC 15 MG/ML inj IVP (14:05)
[2023-09-12 14:15] LABS: Lactate* 1.5 mmol/L (0.5-1.9)
[2023-09-12 14:25] LABS: Basophils Absolute Auto 0.02 K/uL (0.00-0.30); Basophils Percent Auto 0.3 % (0.0-3.0); Hematocrit 43.4 % (33.0-51.0); Hemoglobin* 14.3 gm/dL (12.0-16.0); Immature Granulocytes Abs Auto 0.03 K/uL (0.00-0.30); Immature Granulocytes Pct Auto 0.4 %; Lymphocytes Percent Auto 3.7 % (20-44); Mean Corpuscular HGB Conc 33 gm/dL (32-36); Mean Corpuscular Hemoglobin 27 pg (26-34); Mean Corpuscular Volume 83 fL (80-100); Monocytes Percent Auto 4.6 % (0.0-11.0); Platelet Count* 232 K/uL (140-440); RDW Coefficient of Variation % 14.7 % (11.5-15.5); Red Blood Count 5.23 m/uL (4.00-5.20); White Blood Count* 6.72 K/uL (4.50-11.00)
[2023-09-12 14:32] LABS: Albumin* 4.4 g/dL (3.3-5.0); Chloride* 101 mmol/L (96-114)
[2023-09-12 14:33] LABS: Potassium* 4.1 mmol/L (3.6-5.1); Sodium* 134 mmol/L (135-149)
[2023-09-12 14:35] LABS: Anion Gap 9 mEq/L (7-15); Bilirubin Total* 1.2 mg/dL (0.1-1.5); Carbon Dioxide* 24 mmol/L (20-32); Creatinine* 0.8 mg/dL (0.5-1.5); Est. Creatinine Clearance* 40.07; Estimated Glomerular Filt Rate 80 ml/min
[2023-09-12 14:36] LABS: Alanine Aminotransferase* 40 U/L (4-35); Alkaline Phosphatase* 159 U/L (40-150); Aspartate Amino Transferase* 55 U/L (12-35); Blood Urea Nitrogen* 15 mg/dL (7-30); Calcium* 8.1 mg/dL (8.4-10.6); Glucose* 157 mg/dL (60-115); Lipase* 47 U/L (23-300); Total Protein* 7.6 g/dL (6.0-8.3)
[2023-09-12 14:44] LABS: Slide Review Reflex No
[2023-09-12 14:56] LABS: PCR FLU A Negative PCR FLU A (Negative); PCR FLU B Negative PCR FLU B (Negative); PCR RSV Negative PCR RSV (Negative); SARS PCR* Negative SARS-CoV-2 (Negative)
[2023-09-12 15:45] LABS: Appearance Urine Clear (Clear); Bilirubin Urine Negative (Negative); Blood Urine Negative (Negative); Color Urine Yellow (Yellow); Glucose Urine 3+ (Negative); Ketones Urine Trace (Negative); Leukocyte Esterase Urine Negative (Negative); Nitrite Urine Negative (Negative); Protein Urine Negative (Negative); Specific Gravity Urine 1.015 (1.000-1.030); Urobilinogen Urine 0.2 (0.2-1.0)
[2023-09-12 16:01] LABS: Bacteria Urine Moderate; Squamous Epithelial Cell Urine Many (None-Few)
== END 2023-09-12 15:57 | disposition home or self-care (01) ==
PROVIDERS: Emergency Provider Emergency Medicine; PCP Family Medicine
DX: M54.9 Dorsalgia, unspecified (principal); R00.0 Tachycardia, unspecified; R51.9 Headache, unspecified
CPT/HCPCS: 36415; 71046; 80053; 81001; 83605; 83690; 85025; 87040; 87086; 87631; 93005; 96361; 96374; 96375; 99284; J1885; J2405; J7030

== ENCOUNTER 2024-09-15 19:13 | Emergency (ER) | payer MEDICARE, OTHER, SELFPAY ==
--- OUTSIDE RECORDS SUMMARY | 2024-09-15 19:14 | XMS_ITS | Continuity of Care Document ---
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 Medication Details Route Status Patient Instructions Prescription Expires Prescription Number Last Dispense Date Ordering Provider Order Date Order Qty Source ALBUTEROL SULFATE HFA (albuterol sulfate), 90 MCG, HFA AER AD, INHALATION, TEVA [place], 8.5 g CANISTER Active [id number] 4 2023 8.5 Pharmac y Data Transac tion Service Facilit y ALPRAZOLAM (ALPRAZOLAM ), 0.25MG, TABLET, ORAL, SANDOZ, 1000 ea. BOTTLE Active [id number] 4 2023 2 Pharmac y Data Transac tion Service Facilit y AMOXICILLIN (AMOXICILLI N), 500 MG, TABLET, ORAL, CITRON PHARMA L, 100 ea. BOTTLE Active [id number] 4 2023 21 Pharmac y Data Transac tion Service Facilit y CARISOPRODO L (carisoprod ol), 350 MG, TABLET, ORAL, OXFORD PHARMACE, 1000 ea. BOTTLE Active [id number] 4 2023 30 Pharmac y Data Transac tion Service Facilit y CARISOPRODO L (carisoprod ol), 350 MG, TABLET, ORAL, OXFORD PHARMACE, 1000 ea. BOTTLE Active [id number] 4 2023 30 Pharmac y Data Transac tion Service Facilit y CARISOPRODO L (carisoprod ol), 350 MG, TABLET, ORAL, OXFORD PHARMACE, 1000 ea. BOTTLE Active [id number] 2023 30 Pharmac y Data Transac tion Service Facilit y CARISOPRODO L (carisoprod ol), 350 MG, TABLET, ORAL, OXFORD PHARMACE, 500 ea. BOTTLE Active [id number] 4 2023 30 Pharmac y Data Transac tion Service Facilit y CARISOPRODO L (carisoprod ol), 350 MG, TABLET, ORAL, SCIEGEN PHARMAC, 500 ea. BOTTLE Cancele d [id number] : 2023 0 Pharmac y Data Transac tion Service Facilit y CARISOPRODO L (carisoprod ol), 350 MG, TABLET, ORAL, SCIEGEN PHARMAC, 500 ea. BOTTLE Cancele d [id number] 4 [id number] : 2023 0 Pharmac y Data Transac tion Service Facilit y CELECOXIB (celecoxib) , 200 MG, CAPSULE, ORAL, AUROBINDO PHARM, 100 ea. BOTTLE Cancele d [id number] : 2023 0 Pharmac y Data Transac tion Service Facilit y CELECOXIB (celecoxib) , 200 MG, CAPSULE, ORAL, AUROBINDO PHARM, 100 ea. BOTTLE Active [id number] 4 2023 60 Pharmac y Data Transac tion Service Facilit y CELECOXIB (celecoxib) , 200 MG, CAPSULE, ORAL, AUROBINDO PHARM, 100 ea. BOTTLE Active [id number] 4 2023 60 Pharmac y Data Transac tion Service Facilit y CELECOXIB (celecoxib) , 200 MG, CAPSULE, ORAL, MIRZA PHARMACEU, 500 ea. BOTTLE Active [id number] 2023 180 Pharmac y Data Transac tion Service Facilit y CELECOXIB (celecoxib) , 200 MG, CAPSULE, ORAL, TORRENT PHARMAC, 100 ea. BOTTLE Cancele d [id number] : 2023 0 Pharmac y Data Transac tion Service Facilit y CHLORHEXIDI NE GLUCONATE (CHLORHEXID INE GLUCONATE), 0.12%, MOUTHWASH, MUCOUS MEM, XTTRIUM LABS., 473 ml BOTTLE Cancele d [id number] : 2023 0 Pharmac y Data Transac tion Service Facilit y FAMOTIDINE (famotidine ), 20 MG, TABLET, ORAL, [employer] 1000 ea. BOTTLE Active [id number] 2023 180 Pharmac y Data Transac tion Service Facilit y GABAPENTIN (GABAPENTIN ), 300 MG, CAPSULE, ORAL, ACTAVIS PHARMA,, 500 ea. BOTTLE Active [id number] 2023 30 Pharmac y Data Transac tion Service Facilit y GLIPIZIDE ER (glipizide) , 10 MG, TAB ER 24, ORAL, AUROBINDO PHARM, 100 ea. BOTTLE Cancele d [id number] : 2023 0 Pharmac y Data Transac tion Service Facilit y GLIPIZIDE ER (glipizide) , 10 MG, TAB ER 24, ORAL, AUROBINDO PHARM, 100 ea. BOTTLE Active [id number] 2023 180 Pharmac y Data Transac tion Service Facilit y HYDROCODONE -ACETAMINOP HEN (hydrocodon e bitartrate/ acetaminoph en), 5 MG-325MG, TABLET, ORAL, MALLINCKROD T PH, 1000 ea. BOTTLE Active [id number] 4 2023 10 Pharmac y Data Transac tion Service Facilit y HYDROCODONE -ACETAMINOP HEN (HYDROCODON E/ACETAMINO PHEN), 5MG-325MG, TABLET, ORAL, MALLINCKROD T PH, 500 ea. BOTTLE Active [id number] 2023 5 Pharmac y Data Transac tion Service Facilit y IBUPROFEN (ibuprofen) , 600 MG, TABLET, ORAL, AUROBINDO PHARM, 500 ea. BOTTLE Active [id number] 2023 15 Pharmac y Data Transac tion Service Facilit y JARDIANCE (EMPAGLIFLO ZIN), 25 MG, TABLET, ORAL, BOEHRINGER ING., 30 ea. BOTTLE Cancele d [id number] : 2023 0 Pharmac y Data Transac tion Service Facilit y JARDIANCE (EMPAGLIFLO ZIN), 25 MG, TABLET, ORAL, BOEHRINGER ING., 30 ea. BOTTLE Active [id number] 2023 90 Pharmac y Data Transac tion Service Facilit y METFORMIN HCL ER (metformin HCl), 500 MG, TAB ER 24H, ORAL, AVKARE, 1000 ea. BOTTLE Active [id number] 2023 180 Pharmac y Data Transac tion Service Facilit y METFORMIN HCL ER (metformin HCl), 500 MG, TAB ER 24H, ORAL, AVKARE, 1000 ea. BOTTLE Active [id number] 2023 180 Pharmac y Data Transac tion Service Facilit y METOPROLOL SUCCINATE (metoprolol succinate), 100 MG, TAB ER 24H, ORAL, [employer] INC[employer] 1000 ea. BOTTLE Cancele d [id number] : 2023 0 Pharmac y Data Transac tion Service Facilit y METOPROLOL SUCCINATE (metoprolol succinate), 100 MG, TAB ER 24H, ORAL, [employer] 1000 ea. BOTTLE Active [id number] 2023 90 Pharmac y Data Transac tion Service Facilit y ONDANSETRON ODT (ONDANSETRO N), 4MG, TAB RAPDIS, ORAL, [employer] PHARMA, 30 ea. BLIST PACK Active [id number] 2023 10 Pharmac y Data Transac tion Service Facilit y OXYCODONE HCL (OXYCODONE HCL), 5MG, TABLET, ORAL, MALLINKRT PHARM, 100 ea. BOTTLE Cancele d [id number] : 2023 0 Pharmac y Data Transac tion Service Facilit y PANTOPRAZOL E SODIUM (pantoprazo le sodium), 40 MG, TABLET DR, ORAL, [employer] 1000 ea. BOTTLE Active [id number] 2023 90 Pharmac y Data Transac tion Service Facilit y PANTOPRAZOL E SODIUM (pantoprazo le sodium), 40 MG, TABLET DR, ORAL, [employer] 1000 ea. BOTTLE Cancele d [id number] : 2023 0 Pharmac y Data Transac tion Service Facilit y PREDNISONE (PREDNISONE ), 10MG, TABLET, ORAL, [employer]O LABS, 1000 ea. BOTTLE Cancele d [id number] : 2023 0 Pharmac y Data Transac tion Service Facilit y ROSUVASTATI N CALCIUM (rosuvastat in calcium), 40 MG, TABLET, ORAL, [employer] Media[employer] INC., 1000 ea. BOTTLE Cancele d [id number] 4 [id number] : 2023 0 Pharmac y Data Transac tion Service Facilit y TORSEMIDE (torsemide) , 20 MG, TABLET, ORAL, [employer] INC[employer] 90 ea. BOTTLE Cancele d [id number] : 2023 0 Pharmac y Data Transac tion Service Facilit y TORSEMIDE (torsemide) , 20 MG, TABLET, ORAL, [employer] INC[employer] 90 ea. BOTTLE Active [id number] 2023 90 Pharmac y Data Transac tion Service Facilit y Immunizations Combined list of available immunizations from the Department of Defense and Veterans Affairs facilities. Immunization Series Date Given Administered By Site Reaction Lot Number CVX Code Drug Adjunct Writing Instructor Status Comments Source zoster recombinant 2019 OVERHOLT, () Not Given zoster recombina nt [facility] zoster recombinant 2019 OVERHOLT, () Not Given zoster recombina nt [facility] Influenza, seasonal, injectable, preservative free 2011 BRENT DOUGLAS [employer] (NOV) Not Given Influenza , seasonal, injectabl e, preservat porsha free [facility] Social History Combined list of available smoking, tobacco, and other social history from Department of Defense and Veterans Affairs facilities. Social History Type Response Date Comment Sourc e This section is an empty social history section. [facility]
--- OUTSIDE RECORDS SUMMARY | 2024-09-15 19:14 | XMS_ITS | Continuity of Care Document ---
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 BOTTLE Active [id number] 2023 2 Pharmac y Data Transac tion Service Facilit y AMOXICILLIN (AMOXICILLI N), 500 MG, TABLET, ORAL, CITRON PHARMA L, 100 ea. BOTTLE Active [id number] 2023 21 Pharmac y Data Transac tion Service Facilit y CARISOPRODO L (carisoprod ol), 350 MG, TABLET, ORAL, OXFORD PHARMACE, 1000 ea. BOTTLE Active [id number] 2023 30 Pharmac y Data Transac tion Service Facilit y CARISOPRODO L (carisoprod ol), 350 MG, TABLET, ORAL, OXFORD PHARMACE, 1000 ea. BOTTLE Active [id number] 2023 30 Pharmac y Data Transac tion Service Facilit y CARISOPRODO L (carisoprod ol), 350 MG, TABLET, ORAL, OXFORD PHARMACE, 1000 ea. BOTTLE Active [id number] 2023 30 Pharmac y Data Transac tion Service Facilit y CARISOPRODO L (carisoprod ol), 350 MG, TABLET, ORAL, OXFORD PHARMACE, 500 ea. BOTTLE Active [id number] 2023 30 Pharmac y Data Transac tion Service Facilit y CARISOPRODO L (carisoprod ol), 350 MG, TABLET, ORAL, SCIEGEN PHARMAC, 500 ea. BOTTLE Cancele d [id number] : 2023 0 Pharmac y Data Transac tion Service Facilit y CARISOPRODO L (carisoprod ol), 350 MG, TABLET, ORAL, SCIEGEN PHARMAC, 500 ea. BOTTLE Cancele d [id number] : 2023 0 Pharmac y Data Transac tion Service Facilit y CELECOXIB (celecoxib) , 200 MG, CAPSULE, ORAL, AUROBINDO PHARM, 100 ea. BOTTLE Cancele d [id number] : 2023 0 Pharmac y Data Transac tion Service Facilit y CELECOXIB (celecoxib) , 200 MG, CAPSULE, ORAL, AUROBINDO PHARM, 100 ea. BOTTLE Active [id number] 2023 60 Pharmac y Data Transac tion Service Facilit y CELECOXIB (celecoxib) , 200 MG, CAPSULE, ORAL, AUROBINDO PHARM, 100 ea. BOTTLE Active [id number] 2023 60 Pharmac y Data Transac tion Service Facilit y CELECOXIB (celecoxib) , 200 MG, CAPSULE, ORAL, MIRZA PHARMACEU, 500 ea. BOTTLE Active [id number] 2023 180 Pharmac y Data Transac tion Service Facilit y CELECOXIB (celecoxib) , 200 MG, CAPSULE, ORAL, TORRENT PHARMAC, 100 ea. BOTTLE Cancele d [id number] : 2023 0 Pharmac y Data Transac tion Service Facilit y CHLORHEXIDI NE GLUCONATE (CHLORHEXID INE GLUCONATE), 0.12%, MOUTHWASH, MUCOUS MEM, XTTRIUM LABS., 473 ml BOTTLE Cancele d [id number] : 2023 0 Pharmac y Data Transac tion Service Facilit y FAMOTIDINE (famotidine ), 20 MG, TABLET, ORAL, [employer] 1000 ea. BOTTLE Active [id number] 2023 180 Pharmac y Data Transac tion Service Facilit y GABAPENTIN (GABAPENTIN ), 300 MG, CAPSULE, ORAL, ACTAVIS PHARMA,, 500 ea. BOTTLE Active [id number] 2023 30 Pharmac y Data Transac tion Service Facilit y GLIPIZIDE ER (glipizide) , 10 MG, TAB ER 24, ORAL, AUROBINDO PHARM, 100 ea. BOTTLE Cancele d [id number] : 2023 0 Pharmac y Data Transac tion Service Facilit y GLIPIZIDE ER (glipizide) , 10 MG, TAB ER 24, ORAL, AUROBINDO PHARM, 100 ea. BOTTLE Active [id number] 2023 180 Pharmac y Data Transac tion Service Facilit y HYDROCODONE -ACETAMINOP HEN (hydrocodon e bitartrate/ acetaminoph en), 5 MG-325MG, TABLET, ORAL, MALLINCKROD T PH, 1000 ea. BOTTLE Active [id number] 2023 10 Pharmac y Data Transac tion Service Facilit y HYDROCODONE -ACETAMINOP HEN (HYDROCODON E/ACETAMINO PHEN), 5MG-325MG, TABLET, ORAL, MALLINCKROD T PH, 500 ea. BOTTLE Active [id number] 2023 5 Pharmac y Data Transac tion Service Facilit y IBUPROFEN (ibuprofen) , 600 MG, TABLET, ORAL, AUROBINDO PHARM, 500 ea. BOTTLE Active [id number] 2023 15 Pharmac y Data Transac tion Service Facilit y JARDIANCE (EMPAGLIFLO ZIN), 25 MG, TABLET, ORAL, BOEHRINGER ING., 30 ea. BOTTLE Cancele d [id number] : 2023 0 Pharmac y Data Transac tion Service Facilit y JARDIANCE (EMPAGLIFLO ZIN), 25 MG, TABLET, ORAL, BOEHRINGER ING., 30 ea. BOTTLE Active [id number] 2023 90 Pharmac y Data Transac tion Service Facilit y METFORMIN HCL ER (metformin HCl), 500 MG, TAB ER 24H, ORAL, AVKARE, 1000 ea. BOTTLE Active [id number] 4 2023 180 Pharmac y Data Transac tion Service Facilit y METFORMIN HCL ER (metformin HCl), 500 MG, TAB ER 24H, ORAL, AVKARE, 1000 ea. BOTTLE Active [id number] 4 2023 180 Pharmac y Data Transac tion Service Facilit y METOPROLOL SUCCINATE (metoprolol succinate), 100 MG, TAB ER 24H, ORAL, [employer] 1000 ea. BOTTLE Cancele d [id number] : 2023 0 Pharmac y Data Transac tion Service Facilit y METOPROLOL SUCCINATE (metoprolol succinate), 100 MG, TAB ER 24H, ORAL, [employer] 1000 ea. BOTTLE Active [id number] 2023 90 Pharmac y Data Transac tion Service Facilit y ONDANSETRON ODT (ONDANSETRO N), 4MG, TAB RAPDIS, ORAL, [employer] PHARMA, 30 ea. BLIST PACK Active [id number] 2023 10 Pharmac y Data Transac tion Service Facilit y OXYCODONE HCL (OXYCODONE HCL), 5MG, TABLET, ORAL, MALLINKRT PHARM, 100 ea. BOTTLE Cancele d [id number] : 2023 0 Pharmac y Data Transac tion Service Facilit y PANTOPRAZOL E SODIUM (pantoprazo le sodium), 40 MG, TABLET DR, ORAL, [employer] 1000 ea. BOTTLE Active [id number] 4 2023 90 Pharmac y Data Transac tion Service Facilit y PANTOPRAZOL E SODIUM (pantoprazo le sodium), 40 MG, TABLET DR, ORAL, [employer] 1000 ea. BOTTLE Cancele d [id number] : 2023 0 Pharmac y Data Transac tion Service Facilit y PREDNISONE (PREDNISONE ), 10MG, TABLET, ORAL, [employer], 1000 ea. BOTTLE Cancele d [id number] 4 [id number] : 2023 0 Pharmac y Data Transac tion Service Facilit y ROSUVASTATI N CALCIUM (rosuvastat in calcium), 40 MG, TABLET, ORAL, [employer] 1000 ea. BOTTLE Cancele d [id number] 4 [id number] : 2023 0 Pharmac y Data Transac tion Service Facilit y TORSEMIDE (torsemide) , 20 MG, TABLET, ORAL, [employer] 90 ea. BOTTLE Cancele d [id number] 4 [id number] : 2023 0 Pharmac y Data Transac tion Service Facilit y TORSEMIDE (torsemide) , 20 MG, TABLET, ORAL, [employer] 90 ea. BOTTLE Active [id number] 4 2023 90 Pharmac y Data Transac tion Service Facilit y Immunizations Combined list of available immunizations from the Department of Defense and Veterans Affairs facilities. Immunization Series Date Given Administered By Site Reaction Lot Number CVX Code Drug Delinquent Account Clerk Status Comments Source zoster recombinant 2019 OVERHOLT, () Not Given zoster recombina nt [facility] zoster recombinant 2019 OVERHOLT, () Not Given zoster recombina nt [facility] Influenza, seasonal, injectable, preservative free 2011 BRENT DOUGLAS [employer] (NOV) Not Given Influenza , seasonal, injectabl e, preservat porsha free [facility] Social History Combined list of available smoking, tobacco, and other social history from Department of Defense and Veterans Affairs facilities. Social History Type Response Date Comment Sourc e This section is an empty social history section. [facility]
--- OUTSIDE RECORDS SUMMARY | 2024-09-15 19:15 | XMS_ITS | Patient Health Record ---
Author Organization [facility] Address [address] [place] [address] [address] [place] [address] Care Team Providers Care Remote Computer Terminal Operator Name Role Phone Sariah Bullard Primary Care Provider Unavailab Willard Card Unavailable [phone] Allergies No Known Allergies Reason For Referral No Information Medications Medication SIG (Take, Route, Frequency, Duration) Notes Start Date End Date Status Toprol XL 100 MG 1 tablet Orally Once a day Active Rosuvastatin Calcium 40 MG 1 tablet Oral ly Once a day Active metFORMIN HCl 500 MG 2 tablet with a jana l Orally Once a day Active Magnesium Chloride A ctive Vitamin D Active glipiZIDE XL 10 MG 2 tablet with breakf ast Orally Once a day Active Calcium Active Protonix 40 MG 1 tablet Orally Once a day Active Carisoprodol 350 MG 1 tablet as needed O rally Three times a day Active Jardiance 25 MG 1 tablet Orally Once a day Active Acetaminophen ER 650 MG 2 tablets as nee ded Orally every 2 hrs Active Torsemide 20 MG as directed Orally O nce a day Active Ibuprofen 200 MG 2 tablet with food o r milk as needed Orally as needed Active DULoxetine HCl 20 MG 1 capsule Orally On ce a day Active Potassium Chloride 10 MEQ 1 packet with food Orally Twice a day Active Trulicity 1.5 MG/0.5ML as directed Subcu taneous weekly Active Social History Tobacco Use: Social History Observation Description Date Details (start date - stop date) Never Smoker NA - NA Tobacco Use/Smoking: Question Answer Notes Are you a nonsmoker Alcohol Screen Question Answer Notes Did you have a drink containing alcohol in the p ast year? No Points 0 Interpretation Negative Problems Problem Type SNOMED Code ICD Code Onset Dates Problem Status W/U Status Risk Notes Problem Chronic pain (35340748) Other chronic pain (G89.29) Active confirmed Problem Acquired spondylolisthesis (518423653) Spondylolisthesi s, lumbar region (M43.16) Active confirmed Problem Lumbar spinal fusion (procedure) (91946511) Fusion of spine, lumbar region (M43.26) Active confirmed Problem Low back pain (009455900) Low back pain, unspecified (M54.50) Active confirmed Problem Lumbar post-laminectomy syndrome (833907456) Lumbar post-laminectomy syndrome (M96.1) Active confirmed Problem Lumbar spinal stenosis (12954021) Spinal stenosis, lumbar (M48.061) Active confirmed Problem Lumbar radiculopathy (356133534) Radiculopathy Lumbar (M54.16) Active confirmed Plan Of Treatment No Information Insurance Providers Payer Name Payer Address Payer Phone Subscriber Number Group Number Insured Name Patient Relationship to Insured Coverage Start Date Coverage End Date Medicare Part B [employer] [address] [place] [address] [id number] Shira Philippe Self - patient is the insured [employer] (after ) [address] Attn- [place] [address] [id number] Shira Philippe Self - patient is the insured Medical (General) History Medical History History ICD Code Acid reflux Anxiety Arthritis blood clots Type 2 diabetes high cholesterol sleep apnea headaches Hypertension Surgical History Surgery Date(Month/Year) L1-2 and L4-21 decompression and L4-5 Fu kaitlin 09/18/2005 Hospitalization History Reason Date(Month/Year) Surgical reasons
--- OUTSIDE RECORDS SUMMARY | 2024-09-15 19:15 | XMS_ITS | Clinical Summary ---
Author Organization [facility] Address [address] [place] [address]. [place] [address] Care Team Providers Care Professor Of Physical Education Name Role Phone Sariah Bullard Primary Care Provider Shamar Fernandes MD Unavailable [phone] Allergies Active Allergy Reactions Criticality Noted Date Comments Aloe Rash Low 08/08/2023 Droperidol Other (See Comments) 07/24/2006 Metformin Nausea and Vomiting 09/12/2022 Raspberry Hives High 06/01/2015 Rivaroxaban Dizziness 07/22/2017 Titanium Other (See Comments) High 08/02/2015 [place] ill with titanium screws in back- removed 2005- Medications albuterol (PROAIR HFA/PROVENTIL HFA/VENTOLIN HFA) 108 (90 Base) MCG/ACT inhaler Inhale 1-2 puffs into the lungs as needed 3 Active carisoprodol (SOMA) 350 MG tablet Take 350 mg by mouth 3 times daily as needed 4 Active doxycycline hyclate (VIBRA-TABS) 100 MG tablet Take 100 mg by mouth 2 times daily 3 Active TRULICITY 3 MG/0.5ML SOPN 1 Dose once a week 3 Active JARDIANCE 25 MG TABS tablet Take 25 mg by mouth daily 3 Active gabapentin (NEURONTIN) 300 MG capsule Take 600 mg by mouth 3 times daily 4 Active glipiZIDE (GLUCOTROL XL) 10 MG 24 hr tablet Take 10 mg by mouth daily 3 Active metFORMIN (GLUCOPHAGE XR) 500 MG 24 hr tablet Take 500 mg by mouth 2 times daily (with meals) 4 Active metoprolol succinate ER (TOPROL XL) 100 MG 24 hr tablet Take 100 mg by mouth daily 3 Active metroNIDAZOLE (METROCREAM) 0.75 % external cream Apply topically 2 times daily 3 Active potassium chloride ER (MICRO-K) 10 MEQ CR capsule Take 10 mEq by mouth daily 3 Active rosuvastatin (CRESTOR) 40 MG tablet Take 40 mg by mouth daily 4 Active torsemide (DEMADEX) 20 MG tablet Take 20 mg by mouth daily 3 Active Social History Tobacco Use Types Packs/Day Years Used Date Smoking Tobacco: Never Smokeless Tobacco: Never Tobacco Cessation:Counseling Given: Not Answered PHQ-2 Answer Date Recorded PHQ-2 Score 4 08/08/2023 Adolescent Education Answer Date Record ed Getting School Help Needed Not on file 08/05 Comments Unknown Sex and Gender Information Value Date Recorded Sex Assigned at Not on file Legal 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 Gender Identity Not on file Sexual Orientation [...] OF HM ORDERS 1955 CT COLONOGRAPHY 1955 FIT 1955 FLEX SIG 1955 LIPID 1955 MAMMO SCREENING 1953 COLONOSCOPY 09/25/1963 DIABETES SCREENING 01/31/2014 01/31/2011 FALL RISK ASSESSMENT 2018 DTAP/TDAP/TD VACCINE (3 - Td or Tdap) 07/30/2021 07/31/2011, 11/02/1996 MEDICARE ANNUAL WELLNESS VISIT 09/13/2023 09/12/2022 COVID-19 VACCINE ( season) 2023 09/12/2022, 05/03/2021, 08/08/2020, Additional history exists PHQ-2 (once per calendar year) 2024 08/08/2023, 08/08/2023 INFLUENZA VACCINE (Season Ended) 2024 01/24/2023, 01/24/2023, 01/21/2020, Additional history exists COLORECTAL CANCER SCREENING 10/01/2025 sDNA (Cologuard) 10/01/2025 10/01/2022 RSV VACCINE (1 - 1-dose 75+ series) 2028 DEXA 09/12/2037 09/12/2022 HEPATITIS C SCREENING Completed 04/13/2019 ZOSTER VACCINE Completed 11/05/2019, 06/24/2019 PNEUMOCOCCAL VACCINE 50+ YEARS Completed 09/12/2022, 06/24/2016, 02/16/2016 HPV VACCINE Aged Out No longer eligi ble based on patient's age to complete this topic MENINGITIS VACCINE Aged Out No longer eligible based on patient's age to complete this topic Procedures Procedure Name Priority Date/Time Associated Diagnosis Comments HEMOGLOBIN A1C Routine 01/31/2011 11:58 AM CDT from Last 3 Months or Most Recently Relevant to Health Maintenance Results * Hemoglobin A1c (01/31/2011 11:58 AM CDT) Hemoglobin A1C 6.0 4.3 - 6.0 % [facility] 01/31/2011 11:5 8 AM CDT 01/31/2011 11:59 AM CDT Shandra Harmon MD LAB - BLOOD ORDERABLES Gay matta Result [facility] [address], [place] [address], [place] [phone] from Last 3 Months or Most Recently Relevant to Health Maintenance Insurance MEDICARE / MEDICARE / Care Teams Professor Of Physical Education Relationship Specialty Start Date End Date Sariah Bullard [address] [place] [address] PCP - General Family Medicine 08/08/23 Shamar Fernandes MD [address] [place] [address] Assigned Musculoskeletal Provider 08/12/23
--- OUTSIDE RECORDS SUMMARY | 2024-09-15 19:15 | XMS_ITS | Clinical Summary ---
Author Organization [email or web address] [facility] Address [address] [place] [id number] Care Team Providers Care Collect On Delivery Clerk Name Role Phone Sariah Bullard MD Primary Care Provide r Remberto Medina MD Unavailable Kyler Quinones MD Unavailable [phone] Cody Britton PharmD Unavailable [phone] Allergies Active Allergy Reactions Criticality Noted Date Comments Aloe Rash Low 08/08/2023 Droperidol Agitation 07/24/2006 Metformin Nausea And Vomiting 09/12/2022 Raspberry Hives High 02/25/2023 Raspberry (Rubus Idaeus) Hives 06/01/2015 Titanium Other - Describe In Comment Field High 08/02/2015 Stafford ill with titanium screws in back- removed 2005- Rivaroxaban Dizziness 07/22/2017 Medications multivitamins-gerber rqma-wgvw-pzbkjgt s tab tablet Take 1 tablet by mouth once daily. 0 01/22/20 17 Active acetaminophen (TYLENOL EXTRA STRGTH) 500 mg tablet Take 2 tablets by mouth. Max acetaminophen dose: 4000mg in 24 hrs. 0 07/19/19 18 Active medication order composerIndicatio ns:Sleep apnea, unspecified type CPAP tubing and reservoir 1 Each 5 06/10/19 20 Active transmitter for continuous blood glucose monitor (CGM)Indications: Type 2 diabetes mellitus without complication, without long-term current use of insulin (HC) To be used to read blood sugars, follow photogeologist directions. 1 Each 4 02/15/20 23 Active CPAPIndications:O bstructive sleep apnea CPAP machine for home use at pressure 10 cmw epr 3, nasal mask x1/3month with nasal pillows x 2/mo 1 Each 11 02/09/20 24 Active magnesium oxide 400 mg magnesium capsuleIndication s:Hypomagnesemia Take 400 mg by mouth once daily. At bedtime 90 Capsule 3 02/20/20 24 Active carisoprodoL (SOMA) 350 mg tabletIndications :Acute midline low back pain without sciatica TAKE 1 TABLET TWICE A DAY IF NEEDED FOR MUSCLE SPASM 30 Tablet 1 05/24/19 25 Active FreeStyle Winston 2 SensorIndications :Type 2 diabetes mellitus without complication, without long-term current use of insulin (HC) To be used to read blood sugars per photogeologist's directions. Change each sensor every 14 days. Dispense 3 month supply if able 2 Each 12 05/24/19 25 Active dulaglutide (TRULICITY) 3 mg/0.5 mL subcutaneous penIndications:Ty pe 2 diabetes mellitus without complication, without long-term current use of insulin (HC) Inject 3 mg subcutaneous once weekly. 6 mL 3 05/24/19 25 Active metoprolol succinate (TOPROL XL) 100 mg Sustained-Release tabletIndications :Primary hypertension Take 1 Tablet (100 mg) by mouth once daily. 90 Tablet 3 05/24/19 25 Active metFORMIN (GLUCOPHAGE XR) 500 mg Extended-Release tabletIndications :Type 2 diabetes mellitus without complication, without long-term current use of insulin (HC) Take 500 mg three times daily 270 Tablet 3 05/24/19 25 Active torsemide (DEMADEX) 20 mg tabletIndications :Essential hypertension with goal blood pressure less than 140/90 Take 1 Tablet (20 mg) by mouth once daily in the morning. 90 Tablet 3 05/24/19 25 Active rosuvastatin (CRESTOR) 40 mg tabletIndications :Hyperlipidemia, unspecified hyperlipidemia type Take 1 Tablet (40 mg) by mouth at bedtime. 90 Tablet 3 05/24/19 25 Active potassium chloride (MICRO-K) 10 mEq Controlled-releas e capsuleIndication s:Hypokalemia Take 1 Capsule (10 mEq) by mouth once daily with a meal. 90 Capsule 3 05/24/19 25 Active pantoprazole (Protonix) 40 mg delayed-release tabletIndications :Gastroesophageal reflux disease, unspecified whether esophagitis present Take 1 Tablet (40 mg) by mouth once daily before a meal. 90 Tablet 3 05/24/19 25 Active glipiZIDE extended-release (GLUCOTROL XL) 10 mg Extended-Release tabletIndications :Type 2 diabetes mellitus without complication, without long-term current use of insulin (HC) Take 1 Tablet (10 mg) by mouth two times daily with meals. 180 Tablet 3 05/24/19 25 Active DULoxetine (CYMBALTA) 20 mg Delayed-release capsuleIndication s:Lumbar pain Take 1 Capsule (20 mg) by mouth two times daily. 180 Capsule 3 05/24/19 25 Active celecoxib (CELEBREX) 200 mg capsuleIndication s:Lumbar radiculopathy Take 1 Capsule (200 mg) by mouth two times daily with meals. 180 Capsule 3 05/24/19 25 Active empagliflozin (Jardiance) 25 mg tabletIndications :Type 2 diabetes mellitus without complication, without long-term current use of insulin (HC) Take 1 Tablet (25 mg) by mouth once daily. 90 Tablet 3 05/24/19 25 Active dulaglutide (Trulicity) 3 mg/0.5 mL subcutaneous pen as directed Subcutaneous weekly Active calcium carbonate/vitamin D2 (CALCIUM 600 + D ORAL) Take by mouth. Activ e zoledronic acid/mannitol-garcía er (RECLAST IV) Inject intravenous. Active inhalational spacing deviceIndications :Productive cough For home use. 1 Each 09/11/19 25 Active ipratropium-albut Adrien (20-100 mcg each actuation) mist inhalerIndication s:Productive cough Inhale 1 Puff by mouth every 6 hours. For shortness of breath 4 g 09/11/19 25 Active codeine-guaiFENes in 10-100 mg/5 mL liquidIndications :Productive cough Take 5 mL by mouth at bedtime if needed for Cough. 60 mL 09/11/19 25 Active amoxicillin-clavu lanate 875-125 mg tabletIndications :Productive cough Take 1 Tablet by mouth two times daily with meals for 10 days. For bacteria 20 Tablet 09/11/19 25 025 Active predniSONE 20 mg tabletIndications :Productive cough Take 1 tablet by mouth once daily after food for 6 days for lung swelling 6 Tablet 05/23/20 25 Active guaiFENesin 400 mg tabletIndications :Productive cough Take 1 tablet by mouth 3 times daily for mucus 15 Tablet 09/11/19 Active inhalational spacing deviceIndications :Productive cough For home use. 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) Hospital, Clinic, or Other Facility Administered Medication Ordered Dose Route Frequency Start Date End Date Status albuterol-ipratropium (2.5-0.5 mg) in 3 mL NEBULIZATION solution 3 mL (DUONEB)Indications:SOB (shortness of breath) 3 mL NEB ONE TIME 09/10/2024 09/10/2024 End ed Active Problems Problem Noted Date Diagnosed Date Other osteoporosis without current pathological fracture 10/14/2023 HTN (hypertension) 10/14/2023 Type 2 diabetes mellitus wit h diabetic [...] obesity 08/31/2010 Screen for colon cancer 08/09/2009 Overview (08/09/2009): Colonoscopy 07/2009 internal hemorrhoids repeat in 10 years Vitamin D deficiency 03/01/2009 Essential hypertension 02/10/2009 Hyperlipidemia 02/10/2009 Chronic GERD 02/10/2009 Unspecified essential hypertension 09/19/2005 Other and unspecified hyperlipidemia 09/19/2005 Esophageal reflux 09/19/2005 Overview (05/27/2018): EGD 07/2015 normal EGD 04/2017 normal Backache, unspecified 09/19/2005 Resolved Problems Problem Noted Date Diagnosed Date Resolved Date Anticoagulation monitoring, INR range 2-3 [Z79.01] 07/02/2017 07/03/2017 Chest pain, unspecified 09/19/200506/2016 Overview (09/19/2005): neg angio in 2004 Encounters Date Type Department Care Team Description 09/14/2024 Orders Only [facility] [address] [address] Suellen Monroy PA 1 scan: (1-Ord) 09/10/2024 09/10/2024 6:40 PM CDT Ancillary Procedure [facility] [address] [address] 09/10/2024 6:15 PM CDT Office Visit [facility] [address] [address] Suellen Monroy PA Shortness Of Breath 09/09/2024 2:20 PM CDT Orders Only [facility] [address] [address] Lab 09/09/2024 Travel 09/06/2024 Transcribe Orders [facility] [address] [place] [address] Sekou Valero MD 09/01/2024 9:00 AM CDT Pharmacist Medication Management [facility] [place] [address] [place] [address] Cody Guzmán, PharmD Pharmacist Medication Management (PharmD initial PHONE CMR ) from Last 3 Months Immunizations Immunization Administration Dates Next Due AMB Influenza, IIV4 PF (=>6 mos Flulaval,Fluzone Fluarix)(Flu Clinic Only) 02/09/2019 COVID-19 vaccine (Pfizer-Bio NTech 30mcg/0.3mL) 12YO+ BIVALENT PF, MDV 09/12/2022 COVID-19 vaccine (Pfizer-Bio NTech 30mcg/0.3mL) PF, MDV 05/03/2021,08/08/2020,07/18/2020 Hepatitis B (Adult) 04/03/1992,11/01/1991,1991 Influenza Virus, Unspecified 01/24/2023, 01/21/2020,02/02/2009,02/13,03/27/2006 Influenza, IIV3 (Age >=3 years) 12/18/2008,02/13,03/27/2006 Influenza, IIV4 01/24/2023, 0,01/27/2018,01/16,01/20/2016,01/03/2015,02/13/2007 ,03/27/2006 Influenza, Inactivated AIIV4 (Age 65+ Years) [...] Name Status Comments Father (Age 60s ) [place] Maternal Grandfather Mother Alive Social History Tobacco Use Types Packs/Day Years Used Date Smoking Tobacco: Never Smokeless Tobacco: Never Tobacco Cessation:Counseling Given: Yes Alcohol Use Standard Drinks/Week Comments No 0 (1 standard drink = 0.6 oz pur e alcohol) PHQ-2 Answer Date Recorded PHQ-2 TOTAL SCORE 0 10/14/2023 Social Connections Answer Date Recorded Do you often feel lonely or isolated from those around you? 0 09/10/2024 Financial Resource Strain Answer Date R ecorded Difficulty of Paying Living Expenses 3 09/10/2024 Difficulty of Paying Living Expenses Not on file 09/10/2024 Food Insecurity Answer Date Recorded Do you worry your food will run out before you are able to buy more? 1 09/10/2024 Transportation Needs Answer Date Record ed Does lack of transportation keep you from medica l appointments? 1 09/10/2024 Does lack of transportation keep you from work, meetings or getting things that you need? 1 09/10/2024 Housing Stability Answer Date Recorded What is your housing situation today? 1 09/10/2024 Utilities Answer Date Recorded Do you have trouble paying f or utilities (for example, heat, electricity, water, phone)? 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 Gender Identity Not on file Sexual Orientation Not on file Obstetrics History Last Filed Vital Signs Vital Sign Reading Time Taken Comments Blood Pressure 163/83 09/10/2024 6:23 PM CDT Pulse 137 09/10/2024 7:35 PM CDT Temperature 37.4 C (99.3 F) 09/10/2024 7:35 PM CDT Respiratory Rate 20 09/10/2024 7:35 PM CDT Oxygen Saturation 94% 09/10/2024 7:35 PM CDT Inhaled Oxygen Concentration - - Weight 104.1 kg (229 lb 8 oz) 02/20/2024 9:17 AM CDT Height 153.5 cm (5' 0.43) 12/23/2023 4:07 PM CD T Body Mass Index 44.18 12/23/2023 4:07 PM CDT Plan of Treatment Upcoming Encounters Date Type Department Care Team (Late st Contact Info) Description 09/28/2024 1:50 PM CDT Office Visit [facility] [address] [place] [address] Sariah Bullard MD [address] [place] [address] 12/22/2024 11:30 AM CDT Office Visit [facility] [address] [place] [address] Annette Jackson, PhD, LP [address] [place] [address] Health Maintenance Due Date Last Done Comments Mammogram for age 45-75 1998 Tetanus booster 07/30/2021 07/31/2011, 07/20, 11/02/1996 COVID-19 vaccine series ( season) 2023 09/12/2022, 05/03/2021, 08/08/2020, Additional history exists Depression screening for age 12+ 10/13/2024 10/14/2023, 09/13/2022, 09/12/2022, Additional history exists Medicare Wellness for age 65+ 10/14/2024 10/14/2023, 09/12/2022 Influenza Vaccine (Season Ended) 2024 01/24/2023, 01/24/2023, 01/24/2023, Additional history exists BMI (ht and wt on same day) for age 18+ 12/22/2024 12/23/2023, 10/14/2023, 12/19/2022, Additional history exists Fecal testing sDNA-FIT ([place] guard) for age 45-75 10/01/2025 10/01/2022 Lipids for age 45-75 08/04/2028 08/05/2023, 08/05/2023, 12/25/2021, Additional history exists Hepatitis B series for 19+ Completed 04/03, 11/01/1991, 10/04/1991 Tdap Completed 07/31/2011, 11/02/1996 Hepatitis C screening for ag e 18-79 Completed 04/13/2019 Zoster (shingles) series for age 50+ Completed 11/05/2019, 06/24/2019 DEXA/DXA scan for age 65+ Completed 09/12/2022 Pneumococcal series for age 50+ Completed 09/12/2022, 06/24/2016, 02/16/2016 RSV vaccine for adults or Completed 01/24/2023 Goals Goal Patient Goal Type Associated Problems Recent Progress Patient-Stated? Author BLOOD PRESSURE - Maintains BP less than 140/90 Blood Pressure No Paulo, Valentina, TERRY Medical Devices Implanted Type Area Desolderer Device Identifier Shelf Expiration Date Model / Serial / Lot Screw Polyaxial 6.5x50mm - [id number] Implanted:Qty: 1 on 09/18/2005 at [facility] [employer] [id number] / / Screw Polyaxial 6.5x45mm - [id number] Implanted:Qty: 2 on 09/18/2005 at [facility] [employer] [id number] / / Monica Carie [id number] - [id number] Implanted:Qty: 4 on 09/18/2005 at [facility] [id number]# / / Allosource Canc Crushed 30cc Implanted:Qty: 1 on 09/18/2005 at [facility] Explanted:at [facility] (Quantity not on file) Spine [employer] 11/13/2008 [id number] / [id number] / Description:CANC CRUSHED 30C C Screw Polyaxial 6.5x40mm - [id number] Implanted:Qty: 1 on 09/18/2005 at [facility] [id number]# / / Mark Carie Rad 40mm 108mm Radius - [id number] Implanted:Qty: 2 on 09/18/2005 at [facility] [id number] / / [id number] e Canclls Crushed 30cc [[id number]] Implanted:Qty: 1 on 08/26/2006 at [facility] Explanted:at [facility] (Quantity not on file) Spine [employer] 01/15/2011 [id number] / [id number] / Procedures Procedure Name Priority Date/Time Associated Diagnosis Comments XR CHEST 2 VIEWS PA AND LATERAL STAT 09/10/2024 7:07 PM CDT Productive cough FL BLOOD COUNT COMPLETE AUTO&AUTO DIFRNTL WBC Routine 09/10/2024 6:48 PM CDT Acute diarrhea ISTAT CHEM 8 Routine 09/10/2024 6:48 PM CDT Acute diarrhea EKG 12 LEAD Routine 09/10/2024 12:00 AM CDT Chest tightness LIPID PANEL W REFLEX MEASURED LDL Routine 08/05/2023 12:08 PM CDT Hyperlipidemia, unspecified hyperlipidemia type SDNA-FIT EXTERNAL (COLOGUARD) Routine 10/01/2022 9:45 AM CDT Screening for colon cancer XR DXA BONE DENSITY 2 SITES AXIAL Routine 09/12/2022 12:09 PM CDT Postmenopausal ANTI HCV Routine 04/13/2019 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 No acute cardiopulmonary disease is seen. Dictated by: Randall Wood MD @ 09/10/2024 19:36:55 (Electronically Signed) Narrative 09/10/2024 7:36 PM CDT For Patients: As a result of the Century Cures Act, medical imaging exams and procedure reports are released immediately into your electronic medical record. You may view this report before your referring provider. If you have questions, please contact your health care provider. INDICATION: Productive cough TECHNIQUE: Chest radiograph 2 views COMPARISON: 03/11/2023 FINDINGS: The sensitivity and specificity of the exam are moderately limited by the patient`s body habitus. Mediastinum: The mediastinum is normal in appearance. The heart silhouette is normal in size and morphology. Lung: Both lungs are unremarkable in appearance. No sign of pleural effusion seen. No pneumothorax is identified. Bone and Soft tissue: Unremarkable for age. Procedure Note Randall Wood MD - 09/10/2024 For Patients: As a result of the Cures Act, medical imagingexams and procedure reports are released immediately into your electronicmedical record. You may view this report before your referring provider.If you have questions, please contact your health care provider. INDICATION: Productive cough TECHNIQUE: Chest radiograph 2 views COMPARISON: 03/11/2023 FINDINGS: The sensitivity and specificity of the exam are moderatelylimited by the patient`s body habitus. Mediastinum: The mediastinum is normal in appearance. The heart silhouetteis normal in size and morphology. Lung: Both lungs are unremarkable in appearance. No sign of pleuraleffusion seen. No pneumothorax is identified. Bone and Soft tissue: Unremarkable for age. IMPRESSION: 1. No acute cardiopulmonary disease is seen. Dictated by: Randall Wood MD @ 09/10/2024 19:36:55 (Electronically Signed) us Suellen Monroy [place] [facility] Final Resu lt * (ABNORMAL) CHEM8 BMP ISTAT [[id number]] (09/10/2024 6:48 PM CDT) POCT, SODIUM, ISTAT 138 138 - 146 mmol/L [facility] ( POCT, POTASSIUM, ISTAT 3.5 3.5 - 4.9 mmol/L [facility] ( POCT, CHLORIDE, ISTAT 102 98 - 109 mmol/L [facility] ( POCT, CARBON DIOXIDE, ISTAT 21(L) 24 - 29 mmol/L [facility] ( POCT, GLUCOSE ISTAT 238(H) 70 - 105 mg/dL [facility] ( POCT, UREA NITROGEN (BUN) ISTAT 13 8 - 26 mg/dL [facility] ( POCT,CREATININ E, ISTAT 0.8 0.6 - 1.3 mg/dL [facility] ( POCT, CALCIUM, IONIZED, ISTAT 4.2(L) 4.5 - 5.3 mg/dL [facility] ( Blood BLOOD SPECIMEN / Unknown 09/10/2024 6:48 PM CDT 09/10/2024 6:49 PM CDT us Suellen CROWE CHEMISTRY Final Resu lt [facility] [address] [place] [address], [facility] ( [address] [place] [address] * (ABNORMAL) CBC & DIFF [07631.0] (09/10/2024 6:48 PM CDT) WHITE BLOOD CELL COUNT 10.4 3.8 - 10.8 Thousand/u L [facility] ( RED BLOOD CELL COUNT 5.18(H) 3.80 - 5.10 Million/uL [facility] ( HEMOGLOBIN 14.6 11.7 - 15.5 g/dL [facility] ( HEMATOCRIT 44.4 35.0 - 45.0 % [facility] ( MCV 85.7 80.0 - 100.0 fL [facility] ( MCH 28.2 27.0 - 33.0 pg [facility] ( MCHC 32.9 32.0 - 36.0 g/dL [facility] ( Comment: For adults, a slight decrease in the calculated MCHC value (in the range of 30 to 32 g/dL) is most likely not clinically significant; however, it should be interpreted with caution in correlation with other red cell parameters and the patient's clinical condition. RDW 14.5 11.0 - 15.0 % [facility] ( PLATELET COUNT 260 140 - 400 Thousand/u L [facility] ( MPV 8.9 7.5 - 12.5 fL [facility] ( ABSOLUTE NEUTROPHILS 7,738 1,500 - 7,800 cells/uL [facility] ( ABSOLUTE LYMPHOCYTES 1,674 850 - 3,900 cells/uL [facility] ( ABSOLUTE MONOCYTES 926 200 - 950 cells/uL [facility] ( ABSOLUTE EOSINOPHILS 31 15 - 500 cells/uL [facility] ( ABSOLUTE BASOPHILS 31 0 - 200 cells/uL [facility] ( NEUTROPHILS 74.4 % [facility] ( LYMPHOCYTES 16.1 % [facility] ( MONOCYTES 8.9 % [facility] ( EOSINOPHILS 0.3 % [facility] ( BASOPHILS 0.3 % [facility] ( Blood BLOOD SPECIMEN / Unknown 09/10/2024 6:48 PM CDT 09/10/2024 6:49 PM CDT Suellen CROWE HEMATOLOGY Final Resu lt [facility] [address] [place] [address], [facility] ( [address] [place] [address] * EKG 12 LEAD (09/10/2024 12:00 AM CDT) Suellen CROWE EKG ORD Final Resu lt * (ABNORMAL) LIPID PANEL W REFLEX MEASURED LDL (08/05/2023 12:08 PM CDT) CHOLESTEROL,TOTAL 216(H) 100 - 199 mg/dL 08/05/2023 9:56 PM CDT [facility] Comment: Cholesterol, Total Reference Ranges Desirable <200 mg/dL Borderline 200-239 mg/dL High >=240 mg/dL TRIGLYCERIDES 408(H) <150 mg/dL 08/05/2023 9:56 PM CDT [facility] HDL CHOLESTEROL 49 >40 mg/dL 9:56 PM CDT [facility] NON-HDL CHOLESTEROL 167(H) <145 mg/dl 08/05/2023 9:56 PM CDT [facility] CHOL/HDL RATIO 4.41 <4.50 08/05/2023 9:56 PM CDT [facility] LDL CHOLESTEROL 9:56 PM CDT [facility] Comment:Invalid LDL when Tri g >400. VLDL CHOLESTEROL COMMENT 08/05/2023 9:56 PM CDT [facility] Comment:Unable to calculate VLDL. PROVIDER ORDERED STATUS RANDOM 08/05/2023 9:56 PM CDT [facility] Blood BLOOD SPECIMEN / Unknown Venipuncture / Unknown 08/05/2023 12:08 PM CDT 08/05/2023 12:10 PM CDT Sariah Bullard MD CHEMISTRY Final Result [facility] [address] [place] [address], * SDNA-FIT EXTERNAL (COLOGUARD) (10/01/2022 9:45 AM CDT) NONINV COLON CA DNA+OCC BLD SCRN STL-IMP Negative Negative 10/09/2022 5:37 PM CDT [facility] (CLIA #:[id number]) Comment: NEGATIVE TEST RESULT. A negative Cologuard result indicates a low likelihood that a colorectal cancer (CRC) or advanced adenoma (adenomatous polyps with more advanced pre-malignant features) is present. The chance that a person with a negative Cologuard test has a colorectal cancer is less than 1 in 1500 (negative predictive value >99.9%) or has an advanced adenoma is less than 5.3% (negative predictive value 94.7%). These data are based on a prospective cross-sectional study of 10,000 individuals at average risk for colorectal cancer who were screened with both Cologuard and colonoscopy. (Precious Tapia, N Engl J Med 2014;370(14):2550-0852) The normal value (reference range) for this assay is negative. COLOGUARD RE-SCREENING RECOMMENDATION: Periodic colorectal cancer screening is an important part of preventive healthcare for asymptomatic individuals at average risk for colorectal cancer. Following a negative Cologuard result, the [place] [employer] and U.S. Multi-Society Task Force screening guidelines recommend a Cologuard re-screening interval of 3 years. References: [place] [employer] Guideline for Colorectal Cancer Screening: https://www.cancer.org/cancer/orbez-qoztyg-xuybgd/regckvmue-swkfojsmo-eiumfof/ac s-rec ommendations.html.; Eduardo DK, Christiano CR, Anthony LaughlinK, Colorectal Cancer Screening: Recommendations for Physicians and Patients from the U.S. Multi-Society Task Force on Colorectal Cancer Screening , Am J Gastroenterology 2017; 112:9877-0599. TEST DESCRIPTION: Composite algorithmic analysis of stool DNA-biomarkers with hemoglobin immunoassay. Quantitative values of individual biomarkers are not [...] screened with both Cologuard and colonoscopy. (Precious Tapia, N Engl J Med 2014;370(14):6639-4359.) Cologuard may produce a false negative or false positive result (no colorectal cancer or precancerous polyp present at colonoscopy follow up). A negative Cologuard test result does not guarantee the absence of CRC or advanced adenoma (pre-cancer). The current Cologuard screening interval is every 3 years. ([place] [employer] and U.S. Multi-Society Task Force). Cologuard performance data in a 10,000 patient pivotal study using colonoscopy as the reference method can be accessed at the following location: [email or web address]/results. Additional description of the Cologuard test process, warnings and precautions can be found at [email or web address].[email or web address]. Stool specimen (specimen) (Rectum) 10/01/2022 9:45 AM CDT 10/02/2022 5:39 PM CDT us Sariah Bullard MD URINE Final Result [facility] (CLIA #:[id number]) Sh[place] [address], * (ABNORMAL) XR DXA BONE DENSITY 2 SITES AXIAL [65991.1] (09/12/2022 12:09 PM CDT) Anatomical Region Laterality [...] recommended in 3-5 years. Keely Phipps PA-C [facility] 09/20/2022 Narrative 09/20/2022 4:47 PM CDT For Patients: Results are automatically released to your [employer] account once available, in compliance with federal regulations. This means that you may see your results before your provider has had a chance to review them. Please allow 2-3 business days for your provider to comment on the results. XR DXA Bone Mineral Density (BMD) EXAM LOCATION: [facility] [address] [facility] [address] PATIENT NAME: Shira Philippe DATE OF : 1955 EXAM DATE: 09/12/2022 REQUESTING PROVIDER: Sariah Bullard MD GENDER AT : female HEIGHT: 5' 1.25 (09/12/2022) WEIGHT: 242 lb 9.6 oz (09/12/2022) MENOPAUSAL STATUS: Postmenopausal [...] two scanners are made by the same photogeologist. PROCEDURE: Dual-energy x-ray absorptiometry performed with routine technique. Reporting is completed in the form of a T-score. The T-score represents the standard deviation from peak bone mass based on young healthy adult. A Z-score is used for diagnosis in premenopausal women, and for men under the age of 50. FINDINGS: RESULT LUMBAR SPINE L1 - L3 BMD: 1.314 g/cm2 T-Score: + 1.1 Z-Score: + 1.6 Change from prior: None RESULTS FEMUR Left femoral neck BMD: 0.835 g/cm2 T-Score: - 1.5 Z-Score: - 0.6 Change from prior: None Right femoral neck BMD: 0.868 g/cm2 T-Score: - 1.2 Z-Score: - 0.3 Change from prior: None Left hip BMD: 0.0916 g/cm2 T-Score: - 0.7 Z-Score: - 0.2 Change from prior: None Right hip BMD: 0.916 g/cm2 T-Score: - 0.6 Z-Score: - 0.1 Change from prior: None WHO criteria: Normal: T-score at or above -1 SD Osteopenia: T-score between -1.1 and -2.4 SD Osteoporosis: T-score at or below -2.5 SD FRAX RISK CALCULATION (USED FOR OSTEOPENIA ONLY): 10-year probability of major osteoporotic fracture: 8.1%. 10-year probability of hip fracture: 0.9%. 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 [place] [address], [place] from Last 3 Months or Most Recently Relevant to Health Maintenance Insurance MEDICARE PB ONLY [employer] MEDICARE PART B HB ONLY [id number] [place] [id number] WORKERS COMP Advance Directives * Full Code (Latest Code [...] 12:57 PM 09/18/2005 6:32 PM Care Teams Collect On Delivery Clerk Relationship Specialty Start Date End Date Sariah Bullard MD [address] [place] [address] PCP - General Family Practice 11/03/15 Remberto Medina MD [address] [place] [address] Sleep Medicine 12/04/22 Kyler Quinones MD [address] [facility] [address] [place] [address] Endocrinology 07/14/23 Cody Britton, PharmD [address] [place] [address] Pharmacist Medication Management Pharmacology 08/31/24 09/01/27
[2024-09-15 19:25] VITALS: BP 147/77; PULSE 104; RESP 22; TEMP 36.5; O2SAT 95; BMI 32.2
--- NOTE | 2024-09-15 19:48 | CRLHL7_ITS ---
For Patients: As a result of the Century Cures Act, medical imaging exams and procedure reports are released immediately into your electronic medical record. You may view this report before your referring provider. If you have questions, please contact your health care provider. INDICATION: Cough TECHNIQUE: Chest radiograph 1 view COMPARISON: 05/17/2018 FINDINGS: The sensitivity and specificity of the exam are moderately limited by the patient`s body habitus. Mediastinum: The mediastinum is normal in appearance. The heart silhouette is normal in size and morphology. Lung: Both lungs are unremarkable in appearance with small lung volumes. No sign of pleural effusion seen. No pneumothorax is identified. Bone and Soft tissue: Unremarkable for age. IMPRESSION: 1. No acute cardiopulmonary disease is seen. Dictated by: Randall Wood MD @ 09/15/2024 20:34:59 (Electronically Signed)
--- NOTE | 2024-09-15 19:50 | ED.GENADULT ---
HPI - General Adult General Chief complaint: Cough Stated complaint: bronchitis Time Seen by Provider: 09/15/24 19:39 History of Present Illness HPI narrative: Patient is a 68-year-old white female that has been treated for bronchitis and presumed pneumonia she has had an x-ray in the last week. Was on Augmentin. Continues to have a runny weepy left eye little bit red wonders she has pink eye. She continues to cough. She had an x-ray that apparently demonstrated some infection. She has some chest tightness when she coughs. She has not had persistent chest pain. She presents for evaluation. She is currently out of her Augmentin. Related Data Home Medications ?Medication ?Instructions ?Recorded ?Confirmed dulaglutide 1.5 mg/0.5 mL 1.5 mg subcut .weekly 12/14/21 09/15/24 subcutaneous pen injector (Trulicity) duloxetine 20 mg capsule,delayed 20 mg PO BID 12/14/21 09/15/24 release empagliflozin 25 mg tablet 25 mg PO DAILY 12/14/21 09/15/24 (Jardiance) glipizide 10 mg tablet, extended 20 mg PO BID 12/14/21 09/15/24 release 24 hr magnesium oxide 400 mg PO DAILY 12/14/21 09/15/24 potassium chloride 10 mEq 10 meq PO DAILY 12/14/21 09/15/24 tablet,extended release rosuvastatin 40 mg tablet 40 mg PO DAILY 12/14/21 09/15/24 torsemide 20 mg tablet 20 mg PO DAILY 12/14/21 09/15/24 metformin 1,000 mg tablet 1,000 mg PO QDAY 02/25/23 09/15/24 metoprolol succinate 25 mg 25 mg PO QDAY 02/25/23 09/15/24 tablet,extended release 24 hr (Toprol XL) pantoprazole 40 mg tablet,delayed 40 mg PO QDAY 02/25/23 09/15/24 release (Protonix) Previous Rx's ?Medication ?Instructions ?Recorded azithromycin 500 mg tablet 500 mg PO DAILY 7 days #7 tabs 09/15/24 (Zithromax) Allergies Allergy/AdvReac Type Severity Reaction Status Date / Time raspberry Allergy Intermediate Hives Verified 09/15/24 19:20 Review of Systems Status of ROS: Reports: 6 or more systems reviewed and unremarkable except as noted in History and below PFSH PFSH Medical History Partial small bowel obstruction ?K56.600 - Partial intestinal obstruction, unspecified as to cause (ICD-10) Esophageal reflux ?K21.9 - Gastro-esophageal reflux disease without esophagitis (ICD-10) Unspecified essential hypertension ?I10 - Essential (primary) hypertension (ICD-10) Vitamin D deficiency ?E55.9 - Vitamin D deficiency, unspecified (ICD-10) MONTY (obstructive sleep apnea) ?G47.33 - Obstructive sleep apnea (adult) (pediatric) (ICD-10) Acute diverticulitis ?K57.92 - Diverticulitis of intestine, part unspecified, without perforation or abscess without bleeding (ICD-10) Pulmonary embolism, bilateral ?I26.99 - Other pulmonary embolism without acute cor pulmonale (ICD-10) DVT (deep venous thrombosis) ?I82.409 - Acute embolism and thrombosis of unspecified deep veins of unspecified lower extremity (ICD-10) Duodenal diverticulum ?K57.10 - Diverticulosis of small intestine without perforation or abscess without bleeding (ICD-10) Lumbar radiculopathy ?M54.16 - Radiculopathy, lumbar region (ICD-10) Type 2 diabetes mellitus ?E11.9 - Type 2 diabetes mellitus without complications (ICD-10) Surgical History History of lumbar laminectomy for spinal cord decompression ?Z98.890 - Other specified postprocedural states (ICD-10) History of cholecystectomy ?Z90.49 - Acquired absence of other specified parts of digestive tract (ICD-10) Hx of appendectomy ?Z90.49 - Acquired absence of other specified parts of digestive tract (ICD-10) Social History Smoking Status: Never smoker Do you use any of these nicotine containing products: None How often do you have a drink containing alcohol: never AUDIT-C Alcohol total score: 0 Non-prescribed substance use: denies use service: Yes Exam Const: Vital Signs, click to edit/add: Vital Signs - 24 hr 09/15/24 19:25 Temperature 97.7 F Pulse Rate [Pulse Oximeter] 104 H Respiratory Rate 22 Blood Pressure [Ri ght Upper Arm] 147/77 H Pulse Oximetry 95 Oxygen Delivery Me thod Room Air Course Vital Signs Vital signs: Initial Vital Signs Temperature 97.7 F 09/15/24 19:25 Temperature Source Temporal Artery Scan 09/15/24 19:25 Pulse Rate 104 H 09/15/24 19:25 Respiratory Rate 22 09/15/24 19:25 Blood Pressure 147/77 H 09/15/24 19:25 Blood Pressure Mean 100 09/15/24 19:25 Pulse Oximetry 95 09/15/24 19:25 Oxygen Delivery Method Room Air 09/15/24 19:25 Vital Signs Temperature 97.7 F 09/15/24 19:25 Pulse Rate 104 H 09/15/24 19:25 Respiratory Rate 22 09/15/24 19:25 Blood Pressure 147/77 H 09/15/24 19:25 Pulse Oximetry 95 09/15/24 19:25 Oxygen Delivery Method Room Air 09/15/24 19:25 Temperature 97.7 F 09/15/24 19:25 Pulse Rate 104 H 09/15/24 19:25 Respiratory Rate 22 09/15/24 19:25 Blood Pressure 147/77 H 09/15/24 19:25 Pulse Oximetry 95 09/15/24 19:25 Oxygen Delivery Method Room Air 09/15/24 19:25 Medications Administered Medications: Discontinued Medications Generic Name Dose Route Start Last Admin Trade Name Freq PRN Reason Stop Dose Admin Azithromycin 500 mg 09/15/24 19:54 09/15/24 20:05 Azithromycin 250 Mg Tablet PO 09/15/24 19:55 500 mg ONCE ONE Administration Ceftriaxone Sodium 500 mg 09/15/24 20:00 09/15/24 20:17 Ceftriaxone 500 Mg Vial IM 09/15/24 20:01 500 mg ONCE ONE Administration Lidocaine HCl 1 ml 09/15/24 20:00 09/15/24 20:18 Lidocaine 1% 5 Ml (Pf) 5 Ml Vial IM 1 ml DIRECTED PRN Administration Pain Prednisone 50 mg 09/15/24 19:54 09/15/24 20:05 Prednisone 10 Mg Tablet PO 09/15/24 19:55 50 mg ONCE ONE Administration Medical Decision Making MDM Narrative Medical decision making narrative: [age] year white female with a upper respiratory infection. Will check viral studies, will repeat a chest x-ray, I think the patient would benefit from switching to Zithromax and perhaps an injection of Rocephin. Will also give oral steroid prednisone. Will need steam, symptomatic measures, fluids, Tylenol Advil as needed. Will need follow up with regular doctor. Will see what her lab studies look like and including the chest x-ray and viral studies. Addendum 8:10 p.m. the patient has a positive COVID test. Chest x-ray looks unremarkable by my review but because she has been sick so long I think it be reasonable to cover with antibiotics given her age and other morbidities will give her a dose of Rocephin followed by Zithromax for a week, will give her prednisone as well. I think she has had the illness too long to benefit from from Paxil of id her other COVID treatment. Light activity recheck with regular doctor as needed. The patient reports that her blood sugars have been running elevated in the 300 range likely due to her illness. For that reason we will not give her prednisone to take home which is give her 1 dose now she continue to monitor and then update Dr. Eagle the next couple of days with her reports. Lab Data Labs: Lab Results 09/15/24 Range/Units 19:20 SARS-CoV-2 (PCR) POSITIVE SARS-CoV-2 A (Negative) Influenza Type A (PCR) Negative PCR FLU A (Negative) Influenza Type B (PCR) Negative PCR FLU B (Negative) RSV (PCR) Negative PCR RSV (Negative) Discharge Plan Discharge Clinical Impression: (Ruled Out): Cough Patient Disposition: Home w/ Parent or Adult Condition: Stable Additional Instructions: Light activity, fluids, a Zithromax for 7 days can start that tomorrow, jumped in the shower couple times a day, return if problems or concerns. Your x-ray today looked fairly clear. Will treat you for respiratory infection. Continue monitor blood sugars and update Dr. Velásquez in the next couple of days. Activity Level: Light activity Discharge Diet: Regular Prescriptions: New azithromycin [Zithromax] 500 mg tablet 500 mg PO DAILY 7 Days Qty: 7 0RF No Action pantoprazole [Protonix] 40 mg tablet,delayed release (DR/EC) 40 mg PO QDAY metoprolol succinate [Toprol XL] 25 mg tablet extended release 24 hr 25 mg PO QDAY metformin 1,000 mg tablet 1,000 mg PO QDAY Trulicity 1.5 mg/0.5 mL pen injector 1.5 mg SUBCUT .weekly duloxetine 20 mg capsule,delayed release(DR/EC) 20 mg PO BID Jardiance 25 mg tablet 25 mg PO DAILY glipizide 10 mg tablet extended release 24hr 20 mg PO BID potassium chloride 10 mEq tablet extended release 10 meq PO DAILY rosuvastatin 40 mg tablet 40 mg PO DAILY torsemide 20 mg tablet 20 mg PO DAILY magnesium oxide 400 mg magnesium capsule 400 mg PO DAILY Follow Up/Referrals: Sariah Bullard MD [Primary Care Provider, Family Practice] Stand Alone Forms: [facility] Inst[facility]
[2024-09-15] MEDS: AZITHROMYCIN 250 MG TABLET 500 MG PO (20:05)
[2024-09-15] MEDS: predniSONE 10 MG TABLET 50 MG PO (20:05)
[2024-09-15 20:06] LABS: PCR FLU A Negative PCR FLU A (Negative); PCR FLU B Negative PCR FLU B (Negative); PCR RSV Negative PCR RSV (Negative); SARS PCR* POSITIVE SARS-CoV-2 (Negative)
[2024-09-15] MEDS: cefTRIAXone 500 MG VIAL IM (20:17)
[2024-09-15] MEDS: LIDOCAINE 1% 5 ml (pf) 5 ML VIAL 1 ML IM (20:18)
== END 2024-09-15 20:30 | disposition home or self-care (01) ==
LOC: ED 20:28
PROVIDERS: Emergency Provider Family Medicine; PCP Family Medicine
DX: U07.1 COVID-19 (principal); R07.9 Chest pain, unspecified; Z79.899 Other long term (current) drug therapy
CPT/HCPCS: 71045; 87631; 96372; 99284; A9270; J0696; J7512

== ENCOUNTER 2025-04-11 16:26 | Outpatient (CLI) | payer MEDICARE, OTHER, SELFPAY | END 2025-04-11 16:27 | disposition home or self-care (01) | LOC: AMB 04-13 18:08 | PROVIDERS: PCP Family Medicine; Visit Provider Family Medicine | DX: S49.91XA Unspecified injury of right shoulder and upper arm, initial encounter (principal); W01.0XXA Fall on same level from slipping, tripping and stumbling without subsequent striking against object, initial encounter; Y92.009 Unspecified place in unspecified non-institutional (private) residence as the place of occurrence of the external cause | CPT/HCPCS: A0425; A0427 ==

== ENCOUNTER 2025-04-11 16:48 | Emergency (ER) | payer MEDICARE, OTHER, SELFPAY ==
[2025-04-11] VITALS (14 sets, daily range): BP systolic 157; BP diastolic 89; PULSE 102–111; RESP 18; TEMP 36.1; O2SAT 89–96
--- OUTSIDE RECORDS SUMMARY | 2025-04-11 16:50 | XMS_ITS | Patient Health Record ---
Author Organization [facility] Address [address] [place] [address] Phone [phone] Care Team Providers Care Bruise Trimmer Name Role Phone Sariah Bullard Primary Care Provider Broderick Cleaning MD, [facility] [phone] Allergies Allergen (clinical drug ingredient) Drug/Non Drug Allergy documented on EMR Reaction Allergy Type Onset Date Status RaspberryUnknownDrug AllergyActive Reason For Referral No Information Medications Medication SIG (Take, Route, Frequency, Duration) Notes Start Date End Date Diagnosis (ICD Code) Status Repatha ActivemetFORMIN HClActiveCarisoprodolActiveglipiZIDEActiveMagnesium Citrate ActiveCalcium + DActiveJardianceActiveVitafusion Multi WomensActivePantoprazole SodiumActiveAlbuterolActiveTorsemideActiveReclastActiveDULoxetine HClActive Vitamin DActivePotassiumActiveTrulicityActiveMetoprolol Succinate ERActive Social History Tobacco Use: Social History Observation Description Date Details (start date - stop date) Never Smoker NA - NA Sex Observation Social History Observation Description Sex Observation Female Social History Alcohol Use:Social InfoQuestionAnswerNotesRecreational drugsRecreational Drug Use:NoDrug/Alcohol:Social InfoQuestionAnswerNotesAUDIT-C (Standard)Did you have a drink containing alcohol in the past year?VpOwnwpt5BuftrspybbjlitZtnvntpm Tobacco Use:Social InfoQuestionAnswerNotesTobacco Control (Standard)Tobacco use: Nonsmoker Problems Problem Type SNOMED Code ICD Code Dates Problem Status W/U Sta tus Risk Notes Problem Sensory disorder of smell and/or taste (3055817041545) Disturbance of smell and taste (R43.9) Added On:12/14/2024 Active confirmed ProblemChronic sinusitis (18708403)Chronic sinusitis, unspecified location (J32.9) Added On:11/30/2024 ActiveconfirmedProblemDysfunction of both eustachian tubes (8710852832625110) Dysfunction of both eustachian tubes (H69.93) Added On:11/30/2024 Activeconfirmed Vital Signs Vital Sign Value Notes Appt Date Height-cm 153.67 cm 12/14/2024Weight-kg104.33 kg12/14/20249947Vfdwnq94.5 in12/14/20246909Vnyeoe128 lbs 12/14/2024BMI44.17 kg/m212/14/2024 Encounters Date Time Type Facility Location Provider Diagnosis 11:15 AM New Patient Visit Mod. Complex (94577) [facility] [address] [place] [address] MELITON GTZ Chronic sinusitis, unspecified location J32.9 and Dysfunction of both eustachian tubes H69.93 11:15 AM Est. Patient Visit Moderate (53904) [facility] [address] [facility] [address] [place] [address] MELITON GTZ Disturbance of smell and taste R43.9 ; Nasal dryness J34.89 and Dysfunction of both eustachian tubes H69.93 Assessments Encounter Date Diagnosis (ICD Code) Assessment Notes Treat ment Notes Section Notes 11/30/2024 Chronic sinusitis, unspecified l ocation (ICD-10 - J32.9) Findings, assessment and management options were reviewed. Differential diagnosis/etiology reviewed. Dx/etiology uncertain. Chronic sinusitis sxs present for 3 months, and developed after active Covid infection. I reviewed the recent CT scan report, suggestive of ongoing sinusitis. There has been no resolution of her sxs while recently on Cefdinir nor cephalexin. Treatment strategies outlined. Suggested Augmentin 875mg twice daily for 14 days along with Medrol Dosepack. Flonase 1 puff each nostril once daily. Nasal saline lavage. Risk of meds reviewed, including elevation of glucose levels while on the oral steroid. If no improvement, advised to followup in 2-4 weeks for recheck, which may include nasal endoscopy and perhaps culture, if indicated. Patient states understanding of our discussion and agrees with plan as outlined. 11/30/2024Dysfunction of both eustachian tubes (ICD-10 - H69.93)Findings, assessment and management options were reviewed. The popping, plugging and crackling in both ears likely is secondary to ongoing ETD associated with her sinusitis. Treatment strategies outlined. Followup for re-evaluation if any concerns persist or worsen.12/14/2024Disturbance of smell and taste (ICD-10 - R43.9)Findings, assessment and management options were reviewed. Hx and exam today suggests that the underlying infection has resolved. Smell and tasted disturbance initially started with active Covid 19 infection. Treatment strategies outlined. Olfactory retraining kit and exercises suggested. Followup for re-evaluation if any concerns persist or worsen.12/14/2024Nasal dryness (ICD-10 - J34.89)Findings, assessment and management options were reviewed. Treatment strategies outlined. Advised nasal saline moisturizing spray and lubricating gel. Handout was provided and discussed. Followup forre-evaluation if any concerns persist or worsen.12/14/2024Dysfunction of both eustachian tubes (ICD-10 - H69.93)Findings, assessment and management options were reviewed. The popping, plugging and crackling in both ears likely is secondary to ongoing ETD associated with her recent sinusitis. Treatment strategies outlined. Nasal steroid spray, such as flonase 1 puff each nostril once daily is an option. Followup for re-evaluation if any concerns persist or worsen.11/30/2024OtherBody mass index material was eatxsgfrg47/26/2025OtherBody mass index material was published Plan Of Treatment No Information Insurance Providers Payer Name Payer Address Payer Phone Subscriber Number Group Number Insured Name Patient Relationship to Insured Coverage Start Date Coverage End Date MEDICARE [address] [place], [place] [phone] [id number] Philippe - patient is the [id number] [address] [address] [place] [phone], LarrySpouse - patient is the spouse of the insured Medical (General) History Surgical History Surgery Date(Month/Year) back surgery x 2 2006 bowel resection 2007 Hospitalization History Reason Date(Month/Year) see above
--- OUTSIDE RECORDS SUMMARY | 2025-04-11 16:50 | XMS_ITS | Clinical Summary ---
Author Organization [employer] [facility] Address [address] [place] [address] Care Team Providers Care Bag Liner Name Role Phone Sariah Bullard MD Primary Care Provide r Remberto Medina MD Unavailable Kyler Quinones MD Unavailable [phone] Cody Britton PharmD Unavailable [phone] Allergies Active AllergyReactionsCriticalityNoted VgqdPhxmcarzEtmkQvcrGyk26/19/2024 ZezkiawbohOncphziyp27/05/2007MetforminNausea And Emhfvnqt20/25/2023Raspberry XfadtVovx13/07/2023Raspberry (Rubus Idaeus)Hives06/01/2015TitaniumOther - Describe In Comment FnnupNare02/13/2016 [place] ill with titanium screws in back- removed 2005- YprwicolmyeHwednwsgc20/03/2018 Medications MedicationSigDispense QuantityRefillsLast FilledStart DateEnd DateStatus lpzaliwkujcds-jbtpihx-pmpn-minerals tab tablet Take 1 tablet by mouth once daily.Active acetaminophen (TYLENOL EXTRA STRGTH) 500 mg tablet Take 2 tablets by mouth. Max acetaminophen dose: 4000mg in 24 hrs. Active medication order composer Indications:Sleep apnea, unspecified typeCPAP tubing and reservoir 1 Each Active transmitter for continuous blood glucose monitor (CGM) Indications:Type 2 diabetes mellitus without complication, without long-term current use of insulin (HC)To be used to read blood sugars, follow gas engine operator generators directions. 1 Each 3Active CPAP Indications:Obstructive sleep apneaCPAP machine for home use at pressure 10 cmw epr 3, nasal mask x1/3month with nasal pillows x 2/mo 1 Each 1114Active magnesium oxide 400 mg magnesium capsule Indications:HypomagnesemiaTake 400 mg by mouth once daily. At bedtime 90 Capsule ctive metoprolol succinate (TOPROL XL) 100 mg Sustained-Release tablet Indications:Primary hypertensionTake 1 Tablet (100 mg) by mouth once daily. 90 Tablet 5Active torsemide (DEMADEX) 20 mg tablet Indications:Essential hypertension with goal blood pressure less than 140/90Take 1 Tablet (20 mg) by mouth once daily in the morning. 90 Tablet 5Active pantoprazole (Protonix) 40 mg delayed-release tablet Indications:Gastroesophageal reflux disease, unspecified whether esophagitis presentTake 1 Tablet (40 mg) by mouth once daily before a meal. 90 Tablet tive glipiZIDE extended-release (GLUCOTROL XL) 10 mg Extended-Release tablet Indications:Type 2 diabetes mellitus without complication, without long-term current use of insulin (HC)Take 1 Tablet (10 mg) by mouth two times daily with meals. 180 Tablet 5Active DULoxetine (CYMBALTA) 20 mg Delayed-release capsule Indications:Lumbar painTake 1 Capsule (20 mg) by mouth two times daily. 180 Capsule 5Active empagliflozin (Jardiance) 25 mg tablet Indications:Type 2 diabetes mellitus without complication, without long-term current use of insulin (HC)Take 1 Tablet (25 mg) by mouth once daily. 90 Tablet 5Active calcium carbonate/vitamin D2 (CALCIUM 600 + D ORAL) Take by mouth.Active zoledronic acid/mannitol-water (RECLAST IV) Inject intravenous.Active inhalational spacing device Indications:Productive coughFor home use. 1 Each 5Active ipratropium-albuteroL (20-100 mcg each actuation) mist inhaler Indications:Productive coughInhale 1 Puff by mouth every 6 hours. For shortness of breath 4 g 5Active codeine-guaiFENesin 10-100 mg/5 mL liquid Indications:Productive coughTake 5 mL by mouth at bedtime if needed for Cough. 60 mL 5Active guaiFENesin 400 mg tablet Indications:Productive coughTake 1 tablet by mouth 3 times daily for mucus 15 Tablet 5Active metFORMIN 500 mg Extended-Release tablet Indications:Type 2 diabetes mellitus without complication, without long-term current use of insulin (HC)Take 1 Tablet (500 mg) by mouth two times daily with meals. 270 Tablet 5Active evolocumab (Repatha SureClick) 140 mg/mL subcutaneous pen injector Indications:Mixed hyperlipidemiaInject 1 mL (140 mg) subcutaneous every 2 weeks. Inject into abdomen, thigh, or upper arm; rotate injection sites. 6 mL 5Active LORazepam (ATIVAN) 0.5 mg tab Indications:Anxiety due to invasive procedureTake 1 Tablet (0.5 mg) by mouth one time for 1 dose. [address] scan 1 Tablet 5Active dulaglutide (Trulicity) 4.5 mg/0.5 mL subcutaneous pen Indications:Type 2 diabetes mellitus without complication, without long-term current use of insulin (HC)Inject 4.5 mg subcutaneous once weekly. 6.5 mL 5Active FreeStyle Winston 2 Sensor Indications:Type 2 diabetes mellitus without complication, without long-term current use of insulin (HC)To be used to read blood sugars per gas engine operator generators's directions. Change each sensor every 14 days. Dispense 3 month supply if able 6 Each 5Active carisoprodoL (SOMA) 350 mg tablet Indications:Acute midline low back pain without sciaticaTAKE 1 TABLET TWICE A DAY IF NEEDED FOR MUSCLE SPASM 30 Tablet 5Active celecoxib 200 mg capsule Indications:Lumbar radiculopathyTake 1 Capsule (200 mg) by mouth two times daily with meals. 120 Capsule 5Active potassium chloride (MICRO-K) 10 mEq Controlled-release capsule Indications:HypokalemiaTake 1 Capsule (10 mEq) by mouth once daily with a meal. 60 Capsule 5Active potassium chloride (MICRO-K) 10 mEq Controlled-release capsule Indications:HypokalemiaTake 1 Capsule (10 mEq) by mouth once daily with a meal. 90 Capsule Discontinued(*Availability/Formulary change/Cost of medication) celecoxib (CELEBREX) 200 mg capsule Indications:Lumbar radiculopathyTake 1 Capsule (200 mg) by mouth two times daily with meals. 180 Capsule Discontinued(*Availability/Formulary change/Cost of medication) predniSONE (DELTASONE) 10 mg tablet Indications:Lumbar radiculopathyTAKE 3 TABLETS (30 MG) BY MOUTH ONCE DAILY WITH A MEAL FOR 2 DAYS, THEN 2 TABLETS (20 MG) ONCE DAILY WITH A MEAL FOR 2 DAYS, THEN 1 TABLET (10 MG) ONCE DAILY WITH A MEAL FOR 2 DAYS. 12 Tablet Expired Active Problems ProblemNoted DateDiagnosed DateOther osteoporosis without current pathological hqsovlzt57/25/2024HTN (hypertension)10/14/2023Type 2 diabetes mellitus with diabetic cataract, without long-term current use of alvqhkl1306/27/2023Sciatica 03/13/2023S/P small bowel sdbaqskhe00/23/2023epression, yxjdjkshy40/25/2023 Uncontrolled type 2 diabetes mellitus with ypwnclqzzuzfp66/13/2022Lumbosacral radiculopathy at S1006/30/2020Greater trochanteric bursitis of right hip 1Duodenal vgljnzvtbjfo50/29/2019Type 2 diabetes mellitus without complication, without long-term current use of hktajsb0412/30/2017Acute deep vein thrombosis (DVT) of left lower vhlibsysq86/13/2018Low magnesium level07/22/2017 Anticoagulation monitoring, INR range 2-303Pulmonary embolism, bilateral 07/01/2017Acute diverticulitis of dspwwmibc11/13/2016Family history of early CAD 12/05/2015OSA 09/27/2013 AHI-5534310/14/2013Impaired fasting ulwhkhb2001/28/2012ack pain, frpoizvs67/05/7570Ppkmvaura67/02/2011Morbid vjkhlri6708/31/2010Screen for colon mymrca8608/09/2009 Overview (08/09/2009): Colonoscopy 07/2009 internal hemorrhoids repeat in 10 years Vitamin D huzkxzhmpt98/11/2009Essential ltqbylazzuon08/23/2009Hyperlipidemia 02/10/2009Chronic GERD02/10/2009Unspecified essential asczybdaopyt59/01/2006 Other and unspecified uumkoyyicahpoh25/01/2006Esophageal geiosy3609/19/2005 Overview (05/27/2018): EGD 07/2015 normal EGD 04/2017 normal Backache, wfvluagtuul18/01/2006 Resolved Problems ProblemNoted DateDiagnosed DateResolved DateAnticoagulation monitoring, INR range 2-3 [Z79.01]Chest pain, sxmfpxsmxce31/01/2006 01/21/2017 Overview (09/19/2005): neg angio in 2004 Encounters DateTypeDepartmentCare EsrkCyagrahqdnb70/28/2025Refill [facility] [address] [place] [address] Sariah Bullard MD Refill Request (Potassium Chloride)03/16/2025Refill [facility] [address] [place] [address] Sariah Bullard MD Refill Request (Celecoxib)03/09/2025Refill [facility] [address] [place] [address] Sariah Bullard MD Refill Request (Prednisone)02/27/2025 1:30 PM CSTAncillary Procedure [facility] [address] [address] 02/27/2025 1:00 PM CSTAncillary Procedure [address] [address] 02/24/2025Refill [facility] [address] [place] [address] Sariah Bullard MD Refill Request (Carisoprodol)02/21/2025Transcribe [facility] Customer Experience [facility] [phone] Khari Priest PA 02/15/2025Refill [facility] [address] [place] [address] Sariah Bullard MD Refill Request (Freestyle Winston 2 Sensor)02/01/2025Telephone [facility] [address] [place] [address] Chad Cormier MD Screening ([facility] SUPPORT)01/18/2025 10:30 AM CDTPhone Office Visit [facility] [address] [address] [facility] [address] [place], [place] [id number] Annette Jackson, PhD, LP Neuropsychological Assessmentfrom Last 3 Months Immunizations ImmunizationAdministration DatesNext DueAMB Influenza, IIV4 PF (=>6 mos Flulaval,Fluzone Fluarix)(Flu Clinic Only)02/09/2019COVID-19 vaccine (Pfizer- BioNTech 30mcg/0.3mL) 12YO+ BIVALENT PF, MDV3COVID-19 vaccine (Pfizer- BioNTech 30mcg/0.3mL) PF, MDV05/03/2021,08/08/2020,07/18/2020Hepatitis B (Adult) 04/03/1992,11/01/1991,10/04/1991Influenza Virus, Qhmueexreqw75/06/2023, 01/21/2020,02/02/2009,02/13/2007,03/27/2006Influenza, IIV3 (Age >=3 years) 12/18/2008,02/13/2007,03/27/2006Influenza, DXZ010/09/2022,01/21/2020,01/27/2018, 01/16/2017,01/20/2016,01/03/2015,02/13/2007,03/27/2006Influenza, Inactivated AIIV4 (Age 65+ Years) Preserv Free01/24/2023,01/21/2020Pneumococcal Conj 20- valent (Prevnar 20)3Pneumococcal Poly,23-Valent (Pneumovax)06/24/2016 Pneumococcal conj 13-Valent (Prevnar 13)02/16/2016RSV, Bivalent Vaccine Reconstituted (Abrysvo 120MCG/0.5mL)01/24/2023Tdap07/31/2011,11/02/1996Zoster (Shingrix-RZV, recombinant)11/05/2019,06/24/2019 Family History Medical HistoryRelationNameCommentsHeart DiseaseFatherDiabetesMaternal GrandfatherHeart DiseaseMotherOtherMotheremphysemaAnesthesia ProblemNo Family HistoryBlood DiseaseNo Family HistoryCancer-breastNo Family HistoryCancer-colon No Family HistoryRelationNameStatusCommentsFatherDeceased (Age 60s )MIMaternal GrandfatherMotherAlive Social History Tobacco UseTypesPacks/DayYears UsedDateSmoking Tobacco: NeverSmokeless Tobacco: Never Tobacco Cessation:Counseling Given: Yes Alcohol UseStandard Drinks/WeekCommentsNo0 (1 standard drink = 0.6 oz pure alcohol)PHQ-2AnswerDate RecordedPHQ-2 TOTAL CFQEK799Social Connections AnswerDate RecordedDo you often feel lonely or isolated from those around you?0 09/10/2024lcohol UseAnswerDate RecordedHow often do you have a drink containing alcohol?How many drinks containing alcohol do you have on a typical day when you are drinking?Frequency of Binge DrinkingNot on file 12/30/2024Financial Resource StrainAnswerDate RecordedDifficulty of Paying Living Ywqzoslh729/23/2025Difficulty of Paying Living ExpensesNot on file 09/10/2024Food InsecurityAnswerDate RecordedDo you worry your food will run out before you are able to buy more?Transportation NeedsAnswerDate RecordedDoes lack of transportation keep you from medical appointments?1 09/10/2024Does lack of transportation keep you from work, meetings or getting things that you need?Housing StabilityAnswerDate RecordedWhat is your housing situation today?UtilitiesAnswerDate RecordedDo you have trouble paying for utilities (for example, heat, electricity, water, phone)?1 09/10/2024CommentsNoSex and Gender InformationValueDate RecordedSex Assigned at BirthNot on fileLegal FkiSdpfxf27/14/2013 6:19 AM CSTGender Identity Not on fileSexual OrientationNot on file Last Filed Vital Signs Vital SignReadingTime TakenCommentsBlood Epmdzneb983/7809 7:32 AM CDT Flrsk003012/30/2024 7:32 AM JVBLqevxhwiyvl22.4 ??C (99.3 ??F)09/10/2024 7:35 PM CDTRespiratory Dqip339109/10/2024 7:35 PM CDTOxygen Kftfwtgyvv35%12/30/2024 7:32 AM CDTInhaled Oxygen Concentration--Cipwrs210.2 kg (227 lb 9.6 oz)12/30/2024 7:32 AM WVBCsdtsf669.9 cm (5' 1)12/30/2024 7:32 AM CDTBody Mass Index43 12/30/2024 7:32 AM CDT Plan of Treatment DateTypeDepartmentCare Team (Latest Contact Info)Nouyclknxnf60/08/2026 10:00 AM CSTOffice Visit [facility] [address] [place] [address] Sariah Bullard MD [address] [place] [address] Health MaintenanceDue DateLast DoneCommentsMammogram for age 45-75009/24/1998 Tetanus iajoexn34, 07/31/2011, 11/02/1996Medicare Wellness for age 65+/, 09/12/2022OVID-19 vaccine series ( season)/, 05/03/2021, 08/08/2020, Additional history exists Influenza Vaccine (#1)/09/2022, 01/24/2023, 01/24/2023, Additional history existsFecal testing sDNA-FIT (Cologuard) for age 45-[address]/01/2025 3BMI (ht and wt on same day) for age 18+/02/2025, 12/23/2023, 10/14/2023, Additional history existsDepression screening for age 12+/02/2025, 10/14/2023, 09/13/2022, Additional history existsLipids for age 45-, 08/05/2023, 08/05/2023, Additional history existsHepatitis B series for 19+Iidowmfyd50/14/1992, 11/01/1991, 10/04/1991 Hepatitis C screening for age 18-62Iedimtosd71/24/2019Zoster (shingles) series for age 50+Tyqngtesm85/17/2020, 06/24/2019DEXA/DXA scan for age 65+Completed 09/12/2022neumococcal series for age 50+Izqkrdjph08/25/2023, 06/24/2016, 02/16/2016RSV vaccine for adults or lkjtjsofuThafnfkmm67/06/2023 Goals GoalPatient Goal TypeAssociated ProblemsRecent ProgressPatient-Stated?Author BLOOD PRESSURE - Maintains BP less than 140/90 Blood PressureNoValentina Bates LPN Medical Devices ImplantedTypeAreaManufacturerDevice IdentifierShelf Expiration DateModel / Serial / LotScrew Polyaxial 6.5x50mm - [id number] Implanted:Qty: 1 on 09/18/2005 at [facility] [id number] / / Screw Polyaxial 6.5x45mm - [id number] Implanted:Qty: 2 on 09/18/2005 at [facility] [id number]# / / Monica Carie [id number] - [id number] Implanted:Qty: 4 on 09/18/2005 at [facility] [id number] / / [employer]ource Canc Crushed 30cc Implanted:Qty: 1 on 09/18/2005 at [facility] Explanted:at [facility] (Quantity not on file)[employer] 11/13/[id number] / [id number] / Description:CANC CRUSHED 30CCScrew Polyaxial 6.5x40mm - [id number] Implanted:Qty: 1 on 09/18/2005 at [facility] [id number]# / / Mark Carie Rad 40mm 108mm Radius - [id number] Implanted:Qty: 2 on 09/18/2005 at [facility] [id number]# / / [id number] Canclls Crushed 30cc [[id number]] Implanted:Qty: 1 on 08/26/2006 at [facility] Explanted:at [facility] (Quantity not on file)[employer] 01/15/[id number] / [id number] / Procedures Procedure NamePriorityDate/TimeAssociated DiagnosisCommentsMR SHOULDER LEFT WO Qldwfzf3102/27/2025 1:14 PM SALES PRODUCT MANAGER Left shoulder pain MR SPINE CERVICAL MLHsjgzhw89/09/2025 1:05 PM SALES PRODUCT MANAGER Neck pain LIPID PANEL W REFLEX MEASURED QIVRymlzyx52/10/2025 1:41 PM CDT Mixed hyperlipidemia SDNA-FIT EXTERNAL (COLOGUARD)Tkxwvsh7910/01/2022 9:45 AM CDT Screening for colon cancer XR DXA BONE DENSITY 2 SITES DJYRBMzykigh71/25/2023 12:09 PM CDT Postmenopausal ANTI TBLSfowzif04/24/2019 9:56 AM SALES PRODUCT MANAGER Encounter for hepatitis C screening test for low risk patient from Last 3 Months or Most Recently Relevant to Health Maintenance Results * MR SHOULDER LEFT WO (02/27/2025 1:14 PM SALES PRODUCT MANAGER)Anatomical RegionLaterality ModalitySHOULDER LMagnetic ResonanceSpecimen (Source)Anatomical Location / LateralityCollection Method / VolumeCollection TimeReceived Time02/28/2025 1:24 PM SALES PRODUCT MANAGER Impressions 02/28/2025 1:24 PM SALES PRODUCT MANAGER 1. Full-thickness tear of the entire supraspinatus tendon with medial retraction and moderate tendinopathy. 2. High-grade partial-thickness tear of the infraspinatus tendon with moderate tendinopathy, moderate muscle atrophy and mild muscle edema. 3. Low-grade partial-thickness intrasubstance tear of the subscapularis tendon with moderate to advanced tendinopathy. 4. Moderate long head of biceps tendinopathy. 5. Mild atrophy of the deltoid musculature. 6. High-grade chondromalacia at the superior aspect of the humeral head. 7. Glenohumeral joint effusion and fluid in the subacromial subdeltoid bursa. 8. Mild lateral and anterior downsloping of the acromion. Small subacromial enthesophyte. 9. Moderate arthropathy of the acromioclavicular joint. Dictated by Onofre Tracey MD @ 02/28/2025 1:24:47 PM (Electronically Signed) Narrative 02/28/2025 1:24 PM SALES PRODUCT MANAGER For Patients: As a result of the Cures Act, medical imaging exams and procedure reports are released immediately into your electronic medical record. You may view this report before your referring provider. If you have questions, please contact your health care provider. EXAM: MRI OF THE LEFT SHOULDER WITHOUT CONTRAST CLINICAL INDICATION: Ongoing shoulder pain. Assess for rotator cuff tear. COMPARISON PLAIN FILMS: None available at time of interpretation. COMPARISON CROSS-SECTIONAL IMAGING STUDIES: None available at time of interpretation. TECHNICAL: Axial, sagittal oblique and coronal oblique T1, PD, PD FS and T2-weighted images. Shoulder surface coil. FINDINGS: ROTATOR CUFF TENDONS AND MUSCLES AND DELTOID: Supraspinatus: Oblique full-thickness tear of the supraspinatus tendon with small amount of remnanttendon at the greater tuberosity and irregularity at the tendon margin. Medial retraction of the supraspinatus tendon moderate tendinopathy. No muscle atrophy. No muscle edema. Infraspinatus: Irregular high-grade thinning of the distal infraspinatus tendon. Additional partial-thickness articular surface and intrasubstance delaminating tear of the infraspinatus tendon extending to the myotendinous junction. Moderate tendinopathy. Moderate muscle atrophy. Mild muscle edema. Subscapularis: Low-grade partial-thickness intrasubstance tear. Moderate to advanced tendinopathy. No muscle atrophy or edema. Teres Minor: No tendinosis, tendon tearing, muscle atrophy or muscle edema. Deltoid: Mild muscle atrophy. No muscle edema. BURSA: Subacromial-subdeltoid: Fluid in the subacromial subdeltoid bursa. BICEPS TENDON, LONG HEAD: Moderate tendinopathy. No tendon tear or medial subluxation. CORACOACROMIAL ARCH: Acromial Morphology: Type 2 acromial morphology. Mild lateral and anterior downsloping of the acromion. Small subacromial enthesophyte. No os acromiale. Acromiohumeral Interval: Normal. ?? Coracohumeral Interval: Normal. ?? ACROMIOCLAVICULAR JOINT REGION: AC Joint: Moderate arthropathy with inferior marginal osteophytes. Ligaments: The coracoclavicular ligaments are intact. GLENOHUMERAL JOINT: Joint space: Small joint effusion. No loose body. Humeral Head Articular Cartilage: Moderate to high-grade chondral thinning superiorly. Glenoid Articular Cartilage: No focal cartilage defect or underlying subchondral marrow changes. Labrum: No labral tear or paralabral cyst. Alignment: Maintained. Capsule: No capsular edema or abnormal capsular thickening. OSSEOUS STRUCTURES: Subcortical cystic change in the lesser tuberosity. No fracture or contusion. No marrow infiltrative process. OTHER FINDINGS: There is no abnormality within the suprascapular or spinoglenoid notches nor within the quadrilateral space. ??No axillary adenopathy or mass. Procedure Note Onofre Tracey MD - 02/28/2025 For Patients: As a result of the 21st Century Cures Act, medical imagingexams and procedure reports are released immediately into your electronicmedical record. You may view this report before your referring provider.If you have questions, please contact your health care provider. EXAM: MRI OF THE LEFT SHOULDER WITHOUT CONTRAST CLINICAL INDICATION: Ongoing shoulder pain. Assess for rotator cuff tear. COMPARISON PLAIN FILMS: None available at time of interpretation. COMPARISON CROSS-SECTIONAL IMAGING STUDIES: None available at time of interpretation. TECHNICAL: Axial, sagittal oblique and coronal oblique T1, PD, PD FS and T2-weightedimages. Shoulder surface coil. FINDINGS: ROTATOR CUFF TENDONS AND MUSCLES AND DELTOID: Supraspinatus: Oblique full-thickness tear of the supraspinatus tendonwith small amount of remnant tendon at the greater tuberosity andirregularity at the tendon margin. Medial retraction of the supraspinatustendon moderate tendinopathy. No muscle atrophy. No muscle edema. Infraspinatus: Irregular high-grade thinning of the distal infraspinatustendon. Additional partial-thickness articular surface and intrasubstancedelaminating tear of the infraspinatus tendon extending to themyotendinous junction. Moderate tendinopathy. Moderate muscle atrophy.Mild muscle edema. Subscapularis: Low-grade partial-thickness intrasubstance tear. Moderateto advanced tendinopathy. No muscle atrophy or edema. Teres Minor: No tendinosis, tendon tearing, muscle atrophy or muscleedema. Deltoid: Mild muscle atrophy. No muscle edema. BURSA: Subacromial-subdeltoid: Fluid in the subacromial subdeltoid bursa. BICEPS TENDON, LONG HEAD: Moderate tendinopathy. No tendon tear or medial subluxation. CORACOACROMIAL ARCH: Acromial Morphology: Type 2 acromial morphology. Mild lateral and anterior downsloping of the acromion. Small subacromial enthesophyte. No osacromiale. Acromiohumeral Interval: Normal. Coracohumeral Interval: Normal. ACROMIOCLAVICULAR JOINT REGION: AC Joint: Moderate arthropathy with inferior marginal osteophytes. Ligaments: The coracoclavicular ligaments are intact. GLENOHUMERAL JOINT: Joint space: Small joint effusion. No loose body. Humeral Head Articular Cartilage: Moderate to high-grade chondral thinning superiorly. Glenoid Articular Cartilage: No focal cartilage defect or underlyingsubchondral marrow changes. Labrum: No labral tear or paralabral cyst. Alignment: Maintained. Capsule: No capsular edema or abnormal capsular thickening. OSSEOUS STRUCTURES: Subcortical cystic change in the lesser tuberosity. No fracture orcontusion. No marrow infiltrative process. OTHER FINDINGS: There is no abnormality within the suprascapular or spinoglenoid notchesnor within the quadrilateral space. No axillary adenopathy or mass. IMPRESSION: 1. Full-thickness tear of the entire supraspinatus tendon with medialretraction and moderate tendinopathy. 2. High-grade partial-thickness tear of the infraspinatus tendon withmoderate tendinopathy, moderate muscle atrophy and mild muscle edema. 3. Low-grade partial-thickness intrasubstance tear of the subscapularistendon with moderate to advanced tendinopathy. 4. Moderate long head of biceps tendinopathy. 5. Mild atrophy of the deltoid musculature. 6. High-grade chondromalacia at the superior aspect of the humeral head. 7. Glenohumeral joint effusion and fluid in the subacromial subdeltoidbursa. 8. Mild lateral and anterior downsloping of the acromion. Smallsubacromial enthesophyte. 9. Moderate arthropathy of the acromioclavicular joint. Dictated by Onofre Tracey MD @ 02/28/2025 1:24:47 PM (Electronically Signed) Authorizing ProviderResult TypeResult StatusKyle Claus Exsted PAMRFinal Result * MR Spine Cervical wo Contrast * (02/27/2025 1:05 PM SALES PRODUCT MANAGER)Anatomical Region LateralityModalitySpine, CERVICAL SPINEMagnetic ResonanceSpecimen (Source) Anatomical Location / LateralityCollection Method / VolumeCollection Time Received Time02/28/2025 9:11 AM SALES PRODUCT MANAGER Narrative 02/28/2025 9:11 AM SALES PRODUCT MANAGER For Patients: As a result of the Cures Act, medical imaging exams and procedure reports are released immediately into your electronic medical record. You may view this report before your referring provider. If you have questions, please contact your health care provider. Indication: Neck pain Technique: Multiplanar, multisequence MRI of the cervical spine obtained without contrast. Comparison: None. Findings: Straightening of the normal cervical lordosis. Grade 1 anterolisthesis at C3-4 and C5-6, grade 1 retrolisthesis at C6-7, grade 1 anterolisthesis at C7-T1 and T1-2. No acute osseous abnormality or suspicious bone marrow lesion. Low-grade bony edema at the right C5-6 facet joint. No concerning findings in the paravertebral soft tissues. Incidental retropharyngeal course of the cervical carotid arteries. Suspect tiny chronic lacunar infarct at the included right cerebellar hemisphere. The spinal cord appears normal in caliber and signal. C2-C3: Left facet arthropathy. No right, mild left neural foraminal narrowing. No spinal canal stenosis. C3-C4: Shallow central protrusion, mild uncovertebral and facet arthropathy. Mild bilateral neural foraminal narrowing. No spinal canal stenosis. C4-C5: No neural foraminal or spinal canal stenosis. C5-C6: Posterior disc-osteophyte complex, uncovertebral and right facet arthropathy. Moderate bilateral neural foraminal stenosis. Mild spinal canal narrowing. C6-C7: Posterior disc-osteophyte complex, uncovertebral arthropathy. Mild- moderate bilateral neuralforaminal narrowing. Mild-moderate spinal canal narrowing. C7-T1: No neural foraminal or spinal canal stenosis. Impression: 1. Cervical spondylosis with low-grade spondylolisthesis as detailed. 2. At C3-C4, mild bilateral neural foraminal narrowing. 3. At C5-C6, moderate bilateral neural foraminal stenosis and mild spinal canal narrowing, with low-grade edema at the right facet joint compatible with inflammatory/stress reaction. 4. At C6-C7, mild-moderate bilateral neural foraminal narrowing and mild- moderate spinal canal narrowing. Dictated by Gloria Austin MD @ 02/28/2025 9:11:49 AM (Electronically Signed) Procedure Note Gloria Austin, - 02/28/2025 For Patients: As a result of the Cures Act, medical imagingexams and procedure reports are released immediately into your electronicmedical record. You may view this report before your referring provider.If you have questions, please contact your health care provider. Indication: Neck pain Technique: Multiplanar, multisequence MRI of the cervical spine obtained withoutcontrast. Comparison: None. Findings: Straightening of the normal cervical lordosis. Grade 1 anterolisthesis atC3-4 and C5-6, grade 1 retrolisthesis at C6-7, grade 1 anterolisthesis atC7-T1 and T1-2. No acute osseous abnormality or suspicious bone marrowlesion. Low-grade bony edema at the right C5-6 facet joint. No concerningfindings in the paravertebral soft tissues. Incidental retropharyngealcourse of the cervical carotid arteries. Suspect tiny chronic lacunarinfarct at the included right cerebellar hemisphere. The spinal cordappears normal in caliber and signal. C2-C3: Left facet arthropathy. No right, mild left neural foraminalnarrowing. No spinal canal stenosis. C3-C4: Shallow central protrusion, mild uncovertebral and facetarthropathy. Mild bilateral neural foraminal narrowing. No spinal canalstenosis. C4-C5: No neural foraminal or spinal canal stenosis. C5-C6: Posterior disc-osteophyte complex, uncovertebral and right facet arthropathy. Moderate bilateral neural foraminal stenosis. Mild spinalcanal narrowing. C6-C7: Posterior disc-osteophyte complex, uncovertebral arthropathy.Mild- moderate bilateral neural foraminal narrowing. Mild-moderate spinalcanal narrowing. C7-T1: No neural foraminal or spinal canal stenosis. Impression: 1. Cervical spondylosis with low-grade spondylolisthesis as detailed. 2. At C3-C4, mild bilateral neural foraminal narrowing. 3. At C5-C6, moderate bilateral neural foraminal stenosis and mild spinalcanal narrowing, with low-grade edema at the right facet joint compatiblewith inflammatory/stress reaction. 4. At C6-C7, mild-moderate bilateral neural foraminal narrowing andmild-moderate spinal canal narrowing. Dictated by Gloria Austin MD @ 02/28/2025 9:11:49 AM (Electronically Signed) Authorizing ProviderResult TypeResult StatusKyle Claus Exsted PAMRFinal Result * (ABNORMAL) LIPID PANEL W REFLEX MEASURED LDL (09/28/2024 1:41 PM CDT)Component ValueRef RangeTest MethodAnalysis TimePerformed AtPathologist Signature CHOLESTEROL, ZQJPI848(H)<200 mg/dLQuest Next Caller DaleHDL TAXRHNRIDAL66 (L)> OR = 50 mg/dLQuest Next Caller MyabKRAEWFFWXNLJM997(H)<150 mg/dL [facility] Docker-CenTrak DaleComment: If a non-fasting specimen was collected, consider repeat triglyceride testing on a fasting specimen if clinically indicated. Coronado et al. J. of Clin. Lipidol. 2015;9:129-169. There is increased risk of pancreatitis when the triglyceride concentration is very high (> or = 500 mg/dL, especially if > or = 1000 mg/dL). Cliff et al. J. of Clin. Lipidol. 2015;9:129-169. LDL-CHOLESTEROLQuest Next Caller DaleComment: LDL cholesterol not calculated. Triglyceride levels greater than 400 mg/dL invalidate calculated LDL results. Reference range: <100 Desirable range <100 mg/dL for primary prevention; <70 mg/dL for patients with CHD or diabetic patients with > or = 2 CHD risk factors. LDL-C is now calculated using the Ne calculation, which is a validated novel method providing better accuracy than the Friedewald equation in the estimation of LDL-C. Dom SS et al. RANDY. 2013;310(90): 6601-5065 (http://education.Nonpareil/faq/IVZ911) CHOL/HDLC RATIO6.9(H)<5.0 (calc)SimpliV[facility]-CenTrak ScionhealtheNON HDL CHOLESTEROL 279(H)<130 mg/dL (calc)FlexyMind ScionhealtheComment: Non-HDL level > or = 220 is very high and may indicate genetic familial hypercholesterolemia (FH). Clinical assessment and measurement of blood lipid levels should be considered for all first-degree relatives of patients with an FH diagnosis. For patients with diabetes plus 1 major ASCVD risk factor, treating to a non-HDL-C goal of <100 mg/dL (LDL-C of <70 mg/dL) is considered a therapeutic option. Specimen (Source)Anatomical Location / LateralityCollection Method / Volume Collection TimeReceived TimeBloodBLOOD SPECIMEN / Eclyxtv1909/28/2024 1:41 PM CDT 09/28/2024 1:41 PM CDT Narrative Authorizing ProviderResult TypeResult StatusBarbere Elise Bullard MDCHEMISTRY Final ResultPerforming OrganizationAddressCity/State/ZIP CodePhone Number Truck[employer] [facility] [address] [place] [address], [facility] [address] [place] [address] * SDNA-FIT EXTERNAL (COLOGUARD) (10/01/2022 9:45 AM CDT)ComponentValueRef Range Test MethodAnalysis TimePerformed AtPathologist SignatureNONINV COLON CA DNA+OCC BLD SCRN STL-TDZRdwyamfaNkzdhond10/21/2023 5:37 PM CDTEXgBox (CLIA #:[id number])Comment: NEGATIVE TEST RESULT. A negative Cologuard result indicates a low likelihood that a colorectal cancer (CRC) or advanced adenoma (adenomatous polyps with more advanced pre-malignant features) ??is present. The chance that a person with a negative Cologuard test has a colorectal cancer is less than 1in 1500 (negative predictive value >99.9%) or has an advanced adenoma is less than 5.3% (negative predictive value 94.7%). These data are based on a prospective cross-sectional study of 10,000individuals at average risk for colorectal cancer who were screened with both Cologuard and colonoscopy. (Precious Gerard et al, N Engl J Med 2014;370(14):9319-1479) The normal value (reference range) for this assay is negative. COLOGUARD RE-SCREENING RECOMMENDATION: Periodic colorectal cancer screening is an important part ofpreventive healthcare for asymptomatic individuals at average risk for colorectal cancer. ??Following a negative Cologuard result, the [employer] Cancer Society and U.S. Multi-Society Task Force screening guidelines recommend a Cologuard re-screening interval of 3 years. References: [place] Cancer Society Guideline for Colorectal Cancer Screening: https://www.cancer.or g/cancer/vvwew-dnjgre-vzdoau/uprecuyzk-tmvjwqdik-agzcgxu/acs-recommendations.htm brittney; Eduardo FAITH, Christiano PARK, Anthony LaughlinK, Colorectal Cancer Screening: Recommendations for Physicians and Patients from the U.S. Multi-Society Task Force on Colorectal Cancer Screening , Am J Gastroenterology 2017; 112:8658-1999. TEST DESCRIPTION: Composite algorithmic analysis of stool DNA-biomarkers with hemoglobin immunoassay. ?? Quantitative values of individual biomarkers are not reportable and are not associated with individual biomarker result reference ranges. Cologuard is intended for colorectal cancer screening ofadults of either sex, 45 years or older, [...] screened with both Cologuard and colonoscopy. (Precious Gerard et al, N Engl J Med 2014;370(14):4733-6305.) Cologuard may produce a false negative or false positive result (no colorectal cancer or precancerous polyp present at colonoscopy follow up). A negative Cologuard test result does not guarantee the absence of CRC or advanced adenoma (pre-cancer). The current Cologuard screening interval is every 3 years. ([employer] Cancer Society and U.S. Multi-Society Task Force). Cologuard performance data in a 10,000 patient pivotal study using colonoscopy as the reference method can be accessed at the following location: www.ClearFlow/results. Additional description of the Cologuard test process, warnings and precautions can be found at www.cologuard.com. Specimen (Source)Anatomical Location / LateralityCollection Method / Volume Collection TimeReceived TimeStool specimen (specimen) (Rectum)10/01/2022 9:45 AM CDT10/02/2022 5:39 PM CDT Narrative Authorizing ProviderResult TypeResult StatusBarbere Elise Bullard MDURINEFinal ResultPerforming OrganizationAddressCity/State/ZIP CodePhone Number [employer] (CLIA #:[id number]) [place] [address], * (ABNORMAL) XR DXA BONE DENSITY 2 SITES AXIAL [59423.1] (09/12/2022 12:09 PM CDT)Anatomical RegionLateralityModalitySpine, HIPS, HIPL, HIPROtherSpecimen (Source)Anatomical Location / LateralityCollection Method / VolumeCollection TimeReceived Time Impressions 09/20/2022 4:47 PM CDT Osteopenia. RECOMMENDATIONS: [...] recommended in 3-5 years. Keely Phipps PA-C [facility] 09/20/2022 Narrative 09/20/2022 4:47 PM CDT For Patients: Results are automatically released to your [facility] ([employer]) account once available, in compliance with federal regulations. This means that you may see your results before your provider has had a chance to review them. Please allow 2-3 business days for your provider to comment on the results. XR DXA Bone Mineral Density (BMD) EXAM LOCATION: [address] [address] PATIENT NAME: Shira Philippe DATE OF : [...] two scanners are made by the same gas engine operator generators. PROCEDURE: Dual-energy x-ray absorptiometry performed with routine [...] 8.1%. 10-year probability of hip fracture: 0.9%. Authorizing ProviderResult TypeResult StatusSariah Bullard MDDEXAFinal Result * ANTI HCV (04/13/2019 9:56 AM SALES PRODUCT MANAGER)ComponentValueRef RangeTest MethodAnalysis TimePerformed AtPathologist SignatureHEPATITIS C ANTIBODYNon-Reactive Non-Mftokbbo70/26/2019 2:04 PM [facility]STSOUTH [facility] [employer] LAB[facility]-CENTRAL LABORATORY Comment:Antibodies to HCV not detected; does not exclude the possibility of exposure to HCV.Specimen (Source)Anatomical Location / LateralityCollection Method / VolumeCollection TimeReceived TimeBloodBLOOD SPECIMEN / Unknown Butterfly / Bekswkx9904/13/2019 9:56 AM CST04/13/2019 9:56 AM SALES PRODUCT MANAGER Narrative Authorizing ProviderResult TypeResult StatusSariah Bullard MDSEND OUTS Final ResultPerforming OrganizationAddressCity/State/ZIP CodePhone Number [facility] LAB[facility]CEN[facility]AL LAB[facility]AT[facility] [address] [place] [address], from Last 3 Months or Most Recently Relevant to Health Maintenance Insurance * Guarantor: Shira Philippe LAcckaden TypeRelation to PatientDate of PhoneBilling AddressPersonal/OhtjkyTljj15/06/1956 [address] [place] [address] * Guarantor: Shira Philippeount TypeRelation to PatientDate of PhoneBilling AddressWorkers GtoxOvkn18/06/1956 [address] [facility] [address] * Guarantor: Shira Philippe TypeRelation to PatientDate of PhoneBilling AddressPersonal/NffuwjUlad[birth year][address] [place] [address] Advance Directives * Full Code (Latest Code Status on File) Date ActivatedDate InactivatedComments08/26/2006 12:39 PM08/29/2006 4:34 PM * Full Code Date ActivatedDate InactivatedComments08/26/2006 8:43 AM08/26/2006 12:39 PM * Full Code Date ActivatedDate InactivatedComments09/18/2005 9:40 PM09/23/2005 2:38 PM * Full Code Date ActivatedDate InactivatedComments09/18/2005 6:32 PM09/18/2005 9:40 PM * Full Code Date ActivatedDate InactivatedComments09/18/2005 12:57 PM09/18/2005 6:32 PM Care Teams Team MemberRelationshipSpecialtyStart DateEnd Date Sariah Bullard MD [address] [place] [address] PCP - GeneralFamily Practice11/03/15 Remberto Medina MD [address] [place] [address] Sleep Medicine12/04/22 Kyler Quinones MD [address] [facility] [address] [place] [address] Endocrinology07/14/23 Cody Britton, PharmD [address] [place] [address] Pharmacist Medication ManagementPharmacology/
--- OUTSIDE RECORDS SUMMARY | 2025-04-11 16:50 | XMS_ITS | Patient Health Record ---
Author Organization [facility] Address [address] [place] [address] [address] [place] [address] Care Team Providers Care Customer Account Specialist Name Role Phone Sariah Bullard Primary Care Provider Unavailab Willard Card Unavailable [phone] Allergies No Known Allergies Reason For Referral No Information Medications Medication SIG (Take, Route, Frequency, Duration) Notes Start Date End Date Status Toprol XL 100 MG Tablet Extended Release 24 Hour 1 tablet Orally Once a day ActiveRosuvastatin Calcium 40 MG Tablet1 tablet Orally Once a dayActivemetFORMIN HCl 500 MG Tablet2 tablet with a meal Orally Once a dayActiveMagnesium Chloride ActiveVitamin DActiveglipiZIDE XL 10 MG Tablet Extended Release 24 Hour2 tablet with breakfast Orally Once a dayActiveCalciumActiveProtonix 40 MG Tablet Delayed Release1 tablet Orally Once a dayActiveCarisoprodol 350 MG Tablet1 tablet as needed Orally Three times a dayActiveJardiance 25 MG Tablet1 tablet Orally Once a dayActiveAcetaminophen ER 650 MG Tablet Extended Release2 tablets as needed Orally every 2 hrsActiveTorsemide 20 MG Tabletas directed Orally Once a day ActiveIbuprofen 200 MG Tablet2 tablet with food or milk as needed Orally as neededActiveDULoxetine HCl 20 MG Capsule Delayed Release Particles1 capsule Orally Once a dayActivePotassium Chloride 10 MEQ Packet1 packet with food Orally Twice a dayActiveTrulicity 1.5 MG/0.5ML Solution Pen-injectoras directed Subcutaneous weeklyActive Social History Tobacco Use: Social History Observation Description Date Details (start date - stop date) Never Smoker NA - NA Social History Drugs/Alcohol:Social InfoQuestionAnswerNotesAlcohol ScreenDid you have a drink containing alcohol in the past year?ZiXvjsua7VokzlifblrkwnhEzkznfmkZayajpd Use: Social InfoQuestionAnswerNotesTobacco Use/Smoking:Are you anonsmokerAdditional DetailsCategorySocial InfoOptionsDetailsMiscellaneous:Marital status:widowWork StatusEmployment StatusRetired Problems Problem Type SNOMED Code ICD Code Onset Dates Problem Status W/U Status Risk Notes Problem Chronic pain (22279689) Other chronic deangelo n (G89.29) ActiveconfirmedProblemAcquired spondylolisthesis (527060743)Spondylolisthesis, lumbar region (M43.16)ActiveconfirmedProblemLumbar spinal fusion (procedure) (52187214)Fusion of spine, lumbar region (M43.26)ActiveconfirmedProblemLow back pain (359471727)Low back pain, unspecified (M54.50)ActiveconfirmedProblemLumbar post-laminectomy syndrome (735457112)Lumbar post-laminectomy syndrome (M96.1) ActiveconfirmedProblemLumbar spinal stenosis (41858037)Spinal stenosis, lumbar (M48.061)ActiveconfirmedProblemLumbar radiculopathy (629276853)Radiculopathy Lumbar (M54.16)Activeconfirmed Plan Of Treatment No Information Insurance Providers Payer Name Payer Address Payer Phone Subscriber Number Group Number Insured Name Patient Relationship to Insured Coverage Start Date Coverage End Date Medicare Part B [employer] [address] [place] [address] [id number] Augusta Philippe - patient is the insuredTricare for Life (after )[address] Attn- Claims Department [place], [place] [id number], BlancheSelf - patient is the insured Medical (General) History Medical History History ICD Code Acid reflux AnxietyArthritisblood clotsType 2 diabeteshigh cholesterolsleep apneaheadaches HypertensionSurgical History Surgery Date(Month/Year) L1-2 and L4-21 decompression and L4-5 Fu kaitlin 09/18/2005 Hospitalization History Reason Date(Month/Year) Surgical reasons
--- OUTSIDE RECORDS SUMMARY | 2025-04-11 16:50 | XMS_ITS | Clinical Summary ---
Author Organization [facility] Address [address] [place] [address]. [place] [address] Care Team Providers Care Machine Coremaker Name Role Phone Sariah Bullard Primary Care Provider [phone] Allergies Active AllergyReactionsCriticalityNoted OeekFdghbamdFlgpYadtOlr76/19/2024 DroperidolOther (See Comments)07/24/2006MetforminNausea and Xaoakcmd77/25/2023 UynhcytmuDelsnIavq23/11/6443NxtyvlnikbrVnguhgcqv77/03/2018TitaniumOther (See Comments)High08/02/2015 Vici ill with titanium screws in back- removed 2005- Medications MedicationSigDispense QuantityRefillsLast FilledStart DateEnd DateStatus albuterol (PROAIR HFA/PROVENTIL HFA/VENTOLIN HFA) 108 (90 Base) MCG/ACT inhaler Inhale 1-2 puffs into the lungs as dexgka2111/19/2022ctive carisoprodol (SOMA) 350 MG tablet Take 350 mg by mouth 3 times daily as tjkimn2505/29/2023ctive doxycycline hyclate (VIBRA-TABS) 100 MG tablet Take 100 mg by mouth 2 times daily11/26/2022ctive TRULICITY 3 MG/0.5ML SOPN 1 Dose once a week02/14/2023ctive JARDIANCE 25 MG TABS tablet Take 25 mg by mouth daily09/12/2022ctive gabapentin (NEURONTIN) 300 MG capsule Take 600 mg by mouth 3 times daily07/29/2023ctive glipiZIDE (GLUCOTROL XL) 10 MG 24 hr tablet Take 10 mg by mouth daily09/12/2022ctive metFORMIN (GLUCOPHAGE XR) 500 MG 24 hr tablet Take 500 mg by mouth 2 times daily (with meals)06/05/2023ctive metoprolol succinate ER (TOPROL XL) 100 MG 24 hr tablet Take 100 mg by mouth daily09/12/2022ctive metroNIDAZOLE (METROCREAM) 0.75 % external cream Apply topically 2 times daily01/23/2023ctive potassium chloride ER (MICRO-K) 10 MEQ CR capsule Take 10 mEq by mouth daily02/20/2023ctive rosuvastatin (CRESTOR) 40 MG tablet Take 40 mg by mouth daily08/05/2023ctive torsemide (DEMADEX) 20 MG tablet Take 20 mg by mouth daily09/12/2022ctive Social History Tobacco UseTypesPacks/DayYears UsedDateSmoking Tobacco: NeverSmokeless Tobacco: Never Tobacco Cessation:Counseling Given: Not Answered PHQ-2AnswerDate RecordedPHQ-2 Swhoz045dolescent EducationAnswerDate RecordedGetting School Help NeededNot on file08/06/2023CommentsUnknown Sex and Gender InformationValueDate RecordedSex Assigned at BirthNot on file Legal EatAbtwlx21/04/2012 5:15 AM CSTGender IdentityNot on fileSexual OrientationNot on file Last Filed Vital Signs Vital SignReadingTime TakenCommentsBlood Kzsbrcoi666/78008/08/2023 1:50 PM CDT Bbdpw67508/19/2024 1:50 PM CDTTemperature--Respiratory Rate--Oxygen Saturation-- Inhaled Oxygen Concentration--Irkxun079.1 kg (234 lb)08/08/2023 1:50 PM CDT Jflygp940.4 cm (5')08/08/2023 1:50 PM CDTBody Mass Index45.704 1:50 PM CDT Plan of Treatment Health MaintenanceDue DateLast DoneCommentsADVANCE CARE JUYZQJFF83/06/1956NNUAL REVIEW OF HM KPVRNP04 1953T PZGVLSVVYHAR63/06/5877CRL63 1953FLEX SIG 1955 1772KFCIF03/06/1956MAMMO IKWSEDTIK60/06/4739JMUAWHJXNDQ60/06/1964DIABETES COKOJQRPW48FALL RISK OXIYBYMEOD83/06/2019DTAP/TDAP/TD VACCINE (3 - Td or Tdap)/02/2012, 11/02/1996MEDICARE ANNUAL WELLNESS VISIT /HQ-2 (once per calendar year)504/, 4COVID-19 VACCINE ( season)/, 05/03/2021, 08/08/2020, Additional history existsINFLUENZA VACCINE (#1)510/09/2022, 01/24/2023, 01/21/2020, Additional history existsCOLORECTAL CANCER SCREENING 10/01/2025sDNA (Cologuard)606/4724RISA26/25/69851609/12/2022HEPATITIS C HIUCDZXGSMpmrhrtbo38/24/2019ZOSTER MYPOUXSKnozdqwin04/17/2020, 06/24/2019 PNEUMOCOCCAL VACCINE 50+ SCVEBTtyuhmodv65/25/2023, 06/24/2016, 02/16/2016RSV JONYJHXJnnqlfoyj45/06/2023HPV VACCINE (No Doses Required)CompletedMENINGITIS VACCINEAged OutNo longer eligible based on patient's age to complete this topic Procedures Procedure NamePriorityDate/TimeAssociated DiagnosisCommentsHEMOGLOBIN H5TSjlahhg 01/31/2011 11:58 AM CDT from Last 3 Months or Most Recently Relevant to Health Maintenance Results * Hemoglobin A1c (01/31/2011 11:58 AM CDT)ComponentValueRef RangeTest Method Analysis TimePerformed AtPathologist SignatureHemoglobin A1C6.04.3 - 6.0 %OL[facility]STED MEDICAL CENTERpecimen (Source)Anatomical Location / LateralityCollection Method / VolumeCollection TimeReceived Time01/31/2011 11:58 AM CDT1 11:59 AM CDT Narrative Authorizing ProviderResult TypeResult StatusRoxana Jane Harmon MDLAB - BLOOD ORDERABLESFinal ResultPerforming OrganizationAddressCity/State/ZIP CodePhone Number M [facility] [address] [place] [address], [facility] [phone] from Last 3 Months or Most Recently Relevant to Health Maintenance Insurance Care Teams Team MemberRelationshipSpecialtyStart DateEnd Date Sariah Bullard [address] [place] [address] PCP - GeneralFamily Medicine08/08/23
--- NOTE | 2025-04-11 17:11 | ED.GENADULT ---
HPI - General Adult General Time Seen by Provider: 17:12 Date Seen: 04/11/25 Chief complaint: Extremity Pain/Injury, Upper Stated complaint: RT shoulder pain Time Seen by Provider: 04/11/25 17:11 Source: patient and RN notes reviewed Mode of arrival: ambulatory Limitations: no limitations Related Data Home Medications ?Medication ?Instructions ?Recorded ?Confirmed dulaglutide 1.5 mg/0.5 mL 1.5 mg subcut .weekly 12/14/21 04/11/25 subcutaneous pen injector (Trulicity) duloxetine 20 mg capsule,delayed 20 mg PO BID 12/14/21 04/11/25 release empagliflozin 25 mg tablet 25 mg PO DAILY 12/14/21 04/11/25 (Jardiance) glipizide 10 mg tablet, extended 20 mg PO BID 12/14/21 04/11/25 release 24 hr magnesium oxide 400 mg PO DAILY 12/14/21 04/11/25 potassium chloride 10 mEq 10 meq PO DAILY 12/14/21 04/11/25 tablet,extended release rosuvastatin 40 mg tablet 40 mg PO DAILY 12/14/21 04/11/25 torsemide 20 mg tablet 20 mg PO DAILY 12/14/21 04/11/25 metformin 1,000 mg tablet 1,000 mg PO QDAY 02/25/23 04/11/25 metoprolol succinate 25 mg 25 mg PO QDAY 02/25/23 04/11/25 tablet,extended release 24 hr (Toprol XL) pantoprazole 40 mg tablet,delayed 40 mg PO QDAY 02/25/23 04/11/25 release (Protonix) Allergies Allergy/AdvReac Type Severity Reaction Status Date / Time raspberry Allergy Intermediate Hives Verified 04/11/25 17:08 [facility] Medical History Sinusitis ?J32.9 - Chronic sinusitis, unspecified (ICD-10) Partial small bowel obstruction ?K56.600 - Partial intestinal obstruction, unspecified as to cause (ICD-10) Esophageal reflux ?K21.9 - Gastro-esophageal reflux disease without esophagitis (ICD-10) Unspecified essential hypertension ?I10 - Essential (primary) hypertension (ICD-10) Vitamin D deficiency ?E55.9 - Vitamin D deficiency, unspecified (ICD-10) MONTY (obstructive sleep apnea) ?G47.33 - Obstructive sleep apnea (adult) (pediatric) (ICD-10) Acute diverticulitis ?K57.92 - Diverticulitis of intestine, part unspecified, without perforation or abscess without bleeding (ICD-10) Pulmonary embolism, bilateral ?I26.99 - Other pulmonary embolism without acute cor pulmonale (ICD-10) DVT (deep venous thrombosis) ?I82.409 - Acute embolism and thrombosis of unspecified deep veins of unspecified lower extremity (ICD-10) Duodenal diverticulum ?K57.10 - Diverticulosis of small intestine without perforation or abscess without bleeding (ICD-10) Lumbar radiculopathy ?M54.16 - Radiculopathy, lumbar region (ICD-10) Type 2 diabetes mellitus ?E11.9 - Type 2 diabetes mellitus without complications (ICD-10) Surgical History History of lumbar laminectomy for spinal cord decompression ?Z98.890 - Other specified postprocedural states (ICD-10) History of cholecystectomy ?Z90.49 - Acquired absence of other specified parts of digestive tract (ICD-10) Hx of appendectomy ?Z90.49 - Acquired absence of other specified parts of digestive tract (ICD-10) Social History Smoking Status: Never smoker Do you use any of these nicotine containing products: None How often do you have a drink containing alcohol: never AUDIT-C Alcohol total score: 0 Non-prescribed substance use: denies use service: Yes Exam Const: Vital Signs, click to edit/add: Vital Signs - 24 hr 04/11/25 17:04 Temperature 97 F L Pulse Rate [Right Pulse Oximeter] 105 H Respiratory Rate 18 Blood Pressure [Le ft Upper Arm] 157/89 H Pulse Oximetry 94 Oxygen Delivery Me thod Nasal Cannula Oxygen Flow Rate 2 Course Vital Signs Vital signs: Initial Vital Signs Temperature 97 F L 04/11/25 17:04 Temperature Source Temporal Artery Scan 04/11/25 17:04 Pulse Rate 105 H 04/11/25 17:04 Pulse Rhythm Regular 04/11/25 17:04 Pulse Strength 3+ Normal 04/11/25 17:04 Respiratory Rate 18 04/11/25 17:04 Blood Pressure 157/89 H 04/11/25 17:04 Blood Pressure Mean 111 H 04/11/25 17:04 Blood Pressure Position Sitting 04/11/25 17:04 Pulse Oximetry 94 04/11/25 17:04 Oxygen Delivery Method Nasal Cannula 04/11/25 17:04 Oxygen Flow Rate 2 04/11/25 17:04 Vital Signs Temperature 97 F L 04/11/25 17:04 Pulse Rate 105 H 04/11/25 17:04 Respiratory Rate 18 04/11/25 17:04 Blood Pressure 157/89 H 04/11/25 17:04 Pulse Oximetry 94 04/11/25 17:04 Oxygen Delivery Method Nasal Cannula 04/11/25 17:04 Oxygen Flow Rate 2 04/11/25 17:04 Temperature 97 F L 04/11/25 17:04 Pulse Rate 105 H 04/11/25 17:04 Respiratory Rate 18 04/11/25 17:04 Blood Pressure 157/89 H 04/11/25 17:04 Pulse Oximetry 94 04/11/25 17:04 Oxygen Delivery Method Nasal Cannula 04/11/25 17:04 Oxygen Flow Rate 2 04/11/25 17:04 Discharge Plan Discharge Prescriptions: No Action pantoprazole [Protonix] 40 mg tablet,delayed release (DR/EC) 40 mg PO QDAY metoprolol succinate [Toprol XL] 25 mg tablet extended release 24 hr 25 mg PO QDAY metformin 1,000 mg tablet 1,000 mg PO QDAY Trulicity 1.5 mg/0.5 mL pen injector 1.5 mg SUBCUT .weekly duloxetine 20 mg capsule,delayed release(DR/EC) 20 mg PO BID Jardiance 25 mg tablet 25 mg PO DAILY glipizide 10 mg tablet extended release 24hr 20 mg PO BID potassium chloride 10 mEq tablet extended release 10 meq PO DAILY rosuvastatin 40 mg tablet 40 mg PO DAILY torsemide 20 mg tablet 20 mg PO DAILY magnesium oxide 400 mg magnesium capsule 400 mg PO DAILY Follow Up/Referrals: Sariah Bullard MD [Primary Care Provider, Family Practice]
--- NOTE | 2025-04-11 17:12 | ED.GENADULT ---
HPI - General Adult General Time Seen by Provider: 17:13 Date Seen: 04/11/25 Chief complaint: Extremity Pain/Injury, Upper Stated complaint: RT shoulder pain Time Seen by Provider: 04/11/25 17:11 Source: patient, EMS and RN notes reviewed Mode of arrival: EMS Limitations: no limitations History of Present Illness HPI narrative: This 69-year-old female was brought in by EMS after a fall. She was trying to get to the bathroom quick as she is on Lasix and had urinate. She had been in the kitchen baking a cake and was attempting to get to the bathroom quick. She believes she just tripped on the carpet, catching her foot. She went down on the fireplace an hit her right side. She has pain in the right shoulder area that radiates up into the neck and down into the forearm. She does not have a complaint of neck pain itself, states she can move her neck but she is feeling sharp pain radiating towards her neck. There was no loss of consciousness, she did not hit her head. She is not on a blood thinner. She is having no difficulty breathing, no shortness of breath, no chest wall pain. She has no numbness or tingling in the right arm, can move her fingers and her hand as long as she keeps the upper arm along her body. EMS did place an IV, did give her pain meds but she is still in significant pain. She does have obstructive sleep apnea and uses CPAP. Related Data Home Medications ?Medication ?Instructions ?Recorded ?Confirmed dulaglutide 1.5 mg/0.5 mL 1.5 mg subcut .weekly 12/14/21 04/11/25 subcutaneous pen injector (Trulicity) duloxetine 20 mg capsule,delayed 20 mg PO BID 12/14/21 04/11/25 release empagliflozin 25 mg tablet 25 mg PO DAILY 12/14/21 04/11/25 (Jardiance) glipizide 10 mg tablet, extended 20 mg PO BID 12/14/21 04/11/25 release 24 hr magnesium oxide 400 mg PO DAILY 12/14/21 04/11/25 potassium chloride 10 mEq 10 meq PO DAILY 12/14/21 04/11/25 tablet,extended release rosuvastatin 40 mg tablet 40 mg PO DAILY 12/14/21 04/11/25 torsemide 20 mg tablet 20 mg PO DAILY 12/14/21 04/11/25 metformin 1,000 mg tablet 1,000 mg PO QDAY 02/25/23 04/11/25 metoprolol succinate 25 mg 25 mg PO QDAY 02/25/23 04/11/25 tablet,extended release 24 hr (Toprol XL) pantoprazole 40 mg tablet,delayed 40 mg PO QDAY 02/25/23 04/11/25 release (Protonix) Previous Rx's ?Medication ?Instructions ?Recorded oxycodone 5 mg tablet 5 mg PO Q6H PRN pain #20 tabs 04/11/25 Allergies Allergy/AdvReac Type Severity Reaction Status Date / Time raspberry Allergy Intermediate Hives Verified 04/11/25 17:08 Review of Systems Status of ROS: Reports: 6 or more systems reviewed and unremarkable except as noted in History and below [facility] Medical History Sinusitis ?J32.9 - Chronic sinusitis, unspecified (ICD-10) Partial small bowel obstruction ?K56.600 - Partial intestinal obstruction, unspecified as to cause (ICD-10) Esophageal reflux ?K21.9 - Gastro-esophageal reflux disease without esophagitis (ICD-10) Unspecified essential hypertension ?I10 - Essential (primary) hypertension (ICD-10) Vitamin D deficiency ?E55.9 - Vitamin D deficiency, unspecified (ICD-10) MONTY (obstructive sleep apnea) ?G47.33 - Obstructive sleep apnea (adult) (pediatric) (ICD-10) Acute diverticulitis ?K57.92 - Diverticulitis of intestine, part unspecified, without perforation or abscess without bleeding (ICD-10) Pulmonary embolism, bilateral ?I26.99 - Other pulmonary embolism without acute cor pulmonale (ICD-10) DVT (deep venous thrombosis) ?I82.409 - Acute embolism and thrombosis of unspecified deep veins of unspecified lower extremity (ICD-10) Duodenal diverticulum ?K57.10 - Diverticulosis of small intestine without perforation or abscess without bleeding (ICD-10) Lumbar radiculopathy ?M54.16 - Radiculopathy, lumbar region (ICD-10) Type 2 diabetes mellitus ?E11.9 - Type 2 diabetes mellitus without complications (ICD-10) Surgical History History of lumbar laminectomy for spinal cord decompression ?Z98.890 - Other specified postprocedural states (ICD-10) History of cholecystectomy ?Z90.49 - Acquired absence of other specified parts of digestive tract (ICD-10) Hx of appendectomy ?Z90.49 - Acquired absence of other specified parts of digestive tract (ICD-10) Social History Smoking Status: Never smoker Do you use any of these nicotine containing products: None How often do you have a drink containing alcohol: never AUDIT-C Alcohol total score: 0 Non-prescribed substance use: denies use service: Yes Exam Const: Vital Signs, click to edit/add: Vital Signs - 24 hr 04/11/25 17:04 04/11/25 17:06 04/11/25 17:15 Temperature 97 F L Pulse Rate 102 H 103 H Pulse Rate [Right Pulse Oximeter] 105 H Respiratory Rate 18 Blood Pressure [Le ft Upper Arm] 157/89 H Pulse Oximetry 94 94 93 Oxygen Delivery Me thod Nasal Cannula Oxygen Flow Rate 2 04/11/25 17:19 04/11/25 18:02 04/11/25 18:15 Temperature Pulse Rate 104 H 107 H 104 H Pulse Rate [Right Pulse Oximeter] Respiratory Rate 18 Blood Pressure [Le ft Upper Arm] Pulse Oximetry 96 92 89 Oxygen Delivery Me thod Oxygen Flow Rate 04/11/25 18:33 04/11/25 18:45 04/11/25 19:00 Temperature Pulse Rate 109 H 106 H 108 H Pulse Rate [Right Pulse Oximeter] Respiratory Rate Blood Pressure [Le ft Upper Arm] Pulse Oximetry 91 92 94 Oxygen Delivery Me thod Oxygen Flow Rate 04/11/25 19:15 Temperature Pulse Rate 111 H Pulse Rate [Right Pulse Oximeter] Respiratory Rate 18 Blood Pressure [Le ft Upper Arm] Pulse Oximetry 91 Oxygen Delivery Me thod Oxygen Flow Rate This 69-year-old female is alert, interactive, no apparent stress. She has oxygen on, uses chronic oxygen. Face atraumatic, sclera clear. Able speak in complete sentences. She does not have any midline tenderness of her neck, no paraspinous tenderness but does complain of shooting pain going towards and into her neck. She has no visible ecchymosis or soft tissue swelling along the upper shoulder area. She is tender over the right shoulder, glenohumeral joint and into the humerus. Lungs are clear, good air entry, no wheezing crackles, no tachypnea, no accessory muscle use. CV regular rate and rhythm, no murmur, normal S1-S2. When I palpate the malleoli and the olecranon of her elbow, there is no pain. Range of motion of the elbow causes pain into the humerus but not the elbow itself. Forearm, wrist, hand and fingers on the right side are normal. She has no pain or traumatic change of her legs or left arm. Documenting provider has reviewed patient's vital signs: yes Course Course ED Course: We will give her some IV fentanyl prior to having imaging done. We are going to do a cervical neck CT without contrast just to ensure no neck fracture with the radiating pain. Will do one-view chest, x-ray of her shoulder with encompassing the humerus. Need to rule out fracture. Reevaluation(s) Time of Reevaluation #1: 19:53 Reevaluation #1: Have ordered marie 5 of oral oxycodone. Will give her some IV fentanyl and some IV Tylenol while we put the splint on. She is no doubt uncomfortable, we have reviewed that this is not going to be easy, she is going to have discomfort. She had requested hospitalization for pain management, reviewed with her that that is not a covered insurance cost diagnosis. She is not looking to go to transitional care unit, pain management is not something the hospitalist admits for. Will provide 10 tablets of 5 mg oxycodone from [facility] and 20 to the pharmacy, she is going to need some extended coverage due to the holiday. Consultations Consultation #1: Reviewed with Coleen CROWE from Orthopedics. She can see the images. She states this is very minimally displaced so it will be non operative. Pain management and sling, she will have staff reach out to her tomorrow to get an orthopedic follow-up. She did state that it maybe next week on account of the holidays, I will let patient know that. Will have nursing staff provide a sling. Still awaiting Radiology over read of her images but did visualize the humeral head fracture and called Orthopedics. Will update Shira, talk to her about pain management. Time: 18:51 Vital Signs Vital signs: Initial Vital Signs Temperature 97 F L 04/11/25 17:04 Temperature Source Temporal Artery Scan 04/11/25 17:04 Pulse Rate 105 H 04/11/25 17:04 Pulse Rhythm Regular 04/11/25 17:04 Pulse Strength 3+ Normal 04/11/25 17:04 Respiratory Rate 18 04/11/25 17:04 Blood Pressure 157/89 H 04/11/25 17:04 Blood Pressure Mean 111 H 04/11/25 17:04 Blood Pressure Position Sitting 04/11/25 17:04 Pulse Oximetry 94 04/11/25 17:04 Oxygen Delivery Method Nasal Cannula 04/11/25 17:04 Oxygen Flow Rate 2 04/11/25 17:04 Vital Signs Temperature 97 F L 04/11/25 17:04 Pulse Rate 105 H 04/11/25 17:04 Respiratory Rate 18 04/11/25 17:04 Blood Pressure 157/89 H 04/11/25 17:04 Pulse Oximetry 94 04/11/25 17:04 Oxygen Delivery Method Nasal Cannula 04/11/25 17:04 Oxygen Flow Rate 2 04/11/25 17:04 Temperature 97 F L 04/11/25 17:04 Pulse Rate 106 H 04/11/25 20:15 Respiratory Rate 18 04/11/25 20:15 Blood Pressure 157/89 H 04/11/25 17:04 Pulse Oximetry 93 04/11/25 20:15 Oxygen Delivery Method Nasal Cannula 04/11/25 17:04 Oxygen Flow Rate 2 04/11/25 17:04 Medications Administered Medications: Discontinued Medications Generic Name Dose Route Start Last Admin Trade Name Albaro PRN Reason Stop Dose Admin Fentanyl 50 mcg 04/11/25 17:22 04/11/25 17:42 Fentanyl 100 Mcg/2 Ml Inj IVP 04/11/25 17:23 50 mcg ONCE ONE Administration Fentanyl 50 mcg 04/11/25 19:56 04/11/25 20:17 Fentanyl 100 Mcg/2 Ml Inj IVP 04/11/25 19:57 50 mcg ONCE ONE Administration Acetaminophen 1,000 mg in 100 mls @ 400 mls/hr 04/11/25 19:38 04/11/25 20:13 Acetaminophen Inj IVPB 04/11/25 19:52 Infused ONCE ONE Infusion Oxycodone HCl 5 mg 04/11/25 19:38 04/11/25 19:44 Oxycodone 5 Mg Tablet PO 04/11/25 19:39 5 mg ONCE ONE Administration Medical Decision Making Imaging Data CT cervical spine: Attestation: I have reviewed the pertinent imaging results. Radiologist's impression: Patient: SHIRA DILLARD Facility:?[facility] Patient ID:?[id number] Site Patient ID:?[id number]. Site :?[id number] Study:?CT-Spine Cervical W/O-04/11/2025 5:56:32 PM Ordering Physician:?Manuelito Perry Final Report: Indication: Fall Technique: Noncontrast axial CT of the cervical spine with coronal and sagittal reformats are provided. Comparison: No prior studies available for comparison at this institution. Findings: Moderate degenerative changes at the atlantoaxial articulation. Grade 1 anterolisthesis at C3-4 and C5-6. Severe interspace narrowing at C6-7. Prominent anterior osteophytes at multiple levels. No acute fractures. No prevertebral or paraspinal edema. Incidental degenerative subchondral cyst in the C7 superior endplate. C1-2: No spinal canal stenosis C2-3: Moderate left facet joint arthrosis. No significant spinal canal stenosis or neural foraminal narrowing. C3-4: Mild disc bulge. Grade 1 anterolisthesis. Bilateral facet arthrosis. No significant spinal canal stenosis or neural foraminal narrowing. C4-5: No significant spinal canal stenosis or neural foraminal narrowing. C5-6: Grade 1 anterolisthesis. Moderate right and mild left facet joint arthrosis. Shallow disc bulge. No significant spinal canal stenosis. Mild bilateral neural foraminal narrowing. C6-7: Shallow disc osteophyte complex and uncovertebral joint hypertrophy. Moderate left and [id number] right neural foraminal narrowing. Shallow disc osteophyte complex. No significant spinal canal stenosis. C7-T1: No significant spinal canal stenosis or neural foraminal narrowing. Impression: 1. No convincing radiographic evidence of acute osseous injury. 2. Scattered degenerative changes of the cervical spine. Please note that all CT scans at this facility use dose modulation, iterative reconstruction, and/or weight-based dosing when appropriate to reduce radiation dose to as low as reasonably achievable. Dictated by Colby Calhoun MD @ 04/11/2025 6:45:52 PM (Electronic Signature) Chest x-ray: Attestation: I have reviewed the pertinent imaging results. Radiologist's impression: Patient: SHIRA DILLARD Facility:?[facility] Patient ID:?[id number] Site Patient ID:?[id number]. Site :?[id number] Study:?XRay-Chest 1V-04/11/2025 5:58:59 PM Ordering Physician:Mychal Perry Final Report: Indication: Trauma. Technique: Chest 1 view. Comparison: Chest x-ray 09/15/2024. Findings/Impression: The heart is not abnormally enlarged. Mediastinal contours are grossly within normal limits. No definite confluent airspace opacity. No pleural effusion or pneumothorax. Fracture of the right proximal humerus, better characterized on same day right shoulder radiographs. Dictated by Ata Marie MD @ 04/11/2025 7:00:18 PM (Electronic Signature) XR right shoulder: Attestation: I have reviewed the pertinent imaging results. My impression: Humeral head fracture visualized, did review radiology over-read. Radiologist's impression: Patient: SHIRA DILLARD Facility:?[facility] Patient ID:?[id number] Site Patient ID:?[id number]. Site :?[id number] Study:?XRay-Shoulder Right 3V-04/11/2025 5:57:07 PM Ordering Physician:?Manuelito Perry Final Report: Indication: Trauma. Technique: Three views of the right shoulder. Comparison: None. Findings/Impression: Comminuted, displaced fracture of the proximal humerus with involvement of the greater tuberosity and surgical neck. No dislocation. Degenerative changes at the glenohumeral and acromioclavicular joint spaces. Dictated by Ata Marie MD @ 04/11/2025 6:59:14 PM (Electronic Signature) Discharge Plan Discharge Clinical Impression: Fall Qualifiers: Encounter type: initial encounter Qualified Code(s): W19.XXXA - Unspecified fall, initial encounter Fracture of head of humerus Qualifiers: Encounter type: initial encounter Fracture type: closed Laterality: right Qualified Code(s): S42.291A - Other displaced fracture of upper end of right humerus, initial encounter for closed fracture Patient Disposition: Home, Self-Care Condition: Stable Instructions: Arm Fracture in Adults (ED) Additional Instructions: Need to use sling for immobilization and comfort. Ice pack this area to help decrease pain and swelling. You may find benefit with using a recliner right now for sleep and sitting. Can adjust pillows around the shoulder and arm for comfort. Tylenol 1000 mg 3 times a day baseline for pain. Have written for oxycodone and I have provided more tablets than what we typically would because there is going to be a holiday in you are not likely going to be able to follow up with Orthopedics until next week. I do for see that you are going to need this level of pain management given her level of discomfort here. Narcotics can be constipating, take dairy MiraLax 17 g and add additional senna 1-2 pills once to twice a day as needed to have a soft but formed bowel movement daily and avoid constipation. The orthopedic office will be calling you with your follow-up appointment but it may not be until next week that this appointment happens because of the holiday. Activity Level: Activity as Tolerated Prescriptions: New oxycodone 5 mg tablet 5 mg PO Q6H PRN (Reason: pain) Qty: 20 0RF No Action pantoprazole [Protonix] 40 mg tablet,delayed release (DR/EC) 40 mg PO QDAY metoprolol succinate [Toprol XL] 25 mg tablet extended release 24 hr 25 mg PO QDAY metformin 1,000 mg tablet 1,000 mg PO QDAY Trulicity 1.5 mg/0.5 mL pen injector 1.5 mg SUBCUT .weekly duloxetine 20 mg capsule,delayed release(DR/EC) 20 mg PO BID Jardiance 25 mg tablet 25 mg PO DAILY glipizide 10 mg tablet extended release 24hr 20 mg PO BID potassium chloride 10 mEq tablet extended release 10 meq PO DAILY rosuvastatin 40 mg tablet 40 mg PO DAILY torsemide 20 mg tablet 20 mg PO DAILY magnesium oxide 400 mg magnesium capsule 400 mg PO DAILY Follow Up/Referrals: Sariah Bullard MD [Primary Care Provider, Family Practice] Stand Alone Forms: [employer] Info Instructions
--- NOTE | 2025-04-11 17:22 | CRLHL7_ITS ---
For Patients: As a result of the Century Cures Act, medical imaging exams and procedure reports are released immediately into your electronic medical record. You may view this report before your referring provider. If you have questions, please contact your health care provider. Indication: Fall Technique: Noncontrast axial CT of the cervical spine with coronal and sagittal reformats are provided. Comparison: No prior studies available for comparison at this institution. Findings: Moderate degenerative changes at the atlantoaxial articulation. Grade 1 anterolisthesis at C3-4 and C5-6. Severe interspace narrowing at C6-7. Prominent anterior osteophytes at multiple levels. No acute fractures. No prevertebral or paraspinal edema. Incidental degenerative subchondral cyst in the C7 superior endplate. C1-2: No spinal canal stenosis C2-3: Moderate left facet joint arthrosis. No significant spinal canal stenosis or neural foraminal narrowing. C3-4: Mild disc bulge. Grade 1 anterolisthesis. Bilateral facet arthrosis. No significant spinal canal stenosis or neural foraminal narrowing. C4-5: No significant spinal canal stenosis or neural foraminal narrowing. C5-6: Grade 1 anterolisthesis. Moderate right and mild left facet joint arthrosis. Shallow disc bulge. No significant spinal canal stenosis. Mild bilateral neural foraminal narrowing. C6-7: Shallow disc osteophyte complex and uncovertebral joint hypertrophy. Moderate left and [id number] right neural foraminal narrowing. Shallow disc osteophyte complex. No significant spinal canal stenosis. C7-T1: No significant spinal canal stenosis or neural foraminal narrowing. Impression: 1. No convincing radiographic evidence of acute osseous injury. 2. Scattered degenerative changes of the cervical spine. Please note that all CT scans at this facility use dose modulation, iterative reconstruction, and/or weight-based dosing when appropriate to reduce radiation dose to as low as reasonably achievable. Dictated by Colby Calhoun MD @ 04/11/2025 6:45:52 PM (Electronically Signed)
--- NOTE | 2025-04-11 17:22 | CRLHL7_ITS ---
For Patients: As a result of the Cures Act, medical imaging exams and procedure reports are released immediately into your electronic medical record. You may view this report before your referring provider. If you have questions, please contact your health care provider. Indication: Trauma. Technique: Three views of the right shoulder. Comparison: None. Findings/Impression: Comminuted, displaced fracture of the proximal humerus with involvement of the greater tuberosity and surgical neck. No dislocation. Degenerative changes at the glenohumeral and acromioclavicular joint spaces. Dictated by Ata Marie MD @ 04/11/2025 6:59:14 PM (Electronically Signed)
--- NOTE | 2025-04-11 17:29 | CRLHL7_ITS ---
For Patients: As a result of the Century Cures Act, medical imaging exams and procedure reports are released immediately into your electronic medical record. You may view this report before your referring provider. If you have questions, please contact your health care provider. Indication: Trauma. Technique: Chest 1 view. Comparison: Chest x-ray 09/15/2024. Findings/Impression: The heart is not abnormally enlarged. Mediastinal contours are grossly within normal limits. No definite confluent airspace opacity. No pleural effusion or pneumothorax. Fracture of the right proximal humerus, better characterized on same day right shoulder radiographs. Dictated by Ata Marie MD @ 04/11/2025 7:00:18 PM (Electronically Signed)
--- OUTSIDE RECORDS SUMMARY | 2025-04-11 17:31 | XMS_ITS | Patient Health Record ---
Author Organization [facility] Address [address] [place] [address] Phone [phone] Care Team Providers Care Laboratory Monitor Name Role Phone Sariah Bullard Primary Care Provider Broderick Cleaning MD, [facility] Allergies Allergen (clinical drug ingredient) Drug/Non Drug [...] a drink containing alcohol in the past year?XpPmfjop1OutmyrikzliipmWnnjxtav Tobacco Use:Social InfoQuestionAnswerNotesTobacco Control (Standard)Tobacco use: Nonsmoker Problems Problem Type SNOMED Code ICD Code Dates Problem Status W/U Sta tus Risk Notes Problem Sensory disorder of smell and/or taste (3876426413348) Disturbance of smell and taste (R43.9) Added On:12/14/2024 Active confirmed ProblemChronic sinusitis (59111717)Chronic sinusitis, unspecified location (J32.9) Added On:11/30/2024 ActiveconfirmedProblemDysfunction of both eustachian tubes (1336581515429183) Dysfunction of both eustachian tubes (H69.93) Added On:11/30/2024 Activeconfirmed Vital Signs Vital Sign Value Notes Appt Date Height-cm 153.67 cm 12/14/2024Weight-kg104.33 kg12/14/20249023Wibxte36.5 in12/14/20247814Jqicnq774 lbs 12/14/2024BMI44.17 kg/m212/14/2024 Encounters Date Time Type Facility Location Provider Diagnosis 11:15 AM New Patient Visit Mod. Complex (85772) [facility] [address] [place] [address] MELITON GTZ Chronic sinusitis, unspecified location J32.9 and Dysfunction of both eustachian tubes H69.93 11:15 AM Est. Patient Visit Moderate (48813) [facility] [address] [facility] [address] [place] [address] MELITON GTZ Disturbance of smell and taste [...] persist or worsen.11/30/2024OtherBody mass index material was dlsyknfcz18/26/2025OtherBody mass index material was published Plan Of Treatment No Information Insurance Providers Payer Name Payer Address Payer Phone Subscriber Number Group Number Insured Name Patient Relationship to Insured Coverage Start Date Coverage End Date MEDICARE [address] [place], [place] [phone] [id number] Philippe - patient is the [id number] [address] [place] [id number], LarrySpouse - patient is the spouse of the insured Medical (General) History Surgical History Surgery Date(Month/Year) back surgery x 2 2006 bowel resection 2007 Hospitalization History Reason Date(Month/Year) see above
[2025-04-11] MEDS: ACETAMINOPHEN INJ 1,000 MG/100 ML VIAL 400 MG IVPB (20:03)
== END 2025-04-11 20:43 | disposition home or self-care (01) ==
PROVIDERS: Emergency Provider Family Medicine; PCP Family Medicine
DX: S42.251A Displaced fracture of greater tuberosity of right humerus, initial encounter for closed fracture (principal); S42.211A Unspecified displaced fracture of surgical neck of right humerus, initial encounter for closed fracture; W01.0XXA Fall on same level from slipping, tripping and stumbling without subsequent striking against object, initial encounter
CPT/HCPCS: 71045; 72125; 73030; 94761; 96365; 96375; 99284; A9270; J0131; J3010